=== PATIENT | male | born 1950 | race Caucasian/White ===

== ENCOUNTER 2018-08-23 08:32 | Inpatient (IN) | payer MEDICARE, MEDICAID, SELFPAY ==
[2018-08-23] VITALS (29 sets, daily range): BP systolic 73–121; BP diastolic 42–74; PULSE 80–118; RESP 15–27; TEMP 36.3–39; O2SAT 95–98; BMI 21.1
[2018-08-23] MEDS: SODIUM CHLORIDE 0.9% 788 ML IV (09:21)
[2018-08-23 09:25] LABS: Add Manual Diff / Slide Review NO; Basophils Absolute Auto 100 /uL (0-100); Basophils Percent Auto 0.3 % (0-2); Eosinophils Absolute Auto 0 /uL (0-450); Hematocrit 34.9 % (41-53); Hemoglobin 11.9 g/dL (13.5-17.5); Lymphocytes Absolute Auto 1300 /uL (1100-4500); Lymphocytes Percent Auto 5.3 % (25-40); Mean Corpuscular HGB Conc 34.2 % (30-36); Mean Corpuscular Hemoglobin 28.6 PG (26-34); Mean Corpuscular Volume 83.4 fL (80-100); Monocytes Absolute Auto 2300 /uL (0-900); Monocytes Percent Auto 9.1 % (3-14); Neutrophils Absolute Auto 21200 /uL (1500-7000); Neutrophils Percent Auto 85.3 % (50-75); Platelet Count 309 X10^3/uL (150-400); Red Blood Cell Count 4.18 X10^6/uL (4.5-5.9); Red Cell Distribution Width 16.2 % (11.6-14.8); White Blood Cell Count 24.8 X10^3/uL (4.5-11.0)
[2018-08-23 09:37] LABS: Alanine Aminotransferase 12 IU/L (21-72); Albumin 4.2 g/dL (3.5-5.0); Albumin Globulin Ratio 0.9 (1.0-2.8); Alkaline Phosphatase 68 U/L (38-126); Aspartate Aminotransferase 26 IU/L (17-59); BUN Creatinine Ratio 18.4 (6-22); Bilirubin Total 1.6 mg/dL (0.2-1.3); Blood Urea Nitrogen 35 mg/dL (9-20); Carbon Dioxide 23 mmol/L (22-32); Chloride 96 mmol/L (98-107); Estimated Glomerular Filt Rate 35.5 mL/min (>60); Globulin 4.7 g/dL (1.7-4.1); Glucose 210 mg/dL (80-110); HEMOLYSIS < 15 (0-50); Lipase 105 U/L (23-300); Potassium 3.3 mmol/L (3.4-5.1); Sodium 134 mmol/L (137-145); Total Protein 8.9 g/dL (6.3-8.2)
[2018-08-23 09:38] LABS: Lactate (Lactic Acid) 1.8 mmol/L (0.7-2.1)
[2018-08-23 09:44] LABS: Bacteria Urine Many (>30); RBC Urine 30-100/HPF (0-5/HPF); WBC Urine 30-100/HPF (0-5/HPF)
[2018-08-23 09:45] LABS: Culture Indicated Urine Specimen Cultured
[2018-08-23 09:52] LABS: Procalcitonin 1.33 ng/mL (<0.5)
--- NOTE | 2018-08-23 09:58 | DI.US.S_ITS ---
PROCEDURE: US RENAL COMPLETE INDICATIONS: SEPSIS; HEMATURIA TECHNIQUE: Real-time scanning was performed of the kidneys and bladder, with image documentation. COMPARISON: None. FINDINGS: Kidneys: Kidneys are normal in size. Right kidney measures 11.3 cm long; left kidney measures 11.6 cm long. Right renal cortical thickness is 1.8 cm; left renal cortical thickness is 2.0 cm. Renal cortical echotexture is normal. No hydronephrosis or shadowing nephrolithiasis. No suspicious solid mass lesions. Bladder: Miscellaneous: No free pelvic fluid. IMPRESSION: Unremarkable kidneys. No hydronephrosis or shadowing renal calculi. Dictated by: Tristin Hernandez M.D. on 08/23/2018 at 9:31 Approved by: Tristin Hernandez M.D. on 08/23/2018 at 9:52
--- NOTE | 2018-08-23 10:05 | ED.WEAKNESS ---
HPI - Weakness General Chief complaint: Abdominal Pain Stated complaint: Ulcer & very weak T-3 days Time Seen by Provider: 08/23/18 08:36 Source: patient and family Mode of arrival: wheelchair Limitations: no limitations History of Present Illness HPI Narrative: 67-year-old male former smoker with few medical problems other than chronic pain and peptic ulcer disease presents feeling very weak over the past few days. He has had fever and chills as well as nausea and decreased appetite but little in the way of specific complaints to suggest possible source of infection. He has become so weak that he can barely get out of bed and will not do so as he fears he will fall and hurt himself. He has decreased appetite and nausea as mentioned but denies any chest or abdominal pain. He denies any specific urinary complaints such as frequency, urgency or hematuria. He is a rather poor historian. His primary care provider is in [place]. He denies any loose stool. He denies any bloody stools or dark and tarry stools MD Complaint: generalized weakness Onset (ago): day(s) Duration: constant Location: generalized Migration: none Relieving factors: none Exacerbating factors: none Associated symptoms: fever/chills, loss of appetite and nausea/vomiting Related Data Home Medications Medication Instructions Recorded Confirmed atenolol 0.5 tab PO DAILY 08/23/18 08/23/18 cyanocobalamin (vitamin B-12) 100 mcg PO DAILY 08/23/18 08/23/18 golimumab [Simponi] 0.5 ml SUBCUT DIRECTED 08/23/18 08/23/18 hydrochlorothiazide 1 tab PO DAILY 08/23/18 08/23/18 omega-3 fatty acids 500 mg PO DAILY 08/23/18 08/23/18 oxycodone 5 mg PO QID 08/23/18 08/23/18 pantoprazole 40 mg PO DAILY 08/23/18 08/23/18 pyridoxine (vitamin B6) [Vitamin See Rx Instructions .ROUTE .COMPLEX 08/23/18 08/23/18 B-6] ranitidine HCl 150 mg PO DAILY 08/23/18 08/23/18 Allergies Allergy/AdvReac Type Severity Reaction Status Date / Time No Known Drug Allergies Allergy Verified 08/23/18 10:36 Review of Systems Constitutional Denies chills, Denies fever(s), Denies lethargy and Denies weakness Eyes Denies change in vision, Denies eye discharge, Denies irritation and Denies loss of vision ENT Ears, Nose, Mouth, and Throat: Denies change in voice, Denies neck pain and Denies sore throat Cardiovascular Denies chest pain, Denies irregular heart rhythm, Denies lightheadedness, Denies palpitations, Denies dyspnea, Denies dyspnea on exertion and Denies orthopnea Respiratory Denies cough, Denies dyspnea, Denies dyspnea on exertion and Denies wheezing Gastrointestinal Gastrointestinal: Denies abdominal pain, Denies change in bowel habits, Denies diarrhea, Denies nausea and Denies vomiting Genitourinary Denies hematuria, Denies flank pain, Denies urinary incontinence and Denies urinary urgency Musculoskeletal Denies neck pain Integumentary/Breasts Denies pruritus, Denies erythema, Denies rash and Denies wounds Neurologic Denies confusion, Denies loss of vision and Denies weakness Psychiatric Denies anxiety, Denies confusion, Denies depression, Denies homicidal ideation and Denies suicidal ideation Endocrine Denies palpitations Hematologic/Lymphatic Denies easy bruising Allergic/Immunologic Denies wheezing PENDING SALE TO [facility] Medical History (Updated 08/23/18 @ 14:02 by Aubrey Vaca RN) Ankylosing spondylitis (Acute) Santacruz's palsy (Acute) Chronic pain (Acute) Dental caries (Acute) HTN (hypertension) (Acute) Immunocompromised state (Acute) Insomnia (Acute) Meningitis (Acute) Paroxysmal atrial fibrillation (Acute) Sepsis (Acute) Septic shock (Acute) Skin cancer (Acute) Stupor (Acute) Thrombocytopenia (Acute) Type 2 diabetes mellitus (Acute) Social History household members: family Smoking Status: Current some day smoker alcohol intake: former Social History household members: family Smoking Status: Current some day smoker alcohol intake: former Exam Narrative Exam Narrative: GENERAL: 67-year-old male ill-appearing, poor historian, alert, oriented x3, GCS 15 HEAD: Atraumatic. Normocephalic. No temporal or scalp tenderness. EYES: Pupils equal round and reactive. Extraocular motions intact. No scleral icterus. No injection or drainage. ENT: Dry mucous membranes Nose without bleeding, purulent drainage or septal hematoma. Throat without erythema, tonsillar hypertrophy or exudate. Uvula midline. Airway patent. NECK: Trachea midline. No JVD or lymphadenopathy. Supple, nontender, no meningeal signs. CARDIOVASCULAR: Tachycardic and irregular rhythm without murmurs, gallops, or rubs. RESPIRATORY: Clear to auscultation. Breath sounds equal bilaterally. No wheezes, rales, or rhonchi. GASTROINTESTINAL: Abdomen soft, non-tender, nondistended. No hepato-splenomegaly, or palpable masses. No guarding. EXTREMITIES: No clubbing, cyanosis, or edema. No joint tenderness, effusion, or edema noted. BACK: Nontender without deformity or crepitance. No flank tenderness. NEURO: AOx3. SKIN: tenting, dry. Initial Vital Signs Initial Vital Signs: Vital Signs Temperature 101.2 F H 08/23/18 08:47 Pulse Rate 118 H 08/23/18 08:47 Respiratory Rate 17 08/23/18 08:47 Blood Pressure 103/67 08/23/18 08:47 Pulse Oximetry 97 08/23/18 08:47 Course Orders Ordered: ED Orders 08/23/18 08:44 EKG-12 Lead Stat 08/23/18 09:05 Complete Blood Count AUTO DIFF Stat Comprehensive Metabolic Panel Stat Lactate (Lactic Acid) Stat Lipase Stat Procalcitonin Stat Type and Screen Stat 08/23/18 09:20 Magnesium Stat 08/23/18 09:25 Blood Culture Stat 08/23/18 09:30 Urine Culture Stat Urine Microscopic Stat 08/23/18 09:58 US renal complete Stat 08/23/18 10:33 XR chest 1V Stat 08/23/18 11:24 Education, smoking cessation ONGOING 08/23/18 11:26 Consult to Occupational Therapy Evaluate & Treat Consult to Physical Therapy Evaluate & Treat 08/23/18 12:44 Consult to Dietitian, Adult Routine Acetaminophen (Tylenol) 650 mg PO Q6HR PRN PRN Reason: As Needed for Fever/Mild Pain Last Admin: 08/23/18 12:09 Dose: 650 mg Al Hydrox/Mg Hydrox/Simethicone (Maalox Plus) 30 ml PO Q6HR PRN PRN Reason: Dyspepsia Bisacodyl (Dulcolax) 10 mg PO DAILY PRN PRN Reason: Constipation Calcium Carbonate (Tums) 1,000 mg PO Q4HR PRN PRN Reason: Dyspepsia Heparin Sodium (Porcine) (Heparin) 5,000 unit SUBCUT BID [facility] Meropenem 1 gm/ Sodium (Chloride) 100 mls @ 200 mls/hr IV Q8H MONICA Last Infusion: 08/23/18 14:00 Dose: 0 mls/hr Admin: 08/23/18 13:22 Dose: 200 mls/hr Sodium Chloride (Normal Saline 0.9%) 1,000 mls @ 125 mls/hr IV CONT MONICA Last Infusion: 08/23/18 14:28 Dose: 0 mls/hr Infusion: 08/23/18 14:22 Dose: 999 mls/hr Admin: 08/23/18 13:10 Dose: 125 mls/hr Sodium Chloride (Normal Saline 0.9%) 1,000 mls @ 1,000 mls/hr IV BOLUS ONE Stop: 08/23/18 15:24 Last Admin: 08/23/18 14:29 Dose: 1,000 mls/hr Magnesium Hydroxide (Milk Of Magnesia) 30 ml PO DAILY PRN PRN Reason: Constipation Ondansetron HCl (Zofran) 4 mg IV Q8HR PRN PRN Reason: Nausea And Vomiting Discontinued Medications Sodium Chloride (Normal Saline 0.9%) 500 mls @ 1,000 mls/hr IV BOLUS ONE Stop: 08/23/18 09:13 Last Admin: 08/23/18 09:21 Dose: Not Given Sodium Chloride (Normal Saline 0.9%) 2,364 mls @ 788 mls/hr 30 ml/kg infuse over 3 hr (2364 ml) IV NOW ONE Stop: 08/23/18 12:12 Last Infusion: 08/23/18 12:13 Dose: 0 mls/hr Infusion: 08/23/18 12:12 Dose: 0 mls/hr Infusion: 08/23/18 12:09 Dose: 700 mls/hr Infusion: 08/23/18 11:48 Dose: 0 mls/hr Admin: 08/23/18 09:21 Dose: 788 mls/hr Ceftriaxone Sodium/Dextrose (Rocephin) 1 gm in 50 mls @ 100 mls/hr IV NOW ONE Stop: 08/23/18 10:25 Last Infusion: 08/23/18 10:45 Dose: 0 mls/hr Admin: 08/23/18 10:19 Dose: 100 mls/hr Sodium Chloride (Normal Saline 0.45%) 1,000 mls @ 100 mls/hr IV CONT MONICA Last Infusion: 08/23/18 13:04 Dose: 0 mls/hr Admin: 08/23/18 12:09 Dose: 100 mls/hr Sodium Chloride (Normal Saline 0.9%) 1,000 mls @ 1,000 mls/hr IV BOLUS ONE Stop: 08/23/18 14:01 Last Admin: 08/23/18 13:07 Dose: 1,000 mls/hr Pantoprazole Sodium (Protonix) 40 mg IV NOW ONE Stop: 08/23/18 08:45 Last Admin: 08/23/18 09:21 Dose: Not Given Reevaluation(s) Reevaluation #1: gradual improvement in vital signs Consultations Consultation #1: Dr. Case is happy to accept Vital Signs - 8 hr 08/23/18 08:47 08/23/18 08:48 08/23/18 08:50 Temperature 101.2 F H 101.2 F H Pulse Rate 118 H 118 H 117 H Respiratory Rate 17 17 23 Blood Pressure 103/67 Blood Pressure [Left Arm] 103/67 92/68 Pulse Oximetry 97 97 95 08/23/18 09:10 08/23/18 09:29 08/23/18 09:47 Temperature Pulse Rate 111 H 109 H 113 H Respiratory Rate 22 27 H 23 Blood Pressure Blood Pressure [Left Arm] 86/67 L 87/65 L 86/72 L Pulse Oximetry 96 95 95 08/23/18 10:08 08/23/18 10:37 08/23/18 11:09 Temperature 99.4 F Pulse Rate 98 H 103 H 94 H Respiratory Rate 15 16 20 Blood Pressure Blood Pressure [Left Arm] 94/70 93/61 93/70 Pulse Oximetry 98 97 97 08/23/18 11:32 08/23/18 11:53 08/23/18 12:09 Temperature 101.6 F H Pulse Rate 103 H 103 H Respiratory Rate 20 20 Blood Pressure 91/63 Blood Pressure [Left Arm] 91/68 Pulse Oximetry 98 98 08/23/18 12:15 08/23/18 13:00 08/23/18 13:13 Temperature 101.6 F H 102.2 F H 99.4 F Pulse Rate 98 H 105 H Respiratory Rate 20 Blood Pressure 114/74 73/46 L Blood Pressure [Left Arm] Pulse Oximetry 98 98 08/23/18 13:14 08/23/18 13:19 08/23/18 13:49 Temperature 99.4 F 98.2 F Pulse Rate 95 H 92 H Respiratory Rate Blood Pressure 80/47 L 74/50 L Blood Pressure [Left Arm] Pulse Oximetry 08/23/18 14:09 08/23/18 14:23 08/23/18 14:35 Temperature Pulse Rate 86 98 H 89 Respiratory Rate Blood Pressure 77/48 L 81/49 L 84/59 L Blood Pressure [Left Arm] Pulse Oximetry 08/23/18 14:38 Temperature Pulse Rate Respiratory Rate Blood Pressure 92/58 L Blood Pressure [Left Arm] Pulse Oximetry MDM - Weakness Medical Records Attestation: I reviewed the patient's medical records. Lab Data Result diagrams: 08/23/18 09:05 08/23/18 09:05 Lab Results 08/23/18 08/23/18 08/23/18 Range/Units 09:05 09:05 09:05 WBC 24.8 H (4.5-11.0) X10^3/uL RBC 4.18 L (4.5-5.9) X10^6/uL Hgb 11.9 L (13.5-17.5) g/dL Hct 34.9 L (41-53) % MCV 83.4 (80-100) fL MCH 28.6 (26-34) PG MCHC 34.2 (30-36) % RDW 16.2 H (11.6-14.8) % Plt Count 309 (150-400) X10^3/uL Neut % (Auto) 85.3 H (50-75) % Lymph % (Auto) 5.3 L (25-40) % [place] % (Auto) 9.1 (3-14) % Eos % (Auto) 0.0 L (2-4) % Baso % (Auto) 0.3 (0-2) % Neut # (Auto) 70916 H (7694-9996) /uL Lymph # (Auto) 1300 (8608-8049) /uL [place] # (Auto) 2300 H (0-900) /uL Eos # (Auto) 0 (0-450) /uL Baso # (Auto) 100 (0-100) /uL Sodium 134 L (137-145) mmol/L Potassium 3.3 L (3.4-5.1) mmol/L Chloride 96 L (98-107) mmol/L Carbon Dioxide 23 (22-32) mmol/L BUN 35 H (9-20) mg/dL Creatinine 1.90 H (0.66-1.25) mg/dL Estimated GFR 35.5 L (>60) mL/min BUN/Creatinine Ratio 18.4 (6-22) Glucose 210 H (80-110) mg/dL Lactate (0.7-2.1) mmol/L Calcium 9.0 (8.4-10.2) mg/dL Magnesium (1.6-2.3) mg/dL Total Bilirubin 1.6 H (0.2-1.3) mg/dL AST 26 (17-59) IU/L ALT 12 L (21-72) IU/L Alkaline Phosphatase 68 (38-126) U/L Total Protein 8.9 H (6.3-8.2) g/dL Albumin 4.2 (3.5-5.0) g/dL Globulin 4.7 H (1.7-4.1) g/dL Albumin/Globulin Ratio 0.9 L (1.0-2.8) Lipase 105 (23-300) U/L Procalcitonin (<0.5) ng/mL Urine RBC (0-5/HPF) Urine WBC (0-5/HPF) Urine Bacteria (None) Ur Culture Indicated? Blood Type O Positive Antibody Screen Negative 08/23/18 08/23/18 08/23/18 Range/Units 09:05 09:05 09:20 WBC (4.5-11.0) X10^3/uL RBC (4.5-5.9) X10^6/uL Hgb (13.5-17.5) g/dL Hct (41-53) % MCV (80-100) fL MCH (26-34) PG MCHC (30-36) % RDW (11.6-14.8) % Plt Count (150-400) X10^3/uL Neut % (Auto) (50-75) % Lymph % (Auto) (25-40) % [place] % (Auto) (3-14) % Eos % (Auto) (2-4) % Baso % (Auto) (0-2) % Neut # (Auto) (1270-6605) /uL Lymph # (Auto) (7233-7962) /uL [place] # (Auto) (0-900) /uL Eos # (Auto) (0-450) /uL Baso # (Auto) (0-100) /uL Sodium (137-145) mmol/L Potassium (3.4-5.1) mmol/L Chloride (98-107) mmol/L Carbon Dioxide (22-32) mmol/L BUN (9-20) mg/dL Creatinine (0.66-1.25) mg/dL Estimated GFR (>60) mL/min BUN/Creatinine Ratio (6-22) Glucose (80-110) mg/dL Lactate 1.8 (0.7-2.1) mmol/L Calcium (8.4-10.2) mg/dL Magnesium 1.8 (1.6-2.3) mg/dL Total Bilirubin (0.2-1.3) mg/dL AST (17-59) IU/L ALT (21-72) IU/L Alkaline Phosphatase (38-126) U/L Total Protein (6.3-8.2) g/dL Albumin (3.5-5.0) g/dL Globulin (1.7-4.1) g/dL Albumin/Globulin Ratio (1.0-2.8) Lipase (23-300) U/L Procalcitonin 1.33 H (<0.5) ng/mL Urine RBC (0-5/HPF) Urine WBC (0-5/HPF) Urine Bacteria (None) Ur Culture Indicated? Blood Type Antibody Screen 08/23/18 Range/Units 09:30 WBC (4.5-11.0) X10^3/uL RBC (4.5-5.9) X10^6/uL Hgb (13.5-17.5) g/dL Hct (41-53) % MCV (80-100) fL MCH (26-34) PG MCHC (30-36) % RDW (11.6-14.8) % Plt Count (150-400) X10^3/uL Neut % (Auto) (50-75) % Lymph % (Auto) (25-40) % [place] % (Auto) (3-14) % Eos % (Auto) (2-4) % Baso % (Auto) (0-2) % Neut # (Auto) (8393-6365) /uL Lymph # (Auto) (6494-5144) /uL [place] # (Auto) (0-900) /uL Eos # (Auto) (0-450) /uL Baso # (Auto) (0-100) /uL Sodium (137-145) mmol/L Potassium (3.4-5.1) mmol/L Chloride (98-107) mmol/L Carbon Dioxide (22-32) mmol/L BUN (9-20) mg/dL Creatinine (0.66-1.25) mg/dL Estimated GFR (>60) mL/min BUN/Creatinine Ratio (6-22) Glucose (80-110) mg/dL Lactate (0.7-2.1) mmol/L Calcium (8.4-10.2) mg/dL Magnesium (1.6-2.3) mg/dL Total Bilirubin (0.2-1.3) mg/dL AST (17-59) IU/L ALT (21-72) IU/L Alkaline Phosphatase (38-126) U/L Total Protein (6.3-8.2) g/dL Albumin (3.5-5.0) g/dL Globulin (1.7-4.1) g/dL Albumin/Globulin Ratio (1.0-2.8) Lipase (23-300) U/L Procalcitonin (<0.5) ng/mL Urine RBC 30-100/hpf H (0-5/HPF) Urine WBC 30-100/hpf H (0-5/HPF) Urine Bacteria Many (>30) H (None) Ur Culture Indicated? Specimen cultured Blood Type Antibody Screen Urine Dip Bedside Urine Glucose Negative Bedside Urine Bilirubin - Negative Bedside Urine Ketone - Negative Urine Specific [place] 1.020 Bedside Urine Occult Blood +++ Bedside Urine pH 6.0 Bedside Urine Protein ++ 100 Bedside Urine Urobilinogen - Negative Bedside Urine Nitrite - Negative Bedside Urine Leukocytes +++ 500 Esterase Imaging Data US - abdomen: Radiologist's impression: [address] [address] Ultrasound Report Signed Patient: Richard Hernandez JMR#: [id number] : [id number] Age/Sex: 67 / MDate of Service: 08/23/18 Loc: ED Accession Number: [id number] Procedure: US renal complete Ordering Provider: Jairo Brar D.O. PROCEDURE: US RENAL COMPLETE INDICATIONS: SEPSIS; HEMATURIA TECHNIQUE: Real-time scanning was performed of the kidneys and bladder, with image documentation. COMPARISON: None. FINDINGS: Kidneys: Kidneys are normal in size. Right kidney measures 11.3 cm long; left kidney measures 11.6 cm long. Right renal cortical thickness is 1.8 cm; left renal cortical thickness is 2.0 cm. Renal cortical echotexture is normal. No hydronephrosis or shadowing nephrolithiasis. No suspicious solid mass lesions. Bladder: Miscellaneous: No free pelvic fluid. IMPRESSION: Unremarkable kidneys. No hydronephrosis or shadowing renal calculi. Dictated by: Tristin Hernandez M.D. on 08/23/2018 at 9:31 Approved by: Tristin Hernandez M.D. on 08/23/2018 at 9:52 Chest x-ray: Radiologist's impression: [place] [address] XRay Report Signed Patient: Richard Hernandez R#: [id number] : [id number] Age/Sex: 67 / MDate of Service: 08/23/18 Loc: ED Accession Number: [id number] Procedure: XR chest 1V Ordering Provider: Jairo Brar D.O. PROCEDURE: XR CHEST 1V INDICATIONS: chest pain TECHNIQUE: One view of the chest was acquired. COMPARISON: [facility], , CHEST 2 VIEW, 10/25/2010, 11:31. FINDINGS: Surgical changes and devices: None. Lungs and pleura: Lungs are clear. No pleural effusions or pneumothorax. Mediastinum: Mediastinal contours appear normal. Heart size is normal. Bones and chest wall: No suspicious bony lesions. Overlying soft tissues appear unremarkable. IMPRESSION: No acute process. Dictated by: Lili Rowell M.D. on 08/23/2018 at 10:58 Approved by: Lili Rowell M.D. on 08/23/2018 at 10:59 ECG Data Attestation: I personally reviewed and interpreted this ECG as follows: Prior ECG tracings: not available for review Interpretation: newly discovered Afib without ischemic change. Rate 115s Discharge Plan Departure Patient Disposition: Admitted As Inpatient Clinical Impression: Sepsis secondary to UTI, Acute kidney injury Atrial fibrillation Qualifiers: Atrial fibrillation type: unspecified Qualified Code(s): I48.91 - Unspecified atrial fibrillation Discharge Date/Time: 08/23/18 11:54 Interventions: ED Discharge Assessment Last Done: 08/23/18 11:53 Admit Date/Time: 08/23/18 11:13 Admit Provider: Purnima Case
--- NOTE | 2018-08-23 10:09 | ED_ITS ---
HPI - Weakness General Chief complaint: Abdominal Pain Stated complaint: Ulcer & very weak T-3 days Time Seen by Provider: 08/23/18 08:36 Source: patient and family Mode of arrival: wheelchair Limitations: no limitations History of Present Illness HPI Narrative: 67-year-old male former smoker with few medical problems other than chronic pain and peptic ulcer disease presents feeling very weak over the past few days. He has had fever and chills as well as nausea and decreased appetite but little in the way of specific complaints to suggest possible source of infection. He has become so weak that he can barely get out of bed and will not do so as he fears he will fall and hurt himself. He has decreased appetite and nausea as mentioned but denies any chest or abdominal pain. He denies any specific urinary complaints such as frequency, urgency or hematuria. He is a rather poor historian. His primary care provider is in [place]. He denies any loose stool. He denies any bloody stools or dark and tarry stools MD Complaint: generalized weakness Onset (ago): day(s) Duration: constant Location: generalized Migration: none Relieving factors: none Exacerbating factors: none Associated symptoms: fever/chills, loss of appetite and nausea/vomiting Related Data Home Medications Medication Instructions Recorded Confirmed atenolol 0.5 tab PO DAILY 08/23/18 08/23/18 cyanocobalamin (vitamin B-12) 100 mcg PO DAILY 08/23/18 08/23/18 golimumab [Simponi] 0.5 ml SUBCUT DIRECTED 08/23/18 08/23/18 hydrochlorothiazide 1 tab PO DAILY 08/23/18 08/23/18 omega-3 fatty acids 500 mg PO DAILY 08/23/18 08/23/18 oxycodone 5 mg PO QID 08/23/18 08/23/18 pantoprazole 40 mg PO DAILY 08/23/18 08/23/18 pyridoxine (vitamin B6) [Vitamin See Rx Instructions .ROUTE .COMPLEX 08/23/18 08/23/18 B-6] ranitidine HCl 150 mg PO DAILY 08/23/18 08/23/18 Allergies Allergy/AdvReac Type Severity Reaction Status Date / Time No Known Drug Allergies Allergy Verified 08/23/18 10:36 Review of Systems Constitutional Denies chills, Denies fever(s), Denies lethargy and Denies weakness Eyes Denies change in vision, Denies eye discharge, Denies irritation and Denies loss of vision ENT Ears, Nose, Mouth, and Throat: Denies change in voice, Denies neck pain and Denies sore throat Cardiovascular Denies chest pain, Denies irregular heart rhythm, Denies lightheadedness, Denies palpitations, Denies dyspnea, Denies dyspnea on exertion and Denies orthopnea Respiratory Denies cough, Denies dyspnea, Denies dyspnea on exertion and Denies wheezing Gastrointestinal Gastrointestinal: Denies abdominal pain, Denies change in bowel habits, Denies diarrhea, Denies nausea and Denies vomiting Genitourinary Denies hematuria, Denies flank pain, Denies urinary incontinence and Denies urinary urgency Musculoskeletal Denies neck pain Integumentary/Breasts Denies pruritus, Denies erythema, Denies rash and Denies wounds Neurologic Denies confusion, Denies loss of vision and Denies weakness Psychiatric Denies anxiety, Denies confusion, Denies depression, Denies homicidal ideation and Denies suicidal ideation Endocrine Denies palpitations Hematologic/Lymphatic Denies easy bruising Allergic/Immunologic Denies wheezing [facility] Medical History (Updated 08/23/18 @ 14:02 by Aubrey Vaca RN) Ankylosing spondylitis (Acute) Santacruz's palsy (Acute) Chronic pain (Acute) Dental caries (Acute) HTN (hypertension) (Acute) Immunocompromised state (Acute) Insomnia (Acute) Meningitis (Acute) Paroxysmal atrial fibrillation (Acute) Sepsis (Acute) Septic shock (Acute) Skin cancer (Acute) Stupor (Acute) Thrombocytopenia (Acute) Type 2 diabetes mellitus (Acute) Social History household members: family Smoking Status: Current some day smoker alcohol intake: former Social History household members: family Smoking Status: Current some day smoker alcohol intake: former Exam Narrative Exam Narrative: GENERAL: 67-year-old male ill-appearing, poor historian, alert, oriented x3, GCS 15 HEAD: Atraumatic. Normocephalic. No temporal or scalp tenderness. EYES: Pupils equal round and reactive. Extraocular motions intact. No scleral icterus. No injection or drainage. ENT: Dry mucous membranes Nose without bleeding, purulent drainage or septal hematoma. Throat without erythema, tonsillar hypertrophy or exudate. Uvula midline. Airway patent. NECK: Trachea midline. No JVD or lymphadenopathy. Supple, nontender, no meningeal signs. CARDIOVASCULAR: Tachycardic and irregular rhythm without murmurs, gallops, or rubs. RESPIRATORY: Clear to auscultation. Breath sounds equal bilaterally. No wheezes, rales, or rhonchi. GASTROINTESTINAL: Abdomen soft, non-tender, nondistended. No hepato- splenomegaly, or palpable masses. No guarding. EXTREMITIES: No clubbing, cyanosis, or edema. No joint tenderness, effusion, or edema noted. BACK: Nontender without deformity or crepitance. No flank tenderness. NEURO: AOx3. SKIN: tenting, dry. Initial Vital Signs Initial Vital Signs: Vital Signs Temperature 101.2 F H 08/23/18 08:47 Pulse Rate 118 H 08/23/18 08:47 Respiratory Rate 17 08/23/18 08:47 Blood Pressure 103/67 08/23/18 08:47 Pulse Oximetry 97 08/23/18 08:47 Course Orders Ordered: ED Orders 08/23/18 08:44 EKG-12 Lead Stat 08/23/18 09:05 Complete Blood Count AUTO DIFF Stat Comprehensive Metabolic Panel Stat Lactate (Lactic Acid) Stat Lipase Stat Procalcitonin Stat Type and Screen Stat 08/23/18 09:20 Magnesium Stat 08/23/18 09:25 Blood Culture Stat 08/23/18 09:30 Urine Culture Stat Urine Microscopic Stat 08/23/18 09:58 US renal complete Stat 08/23/18 10:33 XR chest 1V Stat 08/23/18 11:24 Education, smoking cessation ONGOING 08/23/18 11:26 Consult to Occupational Therapy Evaluate & Treat Consult to Physical Therapy Evaluate & Treat 08/23/18 12:44 Consult to Dietitian, Adult Routine Acetaminophen (Tylenol) 650 mg PO Q6HR PRN PRN Reason: As Needed for Fever/Mild Pain Last Admin: 08/23/18 12:09 Dose: 650 mg Al Hydrox/Mg Hydrox/Simethicone (Maalox Plus) 30 ml PO Q6HR PRN PRN Reason: Dyspepsia Bisacodyl (Dulcolax) 10 mg PO DAILY PRN PRN Reason: Constipation Calcium Carbonate (Tums) 1,000 mg PO Q4HR PRN PRN Reason: Dyspepsia Heparin Sodium (Porcine) (Heparin) 5,000 unit SUBCUT BID [facility] Meropenem 1 gm/ Sodium (Chloride) 100 mls @ 200 mls/hr IV Q8H MONICA Last Infusion: 08/23/18 14:00 Dose: 0 mls/hr Admin: 08/23/18 13:22 Dose: 200 mls/hr Sodium Chloride (Normal Saline 0.9%) 1,000 mls @ 125 mls/hr IV CONT MONICA Last Infusion: 08/23/18 14:28 Dose: 0 mls/hr Infusion: 08/23/18 14:22 Dose: 999 mls/hr Admin: 08/23/18 13:10 Dose: 125 mls/hr Sodium Chloride (Normal Saline 0.9%) 1,000 mls @ 1,000 mls/hr IV BOLUS ONE Stop: 08/23/18 15:24 Last Admin: 08/23/18 14:29 Dose: 1,000 mls/hr Magnesium Hydroxide (Milk Of Magnesia) 30 ml PO DAILY PRN PRN Reason: Constipation Ondansetron HCl (Zofran) 4 mg IV Q8HR PRN PRN Reason: Nausea And Vomiting Discontinued Medications Sodium Chloride (Normal Saline 0.9%) 500 mls @ 1,000 mls/hr IV BOLUS ONE Stop: 08/23/18 09:13 Last Admin: 08/23/18 09:21 Dose: Not Given Sodium Chloride (Normal Saline 0.9%) 2,364 mls @ 788 mls/hr 30 ml/kg infuse over 3 hr (2364 ml) IV NOW ONE Stop: 08/23/18 12:12 Last Infusion: 08/23/18 12:13 Dose: 0 mls/hr Infusion: 08/23/18 12:12 Dose: 0 mls/hr Infusion: 08/23/18 12:09 Dose: 700 mls/hr Infusion: 08/23/18 11:48 Dose: 0 mls/hr Admin: 08/23/18 09:21 Dose: 788 mls/hr Ceftriaxone Sodium/Dextrose (Rocephin) 1 gm in 50 mls @ 100 mls/hr IV NOW ONE Stop: 08/23/18 10:25 Last Infusion: 08/23/18 10:45 Dose: 0 mls/hr Admin: 08/23/18 10:19 Dose: 100 mls/hr Sodium Chloride (Normal Saline 0.45%) 1,000 mls @ 100 mls/hr IV CONT MONICA Last Infusion: 08/23/18 13:04 Dose: 0 mls/hr Admin: 08/23/18 12:09 Dose: 100 mls/hr Sodium Chloride (Normal Saline 0.9%) 1,000 mls @ 1,000 mls/hr IV BOLUS ONE Stop: 08/23/18 14:01 Last Admin: 08/23/18 13:07 Dose: 1,000 mls/hr Pantoprazole Sodium (Protonix) 40 mg IV NOW ONE Stop: 08/23/18 08:45 Last Admin: 08/23/18 09:21 Dose: Not Given Reevaluation(s) Reevaluation #1: gradual improvement in vital signs Consultations Consultation #1: Dr. Case is happy to accept Vital Signs - 8 hr 08/23/18 08:47 08/23/18 08:48 08/23/18 08:50 Temperature 101.2 F H 101.2 F H Pulse Rate 118 H 118 H 117 H Respiratory Rate 17 17 23 Blood Pressure 103/67 Blood Pressure [Left Arm] 103/67 92/68 Pulse Oximetry 97 97 95 08/23/18 09:10 08/23/18 09:29 08/23/18 09:47 Temperature Pulse Rate 111 H 109 H 113 H Respiratory Rate 22 27 H 23 Blood Pressure Blood Pressure [Left Arm] 86/67 L 87/65 L 86/72 L Pulse Oximetry 96 95 95 08/23/18 10:08 08/23/18 10:37 08/23/18 11:09 Temperature 99.4 F Pulse Rate 98 H 103 H 94 H Respiratory Rate 15 16 20 Blood Pressure Blood Pressure [Left Arm] 94/70 93/61 93/70 Pulse Oximetry 98 97 97 08/23/18 11:32 08/23/18 11:53 08/23/18 12:09 Temperature 101.6 F H Pulse Rate 103 H 103 H Respiratory Rate 20 20 Blood Pressure 91/63 Blood Pressure [Left Arm] 91/68 Pulse Oximetry 98 98 08/23/18 12:15 08/23/18 13:00 08/23/18 13:13 Temperature 101.6 F H 102.2 F H 99.4 F Pulse Rate 98 H 105 H Respiratory Rate 20 Blood Pressure 114/74 73/46 L Blood Pressure [Left Arm] Pulse Oximetry 98 98 08/23/18 13:14 08/23/18 13:19 08/23/18 13:49 Temperature 99.4 F 98.2 F Pulse Rate 95 H 92 H Respiratory Rate Blood Pressure 80/47 L 74/50 L Blood Pressure [Left Arm] Pulse Oximetry 08/23/18 14:09 08/23/18 14:23 08/23/18 14:35 Temperature Pulse Rate 86 98 H 89 Respiratory Rate Blood Pressure 77/48 L 81/49 L 84/59 L Blood Pressure [Left Arm] Pulse Oximetry 08/23/18 14:38 Temperature Pulse Rate Respiratory Rate Blood Pressure 92/58 L Blood Pressure [Left Arm] Pulse Oximetry MDM - Weakness Medical Records Attestation: I reviewed the patient's medical records. Lab Data Result diagrams: 08/23/18 09:05 08/23/18 09:05 Lab Results 08/23/18 08/23/18 08/23/18 Range/Units 09:05 09:05 09:05 WBC 24.8 H (4.5-11.0) X10^3/uL RBC 4.18 L (4.5-5.9) X10^6/uL Hgb 11.9 L (13.5-17.5) g/dL Hct 34.9 L (41-53) % MCV 83.4 (80-100) fL MCH 28.6 (26-34) PG MCHC 34.2 (30-36) % RDW 16.2 H (11.6-14.8) % Plt Count 309 (150-400) X10^3/uL Neut % (Auto) 85.3 H (50-75) % Lymph % (Auto) 5.3 L (25-40) % [place] % (Auto) 9.1 (3-14) % Eos % (Auto) 0.0 L (2-4) % Baso % (Auto) 0.3 (0-2) % Neut # (Auto) 89685 H (9634-0110) /uL Lymph # (Auto) 1300 (7271-7031) /uL [place] # (Auto) 2300 H (0-900) /uL Eos # (Auto) 0 (0-450) /uL Baso # (Auto) 100 (0-100) /uL Sodium 134 L (137-145) mmol/L Potassium 3.3 L (3.4-5.1) mmol/L Chloride 96 L (98-107) mmol/L Carbon Dioxide 23 (22-32) mmol/L BUN 35 H (9-20) mg/dL Creatinine 1.90 H (0.66-1.25) mg/dL Estimated GFR 35.5 L (>60) mL/min BUN/Creatinine Ratio 18.4 (6-22) Glucose 210 H (80-110) mg/dL Lactate (0.7-2.1) mmol/L Calcium 9.0 (8.4-10.2) mg/dL Magnesium (1.6-2.3) mg/dL Total Bilirubin 1.6 H (0.2-1.3) mg/dL AST 26 (17-59) IU/L ALT 12 L (21-72) IU/L Alkaline Phosphatase 68 (38-126) U/L Total Protein 8.9 H (6.3-8.2) g/dL Albumin 4.2 (3.5-5.0) g/dL Globulin 4.7 H (1.7-4.1) g/dL Albumin/Globulin Ratio 0.9 L (1.0-2.8) Lipase 105 (23-300) U/L Procalcitonin (<0.5) ng/mL Urine RBC (0-5/HPF) Urine WBC (0-5/HPF) Urine Bacteria (None) Ur Culture Indicated? Blood Type O Positive Antibody Screen Negative 08/23/18 08/23/18 08/23/18 Range/Units 09:05 09:05 09:20 WBC (4.5-11.0) X10^3/uL RBC (4.5-5.9) X10^6/uL Hgb (13.5-17.5) g/dL Hct (41-53) % MCV (80-100) fL MCH (26-34) PG MCHC (30-36) % RDW (11.6-14.8) % Plt Count (150-400) X10^3/uL Neut % (Auto) (50-75) % Lymph % (Auto) (25-40) % [place] % (Auto) (3-14) % Eos % (Auto) (2-4) % Baso % (Auto) (0-2) % Neut # (Auto) (2807-5278) /uL Lymph # (Auto) (3803-3769) /uL [place] # (Auto) (0-900) /uL Eos # (Auto) (0-450) /uL Baso # (Auto) (0-100) /uL Sodium (137-145) mmol/L Potassium (3.4-5.1) mmol/L Chloride (98-107) mmol/L Carbon Dioxide (22-32) mmol/L BUN (9-20) mg/dL Creatinine (0.66-1.25) mg/dL Estimated GFR (>60) mL/min BUN/Creatinine Ratio (6-22) Glucose (80-110) mg/dL Lactate 1.8 (0.7-2.1) mmol/L Calcium (8.4-10.2) mg/dL Magnesium 1.8 (1.6-2.3) mg/dL Total Bilirubin (0.2-1.3) mg/dL AST (17-59) IU/L ALT (21-72) IU/L Alkaline Phosphatase (38-126) U/L Total Protein (6.3-8.2) g/dL Albumin (3.5-5.0) g/dL Globulin (1.7-4.1) g/dL Albumin/Globulin Ratio (1.0-2.8) Lipase (23-300) U/L Procalcitonin 1.33 H (<0.5) ng/mL Urine RBC (0-5/HPF) Urine WBC (0-5/HPF) Urine Bacteria (None) Ur Culture Indicated? Blood Type Antibody Screen 08/23/18 Range/Units 09:30 WBC (4.5-11.0) X10^3/uL RBC (4.5-5.9) X10^6/uL Hgb (13.5-17.5) g/dL Hct (41-53) % MCV (80-100) fL MCH (26-34) PG MCHC (30-36) % RDW (11.6-14.8) % Plt Count (150-400) X10^3/uL Neut % (Auto) (50-75) % Lymph % (Auto) (25-40) % [place] % (Auto) (3-14) % Eos % (Auto) (2-4) % Baso % (Auto) (0-2) % Neut # (Auto) (2810-5853) /uL Lymph # (Auto) (9443-3794) /uL [place] # (Auto) (0-900) /uL Eos # (Auto) (0-450) /uL Baso # (Auto) (0-100) /uL Sodium (137-145) mmol/L Potassium (3.4-5.1) mmol/L Chloride (98-107) mmol/L Carbon Dioxide (22-32) mmol/L BUN (9-20) mg/dL Creatinine (0.66-1.25) mg/dL Estimated GFR (>60) mL/min BUN/Creatinine Ratio (6-22) Glucose (80-110) mg/dL Lactate (0.7-2.1) mmol/L Calcium (8.4-10.2) mg/dL Magnesium (1.6-2.3) mg/dL Total Bilirubin (0.2-1.3) mg/dL AST (17-59) IU/L ALT (21-72) IU/L Alkaline Phosphatase (38-126) U/L Total Protein (6.3-8.2) g/dL Albumin (3.5-5.0) g/dL Globulin (1.7-4.1) g/dL Albumin/Globulin Ratio (1.0-2.8) Lipase (23-300) U/L Procalcitonin (<0.5) ng/mL Urine RBC 30-100/hpf H (0-5/HPF) Urine WBC 30-100/hpf H (0-5/HPF) Urine Bacteria Many (>30) H (None) Ur Culture Indicated? Specimen cultured Blood Type Antibody Screen Urine Dip Bedside Urine Glucose Negative Bedside Urine Bilirubin - Negative Bedside Urine Ketone - Negative Urine Specific [place] 1.020 Bedside Urine Occult Blood +++ Bedside Urine pH 6.0 Bedside Urine Protein ++ 100 Bedside Urine Urobilinogen - Negative Bedside Urine Nitrite - Negative Bedside Urine Leukocytes +++ 500 Esterase Imaging Data US - abdomen: Radiologist's impression: [address] [address] Ultrasound Report Signed Patient: Richard Hernandez JMR#: [id number] : [id number] Age/Sex: 67 / MDate of Service: 08/23/18 Loc: ED Accession Number: [id number] Procedure: US renal complete Ordering Provider: Jairo Brar D.O. PROCEDURE: US RENAL COMPLETE INDICATIONS: SEPSIS; HEMATURIA TECHNIQUE: Real-time scanning was performed of the kidneys and bladder, with image documentation. COMPARISON: None. FINDINGS: Kidneys: Kidneys are normal in size. Right kidney measures 11.3 cm long; left kidney measures 11.6 cm long. Right renal cortical thickness is 1.8 cm; left renal cortical thickness is 2.0 cm. Renal cortical echotexture is normal. No hydronephrosis or shadowing nephrolithiasis. No suspicious solid mass lesions. Bladder: Miscellaneous: No free pelvic fluid. IMPRESSION: Unremarkable kidneys. No hydronephrosis or shadowing renal calculi. Dictated by: Tristin Hernandez M.D. on 08/23/2018 at 9:31 Approved by: Tristin Hernandez M.D. on 08/23/2018 at 9:52 Chest x-ray: Radiologist's impression: [place] [address] XRay Report Signed Patient: Richard Hernandez R#: [id number] : [id number] Age/Sex: 67 / MDate of Service: 08/23/18 Loc: ED Accession Number: [id number] Procedure: XR chest 1V Ordering Provider: Jairo Brar D.O. PROCEDURE: XR CHEST 1V INDICATIONS: chest pain TECHNIQUE: One view of the chest was acquired. COMPARISON: [facility], , CHEST 2 VIEW, 10/25/2010, 11:31. FINDINGS: Surgical changes and devices: None. Lungs and pleura: Lungs are clear. No pleural effusions or pneumothorax. Mediastinum: Mediastinal contours appear normal. Heart size is normal. Bones and chest wall: No suspicious bony lesions. Overlying soft tissues appear unremarkable. IMPRESSION: No acute process. Dictated by: Lili Rowell M.D. on 08/23/2018 at 10:58 Approved by: Lili Rowell M.D. on 08/23/2018 at 10:59 ECG Data Attestation: I personally reviewed and interpreted this ECG as follows: Prior ECG tracings: not available for review Interpretation: newly discovered Afib without ischemic change. Rate 115s Discharge Plan Departure Patient Disposition: Admitted As Inpatient Clinical Impression: Sepsis secondary to UTI, Acute kidney injury Atrial fibrillation Qualifiers: Atrial fibrillation type: unspecified Qualified Code(s): I48.91 - Unspecified atrial fibrillation Discharge Date/Time: 08/23/18 11:54 Interventions: ED Discharge Assessment Last Done: 08/23/18 11:53 Admit Date/Time: 08/23/18 11:13 Admit Provider: Purnima Case
[2018-08-23] MEDS: CEFTRIAXONE 1 GM/50 ML FROZ.PIGGY IV (10:19)
--- NOTE | 2018-08-23 10:33 | DI.RAD.S_ITS ---
PROCEDURE: XR CHEST 1V INDICATIONS: chest pain TECHNIQUE: One view of the chest was acquired. COMPARISON: [facility], , CHEST 2 VIEW, 10/25/2010, 11:31. FINDINGS: Surgical changes and devices: None. Lungs and pleura: Lungs are clear. No pleural effusions or pneumothorax. Mediastinum: Mediastinal contours appear normal. Heart size is normal. Bones and chest wall: No suspicious bony lesions. Overlying soft tissues appear unremarkable. IMPRESSION: No acute process. Dictated by: Lili Rowell M.D. on 08/23/2018 at 10:58 Approved by: Lili Rowell M.D. on 08/23/2018 at 10:59
--- NOTE | 2018-08-23 11:23 | PC.NURSE ---
BP 86/63 while sleeping
[2018-08-23 11:56] LABS: Magnesium 1.8 mg/dL (1.6-2.3)
[2018-08-23] MEDS: SODIUM CHLORIDE 0.45% 1,000 ML 100 ML IV (12:09)
[2018-08-23] MEDS: ACETAMINOPHEN 325 MG TABLET 650 MG PO (12:09)
--- NOTE | 2018-08-23 12:55 | PC.ADMIT ---
Addendum entered by Aubrey Vaca R.N. 08/23/18 14:32: patient continues with urgency and freq and sm amt uop. had 200cc out twice, then 50cc's. still feels urge. bladder scanned. zero pvr. Addendum entered by Aubrey Vaca R.N. 08/23/18 14:24: md notified that bp remains low after 1L/bolus. 81/49. hr 98. md states to run another bolus. Addendum entered by Aubrey Vaca R.N. 08/23/18 13:31: TEMP IMPROVED TO 99.4. PATIENT STATES HE FINALLY DOESN'T HAVE THE CHILLS ANY LONGER. BP REMAINS LOW 80/47. NS BOLUS AND NEW IV ABX ORDERED INFUSING. Original Note: [phone] Admission Note: The patient,Richard Hernandez,67 y/o, was given written information regarding hospital policies, unit procedures and contact persons. Patient's smoking status: Current some day smoker. Vital Signs - 8 hr 08/23/18 08:47 08/23/18 08:48 08/23/18 08:50 Temperature 101.2 F H 101.2 F H Pulse Rate 118 H 118 H 117 H Respiratory Rate 17 17 23 Blood Pressure 103/67 Blood Pressure [Left Arm] 103/67 92/68 Pulse Oximetry 97 97 95 08/23/18 09:10 08/23/18 09:29 08/23/18 09:47 Temperature Pulse Rate 111 H 109 H 113 H Respiratory Rate 22 27 H 23 Blood Pressure Blood Pressure [Left Arm] 86/67 L 87/65 L 86/72 L Pulse Oximetry 96 95 95 08/23/18 10:08 08/23/18 10:37 08/23/18 11:09 Temperature 99.4 F Pulse Rate 98 H 103 H 94 H Respiratory Rate 15 16 20 Blood Pressure Blood Pressure [Left Arm] 94/70 93/61 93/70 Pulse Oximetry 98 97 97 08/23/18 11:32 08/23/18 11:53 08/23/18 12:09 Temperature 101.6 F H Pulse Rate 103 H 103 H Respiratory Rate 20 20 Blood Pressure 91/63 Blood Pressure [Left Arm] 91/68 Pulse Oximetry 98 98 08/23/18 12:15 Temperature 101.6 F H Pulse Rate 98 H Respiratory Rate 20 Blood Pressure 114/74 Blood Pressure [Left Arm] Pulse Oximetry 98 PATIENT ADMITTED TO 220. FEBRILE. GIVEN TYLENOL. ADMISSION ASSESSMENTS COMPLETED. RECHECKED TEMP. 102.2. RECHECKED BP 73/46. MD NOTIFIED. 1L NS BOLUS STARTED PER VERBAL ORDER.
[2018-08-23] MEDS: SODIUM CHLORIDE 0.9% 1,000 ML 1000 ML IV ×3 (13:07→16:07)
[2018-08-23] MEDS: SODIUM CHLORIDE 0.9% 1,000 ML 125 ML IV (13:10)
[2018-08-23] MEDS: MEROPENEM 1 GM in SODIUM CHLORIDE 0.9% 100 ML 200 ML IV (13:22)
--- NOTE | 2018-08-23 15:04 | PM.HP.1 ---
History of Present Illness Date Patient Seen: 08/23/18 Chief complaint: Ulcer & very weak T-3 days Narrative: Richard Hernandez is a 67-year-old male with a past medical history significant for bacterial meningitis, left Santacruz's palsy, immunocompromised on golimumab for ankylosing spondylitis, diabetes mellitus type 2, untreated, paroxysmal atrial fibrillation and GERD who presented for severe progressively worsening weakness. He reports that the last 3 nights were ?increasingly horrible? and he was unable to sleep. He reports that he would sleep 30-45 minutes and spontaneously awaken but was unable to go back to sleep. He also reports progressive worsening severe weakness to the extent that he thought if he laid down he would ?kick the bucket.? He endorses increased urinary frequency, mild nausea and 1 episode of diarrhea. He denies headache, chest pain, shortness of breath, abdominal pain, fever, chills, vomiting, dysuria, urinary urgency or constipation. He also reports chronic back and rib pain due to ankylosing spondylitis. He thought he may have had another ulcer as 5-6 weeks ago he was empirically diagnosed with ibuprofen induced ulcer for diarrhea and vomiting. He is no longer on ibuprofen. He denies hematochezia or melena. His son reports shaking and the patient is mildly diaphoretic. He has no other complaints. In the ED patient's urinalysis was grossly positive. His creatinine is normally 1.0 and is up to 1.9. He is hypotensive but fluid responsive. He was also mildly tachycardic with atrial fibrillation which has resolved. The patient was diagnosed with diabetes mellitus type 2 in 2017 during his hospitalization for bacterial meningitis and kidney infection. The patient was unaware of this diagnosis and has been untreated. PCP is Dr. Olivia. Patient History Medical History Ankylosing spondylitis (Acute) Santacruz's palsy (Acute) Chronic pain (Acute) Dental caries (Acute) Diabetes mellitus type 2 in nonobese (Acute) HTN (hypertension) (Acute) Immunocompromised state (Acute) Insomnia (Acute) Meningitis (Acute) Paroxysmal atrial fibrillation (Acute) Sepsis (Acute) Septic shock (Acute) Skin cancer (Acute) Stupor (Acute) Thrombocytopenia (Acute) Type 2 diabetes mellitus (Acute) Surgical History History of tonsillectomy (Acute) Social History household members: family Smoking Status: Current some day smoker alcohol intake: former Family & Social History Social History: household members family Prior Living Arrangements House Safety & Behavioral: Feels Safe in Current Yes Environment Been Physically Hurt or No Threatened By a Person Suicidal Ideation Description None Suicide Plan Description No Plan Tobacco & Substance use: Tobacco type cannabis/marijuana Smoking Status Current some day smoker alcohol intake former The patient is . He has 4 children, 3 sons and 1 daughter who are all healthy other than a son who has ankylosing spondylitis. Meds Home Medications Medication Instructions Recorded Confirmed Type atenolol 0.5 tab PO DAILY 08/23/18 08/23/18 History cyanocobalamin (vitamin B-12) 100 mcg PO DAILY 08/23/18 08/23/18 History golimumab [Simponi] 0.5 ml SUBCUT DIRECTED 08/23/18 08/23/18 History hydrochlorothiazide 1 tab PO DAILY 08/23/18 08/23/18 History omega-3 fatty acids 500 mg PO DAILY 08/23/18 08/23/18 History oxycodone 5 mg PO QID 08/23/18 08/23/18 History pantoprazole 40 mg PO DAILY 08/23/18 08/23/18 History pyridoxine (vitamin B6) [Vitamin See Rx Instructions .ROUTE .COMPLEX 08/23/18 08/23/18 History B-6] ranitidine HCl 150 mg PO DAILY 08/23/18 08/23/18 History Allergies Allergy/AdvReac Type Severity Reaction Status Date / Time No Known Drug Allergies Allergy Verified 08/23/18 10:36 Review of Systems Review of Systems A 10 system comprehensive review of systems was conducted with the patient and found to be negative except as above in the History of Present Illness. Exam Vital Signs (past 8 hours): - 08/23/18 08:47 08/23/18 08:48 08/23/18 08:50 Temperature 101.2 F H 101.2 F H Pulse Rate 118 H 118 H 117 H Respiratory Rate 17 17 23 Blood Pressure 103/67 Blood Pressure [Left Arm] 103/67 92/68 Pulse Oximetry 97 97 95 08/23/18 09:10 08/23/18 09:29 08/23/18 09:47 Temperature Pulse Rate 111 H 109 H 113 H Respiratory Rate 22 27 H 23 Blood Pressure Blood Pressure [Left Arm] 86/67 L 87/65 L 86/72 L Pulse Oximetry 96 95 95 08/23/18 10:08 08/23/18 10:37 08/23/18 11:09 Temperature 99.4 F Pulse Rate 98 H 103 H 94 H Respiratory Rate 15 16 20 Blood Pressure Blood Pressure [Left Arm] 94/70 93/61 93/70 Pulse Oximetry 98 97 97 08/23/18 11:32 08/23/18 11:53 08/23/18 12:09 Temperature 101.6 F H Pulse Rate 103 H 103 H Respiratory Rate 20 20 Blood Pressure 91/63 Blood Pressure [Left Arm] 91/68 Pulse Oximetry 98 98 08/23/18 12:15 08/23/18 13:00 08/23/18 13:13 Temperature 101.6 F H 102.2 F H 99.4 F Pulse Rate 98 H 105 H Respiratory Rate 20 Blood Pressure 114/74 73/46 L Blood Pressure [Left Arm] Pulse Oximetry 98 98 08/23/18 13:14 08/23/18 13:19 08/23/18 13:49 Temperature 99.4 F 98.2 F Pulse Rate 95 H 92 H Respiratory Rate Blood Pressure 80/47 L 74/50 L Blood Pressure [Left Arm] Pulse Oximetry 08/23/18 14:09 08/23/18 14:23 08/23/18 14:35 Temperature Pulse Rate 86 98 H 89 Respiratory Rate Blood Pressure 77/48 L 81/49 L 84/59 L Blood Pressure [Left Arm] Pulse Oximetry 08/23/18 14:38 08/23/18 14:49 Temperature Pulse Rate 90 Respiratory Rate Blood Pressure 92/58 L 91/58 L Blood Pressure [Left Arm] Pulse Oximetry Oxygen Delivery Method Room Air Oxygen Flow Rate 0 Narrative Exam Narrative: General: Older gentleman sitting in bed and in no acute distress, very stiff due to ankylosing spondylitis, mildly diaphoretic, well-developed, well-nourished, appropriately interactive. HEENT: Normocephalic, atraumatic. External ears without defect. Pupils equal, round, and reactive to light. Anicteric sclerae and moist conjunctivae. Left-sided Santacruz's palsy. Neck: Supple with full range of motion. No lymphadenopathy or thyromegaly. Cardiovascular: Heart sounds distant but appears to be irregularly irregular without murmurs, rubs, or gallops appreciated. Pulmonary: Clear to auscultation bilaterally without crackles, wheezes, or rhonchi. Normal respiratory effort with no use of accessory muscles. Abdomen: Soft, bowel sounds present, nontender, nondistended. Mild suprapubic tenderness. No flank pain. No hepatosplenomegaly or masses appreciated. Extremities: No clubbing, cyanosis, or edema. Skin: Normal temperature, turgor, and texture; no rash, ulcers, or subcutaneous nodules appreciated. Neurological: Cranial nerves grossly intact. Psychiatric: Normal mood and affect. Alert and oriented to person, place, and time. Objective Labs Result Diagrams: 08/23/18 09:05 08/23/18 09:05 Labs: Laboratory Results - last 24 hr 08/23/18 08/23/18 08/23/18 09:05 09:05 09:05 WBC 24.8 H RBC 4.18 L Hgb 11.9 L Hct 34.9 L MCV 83.4 MCH 28.6 MCHC 34.2 RDW 16.2 H Plt Count 309 Neut % (Auto) 85.3 H Lymph % (Auto) 5.3 L [place]roy[place] % (Auto) 9.1 Eos % (Auto) 0.0 L Baso % (Auto) 0.3 Neut # (Auto) 55073 H Lymph # (Auto) 1300 [place] # (Auto) 2300 H Eos # (Auto) 0 Baso # (Auto) 100 Sodium 134 L Potassium 3.3 L Chloride 96 L Carbon Dioxide 23 BUN 35 H Creatinine 1.90 H Estimated GFR 35.5 L BUN/Creatinine Ratio 18.4 Glucose 210 H Lactate Calcium 9.0 Magnesium Total Bilirubin 1.6 H AST 26 ALT 12 L Alkaline Phosphatase 68 Total Protein 8.9 H Albumin 4.2 Globulin 4.7 H Albumin/Globulin Ratio 0.9 L Lipase 105 Procalcitonin Urine RBC Urine WBC Urine Bacteria Ur Culture Indicated? Blood Type O Positive Antibody Screen Negative 08/23/18 08/23/18 08/23/18 09:05 09:05 09:20 WBC RBC Hgb Hct MCV MCH MCHC RDW Plt Count Neut % (Auto) Lymph % (Auto) [place] % (Auto) Eos % (Auto) Baso % (Auto) Neut # (Auto) Lymph # (Auto) [place] # (Auto) Eos # (Auto) Baso # (Auto) Sodium Potassium Chloride Carbon Dioxide BUN Creatinine Estimated GFR BUN/Creatinine Ratio Glucose Lactate 1.8 Calcium Magnesium 1.8 Total Bilirubin AST ALT Alkaline Phosphatase Total Protein Albumin Globulin Albumin/Globulin Ratio Lipase Procalcitonin 1.33 H Urine RBC Urine WBC Urine Bacteria Ur Culture Indicated? Blood Type Antibody Screen 08/23/18 09:30 WBC RBC Hgb Hct MCV MCH MCHC RDW Plt Count Neut % (Auto) Lymph % (Auto) [place] % (Auto) Eos % (Auto) Baso % (Auto) Neut # (Auto) Lymph # (Auto) [place] # (Auto) Eos # (Auto) Baso # (Auto) Sodium Potassium Chloride Carbon Dioxide BUN Creatinine Estimated GFR BUN/Creatinine Ratio Glucose Lactate Calcium Magnesium Total Bilirubin AST ALT Alkaline Phosphatase Total Protein Albumin Globulin Albumin/Globulin Ratio Lipase Procalcitonin Urine RBC 30-100/hpf H Urine WBC 30-100/hpf H Urine Bacteria Many (>30) H Ur Culture Indicated? Specimen cultured Blood Type Antibody Screen Assessment & Plan Assessment & Plan narrative: Richard Hernandez is a 67-year-old male with a past medical history significant for bacterial meningitis, left Santacruz's palsy, immunocompromised on golimumab for ankylosing spondylitis, diabetes mellitus type 2, untreated, paroxysmal atrial fibrillation and GERD who presented for severe progressively worsening weakness. 1. Acute severe sepsis, present on admission. Active. -Patient presented with hypotension (BP 73/46), tachycardia (HR 118), febrile (102.2), with leukocytosis (24.8) and elevated procalcitonin (1.33) with source thought to be pyelonephritis. Lactic acid normal at 1.9. -Early goal-directed therapy med including: Broad-spectrum antibiotics and IV fluid hydration. Patient persistently hypotensive but fluid responsive currently. If he develops septic shock will start vasopressors. 2. Acute pyelonephritis, present on admission. Active. -Patient presented with grossly infected urine, febrile, diaphoretic with mild rigors, and increased urinary frequency. -Patient previously had kidney infection during his hospitalization for bacterial meningitis in 2017. -Continue supportive treatment with antipyretics and antiemetics as needed . -Urinalysis appears grossly infected with urine culture pending. -Renal ultrasound did not demonstrate any urinary obstruction and kidneys appear normal. Low threshold for CT abdomen and pelvis with contrast if patient continues to decompensate. However, concerned due to acute kidney injury for contrast administration. -Patient received ceftriaxone 1 g IV x1 in the ED. Due to patient being immunocompromised on golimumab and an untreated diabetic decided to broaden antibiotic coverage to meropenem 1 g every 12 hours for renal dosing. -Continue to bolus with normal saline as patient is fluid responsive, currently on 4 L. May need to start vasopressors if he becomes persistently hypotensive and unresponsive to fluids. Will start normal saline at 125 mL/hr when blood pressure allows. 3. Acute kidney injury, present on admission. Active. -Baseline creatinine 0.8-1.0 based on outpatient records. Initial creatinine 1.9 on admission. -Continue IV fluids as above. -Avoid nephrotoxin agents. -Renal ultrasound demonstrated normal kidneys and no obstruction. -Continue to monitor renal function daily. 4. Acute hypokalemia, present on admission. Active. -Likely secondary to dehydration and episode of diarrhea. -Initial potassium level 3.3. Ordered potassium chloride 40 mEq IV x1. -Continue to monitor and replete as needed. 5. Normocytic anemia, acuity unclear, present on admission. Active. -Likely due to inflammatory response from acute infection and will anticipate further dilutional affect from 4 L of IVF. -No overt signs of bleeding. -Continue to monitor closely. 6. Diabetes mellitus type 2, untreated, present on admission. Active. -Initial blood glucose 210 on admission. Previous hospitalization at [facility] documented diabetes mellitus type 2 and recommended patient start metformin outpatient. Patient has no recollection of being told he was diabetic and has been untreated since 2017. -Ordered hemoglobin A1c, pending. -Started Lantus 5 units at bedtime. -Continue [facility] blood glucose checks and low-dose correctional scale insulin. 7. Ankylosing spondylitis with opiate dependence, chronic, present on admission. Stable. -Patient is on golimumab which will be held for now during acute illness. -Held oxycodone for now due to hypotension as above. Will restart as his blood pressure permits. 8. Paroxysmal atrial fibrillation, chronic, present on admission. Stable. -Currently rate controlled. -Patient took his atenolol 50 mg to day. Will hold for now due to hypotension as above. 9. Hypertension, chronic, present on admission. Stable. -Patient on atenolol 50 mg daily and hydrochlorothiazide 25 mg daily outpatient and took both doses today. Will hold both medications for now due to hypotension as above. 10. GERD, chronic, present on admission. Stable. -Continue ranitidine 150 mg daily. Patient is admitted under inpatient status with expected length of stay greater than 2 midnights due to severity of presenting symptoms, risk of adverse event, and complexity of treatment plan. Quality VTE Deep Vein Thrombosis/Pulmonary Embolism Present on Admission: No
--- NOTE | 2018-08-23 16:04 | OT.IP.TRT ---
Occupational Therapy Treatment Note M3 OT- IP Subjective and Pain Start: 08/23/18 16:03 Freq: Status: Active Protocol: Document 08/23/18 16:03 [facility] (Rec: 08/23/18 16:04 [facility] [id number]) OT- Subjective Occupational Therapy Visit Type Type Patient Unavailable Notes Per pt's nurse pt still having low BP, therefore to hold pt from OT eval today and try again tomorrow.
--- NOTE | 2018-08-23 16:08 | PT.IPTN ---
Physical Therapy Treatment Note M3 PT-IP Subjective Start: 08/23/18 16:04 Freq: NEEDED Status: Active Protocol: Document 08/23/18 16:04 AB (Rec: 08/23/18 16:07 AB [id number]) Subjective Physical Therapy Visit Type Notes nurse stated that pt continues to have low BP and currently is still infusing pt with fluids and pt is not ready for PT at this time. will f/u tomorrow.
--- NOTE | 2018-08-23 16:19 | PC.NURSE ---
Addendum entered by Stacy Grullon R.N. 08/23/18 19:40: This show card writer responded to emergency with another assigned pt early in this evening shift. Dr. Case was made aware as was fractionation supervisor, Ailyn, who kept watch on this patient. This show card writer now approaches pt who is resting quietly in bed. Pt states pain 2-3/10 which is baseline for patient. Requests oxycodone 4 hours after last dose to manage chronic pain. Family is visiting. Pt reports feeling much better at this time than upon arrival to hospital. Using urinal @ bedside. Original Note: Dr. Case requests this show card writer check pt's blood pressure on pt's leg. Small cuff to left ankle with reading 108/62. Pt rousable to voice. Bolus infusing as ordered. Afebrile. Denies pain.
[2018-08-23] MEDS: OXYCODONE IR 5 MG TABLET PO ×2 (17:21→21:23)
[2018-08-23] MEDS: POTASSIUM CHLORIDE 40 MEQ in SODIUM CHLORIDE 0.9% 500 ML 130 ML IV (17:21)
[2018-08-23] MEDS: INSULIN ASPART 100 UNIT/ML INSULN PEN SUBCUT (17:22)
[2018-08-23 17:54] LABS: Hemoglobin A1C% w Est Avg Glu 5.7 % (4.0-6.0)
[2018-08-23] MEDS: HEPARIN 5,000 UNIT/ML VIAL 5000 UNIT SUBCUT (21:26)
[2018-08-23] MEDS: INSULIN GLARGINE 100 UNIT/ML 3ML PEN SUBCUT (21:26)
[2018-08-24] VITALS (12 sets, daily range): BP systolic 92–145; BP diastolic 50–80; PULSE 82–91; RESP 16–18; TEMP 36.4–38.3; O2SAT 94–100
[2018-08-24] MEDS: MEROPENEM 1 GM in SODIUM CHLORIDE 0.9% 100 ML 200 ML IV ×3 (00:50→19:44)
--- NOTE | 2018-08-24 03:01 | PC.NURSE ---
2300- Pt admit for acute UTI; veing treated w/ IV abx. BA on and activated for hx of falls; telemetry in place for hx of afib--reading afib w/ HR cont. NS running as ordered; AC/HS BG checks taking place. 0130- Pt complaining about SpO2 monitor on finger, explained to pt that MS has ordered this to be watched--he refused. Will try to get back on finger in the AM. 0625- PO oxycodone given for chronic pain. Lab called this RN and pt's 3rd set of blood cultures came back + for ecoli, this RN called the service loss control consultant MD who stated to let 'Dr Case know in the AM'.
[2018-08-24] MEDS: SODIUM CHLORIDE 0.9% 1,000 ML 125 ML IV (04:31)
[2018-08-24 05:24] LABS: Add Manual Diff / Slide Review NO; Basophils Absolute Auto 0 /uL (0-100); Basophils Percent Auto 0.1 % (0-2); Eosinophils Absolute Auto 0 /uL (0-450); Hematocrit 27.7 % (41-53); Hemoglobin 9.5 g/dL (13.5-17.5); Lymphocytes Absolute Auto 1100 /uL (1100-4500); Lymphocytes Percent Auto 7.4 % (25-40); Mean Corpuscular HGB Conc 34.4 % (30-36); Mean Corpuscular Hemoglobin 28.7 PG (26-34); Mean Corpuscular Volume 83.4 fL (80-100); Monocytes Absolute Auto 1500 /uL (0-900); Neutrophils Absolute Auto 12000 /uL (1500-7000); Neutrophils Percent Auto 82.5 % (50-75); Platelet Count 200 X10^3/uL (150-400); Red Blood Cell Count 3.32 X10^6/uL (4.5-5.9); Red Cell Distribution Width 16.2 % (11.6-14.8); White Blood Cell Count 14.5 X10^3/uL (4.5-11.0)
[2018-08-24 05:27] LABS: Alanine Aminotransferase 11 IU/L (21-72); Albumin 3.1 g/dL (3.5-5.0); Albumin Globulin Ratio 0.8 (1.0-2.8); Alkaline Phosphatase 64 U/L (38-126); Aspartate Aminotransferase 22 IU/L (17-59); BUN Creatinine Ratio 19.2 (6-22); Blood Urea Nitrogen 23 mg/dL (9-20); Calcium 7.7 mg/dL (8.4-10.2); Carbon Dioxide 21 mmol/L (22-32); Chloride 107 mmol/L (98-107); Estimated Glomerular Filt Rate > 60.0 mL/min (>60); Globulin 3.7 g/dL (1.7-4.1); Glucose 105 mg/dL (80-110); HEMOLYSIS < 15 (0-50); Magnesium 1.7 mg/dL (1.6-2.3); Potassium 3.1 mmol/L (3.4-5.1); Sodium 137 mmol/L (137-145); Total Protein 6.8 g/dL (6.3-8.2)
[2018-08-24 06:26] LABS: Procalcitonin 1.74 ng/mL (<0.5)
[2018-08-24] MEDS: OXYCODONE IR 5 MG TABLET PO ×4 (06:35→23:05)
--- NOTE | 2018-08-24 07:21 | PM.PN.1 ---
Subjective Date Patient Seen: 08/24/18 Interval history: Richard Hernandez is a 67-year-old male with a past medical history significant for bacterial meningitis, left Santacruz's palsy, immunocompromised on golimumab for ankylosing spondylitis, diabetes mellitus type 2, untreated, paroxysmal atrial fibrillation and GERD who presented for severe progressively worsening weakness. The patient is resting in bed comfortably. He reports that he feels much better than yesterday. He mentions that he intermittently will have pneumaturia while urinating but not every time. He continues to endorse fatigue and lethargy but otherwise has no complaints. He denies headache, shortness of breath, chest pain, abdominal pain, nausea, vomiting, fever, chills, dysuria, diarrhea or constipation. He is voiding and eliminating without difficulty. He is up ambulating without assistance. Exam Vital Signs (past 8 hours): - 08/23/18 23:55 08/24/18 02:57 08/24/18 04:24 Temperature 98.2 F 98.0 F Pulse Rate 90 91 H Respiratory Rate 16 16 Blood Pressure 121/73 118/67 Pulse Oximetry 96 94 97 Oxygen Delivery Method Room Air Oxygen Flow Rate 0 Narrative Exam Narrative: General: Older gentleman sitting in bed and in no acute distress, very stiff due to ankylosing spondylitis, well-developed, well-nourished, appropriately interactive. HEENT: Normocephalic, atraumatic. External ears without defect. Pupils equal, round, and reactive to light. Anicteric sclerae and moist conjunctivae. Left-sided Santacruz's palsy. Neck: Supple with full range of motion. No lymphadenopathy or thyromegaly. Cardiovascular: Heart sounds distant but appears to be irregularly irregular without murmurs, rubs, or gallops appreciated. Pulmonary: Clear to auscultation bilaterally without crackles, wheezes, or rhonchi. Normal respiratory effort with no use of accessory muscles. Abdomen: Soft, bowel sounds present, nontender, nondistended. No suprapubic, CVA or flank pain. No hepatosplenomegaly or masses appreciated. Extremities: No clubbing, cyanosis, or edema. Skin: Normal temperature, turgor, and texture; no rash, ulcers, or subcutaneous nodules appreciated. Neurological: Cranial nerves grossly intact. Psychiatric: Normal mood and affect. Alert and oriented to person, place, and time. Objective Labs Result Diagrams: 08/24/18 04:55 08/24/18 04:55 Labs: Laboratory Results - last 24 hr 08/23/18 08/23/18 08/23/18 09:05 09:05 09:05 WBC 24.8 H RBC 4.18 L Hgb 11.9 L Hct 34.9 L MCV 83.4 MCH 28.6 MCHC 34.2 RDW 16.2 H Plt Count 309 Neut % (Auto) 85.3 H Lymph % (Auto) 5.3 L [place] % (Auto) 9.1 Eos % (Auto) 0.0 L Baso % (Auto) 0.3 Neut # (Auto) 87209 H Lymph # (Auto) 1300 [place] # (Auto) 2300 H Eos # (Auto) 0 Baso # (Auto) 100 Sodium 134 L Potassium 3.3 L Chloride 96 L Carbon Dioxide 23 BUN 35 H Creatinine 1.90 H Estimated GFR 35.5 L BUN/Creatinine Ratio 18.4 Glucose 210 H Hemoglobin A1c Lactate Calcium 9.0 Magnesium Total Bilirubin 1.6 H AST 26 ALT 12 L Alkaline Phosphatase 68 Total Protein 8.9 H Albumin 4.2 Globulin 4.7 H Albumin/Globulin Ratio 0.9 L Lipase 105 Procalcitonin Urine RBC Urine WBC Urine Bacteria Ur Culture Indicated? Blood Type O Positive Antibody Screen Negative 08/23/18 08/23/18 08/23/18 09:05 09:05 09:05 WBC RBC Hgb Hct MCV MCH MCHC RDW Plt Count Neut % (Auto) Lymph % (Auto) [place] % (Auto) Eos % (Auto) Baso % (Auto) Neut # (Auto) Lymph # (Auto) [place] # (Auto) Eos # (Auto) Baso # (Auto) Sodium Potassium Chloride Carbon Dioxide BUN Creatinine Estimated GFR BUN/Creatinine Ratio Glucose Hemoglobin A1c 5.7 Lactate 1.8 Calcium Magnesium Total Bilirubin AST ALT Alkaline Phosphatase Total Protein Albumin Globulin Albumin/Globulin Ratio Lipase Procalcitonin 1.33 H Urine RBC Urine WBC Urine Bacteria Ur Culture Indicated? Blood Type Antibody Screen 08/23/18 08/23/18 08/24/18 09:20 09:30 04:55 WBC 14.5 H RBC 3.32 L Hgb 9.5 L Hct 27.7 L MCV 83.4 MCH 28.7 MCHC 34.4 RDW 16.2 H Plt Count 200 Neut % (Auto) 82.5 H Lymph % (Auto) 7.4 L [place] % (Auto) 10.0 Eos % (Auto) 0.0 L Baso % (Auto) 0.1 Neut # (Auto) 76529 H Lymph # (Auto) 1100 [place] # (Auto) 1500 H Eos # (Auto) 0 Baso # (Auto) 0 Sodium Potassium Chloride Carbon Dioxide BUN Creatinine Estimated GFR BUN/Creatinine Ratio Glucose Hemoglobin A1c Lactate Calcium Magnesium 1.8 Total Bilirubin AST ALT Alkaline Phosphatase Total Protein Albumin Globulin Albumin/Globulin Ratio Lipase Procalcitonin Urine RBC 30-100/hpf H Urine WBC 30-100/hpf H Urine Bacteria Many (>30) H Ur Culture Indicated? Specimen cultured Blood Type Antibody Screen 08/24/18 08/24/18 04:55 04:55 WBC RBC Hgb Hct MCV MCH MCHC RDW Plt Count Neut % (Auto) Lymph % (Auto) [place] % (Auto) Eos % (Auto) Baso % (Auto) Neut # (Auto) Lymph # (Auto) [place] # (Auto) Eos # (Auto) Baso # (Auto) Sodium 137 Potassium 3.1 L Chloride 107 Carbon Dioxide 21 L BUN 23 H Creatinine 1.20 Estimated GFR > 60.0 BUN/Creatinine Ratio 19.2 Glucose 105 D Hemoglobin A1c Lactate Calcium 7.7 L Magnesium 1.7 Total Bilirubin 1.0 AST 22 ALT 11 L Alkaline Phosphatase 64 Total Protein 6.8 Albumin 3.1 L Globulin 3.7 Albumin/Globulin Ratio 0.8 L Lipase Procalcitonin 1.74 H Urine RBC Urine WBC Urine Bacteria Ur Culture Indicated? Blood Type Antibody Screen Assessment & Plan Assessment & Plan narrative: Richard Hernandez is a 67-year-old male with a past medical history significant for bacterial meningitis, left Santacruz's palsy, immunocompromised on golimumab for ankylosing spondylitis, diabetes mellitus type 2, untreated, paroxysmal atrial fibrillation and GERD who presented for severe progressively worsening weakness. 1. Acute severe sepsis, present on admission. Resolved. -Patient presented with hypotension (BP 73/46), tachycardia (HR 118), febrile (102.2), with leukocytosis (24.8) and elevated procalcitonin (1.33) with source thought to be pyelonephritis. Lactic acid normal at 1.9. -Early goal-directed therapy med including: Broad-spectrum antibiotics and IV fluid hydration. Patient persistently hypotensive but fluid responsive currently. If he develops septic shock will start vasopressors. 2. Acute E coli bacteremia secondary to pyelonephritis, present on admission. Active. -Patient presented with grossly infected urine, febrile, diaphoretic with mild rigors, and increased urinary frequency. -Initial WBC highly elevated at 24.8 and procalcitonin at 1.33. Trending down and will continue to trend daily. -Patient previously had kidney infection during his hospitalization for bacterial meningitis in 2017. -Continue supportive treatment with antipyretics and antiemetics as needed. -Blood 3:4 bottles and urine culture preliminarily growing E coli with sensitivities pending. -Renal ultrasound did not demonstrate any urinary obstruction and kidneys appear normal. Low threshold for CT abdomen and pelvis with contrast if patient decompensates. -Patient received ceftriaxone 1 g IV x1 in the ED. Due to patient being immunocompromised on golimumab and prediabetic decided to broaden antibiotic coverage to meropenem 1 g every 12 hours for renal dosing. -Received 4 L NS boluses and normal saline at 125 mL/hr until adequately hydrated. Encourage p.o. intake of fluids. 3. Acute kidney injury, present on admission. Resolving. -Baseline creatinine 0.8-1.0 based on outpatient records. Initial creatinine 1.9 on admission. -Continue IV fluids as above. -Avoid nephrotoxin agents. -Renal ultrasound demonstrated normal kidneys and no obstruction. -Continue to monitor renal function daily. 4. Acute hypokalemia, present on admission. Active. -Likely secondary to dehydration, an episode of diarrhea, and now dilutional. -Initial potassium level 3.3. Ordered potassium chloride 40 mEq IV x1 and 60 mEq IV x1. -Continue to monitor and replete as needed. 5. Normocytic anemia, acuity unclear, present on admission. Active. -Likely due to inflammatory response from acute infection and dilutional affect from 4 L of IVF. -No overt signs of bleeding. -Continue to monitor closely. 6. Prediabetes, present on admission. Stable. -Previous hospitalization at [facility] documented diabetes mellitus type 2 and recommended patient start metformin outpatient. Patient has no recollection of being told he was diabetic and has been untreated since 2017. Unclear if patient was actually diabetic or prediabetic at that time. -Initial blood glucose 210 on admission.Hemoglobin A1c 5.7% indicative of prediabetes. Continue to recommend lifestyle modification including diet and exercise (as tolerated). -Continue ACHS blood glucose checks and low-dose correctional scale insulin. 7. Ankylosing spondylitis with opiate dependence, chronic, present on admission. Stable. -Patient is on golimumab which will be held for now during acute illness. -Continue oxycodone 5 mg every 4 hours while awake as needed for pain. -Ordered physical and occupational therapy evaluation and treatment, pending. 8. Paroxysmal atrial fibrillation, chronic, present on admission. Stable. -Currently rate controlled. -Will restart atenolol 50 mg daily today. 9. Hypertension, chronic, present on admission. Stable. -Will restart atenolol 50 mg daily today. Continue to hold hydrochlorothiazide 25 mg daily until over acute illness. 10. GERD, chronic, present on admission. Stable. -Continue ranitidine 150 mg daily. Disposition: Patient will need 3 days total of IV antibiotics for bacteremia at which time he may then can be transitioned to oral antibiotics and discharged home. Quality VTE Deep Vein Thrombosis/Pulmonary Embolism Present on Admission: No
[2018-08-24 07:22] LABS: Enterococcus species Not Detected (Not Detect); Listeria monocytogenes Not Detected (Not Detect); Staphylococcus species Not Detected (Not Detect); Streptococcus agalactiae (Gr B Not Detected (Not Detect); Streptococcus species Not Detected (Not Detect)
[2018-08-24 07:23] LABS: Acinetobacter baumannii Not Detected (Not Detect); E. coli Detected (Not Detect); Enterobacter cloacae complex Not Detected (Not Detect); Enterobacteriaceae species Detected (Not Detect); KPC (carbapenem-resist gene) Not Detected (Not Detect); Streptococcus pneumonia Not Detected (Not Detect); Streptococcus pyogenes (Gr A) Not Detected (Not Detect)
[2018-08-24 07:24] LABS: Candida albicans Not Detected (Not Detect); Candida glabrata Not Detected (Not Detect); Candida krusei Not Detected (Not Detect); Candida parapsilosis Not Detected (Not Detect); Candida tropicalis Not Detected (Not Detect); Haemophilus influenzae Not Detected (Not Detect); Neisseria meningitidis Not Detected (Not Detect); Proteus species Not Detected (Not Detect); Pseudomonas aeruginosa Not Detected (Not Detect); Serratia marcescens Not Detected (Not Detect)
[2018-08-24] MEDS: SODIUM CHLORIDE 0.9% FLUSH 10 ML IV ×2 (09:10→20:30)
[2018-08-24] MEDS: HEPARIN 5,000 UNIT/ML VIAL 5000 UNIT SUBCUT ×2 (09:10→20:18)
[2018-08-24] MEDS: POTASSIUM CHLORIDE 60 MEQ in SODIUM CHLORIDE 0.9% 500 ML 88 ML IV (09:10)
--- NOTE | 2018-08-24 09:12 | CM.DANOTE ---
DCP: Case received, EMR reviewed and met with patient. Introduced self and role. Was able to obtain baseline information from patient, and completed DCP template with information currently available. Patient is a 67 year old male who admitted yesterday morning to the care of the hospitalist team. PCP: Dr. Olivia. Payer: confirmed: Medicare/Medicaid. Patient came to hospital via family vehicle due to increased weakness for the past few days. Patient holds diagnosis of Acute Sepsis, as well as Pyelonephritis. Patient also has history of Bacterial Meningitis, [place], as well as Diabetes. He also has history of A-fib, which has resolved. He stated that he is already starting to feel better. Met with patient in room. Alert and oriented. He lives in [facility]. He confirmed that he does have a primary care provider, Dr. Olivia. Asked patient if he resides alone, and he stated that he lives with his 40 year old son, and his ex-. He stated that he is independent around the house, has help with meals. Confirmed that he drives sometimes. P: DCP to continue to follow closely, and offer any resources that patient may need as he gets closer to discharge. Renée Smith, RN/Supervisor [employer]
--- NOTE | 2018-08-24 10:20 | PT.IIE ---
Current Diagnoses Sepsis, unspecified organism (08/23/18) Surgical History (Last Reviewed 08/23/18 @ 15:42 by Purnima Case DO) History of tonsillectomy (Acute) Medical History (Last Reviewed 08/23/18 @ 15:42 by Purnima Case DO) Ankylosing spondylitis (Acute) Santacruz's palsy (Acute) Chronic pain (Acute) Dental caries (Acute) Diabetes mellitus type 2 in nonobese (Acute) HTN (hypertension) (Acute) Immunocompromised state (Acute) Insomnia (Acute) Meningitis (Acute) Paroxysmal atrial fibrillation (Acute) Sepsis (Acute) Septic shock (Acute) Skin cancer (Acute) Stupor (Acute) Thrombocytopenia (Acute) Type 2 diabetes mellitus (Acute) Physical Therapy Inpatient Evaluation/Re-Eval M1 PT/OT-IP Prior Functional Status Start: 08/23/18 16:03 Freq: NEEDED Status: Active Protocol: Document 08/24/18 10:20 AB (Rec: 08/24/18 13:05 AB [id number]) Medical Review Prior Functional Status Medical History Reviewed Yes Communication able to make needs known Mobility and Gait pt stated that he is mod I with all mobilities and ambulation without AD Social History Household Members family Living Arrangements House Number of Floors (Floors) Two Floors Number of Stairs To Enter/Railing? 4 steps with L rail ascending to enter 12 steps with L rail ascending to get to 2nd floor bedroom Home Environment Standard Height Toilet Walk in Shower M1 PT/OT-IP Prior Functional Status Start: 08/23/18 16:04 Freq: NEEDED Status: Active Protocol: Document 08/24/18 10:20 AB (Rec: 08/24/18 13:05 AB [id number]) M2 PT-IP Current Condition Start: 08/23/18 16:04 Freq: NEEDED Status: Active Protocol: Document 08/24/18 10:20 AB (Rec: 08/24/18 13:05 AB [id number]) Physical Therapy Current Condition Current Condition Evaluation Date 08/24/18 Treatment Diagnosis sepsis secondary to UTI; generalized weakness Onset Date 08/23/18 M3 PT-IP Subjective Start: 08/23/18 16:04 Freq: NEEDED Status: Active Protocol: Document 08/24/18 10:20 AB (Rec: 08/24/18 13:05 AB [id number]) Subjective Physical Therapy Visit Type Type Initial Evaluation Visit Start Time 10:20 Visit Stop Time 10:48 Total Visit Minutes 28 Number of ELEVATORS INSPECTOR Visits 0 Physical Therapy Visit Comments Patient Comments pt agreeable to do PT Therapy Pain Assessment Pain Present Pain Present Denied Pain M4 PT-IP Mobility and Gait Start: 08/23/18 16:04 Freq: NEEDED Status: Active Protocol: Document 08/24/18 10:20 AB (Rec: 08/24/18 13:05 AB [id number]) PT-Bed Mobility Assessment Supine to Sit Supine to Sit Independent Sit to Supine Sit to Supine Independent PT-Transfer Assessment Sit to and From Stand Sit to and from Stand Independent Equipment Transfer Assistive Device None Gait Belt Orthotic/Prosthetic Devices or Brace: No Transfers Transfer Destination Bed Transfer Technique pt ambulated without AD Transfer Ability Level of Assist Independent Comments Mobility Comments BP sittin/69 after ambulation: 120/73 at end of tx session: 108/67 Gait Assessment Gait Gait Assistance Required: Independent Distance (Feet) 300 Able to Maintain Weight Bearing Status Yes During Gait Assistive Devices Assistive Device None Gait Belt Stair Climbing Assessment Evaluation Level of Assist On Stairs Standby Assistance Devices Stair Climbing Assistive Devices Left Railing Technique/Endurance Stair Climbing Direction Ascend and Descend Stair Climbing Technique Step Over Step Number of Steps Climbed 3 Query Text: Stair Climbing Set # Repetitions (reps) 4 PT-Balance Assessment Sitting Balance and Reactions Static Sitting Balance Ability Good Dynamic Sitting Balance Ability Good Standing Balance and Reactions Static Standing Balance Ability Good Dynamic Standing Balance Ability Good Device Used without AD Functional Assessments Functional Tests Tinetti Balance and Gait Assessment balance score 16/16; gait score 12/12 total score 28/28 M5 PT-IP Objective Assessments Start: 08/23/18 16:04 Freq: NEEDED Status: Active Protocol: Document 08/24/18 10:20 AB (Rec: 08/24/18 13:05 AB [id number]) Orientation Orientation/Cognition Level of Alertness Alert Orientation Name Age Birthday Month Date Year Day of Week Place Situation Language Function Ability No Deficits Noted Safety Awareness Understands Safety Issues Memory Description No Deficits Noted Gross Range of Motion Upper Extremity ROM Impairments limited neck/upper back and low back ROM due to h/o ankylosing spondylitis of spine Lower Extremity ROM Assessment Within Functional Limits Strength Lower Extremity Strength Assessment Within Functional Limits Coordination Assessment Gross Coordination Gross Coordination WNL Sensation Assessment Sensation Gross Sensation WNL Muscle Tone Muscle Tone WNL Yes M6 PT-IP Treatment Start: 08/23/18 16:04 Freq: NEEDED Status: Active Protocol: Document 08/24/18 10:20 AB (Rec: 08/24/18 13:05 AB [id number]) Physical Therapy Treatment Education Education Provided Safety M7 PT-IP Assessment and Plan Start: 08/23/18 16:04 Freq: NEEDED Status: Active Protocol: Document 08/24/18 10:20 AB (Rec: 08/24/18 13:05 AB [id number]) PT Summary Assessment and Plan Potential Rehabilitation Potential Good Status of Condition at Evaluation Stable Summary Impairments Gait Assessment Summary pt doing well with mobility and is cleared to be mod I in room. educated pt regarding safety and to ask for assistance when needed. pt understood and agreed. Pt is at PLOF and no further PT intervention indicated at this time. Frequency of Treatment Frequency Of Treatment Discharge Recommendations To Nursing Amount of Assist Needed Standby Assistance Discharge Recommendations PT Discharge Recommendations Home with Assistance
[2018-08-24] MEDS: ATENOLOL 50 MG TABLET PO (12:00)
--- NOTE | 2018-08-24 14:18 | OT.IP.EVAL ---
Current Diagnoses Sepsis, unspecified organism (08/23/18) Past Medical History (Last Reviewed 08/23/18 @ 15:42 by Purnima Case DO) Ankylosing spondylitis (Acute) Santacruz's palsy (Acute) Chronic pain (Acute) Dental caries (Acute) Diabetes mellitus type 2 in nonobese (Acute) HTN (hypertension) (Acute) Immunocompromised state (Acute) Insomnia (Acute) Meningitis (Acute) Paroxysmal atrial fibrillation (Acute) Sepsis (Acute) Septic shock (Acute) Skin cancer (Acute) Stupor (Acute) Thrombocytopenia (Acute) Type 2 diabetes mellitus (Acute) Surgical History (Last Reviewed 08/23/18 @ 15:42 by Purnima Case DO) History of tonsillectomy (Acute) Occupational Therapy Inpatient Evaluation/Re-Eval M1 PT/OT-IP Prior Functional Status Start: 08/23/18 16:03 Freq: NEEDED Status: Active Protocol: Document 08/24/18 10:20 AB (Rec: 08/24/18 13:05 AB [id number]) Medical Review Prior Functional Status Medical History Reviewed Yes Communication able to make needs known Mobility and Gait pt stated that he is mod I with all mobilities and ambulation without AD Social History Household Members family Living Arrangements House Number of Floors (Floors) Two Floors Number of Stairs To Enter/Railing? 4 steps with L rail ascending to enter 12 steps with L rail ascending to get to 2nd floor bedroom Home Environment Standard Height Toilet Walk in Shower M1 PT/OT-IP Prior Functional Status Start: 08/23/18 16:04 Freq: NEEDED Status: Active Protocol: Document 08/24/18 14:12 CGR (Rec: 08/24/18 14:18 CGR [email or web address]) Medical Review Prior Functional Status Medical History Reviewed Yes Communication able to make needs known Mobility and Gait pt stated that he is mod I with all mobilities and ambulation without AD Social History Household Members family Living Arrangements House Number of Floors (Floors) Two Floors Number of Stairs To Enter/Railing? 4 steps with L rail ascending to enter 12 steps with L rail ascending to get to 2nd floor bedroom Home Environment Standard Height Toilet Walk in Shower Home Equipment Grab Bars Near Toilet Employment Status Unemployed Additional Social History Comment Disability M2 OT-IP Current Condition Start: 08/23/18 16:03 Freq: Status: Active Protocol: Document 08/24/18 14:12 CGR (Rec: 08/24/18 14:18 CGR [id number]) Occupational Therapy Current Condition Current Condition Evaluation Date 08/24/18 Treatment Diagnosis acute sepsis M3 OT- IP Subjective and Pain Start: 08/23/18 16:03 Freq: Status: Active Protocol: Document 08/24/18 14:12 CGR (Rec: 08/24/18 14:18 CGR [email or web address]) OT- Subjective Occupational Therapy Visit Type Type Initial Evaluation Visit Start Time 09:35 Visit Stop Time 10:00 Total Visit Minutes 25 Occupational Therapy Visit Comments Patient Comments Pt agreeable to OT services Patient/Caregiver Goals To go home OT Pain Assessment Pain Present Pain Present Denied Pain M4 OT- IP ADL's Start: 08/23/18 16:03 Freq: Status: Active Protocol: Document 08/24/18 14:12 CGR (Rec: 08/24/18 14:18 CGR [id number]) OT [id number] General Evaluation Self-Feeding Ability Independent OT ADL-Grooming General Evaluation Grooming Ability Independent Areas Needing Assistance Combing/Brushing Hair Face Washing Comments OT Grooming Comments Standing at sink OT ADL-Oral Care General Eval Oral Care Ability Independent Devices Oral Care Devices Toothbrush Comments Oral Care Comments Standing at sink OT ADL-Dressing General Eval Lower Body Dressing Ability Independent Areas Needing Assistance Socks Comments OT Dressing Comments Seated in chair OT ADL-Toileting General Evaluation Toileting Ability Independent M5 OT- IP IADL's Start: 08/23/18 16:03 Freq: Status: Active Protocol: Document 08/24/18 14:12 CGR (Rec: 08/24/18 14:18 CGR [email or web address]) OT-Instrumental Activities of Daily Living Home Safety Awareness Awareness of Need for Assistance at Home Good Awareness Ability to Problem Solve Emergency Able to Problem Solve Situations Medication Management Medication Management No Deficits Identified Money Management Money Management No Deficits Identified Meal Preparation Meal Preparation No Deficits Identified Merchant Mill Utility Worker Merchant Mill Utility Worker No Deficits Identified M6 OT- IP Functional Cognition Start: 08/23/18 16:03 Freq: Status: Active Protocol: Document 08/24/18 14:12 CGR (Rec: 08/24/18 14:18 CGR [email or web address]) Cognitive Factors Limiting Selfcare Function Cognitive Ability Level of Alertness Alert Patient Orientation Name Age Birthday Month Date Year Day of Week Place Situation Attention Span Ability Capable of Focused Attention Capable of Sustained Attention Ability to Follow Commands Able to Follow Multi-Step Commands Memory Description No Deficits Noted Safety Awareness No Deficits Noted Problem Solving Ability No deficits Noted Executive Function Ability No Deficits Noted Abstract Thinking Ability No Deficits Noted OT- Vision and Hearing OT- Hearing Assessment OT- Hearing Assessment WFL OT- Vision Assessment Visual Acuity Glasses For Reading Visual Attentiveness WFL Occular Pursuits WFL Visual Convergence WFL Visual Munoz WFL M7 OT- IP Mobility and Balance Start: 08/23/18 16:03 Freq: Status: Active Protocol: Document 08/24/18 14:12 CGR (Rec: 08/24/18 14:18 CGR [email or web address]) OT-Transfer Assessment Sit to and From Stand Sit to and from Stand Independent Transfers Transfer Ability Independent Technique Transfer Destination Chair Comments Mobility Comments No AD OT- Gait Assessment Gait Gait Assistance Required: Independent Comments Gait Ability Comments For gait around room OT- Balance Assessment Sitting Balance and Reactions Static Sitting Balance Ability Normal Dynamic Sitting Balance Ability Normal Standing Balance and Reactions Static Standing Balance Ability Normal Dynamic Standing Balance Ability Normal M8 OT- IP Objective Assessments Start: 08/23/18 16:03 Freq: Status: Active Protocol: Document 08/24/18 14:12 CGR (Rec: 08/24/18 14:18 CGR [email or web address]) OT Gross Range of Motion Upper Extremity Range of Motion Assessment Within Functional Limits ROM Impairments AROM 0-0 to the L shld, PROM WFL OT Strength Comments Strength Comments Grossly 5/5 throughotu except L shld with 1/5. Pt states this is his baseline. OT- Coordination Assessment Upper Extremity Finger to Nose Test Within Functional Limits Finger Tapping Test Within Functional Limits OT Sensation Assessment Edema Edema Absent M9 OT- IP Assessment and Plan Start: 08/23/18 16:03 Freq: Status: Active Protocol: Document 08/24/18 14:12 CGR (Rec: 08/24/18 14:18 CGR [email or web address]) OT Summary Assessment and Plan Potential Analytic Complexity at Evaluation Low Frequency of Treatment Frequency Of Treatment Discharge Discharge Recommendations OT Discharge Recommendations Home with Assistance Home Equipment Needs No needs at this time.
[2018-08-24] MEDS: ACETAMINOPHEN 325 MG TABLET 650 MG PO ×2 (15:53→23:05)
--- NOTE | 2018-08-24 16:04 | PC.NURSE ---
Addendum entered by Stacy Grullon R.N. 08/24/18 22:20: Orders to begin normal saline as per emar and to monitor bp every 2 hours. Patient was informed. Addendum entered by Stacy Grullon R.N. 08/24/18 20:15: Trends in pt's temp and blood pressure reviewed for this shift by this continuity writer and shared with hospitalist KIARA. Original Note: Pt awake, alert resting quietly in bed. Flushed warm skin. Temp 101. Pt medicated with tylenol and oxycodone for chronic back pain. Single blanket on pt. Potassium rider infusing to left forearm iv site without difficulty. Family member present @ bedside. Lungs clear to auscultation. Urinal available at bedside. Encouraged oral fluids and these were provided.
[2018-08-24] MEDS: INSULIN GLARGINE 100 UNIT/ML 3ML PEN SUBCUT (20:18)
[2018-08-24] MEDS: SODIUM CHLORIDE 0.9% 1,000 ML 100 ML IV (20:51)
[2018-08-25] VITALS (11 sets, daily range): BP systolic 103–162; BP diastolic 57–88; PULSE 76–108; RESP 16–20; TEMP 36.9–37.7; O2SAT 95–100
--- NOTE | 2018-08-25 | DI.CT.S_ITS ---
PROCEDURE: CT ABDOMEN PELVIS WO CON INDICATIONS: r/o colovesical fistula, pt wi c/o pneumaturia TECHNIQUE: After the administration of oral and rectal contrast, 5 mm thick sections acquired from the diaphragms to the symphysis. 5 mm coronal and sagittal reformats were performed. For radiation dose reduction, the following was used: automated exposure control, adjustment of mA and/or kV according to patient size. COMPARISON: None. FINDINGS: Image quality: Excellent. ABDOMEN: Lung bases: Small right pleural effusion. Heart size normal. Solid organs: Liver is normal in size. Scattered hepatic cysts. Gallbladder is within normal limits. Pancreas is normal in size. Spleen is normal in size. Subcapsular calcifications involve the superior spleen. No adrenal nodules. Both kidneys are normal in size, without hydronephrosis or nephrolithiasis. Peritoneum and bowel: Diverticulosis of the descending and sigmoid colon. Severe thickening of the proximal and mid sigmoid colon. Mild fat stranding surrounding the proximal sigmoid colon. Obliteration of fat planes between the proximal sigmoid colon and a left superior bladder wall. No free fluid or air. Nodes and vessels: No retroperitoneal or mesenteric adenopathy by size criteria. Aorta and inferior vena cava are normal in size. Miscellaneous: No ventral hernias. PELVIS: Genitourinary: Moderate thickening of the left superior bladder wall. Moderate gas within the urinary bladder. Linear gas collection within the left superior urinary bladder wall extending to the inferior proximal sigmoid colonic margin. Small amount of high density material within the urinary bladder. Miscellaneous: No inguinal hernias or adenopathy. Bones: No suspicious bony lesions. There is ankylosis of the lumbar spine and sacroiliac joints. No vertebral body compression fractures. IMPRESSION: 1. Colovesical fistula involving the proximal sigmoid colon and left superior bladder wall. 2. Thickening of the sigmoid colon, indicating diverticulitis versus neoplasm. 3. Ankylosis of the lumbar spine and sacroiliac joints, indicating ankylosing spondylitis. Dictated by: Lili Rowell M.D. on 08/25/2018 at 11:10 Approved by: Lili Rowell M.D. on 08/25/2018 at 11:13
--- NOTE | 2018-08-25 00:30 | PC.NURSE ---
2300- Pt admit for UTI; positive blood cultures at this time. Pt in and out of febrile/afebrile state; bouts of hypotension still as well. Q2hr BP checks taking place on pt's L ankle; NS running as ordered into L forearm; RA w/ stable sats. AC/HS BG checks taking place; pt takes PO oxycodone for chronic pain. 0330- IV abx hung per orders. VSS
[2018-08-25] MEDS: MEROPENEM 1 GM in SODIUM CHLORIDE 0.9% 100 ML 200 ML IV (03:27)
[2018-08-25] MEDS: OXYCODONE IR 5 MG TABLET PO ×4 (04:53→21:25)
[2018-08-25 05:41] LABS: Add Manual Diff / Slide Review NO; Basophils Absolute Auto 0 /uL (0-100); Basophils Percent Auto 0.4 % (0-2); Eosinophils Absolute Auto 0 /uL (0-450); Eosinophils Percent Auto 0.1 % (2-4); Hematocrit 32.6 % (41-53); Hemoglobin 10.9 g/dL (13.5-17.5); Lymphocytes Absolute Auto 1400 /uL (1100-4500); Lymphocytes Percent Auto 15.6 % (25-40); Mean Corpuscular HGB Conc 33.5 % (30-36); Mean Corpuscular Hemoglobin 28.2 PG (26-34); Mean Corpuscular Volume 84.2 fL (80-100); Monocytes Absolute Auto 700 /uL (0-900); Monocytes Percent Auto 8.1 % (3-14); Neutrophils Absolute Auto 6800 /uL (1500-7000); Neutrophils Percent Auto 75.8 % (50-75); Platelet Count 195 X10^3/uL (150-400); Red Blood Cell Count 3.88 X10^6/uL (4.5-5.9); Red Cell Distribution Width 16.5 % (11.6-14.8)
[2018-08-25 05:54] LABS: BUN Creatinine Ratio 18.2 (6-22); Blood Urea Nitrogen 20 mg/dL (9-20); Calcium 8.4 mg/dL (8.4-10.2); Carbon Dioxide 24 mmol/L (22-32); Chloride 107 mmol/L (98-107); Estimated Glomerular Filt Rate > 60.0 mL/min (>60); Glucose 94 mg/dL (80-110); HEMOLYSIS < 15 (0-50); Potassium 3.7 mmol/L (3.4-5.1); Sodium 139 mmol/L (137-145)
[2018-08-25 06:09] LABS: Procalcitonin 1.16 ng/mL (<0.5)
[2018-08-25] MEDS: SODIUM CHLORIDE 0.9% 1,000 ML 100 ML IV ×2 (06:52→18:53)
[2018-08-25] MEDS: ATENOLOL 50 MG TABLET PO (09:21)
[2018-08-25] MEDS: HEPARIN 5,000 UNIT/ML VIAL 5000 UNIT SUBCUT ×2 (09:21→20:04)
[2018-08-25] MEDS: levoFLOXacin 750 MG/150 ML PIGGYBACK 100 MG IV (09:21)
[2018-08-25] MEDS: SODIUM CHLORIDE 0.9% FLUSH 10 ML IV ×2 (09:22→20:04)
--- NOTE | 2018-08-25 12:38 | P.PN_ITS ---
Subjective Date Patient Seen: 08/25/18 Interval history: Patient is a 67-year-old male with history of ankylosing s pondylitis, immunocompromised on golimumab, admitted with severe sepsis. Patient denies abdominal pain. He had previously noted pneumaturia and has not noticed any more air bubbles in his urine since last night. Denies cloudy or bloody urine. He is complaining of back pain due to his ankle spondylitis exacerbated by being in hospital bed. Exam Vital Signs (past 8 hours): - 08/25/18 06:00 08/25/18 07:45 08/25/18 08:33 Temperature 98.9 F Pulse Rate 104 H 108 H Respiratory Rate 18 Blood Pressure 123/61 117/64 Pulse Oximetry 95 96 Oxygen Delivery Method Room Air Oxygen Flow Rate 0 Narrative Exam Narrative: GENERAL: Alert pleasant male in no acute distress HEENT: Head normocephalic, atraumatic. Mucous membranes moist. CHEST: Clear to auscultation bilaterally. CARDIAC: Regular rate and rhythm. ABDOMEN: Nondistended, soft, nontender, no abdominal mass EXTREMITIES: no edema. NEUROLOGICAL: Well-oriented, no focal findings SKIN: Warm, dry, no petechiae, no rash Objective Labs Result Diagrams: 08/25/18 05:00 08/25/18 05:00 Labs: Laboratory Results - last 24 hr 08/23/18 08/25/18 08/25/18 09:30 05:00 05:00 WBC 9.0 RBC 3.88 L Hgb 10.9 L Hct 32.6 L MCV 84.2 MCH 28.2 MCHC 33.5 RDW 16.5 H Plt Count 195 Neut % (Auto) 75.8 H Lymph % (Auto) 15.6 L [place] % (Auto) 8.1 Eos % (Auto) 0.1 L Baso % (Auto) 0.4 Neut # (Auto) 6800 Lymph # (Auto) 1400 [place] # (Auto) 700 Eos # (Auto) 0 Baso # (Auto) 0 Sodium 139 Potassium 3.7 Chloride 107 Carbon Dioxide 24 BUN 20 Creatinine 1.10 Estimated GFR > 60.0 BUN/Creatinine Ratio 18.2 Glucose 94 Calcium 8.4 Procalcitonin Urine Color Cancelled Urine Appearance Cancelled Urine pH Cancelled Ur Specific [place] Cancelled Urine Protein Cancelled Urine Glucose (UA) Cancelled Urine Ketones Cancelled Urine Occult Blood Cancelled Urine Nitrate Cancelled Urine Bilirubin Cancelled Urine Urobilinogen Cancelled Ur Leukocyte Esterase Cancelled Urine RBC Cancelled Urine WBC Cancelled Ur Squamous Epith Cells Cancelled Ur Transition Epith Cell Cancelled Ur Renal Epithelial Cell Cancelled Calcium Oxalate Crystal Cancelled Uric Acid Crystals Cancelled Triple Phos Crystals Cancelled Other Crystals Cancelled Amorphous Sediment Cancelled Urine Bacteria Cancelled Hyaline Casts Cancelled Granular Casts Cancelled RBC Casts Cancelled WBC Casts Cancelled Other Casts Cancelled Urine Mucus Cancelled Urine Trichomonas Cancelled Urine Yeast Cancelled Urine Sperm Cancelled Ur Culture Indicated? Cancelled Micro UA Comment Cancelled 08/25/18 05:00 WBC RBC Hgb Hct MCV MCH MCHC RDW Plt Count Neut % (Auto) Lymph % (Auto) [place] % (Auto) Eos % (Auto) Baso % (Auto) Neut # (Auto) Lymph # (Auto) [place] # (Auto) Eos # (Auto) Baso # (Auto) Sodium Potassium Chloride Carbon Dioxide BUN Creatinine Estimated GFR BUN/Creatinine Ratio Glucose Calcium Procalcitonin 1.16 H Urine Color Urine Appearance Urine pH Ur Specific [place] Urine Protein Urine Glucose (UA) Urine Ketones Urine Occult Blood Urine Nitrate Urine Bilirubin Urine Urobilinogen Ur Leukocyte Esterase Urine RBC Urine WBC Ur Squamous Epith Cells Ur Transition Epith Cell Ur Renal Epithelial Cell Calcium Oxalate Crystal Uric Acid Crystals Triple Phos Crystals Other Crystals Amorphous Sediment Urine Bacteria Hyaline Casts Granular Casts RBC Casts WBC Casts Other Casts Urine Mucus Urine Trichomonas Urine Yeast Urine Sperm Ur Culture Indicated? Micro UA Comment Assessment & Plan Assessment & Plan narrative: Patient 67-year-old male with immunocompromised state, on golimumab for ankylosing spondylitis, admitted due to severe sepsis. He had noted pneumaturia and CT scan shows colovesicular fistula with sigmoid colon. 1. Acute severe sepsis, present on admission. Resolved. -presented with hypotension (BP 73/46), tachycardia (HR 118), febrile (102.2), with leukocytosis (24.8) and elevated procalcitonin (1.33) with source thought to be pyelonephritis. Lactic acid normal at 1.9. -etiology is bacteremia due to urinary source associated with colovesical fistula -Blood 3:4 bottles with sensitivities pending and urine culture growing pansensitive E coli. -continue meropenem 1 g IV q.8 hours 2. Colovesical fistula -patient had noted air in urine prompting CT scan with oral and rectal contrast which showed colovesical fistula involving the proximal sigmoid colon, patient reports having abdominal pain 4 or 5 weeks ago which resolved on its own -etiology is perforated colon due to diverticulitis versus malignancy would be less likely, -Dr. Sergei Moody to see patient for surgical consult -continue meropenem, clear liquid diet, IV fluids, anticipate 5-7 days on IV antibiotic then return for elective definitive surgical treatment, as patient is on immunocompromising medication I expect he may have a higher incidence of complications of recurrent diverticulitis 3. Acute kidney injury, present on admission. Resolved. -Baseline creatinine 0.8-1.0 based on outpatient records. Initial creatinine 1.9 on admission. -Continue IV fluids as above. -Avoid nephrotoxin agents. -Renal ultrasound demonstrated normal kidneys and no obstruction 4. Ankylosing spondylitis with opiate dependence, chronic, present on admission. Stable. -Patient is on golimumab which will be held for now during acute illness. -Continue oxycodone 5 mg every 4 hours while awake as needed for pain. -Ordered physical evaluation and treatment, pending. 5. Acute hyperglycemia, present on admission, resolved. -stress induced, hemoglobin A1c 5.7 not indicative of diabetes 6. Paroxysmal atrial fibrillation, chronic, present on admission. Stable. -continue atenolol 50 mg daily for rate control 7. Hypertension, chronic, present on admission. Stable. -continue atenolol 50 mg daily today. Continue to hold hydrochlorothiazide 25 mg daily until over acute illness. 8. Acute hypokalemia, present on admission. Resolved. -Continue to monitor and replete as needed. 9. Normocytic anemia, acuity unclear, present on admission. Improved/stable. -Likely due to inflammatory response from acute infection and dilutional affect from 4 L of IVF. -No overt signs of bleeding. -monitor as needed. 10. GERD, chronic, present on admission. Stable. -Continue ranitidine 150 mg daily. Disposition: Continue inpatient management of bacteremia due to colovesical fistula. Surgical consult pending. Patient need several more days of IV antibiotic. Quality VTE Deep Vein Thrombosis/Pulmonary Embolism Present on Admission: No
[2018-08-25] MEDS: MEROPENEM 1 GM/50 ML PIGGYBACK IV ×2 (13:16→19:43)
--- NOTE | 2018-08-25 13:30 | PT.IPTN ---
Current Diagnoses Sepsis, unspecified organism (08/23/18) Physical Therapy Treatment Note M2 PT-IP Current Condition Start: 08/23/18 16:04 Freq: NEEDED Status: Active Protocol: Document 08/24/18 10:20 AB (Rec: 08/24/18 13:05 AB [id number]) Physical Therapy Current Condition Current Condition Evaluation Date 08/24/18 Treatment Diagnosis sepsis secondary to UTI; generalized weakness Onset Date 08/23/18 M3 PT-IP Subjective Start: 08/23/18 16:04 Freq: NEEDED Status: Active Protocol: Document 08/25/18 13:30 RCC (Rec: 08/25/18 14:54 RCC [id number]) Subjective Physical Therapy Visit Type Notes PT was re-ordered for this pt, due to low back pain. Discussed with MD, RN and pt, and switched out to Lauren bed and nursing agreeable for pt to lay supine on transfer board, flat as at home he lays on the ground for 1-2 hrs to assist with low back pain. Pt reported decreased pain in this position. Pt was indep. with bed mobility and gait to/from BR in room while bed was being switched out, no further ambulation required as pt was able to do stairs and ambulate 300 ft independently. Should any other acute issues arise, we would welcome a new PT order. No charge today, as pt did not receive a full evaluation this session but did and was d/c from caseload yesterday, 08/24/18. No charge Frequency of Treatment Frequency Of Treatment Discharge Recommendations To Nursing Amount of Assist Needed Standby Assistance Discharge Recommendations PT Discharge Recommendations Home with Assistance
[2018-08-25] MEDS: LIDOCAINE 2% (UROJET) 5 ML GEL TOP (14:11)
--- NOTE | 2018-08-25 15:49 | PC.NURSE ---
Addendum entered by Stacy Grullon R.N. 08/25/18 22:25: Pt positions self independently in bed. Currently resting quietly in bed on right side without signs of discomfort or distress. Son is rooming in overnight. Addendum entered by Stacy Grullon R.N. 08/25/18 20:33: Afebrile this shift. Denies any urinary symptoms. Family has visited this evening shift. BP normotensive. Addendum entered by Stacy Grullon R.N. 08/25/18 17:28: Taking clear liquid diet well. Medicated for chronic back pain 6.5/10 effectively with tylenol and oxycodone. Son is present in pt's room. Original Note: Dr. Ley in to review pt's CT and consult as ordered.
--- NOTE | 2018-08-25 16:11 | PM.CN ---
History of Present Illness Date Patient Seen: 08/25/18 Time Patient Seen: 16:11 Chief complaint: Ulcer & very weak T-3 days Narrative: 67-year-old white male who has felt weakness for the last week or so and has noticed pneumaturia for the last few days came to the emergency room with complaint of weakness. He was found to be septic high white count nearly 25,000 and this was determined to be urosepsis with a positive urine culture for E coli. Patient really denied any significant abdominal pain in the last few days although about 2 weeks ago he had significant abdominal pain. this was felt to be peptic ulcer disease. At this moment the patient is resting comfortably with no abdominal pain. he states in the last 12 hours he has had no pneumaturia. 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) Chronic pain (Acute) Dental caries (Acute) Diabetes mellitus type 2 in nonobese (Acute) HTN (hypertension) (Acute) Immunocompromised state (Acute) Insomnia (Acute) Meningitis (Acute) Paroxysmal atrial fibrillation (Acute) Sepsis (Acute) Septic shock (Acute) Skin cancer (Acute) Stupor (Acute) Thrombocytopenia (Acute) Type 2 diabetes mellitus (Acute) Surgical History History of tonsillectomy (Acute) Social History household members: family Smoking Status: Current some day smoker alcohol intake: former Social History household members: family Smoking Status: Current some day smoker alcohol intake: former Meds Home Medications Medication Instructions Recorded Confirmed Type atenolol 0.5 tab PO DAILY 08/23/18 08/23/18 History cyanocobalamin (vitamin B-12) 100 mcg PO DAILY 08/23/18 08/23/18 History golimumab [Simponi] 0.5 ml SUBCUT DIRECTED 08/23/18 08/23/18 History hydrochlorothiazide 1 tab PO DAILY 08/23/18 08/23/18 History omega-3 fatty acids 500 mg PO DAILY 08/23/18 08/23/18 History oxycodone 5 mg PO QID 08/23/18 08/23/18 History pantoprazole 40 mg PO DAILY 08/23/18 08/23/18 History pyridoxine (vitamin B6) [Vitamin See Rx Instructions .ROUTE .COMPLEX 08/23/18 08/23/18 History B-6] ranitidine HCl 150 mg PO DAILY 08/23/18 08/23/18 History Allergies Allergy/AdvReac Type Severity Reaction Status Date / Time No Known Drug Allergies Allergy Verified 08/23/18 10:36 Review of Systems Review of Systems All systems reviewed & are unremarkable except as noted in HPI and below Exam Vital Signs (past 8 hours): - 08/25/18 08:33 08/25/18 13:48 08/25/18 15:41 Temperature 98.6 F 98.5 F Pulse Rate 97 H 108 H Respiratory Rate 18 20 Blood Pressure 162/88 H 136/76 Pulse Oximetry 96 100 99 Oxygen Delivery Method Room Air Oxygen Flow Rate 0 Narrative Exam Narrative: Patient is afebrile now although earlier today had a temperature of a 102?. Abdomen is distended however there is no localized tenderness and certainly no sign of peritonitis. I do not palpate a mass. Objective Labs Result Diagrams: 08/25/18 05:00 08/25/18 05:00 Labs: Laboratory Results - last 24 hr 08/23/18 08/25/18 08/25/18 09:30 05:00 05:00 WBC 9.0 RBC 3.88 L Hgb 10.9 L Hct 32.6 L MCV 84.2 MCH 28.2 MCHC 33.5 RDW 16.5 H Plt Count 195 Neut % (Auto) 75.8 H Lymph % (Auto) 15.6 L [place] % (Auto) 8.1 Eos % (Auto) 0.1 L Baso % (Auto) 0.4 Neut # (Auto) 6800 Lymph # (Auto) 1400 [place] # (Auto) 700 Eos # (Auto) 0 Baso # (Auto) 0 Sodium 139 Potassium 3.7 Chloride 107 Carbon Dioxide 24 BUN 20 Creatinine 1.10 Estimated GFR > 60.0 BUN/Creatinine Ratio 18.2 Glucose 94 Calcium 8.4 Procalcitonin Urine Color Cancelled Urine Appearance Cancelled Urine pH Cancelled Ur Specific [place] Cancelled Urine Protein Cancelled Urine Glucose (UA) Cancelled Urine Ketones Cancelled Urine Occult Blood Cancelled Urine Nitrate Cancelled Urine Bilirubin Cancelled Urine Urobilinogen Cancelled Ur Leukocyte Esterase Cancelled Urine RBC Cancelled Urine WBC Cancelled Ur Squamous Epith Cells Cancelled Ur Transition Epith Cell Cancelled Ur Renal Epithelial Cell Cancelled Calcium Oxalate Crystal Cancelled Uric Acid Crystals Cancelled Triple Phos Crystals Cancelled Other Crystals Cancelled Amorphous Sediment Cancelled Urine Bacteria Cancelled Hyaline Casts Cancelled Granular Casts Cancelled RBC Casts Cancelled WBC Casts Cancelled Other Casts Cancelled Urine Mucus Cancelled Urine Trichomonas Cancelled Urine Yeast Cancelled Urine Sperm Cancelled Ur Culture Indicated? Cancelled Micro UA Comment Cancelled 08/25/18 05:00 WBC RBC Hgb Hct MCV MCH MCHC RDW Plt Count Neut % (Auto) Lymph % (Auto) [place] % (Auto) Eos % (Auto) Baso % (Auto) Neut # (Auto) Lymph # (Auto) [place] # (Auto) Eos # (Auto) Baso # (Auto) Sodium Potassium Chloride Carbon Dioxide BUN Creatinine Estimated GFR BUN/Creatinine Ratio Glucose Calcium Procalcitonin 1.16 H Urine Color Urine Appearance Urine pH Ur Specific [place] Urine Protein Urine Glucose (UA) Urine Ketones Urine Occult Blood Urine Nitrate Urine Bilirubin Urine Urobilinogen Ur Leukocyte Esterase Urine RBC Urine WBC Ur Squamous Epith Cells Ur Transition Epith Cell Ur Renal Epithelial Cell Calcium Oxalate Crystal Uric Acid Crystals Triple Phos Crystals Other Crystals Amorphous Sediment Urine Bacteria Hyaline Casts Granular Casts RBC Casts WBC Casts Other Casts Urine Mucus Urine Trichomonas Urine Yeast Urine Sperm Ur Culture Indicated? Micro UA Comment Assessment & Plan Assessment & Plan narrative: Patient had a CT scan done today which demonstrates sigmoid diverticulitis with a colovesical fistula. The abnormalities noted in the sigmoid may represent diverticulitis but neoplasm cannot be excluded. Patient is on meropenem. Impression here is the patient has complicated sigmoid diverticulitis possibly a sigmoid carcinoma with communication to the urinary bladder. His urosepsis seems to be resolving. [place] [address] to the ITs 9000 patient is anemic with a hemoglobin around 10. I have added Flagyl to his regimen. To broaden the anaerobic coverage. My recommendation would be to attempt resolution of the cystitis and colovesical fistula with a antibiotic therapy. Certainly the patient needs a colonoscopy in the next month. If the fistula does not resolve itself than sigmoid resection will be indicated. Certainly if there is a carcinoma causing all of this then of course sigmoid resection is indicated as well. I have explained all this to the patient who seems to understand and has no further questions
[2018-08-25] MEDS: ACETAMINOPHEN 325 MG TABLET 650 MG PO (16:25)
[2018-08-25] MEDS: metroNIDAZOLE 500 MG/100 ML PIGGYBACK 100 MG IV ×2 (16:25→21:25)
[2018-08-26 00:25] VITALS: O2SAT 99
[2018-08-26] MEDS: MEROPENEM 1 GM/50 ML PIGGYBACK IV ×2 (03:34→12:02)
[2018-08-26] MEDS: metroNIDAZOLE 500 MG/100 ML PIGGYBACK 100 MG IV ×2 (03:39→10:30)
[2018-08-26 03:42] VITALS: BP 124/87; PULSE 102; RESP 16; TEMP 37.1; O2SAT 95
[2018-08-26 05:30] LABS: Add Manual Diff / Slide Review NO; Basophils Absolute Auto 0 /uL (0-100); Basophils Percent Auto 0.5 % (0-2); Eosinophils Absolute Auto 0 /uL (0-450); Eosinophils Percent Auto 0.1 % (2-4); Hematocrit 30.8 % (41-53); Hemoglobin 10.5 g/dL (13.5-17.5); Lymphocytes Absolute Auto 1000 /uL (1100-4500); Lymphocytes Percent Auto 19.3 % (25-40); Mean Corpuscular HGB Conc 34.2 % (30-36); Mean Corpuscular Hemoglobin 28.3 PG (26-34); Mean Corpuscular Volume 82.7 fL (80-100); Monocytes Absolute Auto 500 /uL (0-900); Monocytes Percent Auto 8.8 % (3-14); Neutrophils Absolute Auto 3800 /uL (1500-7000); Neutrophils Percent Auto 71.3 % (50-75); Platelet Count 197 X10^3/uL (150-400); Red Blood Cell Count 3.72 X10^6/uL (4.5-5.9); Red Cell Distribution Width 16.4 % (11.6-14.8); White Blood Cell Count 5.3 X10^3/uL (4.5-11.0)
[2018-08-26 05:55] LABS: BUN Creatinine Ratio 14.4 (6-22); Blood Urea Nitrogen 13 mg/dL (9-20); Calcium 8.1 mg/dL (8.4-10.2); Carbon Dioxide 22 mmol/L (22-32); Chloride 105 mmol/L (98-107); Estimated Glomerular Filt Rate > 60.0 mL/min (>60); Glucose 95 mg/dL (80-110); HEMOLYSIS 20 (0-50); Potassium 3.4 mmol/L (3.4-5.1); Sodium 135 mmol/L (137-145)
[2018-08-26 07:00] VITALS: BP 110/55; PULSE 92; RESP 18; TEMP 36.5; O2SAT 98
[2018-08-26] MEDS: SODIUM CHLORIDE 0.9% 1,000 ML 100 ML IV (07:47)
[2018-08-26] MEDS: OXYCODONE IR 5 MG TABLET PO ×2 (07:53→13:05)
[2018-08-26] MEDS: HEPARIN 5,000 UNIT/ML VIAL 5000 UNIT SUBCUT (08:17)
[2018-08-26] MEDS: ATENOLOL 50 MG TABLET PO (08:17)
[2018-08-26] MEDS: SODIUM CHLORIDE 0.9% FLUSH 10 ML IV (08:18)
--- NOTE | 2018-08-26 10:07 | CM.DPC ---
Addendum entered by Praveena Astudillo, ANNA 08/26/18 13:35: Dr. Case just reported update re POC. She had conferred with the surgeon and now is going to send pt home with outpt urology followup.She reports she had gone over the details of this plan with pt and his son. Went to room to check in. Pt confirms plan. MALLIKA Diaz says that Dr. Case is going to return soon to let pt know what his diet will be. Pt would like priority board for the 6:30 PM ferry: [place] to [place]. Checked ferry schedule to make sure this is current per pt request: confirmed: info to RICHIE Mendieta who agrees to process the PB accordingly. MALLIKA Diaz is updated and will update pt. Pt's son has gone to get lunch, will return and will be talking pt home. Original Note: DCP: continued: Case received, EMR reviewed. Discussed in Team Rounds. General Surgeon Dr. Ley is consulting and his note of late yesterday indicates CT showed sigmoid diverticulitis with colovesical fistula. Dr. Case reports in rounds that plan at this point is IV antibiotics and then to oral antibiotics. Sigmoid resection might be indicated if condition does not resolve with medical management. DCP team will be following. Pt does have Medicare and Medicaid and thus is well positioned for snf level care if this should be needed. PT at this point has cleared pt for home from a mobility standpoint but pt may well need the snf setting for medical issues...Will not discuss at this point with pt as is too early in the process.
[2018-08-26 10:37] VITALS: O2SAT 98
[2018-08-26 11:04] VITALS: BP 104/66; PULSE 75; RESP 16; TEMP 36.5; O2SAT 99
--- NOTE | 2018-08-26 11:34 | PM.PN.1 ---
Subjective Date Patient Seen: 08/26/18 Time Patient Seen: 10:00 Interval history: Doing reasonably well this morning, no abdominal pain Feels to be in good spirits tolerating a diet Cultures now returned as pansensitive E coli in blood as well as UA Taking excellent p.o. Exam Vital Signs (past 8 hours): - 08/26/18 03:42 08/26/18 07:00 08/26/18 10:37 Temperature 98.8 F 97.7 F Pulse Rate 102 H 92 H Respiratory Rate 16 18 Blood Pressure 124/87 110/55 L Pulse Oximetry 95 98 98 08/26/18 11:04 Temperature 97.7 F Pulse Rate 75 Respiratory Rate 16 Blood Pressure 104/66 Pulse Oximetry 99 Oxygen Delivery Method Room Air Oxygen Flow Rate 0 Narrative Exam Narrative: Appears well, fully oriented Breathing comfortably on room air Abdomen soft nontender nondistended Periphery warm well perfused Objective Labs Result Diagrams: 08/26/18 05:00 08/26/18 05:00 Labs: Laboratory Results - last 24 hr 08/26/18 08/26/18 05:00 05:00 WBC 5.3 RBC 3.72 L Hgb 10.5 L Hct 30.8 L MCV 82.7 MCH 28.3 MCHC 34.2 RDW 16.4 H Plt Count 197 Neut % (Auto) 71.3 Lymph % (Auto) 19.3 L [place] % (Auto) 8.8 Eos % (Auto) 0.1 L Baso % (Auto) 0.5 Neut # (Auto) 3800 Lymph # (Auto) 1000 L [place] # (Auto) 500 Eos # (Auto) 0 Baso # (Auto) 0 Sodium 135 L Potassium 3.4 Chloride 105 Carbon Dioxide 22 BUN 13 Creatinine 0.90 Estimated GFR > 60.0 BUN/Creatinine Ratio 14.4 Glucose 95 Calcium 8.1 L Assessment & Plan Assessment & Plan narrative: 67-year-old man hospital day 2 of presented in septic shock from pyelonephritis likely due to colovesical fistula from presumed diverticular disease. Now with normal hemodynamics physiology recent white blood cell count normal at 5.3. A KI resolved creatinine 0.9. Organism is pansensitive E coli. Unable to pass Gentile catheter due to prostate. Recommendations: Okay to narrow antibiotic - have good culture data, with bacteremia would be a total of 2 weeks Overall plan will be for patient to have surgery to take down colovesical fistula to prevent recurrence. He will need: 1. Referral to Urology S will need to have a Gentile catheter placed at the time of surgery and for 2 weeks afterwards to allow bladder to heal 2. Follow-up with myself in clinic approximately a week after discharge for H&P 3. It will need colonoscopy in several weeks once he has fully recovered - to evaluate for malignant fistula or other neoplasia within the colon 4. Anticipate surgery in approximately 2 months time to take down the fistula Quality VTE Deep Vein Thrombosis/Pulmonary Embolism Present on Admission: No
[2018-08-26] MEDS: LACTOBACILLUS ACIDOPHILUS TABLET 1 EACH PO (12:59)
[2018-08-26] MEDS: ACETAMINOPHEN 325 MG TABLET 650 MG PO (13:06)
[2018-08-26] MEDS: TAMSULOSIN 0.4 MG CAPSULE PO (14:03)
--- NOTE | 2018-08-26 14:12 | PM.DS.1 ---
History of Present Illness Date Patient Seen: 08/23/18 Chief complaint: Ulcer & very weak T-3 days Narrative: Written by myself Dr. Case: Richard Hernandez is a 67-year-old male with a past medical history significant for bacterial meningitis, left Santacruz's palsy, immunocompromised on golimumab for ankylosing spondylitis, diabetes mellitus type 2, untreated, paroxysmal atrial fibrillation and GERD who presented for severe progressively worsening weakness. He reports that the last 3 nights were ?increasingly horrible? and he was unable to sleep. He reports that he would sleep 30-45 minutes and spontaneously awaken but was unable to go back to sleep. He also reports progressive worsening severe weakness to the extent that he thought if he laid down he would ?kick the bucket.? He endorses increased urinary frequency, mild nausea and 1 episode of diarrhea. He denies headache, chest pain, shortness of breath, abdominal pain, fever, chills, vomiting, dysuria, urinary urgency or constipation. He also reports chronic back and rib pain due to ankylosing spondylitis. He thought he may have had another ulcer as 5-6 weeks ago he was empirically diagnosed with ibuprofen induced ulcer for diarrhea and vomiting. He is no longer on ibuprofen. He denies hematochezia or melena. His son reports shaking and the patient is mildly diaphoretic. He has no other complaints. In the ED patient's urinalysis was grossly positive. His creatinine is normally 1.0 and is up to 1.9. He is hypotensive but fluid responsive. He was also mildly tachycardic with atrial fibrillation which has resolved. The patient was diagnosed with diabetes mellitus type 2 in 2017 during his hospitalization for bacterial meningitis and kidney infection. The patient was unaware of this diagnosis and has been untreated. PCP is Dr. Olivia. Discharge Providers Date of admission: 08/23/18 11:13 Discharge Date: 08/26/18 Consults: 08/23/18 11:26 Consult to Occupational Therapy Evaluate & Treat Comment: Physician Instructions: Evaluate and treat Consult to Physical Therapy Evaluate & Treat Comment: Physician Instructions: Evaluate and Treat 08/23/18 12:44 Consult to Dietitian, Adult Routine Comment: Reason For Exam: UNINTENTIONAL WT LOSS 08/25/18 11:36 Consult to Physician Routine Comment: Consulting Provider: Sergei Moody Reason for consultation: colovesicle fistula Has provider been notified: Yes 08/25/18 12:05 Consult to Physical Therapy Evaluate & Treat Comment: hx , needs hard board to lay on, stretches Physician Instructions: Evaluate and Treat Discharge provider: Purnima Case DO Summary Discharge Diagnosis: 1. Acute severe sepsis, present on admission. Resolved. 2. Colovesical fistula with E. coli UTI and bacteremia, present on admission. Active. 3. Acute kidney injury, present on admission. Resolved. 4. Ankylosing spondylitis with opiate dependence, chronic, present on admission. Stable. 5. Prediabetes, likely chronic, present on admission. Stable. 6. Paroxysmal atrial fibrillation, chronic, present on admission. Stable. 7. Hypertension, chronic, present on admission. Stable. 8. Acute hypokalemia, present on admission. Resolved. 9. Normocytic anemia, acuity unclear, present on admission. Improved/stable. 10. GERD, chronic, present on admission. Stable. Hospital Course: Richard Hernandez is a 67-year-old male with a past medical history significant for bacterial meningitis, left Santacruz's palsy, immunocompromised on golimumab for ankylosing spondylitis, paroxysmal atrial fibrillation and GERD who presented for severe progressively worsening weakness. 1. Acute severe sepsis, present on admission. Resolved. -Presented with hypotension (BP 73/46), tachycardia (HR 118), febrile (102.2), with leukocytosis (24.8) and elevated procalcitonin (1.33) with etiology bacteremia due to urinary source associated with colovesical fistula. Blood culture 3:4 bottles and urine cultures grew pansensitive E coli. -Early goal-directed therapy med including: IV fluid hydration and broad-spectrum antibiotics as below. 2. Colovesical fistula with E. coli UTI and bacteremia, present on admission. Active. -Patient had noted air in urine prompting CT abdomen and pelvis with oral and rectal contrast which showed colovesical fistula involving the proximal sigmoid colon and left superior bladder wall. Patient reports having abdominal pain 4 or 5 weeks ago which resolved on its own. -CT abdomen and pelvis also demonstrated thickening of the sigmoid colon, indicating diverticulitis versus neoplasm. Etiology is likely secondary to perforated colon from diverticulitis versus malignancy which would be less likely. -Blood culture 3:4 bottles and urine cultures grew pansensitive E coli. -Continued meropenem 1 g IV every 8 hours and Flagyl 500 mg IV every 6 hours per surgery. Discharged on ciprofloxacin 500 mg twice daily and Flagyl 500 mg 3 times daily x2 weeks and close outpatient follow-up with General surgery for colonoscopy and definitive surgical treatment of fistula, as patient is on immunocompromised and a higher propensitiy for recurrence and complications. 3. Acute kidney injury, present on admission. Resolved. -Baseline creatinine 0.8-1.0 based on outpatient records. Initial creatinine 1.9 on admission. Creatinine trended back to baseline at 0.90. -Continued IV fluids until adequately hydrated then discontinued. -Avoided nephrotoxic agents. -Renal ultrasound demonstrated normal kidneys without obstruction. 4. Ankylosing spondylitis with opiate dependence, chronic, present on admission. Stable. -Patient is on golimumab which was held and not restarted. Recommend outpatient Rheumatology evaluation to restart once infection and colovesicular fistula has been addressed and resolved. -Continued oxycodone 5 mg every 4 hours while awake as needed for pain. -Physical therapy evaluated and treated. 5. Prediabetes, likely chronic, present on admission. Stable. -Previous hospitalization at [facility] documented diabetes mellitus type 2 and recommended patient start metformin outpatient. Patient has no recollection of being told he was diabetic and has been untreated since 2017. Unclear if patient was actually diabetic or prediabetic at that time. -Initial blood glucose 210 on admission.Hemoglobi n A1c 5.7% indicative of prediabetes. Continue to recommend lifestyle modification including diet and exercise (as tolerated). -Continued [facility] blood glucose checks and low-dose correctional scale insulin. 6. Paroxysmal atrial fibrillation, chronic, present on admission. Stable. -Continued atenolol 50 mg daily for rate control. 7. Hypertension, chronic, present on admission. Stable. -Continued atenolol 50 mg daily today. Held hydrochlorothiazide 25 mg daily and did not restart due to acute illness. May be restarted once acute infection and colovesicular fistula has been addressed. 8. Acute hypokalemia, present on admission. Resolved. -Continued to monitor and replete as needed. 9. Normocytic anemia, acuity unclear, present on admission. Improved/stable. -Likely due to inflammatory response from acute infection and dilutional affect from 4 L of IVF. -No overt signs of bleeding. -Monitored as needed. 10. GERD, chronic, present on admission. Stable. -Continued ranitidine 150 mg daily. Status at Discharge Functional status at discharge: independent ambulation Overall status at discharge: patient is back to baseline Exam Vital Signs (past 8 hours): - 08/26/18 07:00 08/26/18 10:37 08/26/18 11:04 Temperature 97.7 F 97.7 F Pulse Rate 92 H 75 Respiratory Rate 18 16 Blood Pressure 110/55 L 104/66 Pulse Oximetry 98 98 99 Oxygen Delivery Method Room Air Oxygen Flow Rate 0 Narrative Exam Narrative: General: Older gentleman sitting in bed and in no acute distress, very stiff due to ankylosing spondylitis, well-developed, well-nourished, appropriately interactive. HEENT: Normocephalic, atraumatic. External ears without defect. Pupils equal, round, and reactive to light. Anicteric sclerae and moist conjunctivae. Left-sided Santacruz's palsy. Neck: Supple with full range of motion. No lymphadenopathy or thyromegaly. Cardiovascular: Heart sounds distant but appears to be irregularly irregular without murmurs, rubs, or gallops appreciated. Pulmonary: Clear to auscultation bilaterally without crackles, wheezes, or rhonchi. Normal respiratory effort with no use of accessory muscles. Abdomen: Soft, bowel sounds present, nontender, nondistended. No hepatosplenomegaly or masses appreciated. Extremities: No clubbing, cyanosis, or edema. Skin: Normal temperature, turgor, and texture; no rash, ulcers, or subcutaneous nodules appreciated. Neurological: Cranial nerves grossly intact. Psychiatric: Normal mood and affect. Alert and oriented to person, place, and time. Objective Labs Result Diagrams: 08/26/18 05:00 08/26/18 05:00 Labs: Laboratory Results - last 24 hr 08/26/18 08/26/18 05:00 05:00 WBC 5.3 RBC 3.72 L Hgb 10.5 L Hct 30.8 L MCV 82.7 MCH 28.3 MCHC 34.2 RDW 16.4 H Plt Count 197 Neut % (Auto) 71.3 Lymph % (Auto) 19.3 L [place] % (Auto) 8.8 Eos % (Auto) 0.1 L Baso % (Auto) 0.5 Neut # (Auto) 3800 Lymph # (Auto) 1000 L Mingo # (Auto) 500 Eos # (Auto) 0 Baso # (Auto) 0 Sodium 135 L Potassium 3.4 Chloride 105 Carbon Dioxide 22 BUN 13 Creatinine 0.90 Estimated GFR > 60.0 BUN/Creatinine Ratio 14.4 Glucose 95 Calcium 8.1 L Discharge Plan Discharge Plan Patient Disposition: Home Discharge comment: You are being discharged home. Please follow-up with your PCP, Dr. Olivia and general surgery, Dr. Byrne at your scheduled appointments. Please have your PCP refer you to Urology to have a Gentile catheter placed. You have been started on tamsulosin 0.4 mg daily to help with prostate enlargement. You have been prescribed oral antibiotics with ciprofloxacin 500 mg twice daily and Flagyl 500 mg 3 times daily both to be taken for at least 2 weeks unless otherwise specified by surgeon to continue to treat your blood and kidney infection. It is recommended that you have a colonoscopy in the near future as your colovesicular fistula may be a malignancy versus diverticular perforation. You may eat a heart healthy diet (low in carbohydrates, sodium and fat) but try to avoid seeds and nuts. If you began having fevers, chills, nausea, vomiting, increased fatigue and/or weakness please see a medical professional immediately. Please hold your Simponi for now and discuss restarting this medication with a cultural anthropology professor in the future. Discharge Med Rec/Prescriptions Prescriptions: New tamsulosin [Flomax] 0.4 mg Capsule 0.4 mg PO DAILY Qty: 30 RF: 0 Bacid (L. acidophilus) 1 billion cell- 250 mg Tablet 1 ea PO TIDWM Qty: 30 RF: 0 ciprofloxacin HCl [Cipro] 500 mg tablet 500 mg PO BID Qty: 28 RF: 0 metronidazole [Flagyl] 500 mg tablet 500 mg PO TID Qty: 42 RF: 0 Continued atenolol 100 mg tablet 0.5 tab PO DAILY RF: 0 oxycodone 5 mg tablet 5 mg PO QID RF: 0 pantoprazole 40 mg tablet,delayed release (DR/EC) 40 mg PO DAILY RF: 0 ranitidine HCl 150 mg tablet 150 mg PO DAILY RF: 0 omega-3 fatty acids 500 mg Capsule 500 mg PO DAILY RF: 0 pyridoxine (vitamin B6) [Vitamin B-6] 25 mg Tablet See Rx Instructions .ROUTE .COMPLEX RF: 0 cyanocobalamin (vitamin B-12) 100 mcg Tablet 100 mcg PO DAILY RF: 0 Discontinued hydrochlorothiazide 25 mg tablet 1 tab PO DAILY RF: 0 Simponi 50 mg/0.5 mL pen injector 0.5 ml subcut DIRECTED RF: 0 Follow up/Referrals: Dami Olivia MD [Non-Staff] - 09/02/18 4:30 pm (please arrive 15 min prior to your scheduled appointment ) Juanpablo Byrne MD [Physician] - 09/03/18 10:45 am (appt:09/03 check in at 10:45 for a 11:00 appointment ) Provider Discharge Instructions Diet: Carb-consistent/Diabetic, Low-fat, Low-sodium and Low-cholesterol Diet comment: Avoid seeds and nuts Activity: Activity as tolerated Visit Report/Discharge Packet Instructions: Diverticulitis, DI for Benign Prostatic Hyperplasia Discharge Data Attending Provider: Purnima Case Admit Date/Time: 08/23/18 11:13 Discharges patient from system. Discharge Date/Time: 08/26/18 16:10 Quality VTE Deep Vein Thrombosis/Pulmonary Embolism Present on Admission: No
[2018-08-26 14:15] VITALS: BMI 20.9
--- NOTE | 2018-08-26 15:02 | PC.NURSE ---
Pt has been discharged home. Priority boarding pass arranged for [address]. IV removed. Pt has showered. Given percolone for pain control - pt requesting q4h as it does not hold if delayed. Has severe pain in his entire spine which he tends to underreport. Pt with son who will accompany him back to [facility]. Pt's urine has been clear yellow and he has continued on the clear liquid diet with new diet orders given by Dr Case for dc.
[2018-08-26 15:25] VITALS: BP 117/59; PULSE 81; RESP 16; TEMP 36.3; O2SAT 97
--- NOTE | 2018-08-26 16:13 | PC.NURSE ---
Discharge Note Pt A&O, VSS, no complaints of pain. Discharge instruction packet given to pt along with follow-up information and new medication. Pt had no questions/concerns. Medication given back to pt from pharmacy. PIV discontinued by previous nurse. Belongings and discharge information given to pt. Taken down via wheelchair to personal vehicle.
== END 2018-08-26 16:10 | disposition home or self-care (01) | DRG 872 ==
LOC: ED 11:12 → AC 11:14
PROVIDERS: Internal Medicine; Nurse Practitioner Adult Health; Admitting Provider Internal Medicine; Emergency Provider Emergency Medicine; Visit Provider Internal Medicine
DX: A41.51 Sepsis due to Escherichia coli [E. coli] (principal); N10 Acute pyelonephritis; N17.9 Acute kidney failure, unspecified; N32.1 Vesicointestinal fistula; K57.20 Diverticulitis of large intestine with perforation and abscess without bleeding; R65.20 Severe sepsis without septic shock; I95.9 Hypotension, unspecified; M45.9 Ankylosing spondylitis of unspecified sites in spine; E87.6 Hypokalemia; G89.29 Other chronic pain; Z79.891 Long term (current) use of opiate analgesic; I48.0 Paroxysmal atrial fibrillation; D64.9 Anemia, unspecified; I10 Essential (primary) hypertension; K21.9 Gastro-esophageal reflux disease without esophagitis; R73.03 Prediabetes
CPT/HCPCS: 36415; 36591; 71045; 74176; 76770; 80048; 80053; 81001; 81003; 81015; 82962; 83036; 83605; 83690; 83735; 84145; 85025; 86850; 86900; 86901; 87040; 87077; 87086; 87150; 87186; 87205; 93005; 94760; 94762; 96361; 96365; 97161; 97165; 97535; 99231; 99232; 99285; 99406; J1644; J1956; J2185; J3480; J7050

== ENCOUNTER 2018-09-11 18:36 | Emergency (ER) | payer MEDICARE, MEDICAID, SELFPAY ==
[2018-08-23 12:15] VITALS: BMI 21.1
[2018-09-11 18:41] VITALS: BP 112/79; PULSE 91; RESP 20; O2SAT 98
--- NOTE | 2018-09-11 18:52 | ED_ITS ---
HPI - Weakness General Chief complaint: Weakness Stated complaint: THINKS INFECTION HAS RETURNED Time Seen by Provider: 09/11/18 18:52 Source: patient Mode of arrival: ambulatory Limitations: no limitations History of Present Illness HPI Narrative: The patient presents with complaints of weakness. He complains of feeling like he was too weak to stand. He presented here 10 days ago with fever, and was found to have E coli urosepsis. 2/2 blood cultures were positive. The E coli was found to be pansensitive. During his workup, an abdomen/pelvis CT was obtained. 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 Also found was thickening of the sigmoid colon, indicating diverticulitis versus neoplasm. He returns today without URI symptoms, cough or chest pain. He has discomfort from his xiphoid down through his lower abdomen. He denies back pain that would suggest CVAT. He has no testicular pain, dysuria or retention. He does have chronic back pain due to ankylosing spondylitis, for which he takes narcotic pain meds for times daily. He has undergone prior back fusion due to the issue. He has no back pain different than what he would normally deal with. He had a fever earlier today, none now. He complains weakness, but with no focal complaint other than the vague abdominal complaints. spondylitis. Related Data Home Medications Medication Instructions Recorded Confirmed atenolol 0.5 tab PO DAILY 08/23/18 08/23/18 cyanocobalamin (vitamin B-12) 100 mcg PO DAILY 08/23/18 08/23/18 omega-3 fatty acids 500 mg PO DAILY 08/23/18 08/23/18 oxycodone 5 mg PO QID 08/23/18 08/23/18 pantoprazole 40 mg PO DAILY 08/23/18 08/23/18 pyridoxine (vitamin B6) [Vitamin See Rx Instructions .ROUTE .COMPLEX 08/23/18 08/23/18 B-6] ranitidine HCl 150 mg PO DAILY 08/23/18 08/23/18 Previous Rx's Medication Instructions Recorded L.acidoph-L.bulg-B.bif-S.therm 1 ea PO TIDWM #30 tab 08/26/18 [Bacid (L. acidophilus)] ciprofloxacin HCl [Cipro] 500 mg PO BID #28 tab 08/26/18 metronidazole [Flagyl] 500 mg PO TID #42 tab 08/26/18 tamsulosin [Flomax] 0.4 mg PO DAILY #30 cap 08/26/18 Allergies Allergy/AdvReac Type Severity Reaction Status Date / Time No Known Drug Allergies Allergy Verified 08/23/18 10:36 Review of Systems Review of Systems ROS Unobtainable: All systems reviewed & are unremarkable except as noted in HPI and below Constitutional Denies chills, Denies fever(s), Denies lethargy and Denies weakness Cardiovascular Denies chest pain, Denies irregular heart rhythm, Denies lightheadedness, Denies palpitations, Denies dyspnea, Denies dyspnea on exertion and Denies orthopnea Respiratory Denies cough, Denies dyspnea, Denies dyspnea on exertion and Denies wheezing Gastrointestinal Gastrointestinal: Reports abdominal pain, Denies belching, Reports cramping, Denies nausea and Denies vomiting Genitourinary Denies hematuria, Denies flank pain, Denies scrotal swelling, Denies urinary incontinence and Denies urinary urgency Comments: Prior urinary retention has resolved. Musculoskeletal Denies back pain, Denies muscle weakness, Denies numbness and Denies tingling Neurologic Denies numbness, Denies tingling and Denies weakness Endocrine Denies palpitations Allergic/Immunologic Denies wheezing FORMERLY [facility] Medical History Ankylosing spondylitis (Acute) Santacruz's palsy (Acute) Chronic pain (Acute) Dental caries (Acute) Diabetes mellitus type 2 in nonobese (Acute) HTN (hypertension) (Acute) Immunocompromised state (Acute) Insomnia (Acute) Meningitis (Acute) Paroxysmal atrial fibrillation (Acute) Sepsis (Acute) Septic shock (Acute) Skin cancer (Acute) Stupor (Acute) Thrombocytopenia (Acute) Type 2 diabetes mellitus (Acute) Surgical History History of tonsillectomy (Acute) Family History Mother No problems noted. Father No problems noted. Social History household members: family Smoking Status: Current some day smoker alcohol intake: former Family History Mother No problems noted. Father No problems noted. Social History household members: family Smoking Status: Current some day smoker alcohol intake: former Exam Initial Vital Signs Initial Vital Signs: Vital Signs Pulse Rate 91 H 09/11/18 18:41 Respiratory Rate 20 09/11/18 18:41 Blood Pressure 112/79 09/11/18 18:41 Pulse Oximetry 98 09/11/18 18:41 Const General: cooperative and well developed Nutritional Appearance: well nourished Orientation: alert, awake, oriented x3 and not confused HENMT Head: normocephalic and atraumatic Ears: external ears normal and TM's normal bilaterally Nose: external nose normal and No nasal discharge Face and sinus: sinuses nontender, face symmetric, no sinus tenderness and No dry mucous membranes Mouth: oral mucosae normal and moist mucous membranes Teeth and gingiva: dentition normal Throat: tonsils normal and uvula midline Neck Neck: supple, No lymphadenopathy and No JVD Chest Chest: normal inspection of the chest Resp Effort & Inspection: normal respiratory effort, able to speak in complete sentences, no respiratory distress and no use of accessory muscles Auscultation: clear to auscultation bilaterally, no rales, no rhonchi and no wheezes Cardio Rate: regular rate Rhythm: regular rhythm Heart Sounds: no click, no gallops, no murmurs and no rubs Pulses: normal peripheral pulses GI Other: Epigastric and periumbilical tenderness. Slight suprapubic tenderness. No distention. No guarding or rebound. No peritoneal signs. No masses. Normal bowel sounds. Back/Spine/Pelvis Back: No CVA tenderness Skin General: no rashes or lesions noted, No jaundice and No petechiae Extrem General: full ROM, no pedal edema and no calf tenderness Psych Appearance: well kempt Mental Status: mental status grossly normal Attitude: cooperative Thought Content: normal and suicidality Judgment: judgment good Course Course Narrative: The patient has chronic pain from ankylosing spondylitis. He is on narcotics daily for the chronic pain. He presented with abdominal pain, thinking it was like his presentation 10 days ago with urosepsis. The lab evaluation was reassuring, there is no evidence of infection/sepsis. Urinalysis did show pyuria, but this is expected with him having a fistula. He has an a ppointment tomorrow with a a surgeon, Dr. Su. I discussed the patient's current findings with Dr. Su. There is no evidence of current infection. The patient has appointment tomorrow. He will be encouraged to follow up with his appointment. Orders Ordered: ED Orders 09/11/18 18:48 EKG-12 Lead Stat 09/11/18 18:55 Complete Blood Count AUTO DIFF Stat Comprehensive Metabolic Panel Stat Procalcitonin Stat Troponin & CK Cardiac Panel Stat 09/11/18 19:15 XR chest 1V Stat 09/11/18 19:27 CT abdomen pelvis w con Stat 09/11/18 19:35 Lactate (Lactic Acid) Stat 09/11/18 20:15 Urinalysis and Microscopic Stat Urine Culture Stat Discontinued Medications Sodium Chloride (Normal Saline 0.9%) 1,000 mls @ 1,000 mls/hr IV BOLUS ONE Stop: 09/11/18 20:14 Last Infusion: 09/11/18 20:26 Dose: 1,000 mls/hr Admin: 09/11/18 19:30 Dose: 1,000 mls/hr Vital Signs - 8 hr 09/11/18 18:41 09/11/18 20:10 09/11/18 20:58 Pulse Rate 91 H 90 Respiratory Rate 20 17 Blood Pressure 112/79 Blood Pressure [Right Arm] 99/75 104/72 Pulse Oximetry 98 100 09/11/18 21:00 09/11/18 22:00 09/11/18 23:34 Pulse Rate 88 78 78 Respiratory Rate 17 Blood Pressure Blood Pressure [Right Arm] 96/78 92/82 98/75 Pulse Oximetry 99 97 MDM - Weakness Lab Data Result diagrams: 09/11/18 18:55 09/11/18 18:55 Lab Results 09/11/18 09/11/18 09/11/18 Range/Units 18:55 18:55 18:55 WBC 11.5 H (4.5-11.0) X10^3/uL RBC 4.45 L (4.5-5.9) X10^6/uL Hgb 12.3 L (13.5-17.5) g/dL Hct 37.5 L (41-53) % MCV 84.2 (80-100) fL MCH 27.6 (26-34) PG MCHC 32.8 (30-36) % RDW 17.0 H (11.6-14.8) % Plt Count 481 H (150-400) X10^3/uL Neut % (Auto) 47.2 L (50-75) % Lymph % (Auto) 41.7 H (25-40) % [place] % (Auto) 9.0 (3-14) % Eos % (Auto) 1.0 L (2-4) % Baso % (Auto) 1.1 (0-2) % Neut # (Auto) 5400 (0603-4495) /uL Lymph # (Auto) 4800 H (1003-1990) /uL [place] # (Auto) 1000 H (0-900) /uL Eos # (Auto) 100 (0-450) /uL Baso # (Auto) 100 (0-100) /uL Sodium 136 L (137-145) mmol/L Potassium 3.4 (3.4-5.1) mmol/L Chloride 102 (98-107) mmol/L Carbon Dioxide 26 (22-32) mmol/L BUN 21 H (9-20) mg/dL Creatinine 1.00 (0.66-1.25) mg/dL Estimated GFR > 60.0 (>60) mL/min BUN/Creatinine Ratio 21.0 (6-22) Glucose 111 H (80-110) mg/dL Lactate (0.7-2.1) mmol/L Calcium 9.4 (8.4-10.2) mg/dL Total Bilirubin 0.4 (0.2-1.3) mg/dL AST 40 (17-59) IU/L ALT 27 (21-72) IU/L Alkaline Phosphatase 56 (38-126) U/L Total Creatine Kinase 38 L (55-170) U/L CK-MB (CK-2) TNP CK-MB (CK-2) Rel Index TNP Troponin I < 0.012 (0.01-0.034) ng/mL Total Protein 8.8 H (6.3-8.2) g/dL Albumin 3.7 (3.5-5.0) g/dL Globulin 5.1 H (1.7-4.1) g/dL Albumin/Globulin Ratio 0.7 L (1.0-2.8) Procalcitonin < 0.05 (<0.5) ng/mL Urine Color Urine Appearance Urine pH (4.5-8.0) Ur Specific [place] (1.000-1.035) Urine Protein (Negative) Urine Glucose (UA) (Negative) g/dL Urine Ketones (NEGATIVE) Urine Occult Blood (Negative) Urine Nitrate (Negative) Urine Bilirubin (NEGATIVE) Urine Urobilinogen (0.2) E.U./dL Ur Leukocyte Esterase (NEGATIVE) Urine RBC (0-5/HPF) Urine WBC (0-5/HPF) Ur Squamous Epith Cells (0-5/HPF) Amorphous Sediment Urine Bacteria (None) Urine Mucus (Negative) Urine Yeast (None) Ur Culture Indicated? 09/11/18 09/11/18 Range/Units 19:35 20:15 WBC (4.5-11.0) X10^3/uL RBC (4.5-5.9) X10^6/uL Hgb (13.5-17.5) g/dL Hct (41-53) % MCV (80-100) fL MCH (26-34) PG MCHC (30-36) % RDW (11.6-14.8) % Plt Count (150-400) X10^3/uL Neut % (Auto) (50-75) % Lymph % (Auto) (25-40) % [place] % (Auto) (3-14) % Eos % (Auto) (2-4) % Baso % (Auto) (0-2) % Neut # (Auto) (9216-3628) /uL Lymph # (Auto) (5587-1137) /uL [place] # (Auto) (0-900) /uL Eos # (Auto) (0-450) /uL Baso # (Auto) (0-100) /uL Sodium (137-145) mmol/L Potassium (3.4-5.1) mmol/L Chloride (98-107) mmol/L Carbon Dioxide (22-32) mmol/L BUN (9-20) mg/dL Creatinine (0.66-1.25) mg/dL Estimated GFR (>60) mL/min BUN/Creatinine Ratio (6-22) Glucose (80-110) mg/dL Lactate 1.0 (0.7-2.1) mmol/L Calcium (8.4-10.2) mg/dL Total Bilirubin (0.2-1.3) mg/dL AST (17-59) IU/L ALT (21-72) IU/L Alkaline Phosphatase (38-126) U/L Total Creatine Kinase (55-170) U/L CK-MB (CK-2) CK-MB (CK-2) Rel Index Troponin I (0.01-0.034) ng/mL Total Protein (6.3-8.2) g/dL Albumin (3.5-5.0) g/dL Globulin (1.7-4.1) g/dL Albumin/Globulin Ratio (1.0-2.8) Procalcitonin (<0.5) ng/mL Urine Color Yellow Urine Appearance Cloudy Urine pH 6.5 (4.5-8.0) Ur Specific [place] <=1.005 (1.000-1.035) Urine Protein Negative (Negative) Urine Glucose (UA) Negative (Negative) g/dL Urine Ketones Negative (NEGATIVE) Urine Occult Blood 2+ H (Negative) Urine Nitrate Negative (Negative) Urine Bilirubin Negative (NEGATIVE) Urine Urobilinogen 0.2 (0.2) E.U./dL Ur Leukocyte Esterase 3+ H (NEGATIVE) Urine RBC 1-5/hpf D (0-5/HPF) Urine WBC 30-100/hpf H (0-5/HPF) Ur Squamous Epith Cells 1-5 /hpf (0-5/HPF) Amorphous Sediment 2+ Urine Bacteria Moderate (10-30) H (None) Urine Mucus 1+ H (Negative) Urine Yeast 5-10/hpf H (None) Ur Culture Indicated? Specimen cultured Urine Dip Bedside Urine Glucose Negative Bedside Urine Bilirubin - Negative Bedside Urine Ketone - Negative Urine Specific [place] 1.010 Bedside Urine Occult Blood + Bedside Urine pH 6.0 Bedside Urine Protein - Negative Bedside Urine Urobilinogen - Negative Bedside Urine Nitrite - Negative Bedside Urine Leukocytes +++ 500 Esterase Discharge Plan Departure Patient Disposition: Home Clinical Impression: Colovesical fistula Abdominal pain Qualifiers: Abdominal location: generalized Qualified Code(s): R10.84 - Generalized abdominal pain Instructions: Acute Abdominal Pain Activity Restrictions/Additional Instructions: The abdominal pain he experienced today is concerning, but not indicating a urinary infection again. Be sure you drinking plenty of water at all times. Follow-up with the surgeon as scheduled. Return here if he developed escalating abdominal pain, especially if you have a fever at that time. Prescriptions: No Action atenolol 100 mg tablet 0.5 tab PO DAILY RF: 0 oxycodone 5 mg tablet 5 mg PO QID RF: 0 pantoprazole 40 mg tablet,delayed release (DR/EC) 40 mg PO DAILY RF: 0 ranitidine HCl 150 mg tablet 150 mg PO DAILY RF: 0 omega-3 fatty acids 500 mg Capsule 500 mg PO DAILY RF: 0 pyridoxine (vitamin B6) [Vitamin B-6] 25 mg Tablet See Rx Instructions .ROUTE .COMPLEX RF: 0 cyanocobalamin (vitamin B-12) 100 mcg Tablet 100 mcg PO DAILY RF: 0 tamsulosin [Flomax] 0.4 mg Capsule 0.4 mg PO DAILY Qty: 30 RF: 0 Bacid (L. acidophilus) 1 billion cell- 250 mg Tablet 1 ea PO TIDWM Qty: 30 RF: 0 ciprofloxacin HCl [Cipro] 500 mg tablet 500 mg PO BID Qty: 28 RF: 0 metronidazole [Flagyl] 500 mg tablet 500 mg PO TID Qty: 42 RF: 0
[2018-09-11 19:09] LABS: Add Manual Diff / Slide Review NO; Basophils Absolute Auto 100 /uL (0-100); Basophils Percent Auto 1.1 % (0-2); Eosinophils Absolute Auto 100 /uL (0-450); Hematocrit 37.5 % (41-53); Hemoglobin 12.3 g/dL (13.5-17.5); Lymphocytes Absolute Auto 4800 /uL (1100-4500); Lymphocytes Percent Auto 41.7 % (25-40); Mean Corpuscular HGB Conc 32.8 % (30-36); Mean Corpuscular Hemoglobin 27.6 PG (26-34); Mean Corpuscular Volume 84.2 fL (80-100); Monocytes Absolute Auto 1000 /uL (0-900); Neutrophils Absolute Auto 5400 /uL (1500-7000); Neutrophils Percent Auto 47.2 % (50-75); Platelet Count 481 X10^3/uL (150-400); Red Blood Cell Count 4.45 X10^6/uL (4.5-5.9); White Blood Cell Count 11.5 X10^3/uL (4.5-11.0)
--- NOTE | 2018-09-11 19:15 | DI.RAD.S_ITS ---
PROCEDURE: XR CHEST 1V INDICATIONS: Weakness. Recent sepsis. TECHNIQUE: One view of the chest was acquired. COMPARISON: [facility], CR, XR CHEST 1V, 08/23/2018, 10:45. FINDINGS: Surgical changes and devices: None. Lungs and pleura: Lungs are clear. No pleural effusions or pneumothorax. Mediastinum: Mediastinal contours appear normal. Heart size is normal. Bones and chest wall: No suspicious bony lesions. Overlying soft tissues appear unremarkable. IMPRESSION: No acute disease Dictated by: Reinaldo Schrader M.D. on 09/11/2018 at 19:49 Approved by: Reinaldo Schrader M.D. on 09/11/2018 at 19:50
[2018-09-11 19:19] LABS: Alanine Aminotransferase 27 IU/L (21-72); Albumin 3.7 g/dL (3.5-5.0); Albumin Globulin Ratio 0.7 (1.0-2.8); Alkaline Phosphatase 56 U/L (38-126); Aspartate Aminotransferase 40 IU/L (17-59); Bilirubin Total 0.4 mg/dL (0.2-1.3); Blood Urea Nitrogen 21 mg/dL (9-20); Calcium 9.4 mg/dL (8.4-10.2); Carbon Dioxide 26 mmol/L (22-32); Chloride 102 mmol/L (98-107); Creatine Kinase 38 U/L (55-170); Estimated Glomerular Filt Rate > 60.0 mL/min (>60); Globulin 5.1 g/dL (1.7-4.1); Glucose 111 mg/dL (80-110); HEMOLYSIS < 15 (0-50); Potassium 3.4 mmol/L (3.4-5.1); Sodium 136 mmol/L (137-145); Total Protein 8.8 g/dL (6.3-8.2)
--- NOTE | 2018-09-11 19:27 | DI.CT.S_ITS ---
PROCEDURE: CT ABDOMEN PELVIS W CON INDICATIONS: Abdominal pain. Known colovesical fistula. TECHNIQUE: After the administration of intravenous contrast, 5 mm thick sections acquired from the diaphragm to the symphysis. 5 mm coronal and sagittal reformats were acquired. For radiation dose reduction, the following was used: automated exposure control, adjustment of mA and/or kV according to patient size. COMPARISON: [facility], CT, CT ABDOMEN PELVIS WO CON, 08/25/2018, 10:46. FINDINGS: Image quality: Excellent. ABDOMEN: Lung bases: Lung bases are clear. Heart size is normal. Solid organs: Numerous hepatic hypodensities, many of which are too small to characterize although probably hepatic cysts given no interval change Gallbladder unremarkable. Biliary system is non dilated. Pancreas enhances normally. Spleen is normal in size and enhancement. No adrenal nodules. Kidneys demonstrate normal size and enhancement, without hydronephrosis. Peritoneum and bowel: No evidence of bowel obstruction. There is a large amount of stool throughout the colon. Incidental colonic diverticulosis. There is long segment sigmoid wall thickening as before, with soft tissue extending to the posterior aspect of the bladder, for example image 33 series 3 in keeping with the patient's given clinical history of colovesical fistula. No abscess seen. There is no definite discernible change since 08/25/18, although the amount of intraluminal gas within the bladder has decreased. Nodes and vessels: No retroperitoneal or mesenteric adenopathy by size criteria. Aorta and inferior vena cava are normal in size. Miscellaneous: No ventral hernias. PELVIS: Genitourinary: Bladder wall thickness is normal. Miscellaneous: No inguinal hernias or adenopathy. Bones: No suspicious bony lesions. Redemonstration of ankylosis of the sacroiliac joints and diffuse osteopenia. No vertebral body compression fractures. IMPRESSION: Overall, grossly stable examination since 08/25/18 although there is decrease in the intraluminal gas within the bladder, presumably from colovesical fistula. Long segment sigmoid colonic wall thickening again suggesting chronic diverticular disease, versus colonic neoplasm. Additional chronic and incidental findings as above. Dictated by: Reinaldo Schrader M.D. on 09/11/2018 at 20:25 Approved by: Reinaldo Schrader M.D. on 09/11/2018 at 20:31
[2018-09-11] MEDS: SODIUM CHLORIDE 0.9% 1,000 ML 1000 ML IV (19:30)
[2018-09-11 19:31] LABS: Troponin I < 0.012 ng/mL (0.01-0.034)
[2018-09-11 20:07] LABS: Procalcitonin < 0.05 ng/mL (<0.5)
[2018-09-11 20:10] VITALS: BP 99/75; PULSE 90; RESP 17; O2SAT 100
[2018-09-11 20:44] LABS: Appearance Urine UA CLOUDY; Bilirubin Urine UA NEGATIVE (NEGATIVE); Color Urine UA YELLOW; Glucose Urine UA NEGATIVE (Negative); Ketones Urine UA NEGATIVE (NEGATIVE); Leukocyte Esterase Urine UA 3+ (NEGATIVE); Nitrite Urine UA NEGATIVE (Negative); Occult Blood Urine UA 2+ (Negative); Protein Urine UA NEGATIVE (Negative); Specific Gravity Urine UA <=1.005 (1.000-1.035); Urobilinogen Urine UA 0.2 E.U./dL (0.2); pH Urine UA 6.5 (4.5-8.0)
[2018-09-11 20:58] VITALS: BP 104/72
[2018-09-11 20:58] LABS: Amorphous Sediment Urine 2+; Bacteria Urine Moderate (10-30); Mucus Urine 1+ (Negative); RBC Urine 1-5/HPF (0-5/HPF); Squamous Epithelial Cell Urine 1-5 /HPF (0-5/HPF); WBC Urine 30-100/HPF (0-5/HPF)
[2018-09-11 20:59] LABS: Culture Indicated Urine Specimen Cultured
[2018-09-11 21:00] VITALS: BP 96/78; PULSE 88; O2SAT 99
[2018-09-11 22:00] VITALS: BP 92/82; PULSE 78; O2SAT 97
[2018-09-11 23:34] VITALS: BP 98/75; PULSE 78; RESP 17
== END 2018-09-11 23:50 | disposition home or self-care (01) ==
PROVIDERS: Emergency Provider Emergency Medicine
DX: N32.1 Vesicointestinal fistula (principal); R53.1 Weakness; R10.9 Unspecified abdominal pain
CPT/HCPCS: 36415; 36591; 71045; 74177; 80053; 81001; 81003; 82550; 83605; 84145; 84484; 85025; 87086; 93005; 93010; 96360; 99283; 99285; Q9967

== ENCOUNTER 2018-09-19 14:15 | Emergency (ER) | payer MEDICARE, MEDICAID, SELFPAY ==
[2018-08-23 12:15] VITALS: BMI 21.1
[2018-09-19 14:15] VITALS: BP 127/127; PULSE 130; RESP 12; TEMP 36.4; O2SAT 100
--- NOTE | 2018-09-19 14:26 | DI.RAD.S_ITS ---
PROCEDURE: XR CHEST 1V INDICATIONS: chest pain TECHNIQUE: One view of the chest was acquired. COMPARISON: [facility], CR, XR CHEST 1V, 09/11/2018, 19:25. [facility], CR, XR CHEST 1V, 08/23/2018, 10:45. FINDINGS: Surgical changes and devices: None. Lungs and pleura: Lungs are clear. No pleural effusions or pneumothorax. Mediastinum: Mediastinal contours appear normal. Heart size is normal. Bones and chest wall: No suspicious bony lesions. Overlying soft tissues appear unremarkable. IMPRESSION: Lung volumes are relatively large, COPD may be present versus aggressive inspiratory effort. No source of chest pain is found. Dictated by: Richard Jj M.D. on 09/19/2018 at 15:18 Approved by: Richard Jj M.D. on 09/19/2018 at 15:19
[2018-09-19 14:31] VITALS: BP 118/79; PULSE 140; RESP 22; O2SAT 100
--- NOTE | 2018-09-19 14:40 | ED_ITS ---
HPI - Chest Pain General Chief Complaint: Chest Pain Stated Complaint: states feels really bad, points to lower chest Time Seen by Provider: 09/19/18 14:16 Source: patient Mode of arrival: ambulatory Limitations: no limitations History of Present Illness HPI narrative: Patient is a 67-year-old male who presents with epigastric pain. is a history of AFib noted to be in AFib with RVR. He states he did not take his medication atenolol today and he stopped his antibiotics from his UTI sepsis E coli infection in July. He thought that might be causing his discomfort. He is afebrile. He denies any right upper quadrant pain sometimes feels nauseated if he does not eat anything but no vomiting. He denies any shortness of breath. He was seen and evaluated by surgery on 09/12/2018 for the same. Scheduled for diagnostic colonoscopy the end of August to rule out any underlying malignancy. Also will need a sigmoid colectomy and fistula on October 02. He had a CT of the abdomen on 09/11/2018 which was grossly stable. MD complaint: chest pain Duration: constant Pain location: substernal Severity: mild Quality: heaviness Pain radiation: none Relieving factors: nothing Related Data Home Medications Medication Instructions Recorded Confirmed atenolol 50 mg PO DAILY 08/23/18 09/19/18 cyanocobalamin (vitamin B-12) 100 mcg PO DAILY 08/23/18 09/12/18 omega-3 fatty acids 500 mg PO DAILY 08/23/18 09/12/18 oxycodone 5 mg PO QID 08/23/18 09/19/18 pantoprazole 40 mg PO DAILY 08/23/18 09/19/18 pyridoxine (vitamin B6) [Vitamin See Rx Instructions .ROUTE .COMPLEX 08/23/18 09/12/18 B-6] ranitidine HCl 300 mg PO DAILY 08/23/18 09/12/18 hydrochlorothiazide 25 mg tablet 25 mg PO DAILY 09/12/18 09/19/18 golimumab [Simponi] 50 mg SUBCUT QMONTH 09/19/18 09/19/18 Previous Rx's Medication Instructions Recorded L.acidoph-L.bulg-B.bif-S.therm 1 ea PO TIDWM #30 tab 08/26/18 [Bacid (L. acidophilus)] ciprofloxacin HCl [Cipro] 500 mg PO BID #28 tab 08/26/18 metronidazole [Flagyl] 500 mg PO TID #42 tab 08/26/18 tamsulosin [Flomax] 0.4 mg PO DAILY #30 cap 08/26/18 Allergies Allergy/AdvReac Type Severity Reaction Status Date / Time No Known Drug Allergies Allergy Verified 09/12/18 13:04 Review of Systems Review of Systems ROS Unobtainable: All systems reviewed & are unremarkable except as noted in HPI and below Eyes Denies change in vision, Denies eye discharge, Denies irritation and Denies loss of vision ENT Ears, Nose, Mouth, and Throat: Denies change in voice, Denies neck pain and Denies sore throat Cardiovascular Reports as per HPI, Reports chest pain (Epigastric), Reports rapid heart rate, Denies dyspnea and Denies dyspnea on exertion Respiratory Denies cough, Denies dyspnea, Denies dyspnea on exertion and Denies wheezing Gastrointestinal Gastrointestinal: Reports abdominal pain (Epigastric), Denies change in bowel habits, Denies diarrhea, Reports nausea and Denies vomiting Musculoskeletal Denies neck pain Integumentary/Breasts Denies pruritus, Denies erythema, Denies rash and Denies wounds Neurologic Denies loss of vision Allergic/Immunologic Denies wheezing [facility] Medical History Ankylosing spondylitis (Acute) Santacruz's palsy (Acute) Chronic pain (Acute) Dental caries (Acute) Diabetes mellitus type 2 in nonobese (Acute) HTN (hypertension) (Acute) Immunocompromised state (Acute) Insomnia (Acute) Meningitis (Acute) Paroxysmal atrial fibrillation (Acute) Sepsis (Acute) Septic shock (Acute) Skin cancer (Acute) Stupor (Acute) Thrombocytopenia (Acute) Type 2 diabetes mellitus (Acute) Surgical History History of tonsillectomy (Acute) Family History Mother No problems noted. Father No problems noted. Social History household members: family Smoking Status: Current some day smoker alcohol intake: former Family History Mother No problems noted. Father No problems noted. Social History household members: family Smoking Status: Current some day smoker alcohol intake: former Exam Initial Vital Signs Initial Vital Signs: Vital Signs Temperature 97.6 F 09/19/18 14:15 Pulse Rate 130 H 09/19/18 14:15 Respiratory Rate 12 09/19/18 14:15 Blood Pressure 127/127 H 09/19/18 14:15 Pulse Oximetry 100 09/19/18 14:15 GENERAL: Alert elderly male appears in no acute distress HEENT: Head atraumatic,EOMI, pupils reactive, face symmetric CARDIOVASCULAR: Regular rate and rhythm without murmurs, rubs or gallops. RESPIRATORY: Breath sounds equal bilaterally, no wheezes rales or rhonchi. ABDOMEN: Soft, epigastric mild tenderness no right upper quadrant pain no guarding no rebound no lower abdominal pain nondistended normal bowel sounds EXTREMITIES: Normal range of motion, no clubbing or edema. Neurovascularly intact NEUROLOGICAL: Alert and oriented x4.Normal gait and speech. Cranial nerves II through XII grossly intact. SKIN: Warm, dry, no laceration, no petechiae, no rashes or lesions. Course Orders Ordered: ED Orders 09/19/18 14:22 EKG-12 Lead Stat 09/19/18 14:26 XR chest 1V Stat 09/19/18 14:30 Complete Blood Count AUTO DIFF Stat Comprehensive Metabolic Panel Stat Lipase Stat Partial Thromboplastin Time Stat Prothrombin Time INR Stat Troponin & CK Cardiac Panel Stat 09/19/18 15:10 Urine Culture Stat Urine Microscopic Stat Discontinued Medications Atenolol (Tenormin) 50 mg PO NOW ONE Stop: 09/19/18 14:58 Last Admin: 09/19/18 15:04 Dose: 50 mg Metoprolol Tartrate (Lopressor) 5 mg IV NOW ONE Stop: 09/19/18 14:58 Last Admin: 09/19/18 15:04 Dose: 5 mg Potassium Chloride (Klor-Con M20) 40 meq PO NOW ONE Stop: 09/19/18 16:21 Last Admin: 09/19/18 16:25 Dose: 40 meq Vital Signs - 8 hr 09/19/18 14:15 09/19/18 14:31 09/19/18 15:00 Temperature 97.6 F Pulse Rate 130 H 140 H 77 Respiratory Rate 12 22 16 Blood Pressure 127/127 H Blood Pressure [Right Arm] 118/79 126/79 Pulse Oximetry 100 100 100 09/19/18 15:30 09/19/18 16:00 Temperature Pulse Rate 79 101 H Respiratory Rate 13 10 L Blood Pressure Blood Pressure [Right Arm] 99/72 113/81 Pulse Oximetry 99 99 MDM - Chest Pain Lab Data Attestation: I reviewed the patient's lab results. Result diagrams: 09/19/18 14:30 09/19/18 14:30 Lab Results 09/19/18 09/19/18 09/19/18 Range/Units 14:30 14:30 14:30 WBC 9.0 (4.5-11.0) X10^3/uL RBC 4.30 L (4.5-5.9) X10^6/uL Hgb 12.1 L (13.5-17.5) g/dL Hct 36.3 L (41-53) % MCV 84.4 (80-100) fL MCH 28.1 (26-34) PG MCHC 33.3 (30-36) % RDW 18.1 H (11.6-14.8) % Plt Count 315 (150-400) X10^3/uL Neut % (Auto) 63.2 (50-75) % Lymph % (Auto) 26.4 (25-40) % [place] % (Auto) 9.4 (3-14) % Eos % (Auto) 0.3 L (2-4) % Baso % (Auto) 0.7 (0-2) % Neut # (Auto) 5700 (5559-3692) /uL Lymph # (Auto) 2400 (0712-8160) /uL [place] # (Auto) 800 (0-900) /uL Eos # (Auto) 0 (0-450) /uL Baso # (Auto) 100 (0-100) /uL PT 12.3 (10.1-12.7) SECONDS INR 1.1 (0.9-1.3) APTT 30 (26.4-36.2) SECONDS Sodium 138 (137-145) mmol/L Potassium 2.9 L (3.4-5.1) mmol/L Chloride 100 (98-107) mmol/L Carbon Dioxide 28 (22-32) mmol/L BUN 14 (9-20) mg/dL Creatinine 0.90 (0.66-1.25) mg/dL Estimated GFR > 60.0 (>60) mL/min BUN/Creatinine Ratio 15.6 (6-22) Glucose 147 H (80-110) mg/dL Calcium 9.3 (8.4-10.2) mg/dL Total Bilirubin 0.6 (0.2-1.3) mg/dL AST 42 (17-59) IU/L ALT 20 L (21-72) IU/L Alkaline Phosphatase 53 (38-126) U/L Total Creatine Kinase 49 L (55-170) U/L CK-MB (CK-2) TNP CK-MB (CK-2) Rel Index TNP Troponin I < 0.012 (0.01-0.034) ng/mL Total Protein 9.0 H (6.3-8.2) g/dL Albumin 4.0 (3.5-5.0) g/dL Globulin 5.0 H (1.7-4.1) g/dL Albumin/Globulin Ratio 0.8 L (1.0-2.8) Lipase 242 (23-300) U/L Urine RBC (0-5/HPF) Urine WBC (0-5/HPF) Ur Squamous Epith Cells (0-5/HPF) Amorphous Sediment Urine Bacteria (None) Urine Mucus (Negative) Ur Culture Indicated? 09/19/18 Range/Units 15:10 WBC (4.5-11.0) X10^3/uL RBC (4.5-5.9) X10^6/uL Hgb (13.5-17.5) g/dL Hct (41-53) % MCV (80-100) fL MCH (26-34) PG MCHC (30-36) % RDW (11.6-14.8) % Plt Count (150-400) X10^3/uL Neut % (Auto) (50-75) % Lymph % (Auto) (25-40) % [place] % (Auto) (3-14) % Eos % (Auto) (2-4) % Baso % (Auto) (0-2) % Neut # (Auto) (5122-0719) /uL Lymph # (Auto) (0401-4206) /uL [place] # (Auto) (0-900) /uL Eos # (Auto) (0-450) /uL Baso # (Auto) (0-100) /uL PT (10.1-12.7) SECONDS INR (0.9-1.3) APTT (26.4-36.2) SECONDS Sodium (137-145) mmol/L Potassium (3.4-5.1) mmol/L Chloride (98-107) mmol/L Carbon Dioxide (22-32) mmol/L BUN (9-20) mg/dL Creatinine (0.66-1.25) mg/dL Estimated GFR (>60) mL/min BUN/Creatinine Ratio (6-22) Glucose (80-110) mg/dL Calcium (8.4-10.2) mg/dL Total Bilirubin (0.2-1.3) mg/dL AST (17-59) IU/L ALT (21-72) IU/L Alkaline Phosphatase (38-126) U/L Total Creatine Kinase (55-170) U/L CK-MB (CK-2) CK-MB (CK-2) Rel Index Troponin I (0.01-0.034) ng/mL Total Protein (6.3-8.2) g/dL Albumin (3.5-5.0) g/dL Globulin (1.7-4.1) g/dL Albumin/Globulin Ratio (1.0-2.8) Lipase (23-300) U/L Urine RBC 1-5/hpf (0-5/HPF) Urine WBC 10-30/hpf H (0-5/HPF) Ur Squamous Epith Cells 0-1 /hpf (0-5/HPF) Amorphous Sediment 1+ Urine Bacteria Few (2-10) H (None) Urine Mucus 1+ H (Negative) Ur Culture Indicated? Specimen cultured Urine Dip Bedside Urine Glucose Negative Bedside Urine Bilirubin - Negative Bedside Urine Ketone - Negative Urine Specific [place] 1.015 Bedside Urine Occult Blood ++ Bedside Urine pH 6 Bedside Urine Urobilinogen - Negative Bedside Urine Nitrite - Negative Bedside Urine Leukocytes +++ 500 Esterase Imaging Data Chest x-ray: Radiologist's impression: PROCEDURE: XR CHEST 1V INDICATIONS: chest pain TECHNIQUE: One view of the chest was acquired. COMPARISON: [facility], CR, XR CHEST 1V, 09/11/2018, 19:25. [facility], CR, XR CHEST 1V, 08/23/2018, 10:45. FINDINGS: Surgical changes and devices: None. Lungs and pleura: Lungs are clear. No pleural effusions or pneumothorax. Mediastinum: Mediastinal contours appear normal. Heart size is normal. Bones and chest wall: No suspicious bony lesions. Overlying soft tissues appear unremarkable. IMPRESSION: Lung volumes are relatively large, COPD may be present versus aggressive inspiratory effort. No source of chest pain is found. Dictated by: Richard Jj M.D. on 09/19/2018 at 15:18 ECG Data Attestation: I personally reviewed and interpreted this ECG as follows: Prior ECG tracings: available for review Interpretation: Atrial fibrillation rate [address] changes similar to previous EKG MDM Narrative Medical decision making narrative: Patient's rate is much better controlled after home medication and 1 dose of IV Lopressor. His symptoms also improved. At this time is abdomen is soft. I do not see any indication for repeat CT scan. He has close follow-up with surgery. I instructed him to take his atenolol as prescribed. He overall is feeling much better and feels ready and able to go home. Discharge Plan Departure Patient Disposition: Home Clinical Impression: Atrial fibrillation with controlled ventricular rate Discharge Date/Time: 09/19/18 16:43 Interventions: ED Discharge Assessment Last Done: 09/19/18 16:39 Activity Restrictions/Additional Instructions: *YOU HAVE BEEN DIAGNOSED WITH atrial fibrillation with RVR *WHAT TO DO: Take medication for Heart in the morning as directed. Finish antibiotics as directed *CONTINUE TO TAKE MEDICATIONS DIRECTED Finish antibiotics as prescribed Atenolol 50 mg in morning daily *FOLLOW UP WITH YOUR PRIMARY CARE PROVIDER IN 2-3 DAYS *RETURN TO ER IF YOU SHOULD HAVE increasing chest discomfort abdominal pain, passing out OR ANY NEW, WORSENING OR CONCERNING SYMPTOMS Prescriptions: No Action hydrochlorothiazide 25 mg tablet 25 mg PO DAILY RF: 0 atenolol 100 mg tablet 50 mg PO DAILY RF: 0 oxycodone 5 mg tablet 5 mg PO QID RF: 0 pantoprazole 40 mg tablet,delayed release (DR/EC) 40 mg PO DAILY RF: 0 ranitidine HCl 150 mg tablet 300 mg PO DAILY RF: 0 omega-3 fatty acids 500 mg Capsule 500 mg PO DAILY RF: 0 pyridoxine (vitamin B6) [Vitamin B-6] 25 mg Tablet See Rx Instructions .ROUTE .COMPLEX RF: 0 cyanocobalamin (vitamin B-12) 100 mcg Tablet 100 mcg PO DAILY RF: 0 tamsulosin [Flomax] 0.4 mg Capsule 0.4 mg PO DAILY Qty: 30 RF: 0 Bacid (L. acidophilus) 1 billion cell- 250 mg Tablet 1 ea PO TIDWM Qty: 30 RF: 0 ciprofloxacin HCl [Cipro] 500 mg tablet 500 mg PO BID Qty: 28 RF: 0 metronidazole [Flagyl] 500 mg tablet 500 mg PO TID Qty: 42 RF: 0 Simponi 50 mg/0.5 mL pen injector 50 mg subcut QMONTH RF: 0 Referrals: Juanpablo Byrne MD [Physician] -
[2018-09-19 15:00] VITALS: BP 126/79; PULSE 77; RESP 16; O2SAT 100
[2018-09-19 15:00] LABS: Add Manual Diff / Slide Review NO; Basophils Absolute Auto 100 /uL (0-100); Basophils Percent Auto 0.7 % (0-2); Eosinophils Absolute Auto 0 /uL (0-450); Eosinophils Percent Auto 0.3 % (2-4); Hematocrit 36.3 % (41-53); Hemoglobin 12.1 g/dL (13.5-17.5); Lymphocytes Absolute Auto 2400 /uL (1100-4500); Lymphocytes Percent Auto 26.4 % (25-40); Mean Corpuscular HGB Conc 33.3 % (30-36); Mean Corpuscular Hemoglobin 28.1 PG (26-34); Mean Corpuscular Volume 84.4 fL (80-100); Monocytes Absolute Auto 800 /uL (0-900); Monocytes Percent Auto 9.4 % (3-14); Neutrophils Absolute Auto 5700 /uL (1500-7000); Neutrophils Percent Auto 63.2 % (50-75); Platelet Count 315 X10^3/uL (150-400); Red Cell Distribution Width 18.1 % (11.6-14.8)
--- NOTE | 2018-09-19 15:03 | PC.NURSE ---
noted heart rate elevated to 160
[2018-09-19] MEDS: METOPROLOL TARTRATE 5 MG/5 ML INJ IV (15:04)
[2018-09-19] MEDS: ATENOLOL 50 MG TABLET PO (15:04)
[2018-09-19 15:08] LABS: INR 1.1 (0.9-1.3); Prothrombin Time 12.3 SECONDS (10.1-12.7)
[2018-09-19 15:11] LABS: PTT Partial Thromboplastin Tim 30 SECONDS (26.4-36.2)
[2018-09-19 15:12] LABS: Alanine Aminotransferase 20 IU/L (21-72); Albumin Globulin Ratio 0.8 (1.0-2.8); Alkaline Phosphatase 53 U/L (38-126); Aspartate Aminotransferase 42 IU/L (17-59); BUN Creatinine Ratio 15.6 (6-22); Bilirubin Total 0.6 mg/dL (0.2-1.3); Blood Urea Nitrogen 14 mg/dL (9-20); Calcium 9.3 mg/dL (8.4-10.2); Carbon Dioxide 28 mmol/L (22-32); Chloride 100 mmol/L (98-107); Creatine Kinase 49 U/L (55-170); Estimated Glomerular Filt Rate > 60.0 mL/min (>60); Glucose 147 mg/dL (80-110); HEMOLYSIS < 15 (0-50); Lipase 242 U/L (23-300); Potassium 2.9 mmol/L (3.4-5.1); Sodium 138 mmol/L (137-145)
--- NOTE | 2018-09-19 15:14 | PC.NURSE ---
pt reports mid upper abdominal, there is a weight sxs for 3 weeks, denies pain, denies vomiting. just doesnt feel well told if worsen with sxs to seek evaluation.
[2018-09-19 15:24] LABS: Amorphous Sediment Urine 1+; Bacteria Urine Few (2-10); Mucus Urine 1+ (Negative); RBC Urine 1-5/HPF (0-5/HPF); Squamous Epithelial Cell Urine 0-1 /HPF (0-5/HPF); WBC Urine 10-30/HPF (0-5/HPF)
[2018-09-19 15:24] LABS: Troponin I < 0.012 ng/mL (0.01-0.034)
[2018-09-19 15:25] LABS: Culture Indicated Urine Specimen Cultured
[2018-09-19 15:30] VITALS: BP 99/72; PULSE 79; RESP 13; O2SAT 99
[2018-09-19 16:00] VITALS: BP 113/81; PULSE 101; RESP 10; O2SAT 99
[2018-09-19] MEDS: POTASSIUM CHLORIDE 20 MEQ TAB 40 MEQ PO (16:25)
== END 2018-09-19 16:43 | disposition home or self-care (01) ==
PROVIDERS: Emergency Provider Emergency Medicine
DX: I48.91 Unspecified atrial fibrillation (principal)
CPT/HCPCS: 36591; 71045; 80053; 81003; 81015; 82550; 83690; 84484; 85025; 85610; 85730; 87077; 87086; 93005; 93010; 96374; 99283; 99285

== ENCOUNTER 2018-09-26 08:53 | Day surgery (SDC) | payer MEDICARE, MEDICAID, SELFPAY ==
[2018-08-23 12:15] VITALS: BMI 21.1
[2018-09-26 09:29] VITALS: BMI 19.2
[2018-09-26 09:35] VITALS: BP 94/70; PULSE 57; RESP 16; TEMP 36.3; O2SAT 99
[2018-09-26] MEDS: SODIUM CHLORIDE 0.9% 1,000 ML 84 ML IV ×2 (10:36→11:26)
--- NOTE | 2018-09-26 10:46 | PM.HP.1 ---
History of Present Illness Date Patient Seen: 09/26/18 Time Patient Seen: 10:47 Chief complaint: [id number] Narrative: Patient seen in examed -medical history generally unchanged, feeling well. Did recently visited emergency department where was not found to have pyelonephritis. Please see recent H&P for remainder of details Plan for diagnostic colonoscopy in the setting of a colovesicular fistula Patient History Family & Social History Social History: household members family Tobacco & Substance use: Tobacco type cannabis/marijuana Smoking Status Current some day smoker alcohol intake former Substance Use Type does not use Meds Home Medications Medication Instructions Recorded Confirmed Type atenolol 50 mg PO DAILY 08/23/18 09/26/18 History cyanocobalamin (vitamin B-12) 100 mcg PO DAILY 08/23/18 09/26/18 History omega-3 fatty acids 500 mg PO DAILY 08/23/18 09/26/18 History oxycodone 5 mg PO QID 08/23/18 09/26/18 History pantoprazole 40 mg PO DAILY 08/23/18 09/26/18 History pyridoxine (vitamin B6) [Vitamin 1 tab PO DAILY 08/23/18 09/26/18 History B-6] ranitidine HCl 300 mg PO DAILY 08/23/18 09/26/18 History L.acidoph-L.bulg-B.bif-S.therm 1 ea PO TIDWM #30 tab 08/26/18 09/26/18 Rx [Bacid (L. acidophilus)] ciprofloxacin HCl [Cipro] 500 mg PO BID #28 tab 08/26/18 09/26/18 Rx metronidazole [Flagyl] 500 mg PO TID #42 tab 08/26/18 09/26/18 Rx tamsulosin [Flomax] 0.4 mg PO DAILY #30 cap 08/26/18 09/26/18 Rx hydrochlorothiazide 25 mg tablet 25 mg PO DAILY 09/12/18 09/26/18 History golimumab [Simponi] 50 mg SUBCUT QMONTH 09/19/18 09/26/18 History ginkgo biloba 40 mg PO BID 09/26/18 09/26/18 History Allergies Allergy/AdvReac Type Severity Reaction Status Date / Time No Known Drug Allergies Allergy Verified 09/26/18 09:23 Exam Vital Signs (past 8 hours): - 09/26/18 09:35 Temperature 97.3 F L Pulse Rate 57 L Respiratory Rate 16 Blood Pressure 94/70 Pulse Oximetry 99 Oxygen Delivery Method Room Air
--- NOTE | 2018-09-26 11:42 | PM.OP.ENDO ---
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 Currently being worked up ahead of plan fistula takedown/colectomy. Surgeon: Juanpablo Byrne Procedure Notes SCOAP/Timeout: completed Procedure in detail: Patient was taken to the endoscopy suite a time-out was completed. He was sedated with for a total over the course of the procedure of 5 mg of midazolam and 25 micro g of fentanyl. A digital rectal exam was performed which demonstrated a very sizable prostate without nodules. No masses felt within the anal canal. 160 cm colonoscope was introduced and passed through the rectal folds in negotiated quite tight colorectal junction. Fairly soon thereafter came to the presumed site of the fistula. There is a minimal amount of local inflammation in the area. No mass or neoplastic process was encountered. Multiple attempts to pass the scope through the area were unsuccessful due to a distinct narrowing. The colonoscope was slowly backed out and replaced with a pediatric diameter scope. This was advanced in a similar fashion. At the level of the stricture however I was unable to pass it without undue force. A next switched to a upper endoscopy gastroscope. This similarly was unable to pass. I then slowly backed out inspecting the colonic mucosa. There were quite numerous diverticula. No polyps or masses identified within the rectum. Scope was retroflexed within the distal rectum a no distal lesions were identified. The patient tolerated the procedure generally well -his blood pressures were borderline low hence the minimal amount of sedation Scope withdrawal time: na Sedation minutes: 44 Findings: diverticulosis and other findings (Diverticular stricture) Specimen(s): none sent Complications: none Impression: 1. Extensive sigmoid diverticulosis 2. Diverticular stricture at 30 cm 3. No mass or neoplastic changes at the presumed site of the colovesical fistula Recommendations: Other recommendation (Completion colonoscopy following surgery) Plan for aftercare: PACU and then home Follow up: weeks Disposition: PACU
[2018-09-26] MEDS: MIDAZOLAM 5 MG/5 ML VIAL IV (11:43)
[2018-09-26] MEDS: fentaNYL 250 MCG/5 ML INJ IV (11:43)
[2018-09-26 11:46] VITALS: BP 82/61; PULSE 76; RESP 13; TEMP 36.8; O2SAT 98
[2018-09-26 11:51] VITALS: BP 89/63; PULSE 69; RESP 16; O2SAT 97
[2018-09-26 11:56] VITALS: BP 96/64; PULSE 73; RESP 16; O2SAT 97
[2018-09-26 12:13] VITALS: BP 93/67; PULSE 77; RESP 15; TEMP 36.6; O2SAT 100
== END 2018-09-26 12:47 | disposition home or self-care (01) ==
PROVIDERS: PCP Family Medicine; Visit Provider Surgery
PROC: 0DJD8ZZ Inspection of Lower Intestinal Tract, Via Natural or Artificial Opening Endoscopic (ICD-10-PCS; CPT 45378; principal; 2018-09-26 10:45)
DX: N32.1 Vesicointestinal fistula (principal); K57.30 Diverticulosis of large intestine without perforation or abscess without bleeding; K56.699 Other intestinal obstruction unspecified as to partial versus complete obstruction; F17.210 Nicotine dependence, cigarettes, uncomplicated
CPT/HCPCS: 45330; 99152; 99153; J2250; J3010

== ENCOUNTER 2018-10-10 06:39 | Inpatient (IN) | payer MEDICARE, MEDICAID, SELFPAY ==
[2018-08-23 12:15] VITALS: BMI 21.1
[2018-10-08 13:09] VITALS: BMI 20.8
[2018-10-10] VITALS (15 sets, daily range): BP systolic 92–133; BP diastolic 66–86; PULSE 68–97; RESP 12–22; TEMP 35.9–36.6; O2SAT 93–100; BMI 20.8
--- NOTE | 2018-10-10 | PATH_ITS ---
[facility] Accession Number: [id number] . 01 Material submitted: . PART A: colon - SIGMOID COLON PART B: body - ANASTOMOSIS DONUTS . 02 Diagnosis: A. Sigmoid Colon, Resection: Segment of colon with diverticulitis, serositis, and serosal adhesions, consistent with clinical history of colovesicular adhesions/fistula. Three lymph nodes with no evidence of neoplasm. Negative for dysplasia or malignancy. . B. Anastomotic Donuts, Excisions: Colonic tissue with no diagnotic abnormality. Negative for dysplasia or malignancy. [facility]/10/14/2018 . 02 Electronically signed: . Urban Fermin MD, PhD, Pathologist NPI- [id number] . 01 Gross description: . (A) Received in formalin, labeled sigmoid colon, single suture proximal, double distal, is an opened segment of colon (length-16.5 cm, proximal diameter-2.5 cm, distal diameter-3.6 cm) with attached mesentery (up to 8.5 cm in depth) oriented with two black sutures (single tail-proximal, double tail-distal). The resection margins are received stapled. The serosa is arriaga-pink smooth shiny focally moss-pink and covered in moss-arriaga friable exudate. The mucosa is arriaga with compact distorted folds containing diffuse diverticula. No nodules or masses are identified. Multiple possible lymph nodes (0.2 x 0.2 x 0.2 cm- 0.3 x 0.2 x 0.2 cm) are identified. The resection margins are inked black. Section code: (A1) proximal resection margin, longitudinal loan servicing representative; (A2) distal resection margin, longitudinal loan servicing representative; (A3-A9) colon segment, loan servicing representative serial sections submitted proximal to distal; (A10) multiple intact possible lymph nodes. (B) Received in formalin, labeled anastomosis donuts, are two unoriented segments of colon (segment #1: length-0.7 cm, diameter-2.0 cm; segment #2: length-1.6 cm, diameter 2.0 cm) with arriaga smooth shiny unremarkable mucosa. The resection margins are inked black. Segment #1 is bisected and entirely submitted in cassettes B1-B2, and segment #2 is bisected and entirely submitted in cassettes B3-B4. ([id number]) /MRV . 02 Pathologist provided ICD-10: K57.20 . 02 CPT . 379277, [id number] Performed at: 01 [facility] [address] [facility], [place], [place] [id number] MD Awais Cardona MD Phone: [phone] Performed at: 02 [facility] [place] [address] [place], [place] [id number] MD Leydi Sebastian MD Phone: [phone]
--- NOTE | 2018-10-10 07:11 | PM.HP.1 ---
History of Present Illness Date Patient Seen: 10/10/18 Time Patient Seen: 07:11 Chief complaint: [id number] Narrative: Pt seen and examend Please see h and p from 09/26/18 cleared by cards ready for surgery today Patient History Family & Social History Social History: household members family Tobacco & Substance use: Tobacco type cannabis/marijuana Smoking Status Current some day smoker alcohol intake former Substance Use Type marijuana Meds Home Medications Medication Instructions Recorded Confirmed Type atenolol 50 mg PO DAILY 08/23/18 10/08/18 History cyanocobalamin (vitamin B-12) 100 mcg PO DAILY 08/23/18 10/08/18 History omega-3 fatty acids 500 mg PO DAILY 08/23/18 10/08/18 History oxycodone 5 mg PO QID 08/23/18 10/08/18 History pantoprazole 40 mg PO DAILY 08/23/18 10/08/18 History pyridoxine (vitamin B6) [Vitamin 1 tab PO DAILY 08/23/18 10/08/18 History B-6] ranitidine HCl 300 mg PO DAILY 08/23/18 10/08/18 History Bacid (L. acidophilus) 1 ea PO TIDWM #30 tab 08/26/18 10/08/18 Rx ciprofloxacin HCl [Cipro] 500 mg PO BID #28 tab 08/26/18 10/08/18 Rx metronidazole [Flagyl] 500 mg PO TID #42 tab 08/26/18 10/08/18 Rx tamsulosin [Flomax] 0.4 mg PO DAILY #30 cap 08/26/18 10/08/18 Rx hydrochlorothiazide 25 mg tablet 25 mg PO DAILY 09/12/18 10/08/18 History golimumab 50 mg SUBCUT QMONTH 09/19/18 10/08/18 History ginkgo biloba 40 mg PO BID 09/26/18 10/08/18 History Allergies Allergy/AdvReac Type Severity Reaction Status Date / Time No Known Drug Allergies Allergy Verified 09/26/18 09:23
[2018-10-10] MEDS: LACTATED RINGERS 1,000 ML 42 ML IV ×4 (07:26→14:10)
[2018-10-10] MEDS: HEPARIN 5,000 UNIT/ML VIAL 5000 UNIT SUBCUT ×2 (07:37→21:18)
[2018-10-10] MEDS: ERTAPENEM 1 GM in SODIUM CHLORIDE 0.9% 100 ML 200 ML IV (07:53)
[2018-10-10 08:02] LABS: HEMOLYSIS < 15 (0-50); Potassium 2.8 mmol/L (3.4-5.1)
[2018-10-10] MEDS: INSULIN REGULAR 100 UNIT/ML 3 ML VIAL SUBCUT (08:45)
--- NOTE | 2018-10-10 09:06 | SUR.OPER ---
patient came to hospital with sutton and leg bag in place, replaced leg bag with urimeter per Dr. Byrne
--- NOTE | 2018-10-10 09:08 | SUR.OPER ---
Lithotomy on padded OR bed. [place] Pad Positioner under torso. Head on pillow, arms padded and tucked at sides. Legs secured in padded yellow fins stirrups.
[2018-10-10] MEDS: POTASSIUM CHLORIDE 40 MEQ in SODIUM CHLORIDE 0.9% 250 ML 67.5 ML IV (09:15)
[2018-10-10] MEDS: BUPIVACAINE 0.25% W/ EPI 30 ML VIAL INJ (09:21)
--- NOTE | 2018-10-10 10:10 | SUR.OPER ---
FSBG 79 AT 1050
--- NOTE | 2018-10-10 10:54 | SUR.OPER ---
fsbg 120 at 1054
--- NOTE | 2018-10-10 11:11 | SUR.OPER ---
Legs and arms checked every hour during procedure to ensure safety
--- NOTE | 2018-10-10 12:05 | SUR.OPER ---
Intraoperative BG at 1157 was 115.
--- NOTE | 2018-10-10 13:53 | SUR.OPER ---
fsbg 174 at 1350
--- NOTE | 2018-10-10 14:15 | CM.DPNOTE ---
Patient is a67 year old male who was admitted today on 10/10/18 for planned surgical procedure. Pt has [facility] and [facility] for insurance and his PCP is Dr. Dami Olivia. EMR was reviewed. Per reed or wind instrument repairer, pt has been in surgery all day and is still not in the recovery room at this time of 1430. Per previous admit, pt was here at [facility] at the end of July 2018 and lives on [facility] with his son and ex- and was able to d/c home with family in July with this planned surgery in place. D/C needs unclear at this time as pt is still in surgery. Plan: SW to follow closely for bedside assessment when pt is back from surgery and able to participate in d/c discussion. LUCIO Barrios
[2018-10-10] MEDS: HYDROMORPHONE 2 MG INJ 0.5 MG IV ×4 (14:53→15:22)
[2018-10-10 15:16] LABS: HEMOLYSIS < 15 (0-50); Potassium 3.7 mmol/L (3.4-5.1)
--- NOTE | 2018-10-10 15:39 | SUR.PHASEI ---
Report to Susan
--- NOTE | 2018-10-10 15:59 | SUR.PHASEI ---
Pt transferred to the floor with his belongings bag. IV saline locked. Abd sites rotary drier, cdi. Stoma beefy red. Report to Susan. VS stable.
--- NOTE | 2018-10-10 16:00 | PC.NURSE ---
Addendum entered by Stacy Grullon R.N. 10/10/18 21:29: Urinary output has increased. Dr. Byrne in house and informed. IV fluid rate decreased to 75 cc/hr as per MD verbal order. Pt taking popsicle. Reports better pain control with 4 mg morphine, but pt states prefers to remain with 2mg as pt states, don't like the way 4 mg makes my head feel. Appropriately conversant. Ice replaced to abdomen. Pt states breathes with abdomen and so declines pillow to abdomen for splinting. Room air 99%. I.S. at the bedside. Addendum entered by Stacy Grullon R.N. 10/10/18 18:42: Dr. Byrne discusses pain management with pt after this ad copy writer informed MD pt would only accept 2 mg morphine. Pt now agreeable to accepting full dose as ordered. Administered 2 mg morphine to equal 4 mg dose. Bolus in progress. Gentile emptied and recorded. Addendum entered by Stacy Grullon R.N. 10/10/18 18:27: Pt agreeable to morphine, but states only prefers half of 4 mg dose that is ordered. This was given. Surgeon in to see patient and monitor urinary output. Orders to give one liter LR over one hour received verbally. This was initiated. Original Note: Pt to room 204 from PACU awake, alert, conversant. Denies pain. Reports abdominal feels tight.. Knees in bed slightly gached to manage pt's abdominal discomfort. Ice to multiple lap sites. Stoma is beefy red. Bowel tones are present. Abdomen is flat. Room air 95% per continuous monitor. Pt prefers flat lying positioning in bed. Call light provided and encouraged to call for needs. Gentile to gravity. Emptied of 50 cc's by CREW CHIEF upon arrival to floor.
[2018-10-10] MEDS: LACTATED RINGERS 1,000 ML 100 ML IV (16:11)
[2018-10-10] MEDS: MORPHINE 4 MG/ML INJ IV ×2 (17:10→18:38)
[2018-10-10] MEDS: METHOCARBAMOL 500 MG TABLET PO ×2 (17:11→21:18)
[2018-10-10] MEDS: ACETAMINOPHEN 325 MG TABLET 650 MG PO (17:11)
[2018-10-10] MEDS: INSULIN ASPART 100 UNIT/ML INSULN PEN SUBCUT (17:22)
[2018-10-10 17:49] LABS: Hemoglobin A1C% w Est Avg Glu 5.6 % (4.0-6.0)
[2018-10-10 17:51] LABS: Magnesium 1.7 mg/dL (1.6-2.3)
[2018-10-10] MEDS: LACTATED RINGERS 1,000 ML 1000 ML IV (18:42)
[2018-10-10] MEDS: GABAPENTIN 600 MG TABLET PO (21:18)
[2018-10-11] VITALS (7 sets, daily range): BP systolic 95–118; BP diastolic 55–77; PULSE 60–78; RESP 16–18; TEMP 36.5–36.8; O2SAT 94–99
[2018-10-11] MEDS: MORPHINE 4 MG/ML INJ IV ×5 (00:16→19:21)
[2018-10-11] MEDS: LACTATED RINGERS 1,000 ML 75 ML IV (04:59)
[2018-10-11 06:05] LABS: Add Manual Diff / Slide Review NO; Basophils Absolute Auto 0 /uL (0-100); Basophils Percent Auto 0.1 % (0-2); Eosinophils Absolute Auto 0 /uL (0-450); Hematocrit 32.3 % (41-53); Hemoglobin 11.1 g/dL (13.5-17.5); Lymphocytes Absolute Auto 1400 /uL (1100-4500); Lymphocytes Percent Auto 12.8 % (25-40); Mean Corpuscular HGB Conc 34.3 % (30-36); Mean Corpuscular Hemoglobin 29.1 PG (26-34); Mean Corpuscular Volume 84.7 fL (80-100); Monocytes Absolute Auto 1000 /uL (0-900); Monocytes Percent Auto 9.5 % (3-14); Neutrophils Absolute Auto 8500 /uL (1500-7000); Neutrophils Percent Auto 77.6 % (50-75); Platelet Count 203 X10^3/uL (150-400); Red Blood Cell Count 3.81 X10^6/uL (4.5-5.9); Red Cell Distribution Width 18.6 % (11.6-14.8); White Blood Cell Count 10.9 X10^3/uL (4.5-11.0)
[2018-10-11 06:26] LABS: BUN Creatinine Ratio 14.3 (6-22); Blood Urea Nitrogen 10 mg/dL (9-20); Calcium 8.7 mg/dL (8.4-10.2); Carbon Dioxide 29 mmol/L (22-32); Chloride 106 mmol/L (98-107); Estimated Glomerular Filt Rate > 60.0 mL/min (>60); Glucose 118 mg/dL (80-110); HEMOLYSIS < 15 (0-50); Potassium 3.9 mmol/L (3.4-5.1); Sodium 139 mmol/L (137-145)
[2018-10-11] MEDS: HEPARIN 5,000 UNIT/ML VIAL 5000 UNIT SUBCUT (06:28)
[2018-10-11] MEDS: PANTOPRAZOLE 40 MG TABLET PO (06:29)
[2018-10-11] MEDS: INSULIN ASPART 100 UNIT/ML INSULN PEN SUBCUT ×2 (08:13→11:48)
[2018-10-11] MEDS: ATENOLOL 50 MG TABLET PO (08:15)
[2018-10-11] MEDS: ACETAMINOPHEN 325 MG TABLET 650 MG PO ×2 (08:15→19:20)
[2018-10-11] MEDS: METHOCARBAMOL 500 MG TABLET PO ×4 (08:16→20:56)
[2018-10-11] MEDS: TAMSULOSIN 0.4 MG CAPSULE PO (08:16)
[2018-10-11] MEDS: MAGNESIUM SULFATE 4 GM/100 ML PIGGYBACK IV (09:23)
[2018-10-11] MEDS: POTASSIUM CHLORIDE 20 MEQ/15 ML UDC PO (09:23)
--- NOTE | 2018-10-11 09:50 | PM.PN.1 ---
Subjective Date Patient Seen: 10/11/18 Time Patient Seen: 09:50 Interval history: Feeling well expected amount of abdominal pain - well controlled UOP low immediately after surgery - now improved with 1.3L made since midnight Glucose has been within goal No complaints Exam Vital Signs (past 8 hours): - 10/11/18 04:58 10/11/18 08:05 Temperature 98.2 F 98.1 F Pulse Rate 71 70 Respiratory Rate 16 18 Blood Pressure 113/72 118/72 Pulse Oximetry 97 97 Oxygen Delivery Method Room Air Oxygen Flow Rate 0 Narrative Exam Narrative: Looks well, fully oriented LCTAB Irregular HR, strong radial pulse Abd distended, tympanitic, minimally tender. ileostomy pink without output in appliance. Wound CDI Periphery warm Objective Labs Result Diagrams: 10/11/18 05:40 10/11/18 05:40 Labs: Laboratory Results - last 24 hr 10/10/18 10/10/18 10/10/18 14:57 17:28 17:28 WBC RBC Hgb Hct MCV MCH MCHC RDW Plt Count Neut % (Auto) Lymph % (Auto) Edwards % (Auto) Eos % (Auto) Baso % (Auto) Neut # (Auto) Lymph # (Auto) Edwards # (Auto) Eos # (Auto) Baso # (Auto) Sodium Potassium 3.7 Chloride Carbon Dioxide BUN Creatinine Estimated GFR BUN/Creatinine Ratio Glucose Hemoglobin A1c 5.6 Calcium Magnesium 1.7 10/11/18 10/11/18 05:40 05:40 WBC 10.9 RBC 3.81 L Hgb 11.1 L Hct 32.3 L MCV 84.7 MCH 29.1 MCHC 34.3 RDW 18.6 H Plt Count 203 Neut % (Auto) 77.6 H Lymph % (Auto) 12.8 L Edwards % (Auto) 9.5 Eos % (Auto) 0.0 L Baso % (Auto) 0.1 Neut # (Auto) 8500 H Lymph # (Auto) 1400 Edwards # (Auto) 1000 H Eos # (Auto) 0 Baso # (Auto) 0 Sodium 139 Potassium 3.9 Chloride 106 Carbon Dioxide 29 BUN 10 Creatinine 0.70 Estimated GFR > 60.0 BUN/Creatinine Ratio 14.3 Glucose 118 H Hemoglobin A1c Calcium 8.7 Magnesium Assessment & Plan Assessment & Plan narrative: 67 yo man POD1 s/p hand assisted lap sigmoidectomy and colovesicle fistula takedown with primary stapled end to end colorectal anastamosis with diverting loop ileostomy. Now well - awaiting return of bowel function. Plan: On multimodal pain control with gabapentin, opiates, APAP, methocarbamol - no NSAIDS due to fresh anastamosis Clears for comfort - no advancement until ostomy functioning On home BB, and PPI, Holding hm HCTZ On ISS - has been withing goal with minimal correctional, may need to increase/add basal insulin as diet advances No further abx Gentile must remain in place for 2 weeks post op due to take down of colovesicular fistula - do not remove DVT - enoxaparin 40 daily Quality VTE Deep Vein Thrombosis/Pulmonary Embolism Present on Admission: No
--- NOTE | 2018-10-11 10:10 | PC.NURSE ---
Addendum entered by Aubrey Vaca R.N. 10/11/18 14:35: patient reports adequate pain control. ambulated in limon around entire floor sba w/ walker. steady on feet. sitting up in recliner since 1400. taking in minimal fluids as tolerated. no nausea. Original Note: SHIFT NOTE: PATIENT ASKS MANY APPROPRIATE QUESTIONS. DISCUSSED IMPORTANCE OF FREQ AMBULATION TO INCREASE BOWEL FUNCTION AND PREVENT DVT. ALSO TAUGHT ABOUT SCD'S AND PREVENTION OF DVT. PATIENT ALLOWED THEM PLACED AT 0830. TOLERATING CLEAR LIQUIDS SLOWLY. DENIES NAUSEA. REPORTS BLOATING. ABD SOFT WITH HYPOACTIVE BUT PRESENT BOWEL TONES. OSTOMY POUCH WITH SCANT SEROUS/SANG DRAINAGE, NO FLATUS. JOY PATENT W/ CLEAR LIGHT YELLOW URINE W/ SOME SEDIMENT. AMBULATED W/ PHYSICAL THERAPY SBA, DID VERY WELL.
--- NOTE | 2018-10-11 11:13 | PM.OP.1 ---
Operative Date/Time/Diagnoses Date of procedure: 10/10/18 Time of procedure: 14:00 Pre-op diagnosis: Colovesicular fistula Post-op diagnosis: same Procedure & Clinicians Procedure: 1. Laparoscopic hand assisted colovesical fistula takedown with sigmoid colectomy and stapled end to end primary colo-rectal anastomosis (31mm EEA) 2. Diverting loop ileostomy 3. Laparoscopic splenic flexure takedown Same procedure as scheduled: Yes Indications: 67-year-old man who initially presented with septic shock from pyelonephritis was found to have a colovesicular fistula. Workup including colonoscopy supportive diverticular disease. He was taken to the operating room for surgery as above Surgeon: Juanpablo Byrne Podiatry Doctor: Ashley Lee Anesthesia Type: General Operative Notes Findings: 1) area of substantial inflammation involving the distal sigmoid colon densely adherent to the dome of the bladder. Dissected sharply primarily with Bovie hook cautery. 2) multiple diverticula within the sigmoid colon 3) left ureter clearly identified and preserved Closure Type: primary Specimen(s): other (Sigmoid colon -double stitch arambula distal) Estimated Blood Loss (mL): 150 Procedure in detail: Prior to surgery patient visited Urology due to prostate enlargement a Gentile catheter had to be placed using cystoscopy. With the catheter in place he presented to preop. He was taken to the operating room intubated without incident prepped and draped in usual sterile fashion. A time-out was completed. A 7 cm long hand port incision was made in the midline position at the level of the umbilicus. This was carried through the skin and subcutaneous tissue to the linea alba was identified elevated with Yadira clamps and split entering into the abdomen without difficulty it was then opened for the length of the incision. A hand port wound protector was then placed into the area and secured snugly the hand port was then attached and the abdomen was insufflated via 5 mm port inserted through the hand port gel. A camera port was then placed just below the xiphoid process of 5 mm. Two additional ports were then placed in the right lower quadrant including a 12 mm working port and a 5 mm working port. later 5 mm port was placed in the left abdomen to assist with the splenic flexure take. At this point the abdomen was inspected there was essentially no adhesive disease. A large fold of colon was seen densely adherent to the dome of the urinary bladder. Then proceeded to perform sigmoid mobilization -starting on the lateral 3rd the sigmoid colon was brought under significant tension and using cautery the white line of Toldt was incised to peal apart this embryologic plane. This line of dissection was then taken superiorly mobilizing of the majority of the left colon. And then proceeding to mobilize the more medial aspects of the sigmoid colon. The retraction component this dissection was significantly hampered by the adherent colon to the bladder. So at this point the dissection was made between the sigmoid colon and the bladder wall. Using a combination of finger fracture and meticulous electrocautery dissection the plane between the sigmoid colon and the bladder wall was opened. This was quite tedious -however neither the colon or the bladder clark were violated. At this point returned to medialize the distal sigmoid colon. During the course of this dissection which was done carefully with the gonadal vessels as well as the ureter were clearly identified and preserved. At this point the amount of colon lenght was checked -and felt to be inadequate given the somewhat high location of the fistulous tract within the sigmoid colon. The splenic flexure as a consequence was taken down using Harmonic scalpel - off the greater omentum the splenocolic ligaments and lateral attachments. This did provide adequate length. Within elevated at the distal sigmoid colon near the rectosigmoid junction to identify the superior rectal vessels -some difficulty was encountered identifying these -mesentery was scored without success. I was unable to feel a distinct pulse in the area as well. As a consequence, this step was skipped temporarily. I then windowed the mesentery at the level of the sacral promontory entering into the presacral space. The presacral dissection was carried inferiorly in the direct posterior line and then dividing the lateral attachments near the rectum this was carried several min cm down the rectum until we were extremely confident we had gotten up below the splaying of the tenia. A window was then made in the mesorectum and the mesorectum below this divided with the Harmonic scalpel. The rectum at this level was skeletonized from adherent fatty tissue. Bringing this area under tension I worked backwards dividing the mesentery and at this point was able to identify the superior rectal vessels. These were divided with a 2.6 mm laparoscopic KYLER stapling. We then proceeded to divide the superior rectum utilizing a 4.1 mm laparoscopic KYLER stapler x 6 cm. The staple line was well intact. Tension was then rechecked back to healthy degree of colon and we found that the anastomosis could be made tension free. Then proceeded to externalize the distal colon. The most distal aspect of healthy sigmoid colon was identified at this level a window was created in the mesentery and the mesentery divided -the marginal artery was encountered divided and flashed demonstrating good distal blood flow. The sigmoid colon itself was then divided with cautery. the specimen was sent of the field. Rectal sizers demonstrated that both the rectum and the distal sigmoid colon easily accepted a 31 Sizer. We then proceeded to make the anastomosis. The anvil of a 31 mm EEA stapler was inserted into the colon it was purse string sutures with 2 0 Prolene. Some adherent fatty tissue was cleared off the serosa. Was careful to not included diverticula within the anastomotic staple line. The device was then inserted into the rectum and the spike advanced through the staple line. Again working laparoscopically the anvil was attached to the spike and the mesentery was double checked to ensure no twisting and appropriate orientation. The EEA stapler was then closed and fired without incident. Donuts were intact. The anastomosis was leak test by placing fluid within the pelvis and using a sigmoidoscope to generate pressure within the rectum. There is no undue tension on the anastomosis. Hemostasis was confirmed. At this point the laparoscopic portion of the case was concluded. Diverting loop ileostomy was created given the patient's undiagnosed diabetes, his poor nutritional status as well as the absence of additional length that could be generated from further dissection. Further colonic length was prevented by the left colic vessels. A small elliptical incision was made on the skin just to the right inferior of the umbilicus the subcutaneous tissue was divided the anterior rectus sheath was divided with a cruciate incision. The rectus fibers were split with a clamp, the posterior sheath was similarly divided with a cruciate incision. The fascial defect accommodated 2 fingers. Approximately 15 cm from the ileocecal valve a loop of mobile terminal ileum was identified a small mesenteric window was placed behind it and a [place] drain was looped through this. The [place] drain was then carried up through the fascial defect so that the proximal loop was superior and the distal loop inferior. Interceed was used between the bowel wall and the abdominal wall. Then proceeded to close the hand port incision with PDS suture. The fascia at the 12 mm port site was also closed. Skin was closed using subcuticular monofilament sutures as well. The ileostomy was then matured Brooking the superior aspect. A finger was inserted down each limb of the ileostomy was able to pass below the level of the fascia without difficulty. An appliance was attached Patient was extubated and brought to PACU without incident Complications: none Condition: stable Disposition: PACU Plan for aftercare: PACU and then floor
[2018-10-11] MEDS: ENOXAPARIN 40 MG/0.4 ML SYRINGE SUBCUT (11:47)
--- NOTE | 2018-10-11 12:01 | PT.IIE ---
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) Surgery Performed Operation Date: 10/10/18 07:45 Actual Procedures p Laparoscopically Assisted Sigmoid Colectomy, with fistula takedown, loop ileostomy - Juanpablo Byrne MD Surgical History (Last Reviewed 09/19/18 @ 14:55 by Danielle Antoine DO) History of tonsillectomy (Acute) Medical History (Last Reviewed 09/19/18 @ 14:55 by Danielle Antoine DO) Ankylosing spondylitis (Acute) Santacruz's palsy (Acute) Chronic pain (Acute) Dental caries (Acute) Diabetes mellitus type 2 in nonobese (Acute) HTN (hypertension) (Acute) Immunocompromised state (Acute) Insomnia (Acute) Meningitis (Acute) Paroxysmal atrial fibrillation (Acute) Sepsis (Acute) Septic shock (Acute) Skin cancer (Acute) Stupor (Acute) Thrombocytopenia (Acute) Type 2 diabetes mellitus (Acute) Physical Therapy Inpatient Evaluation/Re-Eval M1 PT/OT-IP Prior Functional Status Start: 10/11/18 08:13 Freq: NEEDED Status: Active Protocol: Document 10/11/18 09:45 (Rec: 10/11/18 11:59 [id number]) Medical Review Prior Functional Status Medical History Reviewed Yes Communication able to make needs known Mobility and Gait Pt reports he has ankylosing spondylitis who has to lay on hard floor to rest for 30mins to 1 hour for pain management every time after he does functional activities such as walking, prolonged standing, etc. He does not need AD for mobility and independent at home and community. He does drive as well. He stated he has difficulty moving his neck and back now due to fused spinal segments but he does go to yoga to improve his mobility as much as possible. Activities of Daily Living and IADL's independent for ADLs and IADLs without AD. Social History Household Members family Living Arrangements House Number of Floors (Floors) Two Floors Number of Stairs To Enter/Railing? 4 CARLITA with L railing Home Environment Standard Height Toilet Walk in Shower Home Equipment Straight Cane Hand Held Shower Grab Bars Near Toilet Employment Status Unemployed Additional Social History Comment Per previous admit, pt was here at [facility] at the end of July 2018 and lives on [address] with his son and ex- and was able to d/ c home with family in July with this planned surgery in place. Both his son and ex - are on disability. Pt stopped working since age 34 due to his ankylosing spondylitis. M2 PT-IP Current Condition Start: 10/11/18 08:13 Freq: NEEDED Status: Active Protocol: Document 10/11/18 09:45 HH (Rec: 10/11/18 11:59 [email or web address]) Physical Therapy Current Condition Current Condition Evaluation Date 10/11/18 Treatment Diagnosis s/p lap sigmoidectomy and colovesicle fistula takedown, impaired act shawn Onset Date 10/10/18 Precautions Abdominal Surgery Precautions Log Roll Lifting Restrictions Gait Belt above Incisional Area Other Precautions Sutton must remain in place for 2 weeks post op due to take down of colovesicular fistula - do not remove Weight Bearing Status Weight Bearing Status Weight Bear as Tolerated M3 PT-IP Subjective Start: 10/11/18 08:13 Freq: NEEDED Status: Active Protocol: Document 10/11/18 09:45 HH (Rec: 10/11/18 11:59 [email or web address]) Subjective Physical Therapy Visit Type Type Initial Evaluation Visit Start Time 09:45 Visit Stop Time 10:10 Total Visit Minutes 25 Notes sutton catheter and ostomy pouch in place Number of PROJECT MANAGER/TEAM COACH Visits 0 Physical Therapy Visit Comments Patient Comments My abdominal hurts quite a bit but i feel fine Patient Goals To return home Therapy Pain Assessment Pain When Pain Assessed During Mobility Pain Present Pain Present Pain Reported Location abd Intensity 4 Scale Used Numeric (1 - 10) Description Acute Pain Management Techniques Modification of Treatment Re-positioning Timing of Activity with Medications M4 PT-IP Mobility and Gait Start: 10/11/18 08:13 Freq: NEEDED Status: Active Protocol: Document 10/11/18 09:45 HH (Rec: 10/11/18 11:59 [email or web address]) PT-Bed Mobility Assessment Rolling Type of Rolling Log Rolling Roll to Right Level of Assist Standby Assistance Supine to Sit Supine to Sit Standby Assistance Sit to Supine Sit to Supine Standby Assistance Scooting Scooting to Edge of Bed Independent PT-Transfer Assessment Sit to and From Stand Sit to and from Stand Standby Assistance Use of Upper Extremities Equipment Transfer Assistive Device Front Wheeled Walker Orthotic/Prosthetic Devices or Brace: No Transfers Transfer Destination Bed Transfer Technique Stand Step Pivot Transfer Ability Level of Assist Standby Assistance Use of Upper Extremities Comments Mobility Comments Pt was in bed upon assessment. Agreeable to mobilize with PT but request to return to bed after due to his back pain. Pt got OOB on the R side with instruction of using log roll. He overall did need assistance for transfers with intact B UE and LEs strength. Gait Assessment Gait Gait Assistance Required: Standby Assistance Distance (Feet) 220 Able to Maintain Weight Bearing Status Yes During Gait Assistive Devices Assistive Device Front Wheeled Walker Orthotic/Prosthetic Devices or Brace: No Gait Deviations General Gait Pattern Decreased Stride Length Decreased Feet Clearance Factors Limiting Gait Function Factors Limiting Gait Function Decreased Activity Tolerance Decreased Strength Pain Comments Gait Comments Pt amb around nursing station with FWW for sutton catheter placement. Pt appears just slightly slower than PLOF but remains steady and safe during gait assessment. He did c/o increase in abdominal pain during heel strike but manageable. Pt returned back to bed with log roll method and SCD activated. Discussed importance of frequent ambulation to increase bowel function and prevent DVT. Bed alarm activated. PT-Balance Assessment Sitting Balance and Reactions Static Sitting Balance Ability Normal Dynamic Sitting Balance Ability Normal Standing Balance and Reactions Static Standing Balance Ability Normal Dynamic Standing Balance Ability Normal M5 PT-IP Objective Assessments Start: 10/11/18 08:13 Freq: NEEDED Status: Active Protocol: Document 10/11/18 09:45 (Rec: 10/11/18 11:59 [email or web address]) Orientation Orientation/Cognition Level of Alertness Alert Orientation Name Age Birthday Month Date Year Day of Week Place Situation Language Function Ability No Deficits Noted Safety Awareness Understands Safety Issues Memory Description No Deficits Noted Gross Range of Motion Upper Extremity ROM Assessment Within Functional Limits Lower Extremity ROM Assessment Within Functional Limits Strength Upper Extremity Strength Assessment Within Functional Limits Lower Extremity Strength Assessment Within Functional Limits Coordination Assessment Gross Coordination Gross Coordination WNL Sensation Assessment Sensation Gross Sensation WNL Muscle Tone Muscle Tone WNL Yes M6 PT-IP Treatment Start: 10/11/18 08:13 Freq: NEEDED Status: Active Protocol: Document 10/11/18 09:45 (Rec: 10/11/18 11:59 [email or web address]) Physical Therapy Treatment Exercises Exercises Gluteal Sets Quad Sets Education Education Provided Precautions Weight Bearing Status Post-Op Packet Safety Other Treatments Other Treatment Performed education on using pillow for compression to relieve pain M7 PT-IP Assessment and Plan Start: 10/11/18 08:13 Freq: NEEDED Status: Active Protocol: Document 10/11/18 09:45 (Rec: 10/11/18 11:59 [email or web address]) PT Summary Assessment and Plan Potential Rehabilitation Potential Excellent Status of Condition at Evaluation Stable Summary Impairments Pain ROM Strength Balance Bed Mobility Transfers Gait Activity Tolerance Assessment Summary Pt is a 67 yo man POD2 s/p hand assisted lap sigmoidectomy and colovesicle fistula takedown with primary stapled end to end colorectal anastamosis with diverting loop ileostomy. He overall needed SBA for mobility with/ without FWW. He does c/o increase in abdominal pain with ambulation/ exertion. Educated pt on log roll method for bed mobility and use of pillow for pain management through compression. He also stated that his primary concern at this point is osteomy pouch and sutton catheter mangement at home due to his poor flexibiltiy from Ankylosing spondylitis. Recommended pt to acquire long mirror to assist. Pt is expected to be d/c home once he is medically stable. Goals Bed Mobility Goal Independent Transfer Goal Independent Gait Goal Independent Gait Distance 500 Other Goals climb 4 steps with L railing independently Days to Meet Goals 5 Frequency of Treatment Frequency Of Treatment Once a Day Treatment Plan Physical Therapy Treatment Plan Bed Mobility Training Transfer Training Gait Training Therapeutic Exercise Post Op Education Discharge Planning Hot or Cold Pack Other Recommendations and Next Treatment review log roll Focus transfer and gait training as shawn climb 4 steps with L rail if possible Recommendations To Nursing Amount of Assist Needed Standby Assistance Discharge Recommendations PT Discharge Recommendations Home
--- NOTE | 2018-10-11 16:50 | PC.NURSE ---
Addendum entered by Stacy Grullon R.N. 10/11/18 22:45: Resting quietly in bed on right side with eyes semi-closed. Even and unlabored respirations. Addendum entered by Stacy Grullon R.N. 10/11/18 21:05: Pt states prefers no scd's overnight. This request was honored. Pt actively reading printing materials provided by ostomy nurse this evening shift. Noted flatus and small amount brown liquid stool in ostomy bag. Addendum entered by Stacy Grullon R.N. 10/11/18 19:27: Pt reports good relief with toradol. Able to rest. States pain 4/10 to abdomen. Ambulatory in hallway with standby assistance. Reports pain increases with activity. Given tylenol and 2 mg iv morphine per pts request. Addendum entered by Stacy Grullon R.N. 10/11/18 18:52: Pt resting quietly in bed with eyes closed. No signs of distress or discomfort. Addendum entered by Stacy Grullon R.N. 10/11/18 18:17: Beckie in to pt's room to discuss ostomy care. Pt's son is present for conversation. Administered toradol to manage pain and offered morphine if pt desires. Encouraged to call for needs. Original Note: Pt reports abdominal/incisional 7-8/10 pain. Refused clear liquid tray. Refused offer to assist with ambulating. Call to Dr. Pyle to discuss pain management as pt states prefers to limit opioids. Pt also requests sorbet and this was approved by Dr. Pyle as part of pt's clear liquid diet. Pt informed. Orders entered for toradol and to decrease the frequency of prn morphine.
[2018-10-11] MEDS: KETOROLAC 30 MG/ML VIAL IV (17:36)
--- NOTE | 2018-10-11 17:52 | PC.NURSE ---
Wound Ostomy Nurse Note Richard in bed. His son Patric is at his side. Richard says he is having pain where he had surgery and his nurse, Rita is getting him pain medications. Patric, his son has had a colostomy in the past and is very familiar with taking care of a stoma. Richard lives with his son Patric and his ex-. Patric stated that they are looking to hire someone to come in and help Richard with house hold chores and odds and ends. Patric said he would help his father with his ostomy care. I explained to Richard that I will be teaching him how to care for his own ileostomy over the course of his hospital stay and that my goal is to have him change his appliance with my guidance. I gave him the [facility] New Ostomy Guide as well as the [facility] Guide for changing an appliance. Richard said he would review this over the weekend. The stoma is pink and edematous. There is a small amount of serosanguenous drainage in the pouch. The abdominal incision line is attached, and is glued. His abdomen is without redness, but is tender from surgery. I did not change the appliance. Richard is tolerating liquids. I did not change the appliance and will change the appliance on October 14 in the afternoon. Rcihard said he is much better in the afternoon as he has Ankylosing Spondylitis and it takes him a while to get up and moving in the morning. He also stated because of the Ankylosing Spondylitis he has a difficult time looking down and is somewhat worried about doing his own ostomy care. I reinforced with him that we will work together and use a mirror to make it easier for him to care for his stoma. Patric said he would also be around for some of the teaching lessons.
[2018-10-11] MEDS: GABAPENTIN 600 MG TABLET PO (20:56)
[2018-10-11] MEDS: LACTATED RINGERS 1,000 ML 50 ML IV (22:25)
[2018-10-12 05:48] VITALS: BP 101/63; PULSE 75; RESP 16; TEMP 36.3; O2SAT 92
[2018-10-12] MEDS: PANTOPRAZOLE 40 MG TABLET PO (06:00)
[2018-10-12] MEDS: MORPHINE 4 MG/ML INJ IV ×4 (06:00→22:14)
[2018-10-12 06:37] LABS: BUN Creatinine Ratio 13.8 (6-22); Blood Urea Nitrogen 11 mg/dL (9-20); Calcium 8.3 mg/dL (8.4-10.2); Carbon Dioxide 33 mmol/L (22-32); Chloride 104 mmol/L (98-107); Estimated Glomerular Filt Rate > 60.0 mL/min (>60); Glucose 88 mg/dL (80-110); HEMOLYSIS < 15 (0-50); Magnesium 2.2 mg/dL (1.6-2.3); Potassium 3.3 mmol/L (3.4-5.1); Sodium 137 mmol/L (137-145)
[2018-10-12] MEDS: KETOROLAC 30 MG/ML VIAL IV ×3 (07:23→20:30)
[2018-10-12 07:36] VITALS: BP 94/64; PULSE 65; RESP 16; TEMP 36.6; O2SAT 96
[2018-10-12] MEDS: ACETAMINOPHEN 325 MG TABLET 650 MG PO (08:19)
[2018-10-12] MEDS: ATENOLOL 50 MG TABLET PO (08:20)
[2018-10-12] MEDS: METHOCARBAMOL 500 MG TABLET PO (08:20)
[2018-10-12] MEDS: TAMSULOSIN 0.4 MG CAPSULE PO (08:21)
[2018-10-12] MEDS: ENOXAPARIN 40 MG/0.4 ML SYRINGE SUBCUT (08:21)
[2018-10-12 11:00] VITALS: BP 100/61; PULSE 55; RESP 16; TEMP 36.7; O2SAT 97
--- NOTE | 2018-10-12 12:24 | CM.IDA ---
Initial DCP Assessment Note: Pt is a 67 yo male, resident of [facility]. 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 PCP: Dr Olivia Payer: Medicare/Medicaid. Reviewed chart and met w/pt this morning, explained role. Pt has h/o acute sepsis w/Pyelo, bacterial meningitis, Santacruz's Palsy, Ankylosing spondylitis resulting in a calcified spine and chronic pain. Pt says he is living in a small RV outside his home, ex- and friend Sharron lives in the house w/40 yo son Jose Alberto. Sharron comes and goes and is very busy, according to pt. Pt does all ADLs indp., he has been on disability for 20 years and this income had been converted to social security income when he turned 65. Pt drives short distances for errands and groceries but asks friends or family to drive if he is feeling weak. Reviewed DCP options; pt is confident he will be able to return home upon DC and he looks forward to speaking w/Ostomy Nurse Beckie Rodriguez Sunday to review Ostomy supplies and continue learning about managing his Ostomy independently. Pt is very pleasant and appreciative for the visit. This MEDIA TRAFFIC MANAGER reviewed Beckie Rodriguez's nursing visit note dated 10.11.18. Alan Spivey was present for Beckie's visit and states willing to assist as needed. Pt is fiercely independent and has been managing his chronic diseases for many years. At this time, no barriers indicated to safe return home w/close outpt f/u. Pt denies the need for home health or even family checking on him periodically, states he will not need it. Following closely in case DC needs or concerns arise. LUCIO Christianson Discharge Planning/Care Management CM Discharge Assessment Start: 10/12/18 12:17 Freq: Status: Active Protocol: Document 10/12/18 12:17 ENRICO (Rec: 10/12/18 12:24 ENRICO [id number]) Discharge Planning Assessment Assigned Field Agent LUCIO Humphreys DPOA/Assigned Designee Name Dami Hernandez, son and Sharron Hernandez, ex- and friend Contact Information Dami: [phone] Sharron: Advance Directives? No History Provided By Patient Medical Record Prior Living Arrangements RV Comment Pt lives in trailer outside their home Household Members family Type of transporation used prior to Drives own vehicle admit Willing to Return to Facility? No Independent with ADL's Yes Is patient alert and oriented? Yes Discharge Plan Home Transportation Arrangement Family Whiteboard Updated in Patient Room with Yes name and ext. # of Field Agent Review Status In Process
--- NOTE | 2018-10-12 13:26 | PC.NURSE ---
Day shift: Pt has been calm and cooperative with care. A&Ox3. Ostomy patend with good output. Diet advanced to full liquids. Pt has not wanted any IV morphine this shift. Has LRM in neck and back. Pt did ambulate in halls with CLINICAL UNIT EDUCATOR. No nausea. Gentile patent with good output. Gentile to remain in place for approx 2 weeks. BG's WNL's. Needed no insulin. VS WNL. RA high 90's.
--- NOTE | 2018-10-12 14:53 | PT.IPTN ---
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) Surgery Performed Operation Date: 10/10/18 07:45 Actual Procedures p Laparoscopically Assisted Sigmoid Colectomy, with fistula takedown, loop ileostomy - Juanpablo Byrne MD Physical Therapy Treatment Note M2 PT-IP Current Condition Start: 10/11/18 08:13 Freq: NEEDED Status: Active Protocol: Document 10/11/18 09:45 (Rec: 10/11/18 11:59 [id number]) Physical Therapy Current Condition Current Condition Evaluation Date 10/11/18 Treatment Diagnosis s/p lap sigmoidectomy and colovesicle fistula takedown, impaired act shawn Onset Date 10/10/18 Precautions Abdominal Surgery Precautions Log Roll Lifting Restrictions Gait Belt above Incisional Area Other Precautions Gentile must remain in place for 2 weeks post op due to take down of colovesicular fistula - do not remove Weight Bearing Status Weight Bearing Status Weight Bear as Tolerated M3 PT-IP Subjective Start: 10/11/18 08:13 Freq: NEEDED Status: Active Protocol: Document 10/12/18 14:15 GGD (Rec: 10/12/18 14:52 GGD [id number]) Subjective Physical Therapy Visit Type Type Patient Refusal Notes Pt states he is tired and would like to sleep. He did walk with nursing twice today. M4 PT Discharge Recommendations Home
--- NOTE | 2018-10-12 15:22 | PM.PN.1 ---
Subjective Date Patient Seen: 10/12/18 Time Patient Seen: 10:40 Interval history: 67yo M POD#2 s/p hand assisted lap sigmoidectomy with takedown of colovesicular fistula and placement of diverting loop ileostomy. Gentile in place with adequate and clear UOP. Pt is AF with normal vitals signs other than occasional mild bradycardia. He is doing well, notes abdominal soreness when up moving and tires quickly but better today. No nausea, has had about 750cc liquid brown output from ileostomy, feels hungry. Toradol added last night for pain control and this has helped him quite a bit. He does not like the robaxin and is otherwise well controlled on low dose (2mg q4) morphine; he is on scheduled low dose oxycodone at home for his back pain. Has been up only minimally and is not using the IS but makes himself deep breathe. Exam Vital Signs (past 8 hours): - 10/12/18 07:36 10/12/18 11:00 Temperature 97.8 F 98.1 F Pulse Rate 65 55 L Respiratory Rate 16 16 Blood Pressure 94/64 100/61 Pulse Oximetry 96 97 Oxygen Delivery Method Room Air Oxygen Flow Rate 0 Narrative Exam Narrative: AAO, NAD, male of healthy weight EOMI, MMM, no scleral icterus unlabored RA soft, mild distension, expected soreness around incisions but no ttp; inc c/d/i; ileostomy pink and healthy with brown liquid output in bag MAEW, calves soft and equal visible skin dry and intact Objective Labs Result Diagrams: 10/11/18 05:40 10/12/18 05:52 Labs: Laboratory Results - last 24 hr 10/12/18 05:52 Sodium 137 Potassium 3.3 L Chloride 104 Carbon Dioxide 33 H BUN 11 Creatinine 0.80 Estimated GFR > 60.0 BUN/Creatinine Ratio 13.8 Glucose 88 Calcium 8.3 L Magnesium 2.2 Assessment & Plan (1) Colovesical fistula: Current visit: Yes Status: Acute Assessment & Plan narrative: - POD#2 s/p lap sigmoidectomy with CVF takedown and diverting ileostomy placement - doing well, shawn CLD and would like more --> minimal distension in abd but good output and no nausea, move to FLD & HLIV - glucose 88-118, on ISS but has not needed in last 24 hrs - OOB more, ambulate, sit up - pain controlled with prn morphine, scheduled toradol and gabapentin --> move to PO tomorrow if shawn diet well - SCDs, lovenox - Gentile to remain in place for 2 weeks, do not remove Quality VTE Deep Vein Thrombosis/Pulmonary Embolism Present on Admission: No
[2018-10-12 15:45] VITALS: BP 113/63; PULSE 71; RESP 15; TEMP 37; O2SAT 96
[2018-10-12 20:05] VITALS: BP 121/57; PULSE 74; RESP 17; TEMP 36.8; O2SAT 96
[2018-10-12] MEDS: GABAPENTIN 600 MG TABLET PO (20:31)
[2018-10-12 23:38] VITALS: BP 121/90; PULSE 77; RESP 16; TEMP 37.3; O2SAT 95
[2018-10-13] VITALS (8 sets, daily range): BP systolic 85–129; BP diastolic 58–84; PULSE 87–105; RESP 16–20; TEMP 36.4–37.3; O2SAT 95–97
[2018-10-13] MEDS: SODIUM CHLORIDE 0.9% FLUSH 10 ML IV ×3 (00:48→08:48)
[2018-10-13] MEDS: MORPHINE 4 MG/ML INJ IV ×2 (01:41→05:02)
--- NOTE | 2018-10-13 04:16 | PC.NURSE ---
Addendum entered by Rosangela Reyez R.N. 10/13/18 06:25: Pt reporting that his abdominal distention feels better this morning and no longer feels like it is impacting his ability to breathe. Has had another 50ml from ileostomy for a total of 425ml this shift. Also, pt's son asked this RN last night if it was okay for pt to drink 5 Hour Energy drinks here in the hospital as he does so at home for low energy. Educated pt's son on why it might not be in the patient's best interest (cardiac history, etc) but would forward the question onto the dayshift and make note of it in the chart. Son also brought in a 12 foot wooden board for pt to lay on as he does so at home for back pain r/t , it has been left in the room for now. Original Note: Shift note: Pt c/o abdominal distention that is preventing him from taking a deep breath and wanting to drink a lot of fluids. Pt has hypoactive bowel tones but is putting out flatus and liquid stool into his ileostomy (375ml so far), abdomen is firm but compressible upon palpation and does not elicit guarding or significant tenderness. Pt is able to belch with some relief when sitting on the edge of his bed, encouraged a short walk around the floor to facilitate gas movement. Will continue to monitor, pt might benefit from simethicone will pass along to dayshift.
[2018-10-13] MEDS: KETOROLAC 30 MG/ML VIAL IV ×2 (06:19→19:38)
[2018-10-13] MEDS: PANTOPRAZOLE 40 MG TABLET PO (06:19)
[2018-10-13] MEDS: TAMSULOSIN 0.4 MG CAPSULE PO (08:47)
[2018-10-13] MEDS: ENOXAPARIN 40 MG/0.4 ML SYRINGE SUBCUT (08:47)
[2018-10-13] MEDS: ATENOLOL 50 MG TABLET PO (08:47)
[2018-10-13] MEDS: ACETAMINOPHEN 325 MG TABLET 650 MG PO (08:47)
[2018-10-13] MEDS: SODIUM CHLORIDE 0.9% 1,000 ML 84 ML IV ×2 (09:51→19:38)
[2018-10-13] MEDS: MORPHINE 2 MG/ML INJ IV ×3 (10:03→18:44)
--- NOTE | 2018-10-13 12:17 | PC.NURSE ---
Day shift: LIQUEFIER notified this casualty underwriter at approx 1200 that Pt's ostomy bag was leaking. Reinforced the entire perimeter with Hypafix tape. Will continue to monitor. Pt tolerated standing well for the placement. Verbal order from Dr Lee for simgatitooconari. Will place order per SOP.
--- NOTE | 2018-10-13 13:22 | PM.PN.1 ---
Subjective Date Patient Seen: 10/13/18 Time Patient Seen: 08:30 Interval history: 67yo M POD#2 s/p hand assisted lap sigmoidectomy with takedown of colovesicular fistula and placement of diverting loop ileostomy. Gentile in place with adequate and clear UOP. Has been up already this AM for a walk and got up a few times yesterday; does need to rest a while after these outings. Did well earlier yesterday with FLD but got bloated and uncomfortable later but no nausea and ileostomy still with moderate volume liquid output. Exam Vital Signs (past 8 hours): - 10/13/18 06:00 10/13/18 07:30 10/13/18 08:47 Temperature 97.6 F 99.2 F 99.2 F Pulse Rate 104 H 95 H Respiratory Rate 16 16 Blood Pressure 96/63 Pulse Oximetry 97 95 10/13/18 09:52 10/13/18 11:12 Temperature 97.9 F 98.5 F Pulse Rate 96 H Respiratory Rate 18 Blood Pressure 85/58 L Pulse Oximetry 95 Oxygen Delivery Method Room Air Oxygen Flow Rate 0 Narrative Exam Narrative: AAO, NAD, male of healthy weight EOMI, MMM, no scleral icterus unlabored RA soft, moderate distension, expected soreness around incisions but no ttp; inc c/d/i; ileostomy pink and healthy with brown liquid output in bag MAEW, calves soft and equal visible skin dry and intact Objective Labs Result Diagrams: 10/11/18 05:40 10/12/18 05:52 Assessment & Plan Assessment & Plan narrative: - POD#3 s/p lap sigmoidectomy with CVF takedown and diverting ileostomy placement - doing well overall, up more through yesterday - bloating yesterday evening with FLD despite low intake --> no nausea, still with good ileostomy output,,m will move back to CLD & moderate MIVFs - on ISS but has not needed in over 48 hrs - OOB more, ambulate, sit up - pain controlled with prn morphine, scheduled toradol and gabapentin --> stay with IV until shawn diet better - SCDs, lovenox - Gentile to remain in place for 2 weeks, do not remove Quality VTE Deep Vein Thrombosis/Pulmonary Embolism Present on Admission: No
[2018-10-13] MEDS: SIMETHICONE 80 MG TABLET PO (13:38)
--- NOTE | 2018-10-13 15:00 | PT.IPTN ---
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) Surgery Performed Operation Date: 10/10/18 07:45 Actual Procedures p Laparoscopically Assisted Sigmoid Colectomy, with fistula takedown, loop ileostomy - Juanpablo Byrne MD Physical Therapy Treatment Note M2 PT-IP Current Condition Start: 10/11/18 08:13 Freq: NEEDED Status: Active Protocol: Document 10/11/18 09:45 HH (Rec: 10/11/18 11:59 [id number]) Physical Therapy Current Condition Current Condition Evaluation Date 10/11/18 Treatment Diagnosis s/p lap sigmoidectomy and colovesicle fistula takedown, impaired act shawn Onset Date 10/10/18 Precautions Abdominal Surgery Precautions Log Roll Lifting Restrictions Gait Belt above Incisional Area Other Precautions Gentile must remain in place for 2 weeks post op due to take down of colovesicular fistula - do not remove Weight Bearing Status Weight Bearing Status Weight Bear as Tolerated M3 PT-IP Subjective Start: 10/11/18 08:13 Freq: NEEDED Status: Active Protocol: Document 10/13/18 15:00 RCC (Rec: 10/13/18 15:32 [facility] [id number]) Subjective Physical Therapy Visit Type Type Treatment Note Visit Start Time 15:00 Visit Stop Time 15:15 Total Visit Minutes 15 Number of NEUROPSYCHOLOGY MEDICAL CONSULTANT Visits 0 Physical Therapy Visit Comments Patient Comments pt reports he is doing a little better today M4 PT-IP Mobility and Gait Start: 10/11/18 08:13 Freq: NEEDED Status: Active Protocol: Document 10/13/18 15:00 RCC (Rec: 10/13/18 15:32 [facility] [id number]) PT-Bed Mobility Assessment Rolling Type of Rolling Log Rolling Level of Assist Independent Supine to Sit Supine to Sit Independent Head of Bed Elevated Bedrails Sit to Supine Sit to Supine Independent Head of Bed Elevated Bedrails Scooting Scooting to Edge of Bed Independent PT-Transfer Assessment Sit to and From Stand Sit to and from Stand Independent Equipment Transfer Assistive Device Front Wheeled Walker Transfers Transfer Destination Bed Transfer Technique Stand Step Pivot Transfer Ability Level of Assist Standby Assistance Comments Mobility Comments pt refused gait belt Gait Assessment Gait Gait Assistance Required: Independent Distance (Feet) 500 Assistive Devices Assistive Device Front Wheeled Walker Gait Deviations General Gait Pattern Decreased Feet Clearance Factors Limiting Gait Function Factors Limiting Gait Function Decreased Activity Tolerance Decreased Strength Pain M5 PT-IP Objective Assessments Start: 10/11/18 08:13 Freq: NEEDED Status: Active Protocol: Document 10/11/18 09:45 HH (Rec: 10/11/18 11:59 [id number]) Orientation Orientation/Cognition Level of Alertness Alert Orientation Name Age Birthday Month Date Year Day of Week Place Situation Language Function Ability No Deficits Noted Safety Awareness Understands Safety Issues Memory Description No Deficits Noted Gross Range of Motion Upper Extremity ROM Assessment Within Functional Limits Lower Extremity ROM Assessment Within Functional Limits Strength Upper Extremity Strength Assessment Within Functional Limits Lower Extremity Strength Assessment Within Functional Limits Coordination Assessment Gross Coordination Gross Coordination WNL Sensation Assessment Sensation Gross Sensation WNL Muscle Tone Muscle Tone WNL Yes M6 PT-IP Treatment Start: 10/11/18 08:13 Freq: NEEDED Status: Active Protocol: Document 10/11/18 09:45 HH (Rec: 10/11/18 11:59 HH [id number]) Physical Therapy Treatment Exercises Exercises Gluteal Sets Quad Sets Education Education Provided Precautions Weight Bearing Status Post-Op Packet Safety Other Treatments Other Treatment Performed education on using pillow for compression to relieve pain M7 PT-IP Assessment and Plan Start: 10/11/18 08:13 Freq: NEEDED Status: Active Protocol: Document 10/13/18 15:00 RCC (Rec: 10/13/18 15:32 RCC [id number]) PT Summary Assessment and Plan Summary Assessment Summary Pt able to ambulate 500 ft indep with FWW. He is still below his prior level of function of no assistive device with outdoor ambulation , but appears to be improving/ making progress. Expect pt to be able to return home if he can manage ostomy and catheter , when medically stable. Goals Bed Mobility Goal Independent Transfer Goal Independent Gait Goal Independent Gait Distance 500 Other Goals climb 4 steps with L railing independently Days to Meet Goals 5 Treatment Plan Other Recommendations and Next Treatment stairs, cont to progress gait Focus Recommendations To Nursing Amount of Assist Needed Standby Assistance Discharge Recommendations PT Discharge Recommendations Home
--- NOTE | 2018-10-13 18:12 | PC.NURSE ---
Erlinda shift note: Calm. cooperative, and pleasant. Continue with hypoactive BS, mild abdominal distention, and tender to surgical incision. Patient states abdominal distention has decreased from previous day and feels less pressure. Encouraging to take deep breaths. Tolerating clear liquid diet, IVF infusing, FC to gravity draining clear yellow urine. Pain adequately controlled with Morphine 2 mg as needed. Call light within reach
[2018-10-13] MEDS: GABAPENTIN 600 MG TABLET PO (19:38)
[2018-10-14] VITALS (7 sets, daily range): BP systolic 90–109; BP diastolic 59–73; PULSE 72–93; RESP 16; TEMP 36.4–37.2; O2SAT 93–98
[2018-10-14] MEDS: PANTOPRAZOLE 40 MG TABLET PO (06:53)
[2018-10-14] MEDS: KETOROLAC 30 MG/ML VIAL IV (06:53)
[2018-10-14] MEDS: SODIUM CHLORIDE 0.9% 1,000 ML 84 ML IV (07:54)
[2018-10-14] MEDS: MORPHINE 2 MG/ML INJ IV (07:54)
[2018-10-14] MEDS: SIMETHICONE 80 MG TABLET PO (07:55)
[2018-10-14] MEDS: SODIUM CHLORIDE 0.9% FLUSH 10 ML IV (07:56)
[2018-10-14] MEDS: ACETAMINOPHEN 325 MG TABLET 650 MG PO ×3 (08:30→18:33)
[2018-10-14] MEDS: ENOXAPARIN 40 MG/0.4 ML SYRINGE SUBCUT (08:40)
[2018-10-14] MEDS: ATENOLOL 50 MG TABLET PO (08:40)
[2018-10-14] MEDS: TAMSULOSIN 0.4 MG CAPSULE PO (08:40)
--- NOTE | 2018-10-14 09:16 | P.PN_ITS ---
Subjective Date Patient Seen: 10/14/18 Time Patient Seen: 09:09 Interval history: Overall doing quite well. Up ambulating. pain well controlled, now hungery. Ileostomy has started functioning well - liquid and gas in bag Good spirits 1.5in/5.3 out 1.4uop 3.9 ileostomy output Exam Vital Signs (past 8 hours): - 10/14/18 01:30 10/14/18 05:55 10/14/18 08:00 Temperature 97.9 F 98.1 F 98.9 F Pulse Rate 84 93 H 90 Respiratory Rate 16 16 16 Blood Pressure 97/60 109/61 103/66 Pulse Oximetry 97 93 94 Oxygen Delivery Method Room Air Oxygen Flow Rate 0 Narrative Exam Narrative: NAD, looks well Breathing easily on RA Strong radial pulse Abd moderately distended, tympanitic, wounds all CDI, no errythema Ileostomy pink with light bilious liquid output Objective Labs Result Diagrams: 10/11/18 05:40 10/12/18 05:52 Assessment & Plan Assessment & Plan narrative: 67 yo man POD4 s/p /p hand assisted lap sig moidectomy with takedown of colovesicular fistula, splenic fexture mobilization and placement of diverting loop ileostomy for colovesicular fistula Now with robust ileostomy output and improving but continued distention. Plan: continue multimodal pain regement - APAP, gabapentin, adding methocarbamol and oxycodone. Stopped NSAID as increased risk of anastomotic leak. Reduced morphine. Home atenolol Starting loperamide for high ileostomy output reducing IVF as now in post op diuresis phase dispite high ileostomy output Ok for fulls F/u electrolytes Hm BB Gentile remains for full 14days post surgery to allow bladder fistula to heal on enoxaparin for DVT proph Quality VTE Deep Vein Thrombosis/Pulmonary Embolism Present on Admission: No
[2018-10-14 09:45] LABS: BUN Creatinine Ratio 15.6 (6-22); Blood Urea Nitrogen 14 mg/dL (9-20); Calcium 8.6 mg/dL (8.4-10.2); Carbon Dioxide 30 mmol/L (22-32); Chloride 101 mmol/L (98-107); Estimated Glomerular Filt Rate > 60.0 mL/min (>60); Glucose 119 mg/dL (80-110); HEMOLYSIS < 15 (0-50); Magnesium 1.8 mg/dL (1.6-2.3); Potassium 3.6 mmol/L (3.4-5.1); Sodium 137 mmol/L (137-145)
--- NOTE | 2018-10-14 10:30 | PT.IPTN ---
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) Surgery Performed Operation Date: 10/10/18 07:45 Actual Procedures p Laparoscopically Assisted Sigmoid Colectomy, with fistula takedown, loop ileostomy - Juanpablo Byrne MD Physical Therapy Treatment Note M2 PT-IP Current Condition Start: 10/11/18 08:13 Freq: NEEDED Status: Active Protocol: Document 10/11/18 09:45 HH (Rec: 10/11/18 11:59 [id number]) Physical Therapy Current Condition Current Condition Evaluation Date 10/11/18 Treatment Diagnosis s/p lap sigmoidectomy and colovesicle fistula takedown, impaired act shawn Onset Date 10/10/18 Precautions Abdominal Surgery Precautions Log Roll Lifting Restrictions Gait Belt above Incisional Area Other Precautions Gentile must remain in place for 2 weeks post op due to take down of colovesicular fistula - do not remove Weight Bearing Status Weight Bearing Status Weight Bear as Tolerated M3 PT-IP Subjective Start: 10/11/18 08:13 Freq: NEEDED Status: Active Protocol: Document 10/14/18 10:30 RS (Rec: 10/14/18 13:59 RS [id number]) Subjective Physical Therapy Visit Type Type Treatment Note Visit Start Time 09:30 Visit Stop Time 10:30 Total Visit Minutes 60 Physical Therapy Visit Comments Patient Comments Pt reports doing well, very much looking forward to trialing no AD while walking. Therapy Pain Assessment Pain When Pain Assessed During Mobility Pain Present Pain Present Denied Pain M4 PT-IP Mobility and Gait Start: 10/11/18 08:13 Freq: NEEDED Status: Active Protocol: Document 10/14/18 10:30 RS (Rec: 10/14/18 13:59 RS [id number]) PT-Bed Mobility Assessment Supine to Sit Supine to Sit Independent Sit to Supine Sit to Supine Independent Scooting Scooting to Edge of Bed Independent PT-Transfer Assessment Sit to and From Stand Sit to and from Stand Independent Equipment Transfer Assistive Device None Transfers Transfer Destination Bed Transfer Technique walked and turned to sit Transfer Ability Level of Assist Independent Comments Mobility Comments Pt able to demo ideal movement strategies, safe and steady entire time. Gait Assessment Gait Gait Assistance Required: Independent Distance (Feet) 500 Assistive Devices Assistive Device None Comments Gait Comments Pt able to demo safe and steady gait without AD, pt likely at PLOF. Stair Climbing Assessment Evaluation Level of Assist On Stairs Independent Devices Stair Climbing Assistive Devices Left Railing Right Railing Technique/Endurance Stair Climbing Direction Ascend and Descend Stair Climbing Technique Step Over Step Number of Steps Climbed 12 Comments Stair Climbing Comments no issues PT-Balance Assessment Sitting Balance and Reactions Static Sitting Balance Ability Normal Dynamic Sitting Balance Ability Normal Standing Balance and Reactions Static Standing Balance Ability Normal Dynamic Standing Balance Ability Normal M5 PT-IP Objective Assessments Start: 10/11/18 08:13 Freq: NEEDED Status: Active Protocol: Document 10/11/18 09:45 (Rec: 10/11/18 11:59 [id number]) Orientation Orientation/Cognition Level of Alertness Alert Orientation Name Age Birthday Month Date Year Day of Week Place Situation Language Function Ability No Deficits Noted Safety Awareness Understands Safety Issues Memory Description No Deficits Noted Gross Range of Motion Upper Extremity ROM Assessment Within Functional Limits Lower Extremity ROM Assessment Within Functional Limits Strength Upper Extremity Strength Assessment Within Functional Limits Lower Extremity Strength Assessment Within Functional Limits Coordination Assessment Gross Coordination Gross Coordination WNL Sensation Assessment Sensation Gross Sensation WNL Muscle Tone Muscle Tone WNL Yes M6 PT-IP Treatment Start: 10/11/18 08:13 Freq: NEEDED Status: Active Protocol: Document 10/11/18 09:45 (Rec: 10/11/18 11:59 [id number]) Physical Therapy Treatment Exercises Exercises Gluteal Sets Quad Sets Education Education Provided Precautions Weight Bearing Status Post-Op Packet Safety Other Treatments Other Treatment Performed education on using pillow for compression to relieve pain M7 PT-IP Assessment and Plan Start: 10/11/18 08:13 Freq: NEEDED Status: Active Protocol: Document 10/14/18 10:30 RS (Rec: 10/14/18 13:59 RS [id number]) PT Summary Assessment and Plan Potential Rehabilitation Potential Excellent Status of Condition at Evaluation Stable Summary Progress Towards Goals Safe For Discharge Goals Met Assessment Summary Pt demonstrates independent mobility and is at his functional baseline for ambulation and transfers. Continue to recommend SBA for gait while pt is still on IV, but pt is cleared for ind mobility once IV discontinued. Pt is back to baseline and has no further acute PT needs, will sign off with the anticipation that the patient will continue to mobilize with nursing staff daily. Goals Bed Mobility Goal Independent Transfer Goal Independent Gait Goal Independent Gait Distance 500 Other Goals climb 4 steps with L railing independently Days to Meet Goals 0 Frequency of Treatment Frequency Of Treatment Discharge Recommendations To Nursing Amount of Assist Needed Standby Assistance while on IV, ind without IV. Discharge Recommendations PT Discharge Recommendations Home Equipment Needed for Home Before none Discharge
--- NOTE | 2018-10-14 12:10 | PC.NURSE ---
Day shift: Pt had a shower today and tolerated it well. He sat on toilet and had a BM from his anus. Appox 400ml of the same liquid that has been collecting in the ostomy bag. After the shower the ostomy bag needed some Hypafix reinforcement. Will continue to monitor.
[2018-10-14] MEDS: OXYCODONE IR 5 MG TABLET PO ×3 (12:16→20:26)
[2018-10-14] MEDS: LOPERAMIDE 2 MG CAPSULE PO ×3 (12:17→20:26)
[2018-10-14] MEDS: POTASSIUM CHLORIDE 20 MEQ/15 ML UDC 40 MEQ PO (13:31)
[2018-10-14] MEDS: MAGNESIUM SULFATE 2 GM/50 ML PIGGYBACK IV (13:31)
--- NOTE | 2018-10-14 18:00 | OT.IP.EVAL ---
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) Surgery Performed Operation Date: 10/10/18 07:45 Actual Procedures p Laparoscopically Assisted Sigmoid Colectomy, with fistula takedown, loop ileostomy - Juanpablo Byrne MD Past Medical History (Last Reviewed 09/19/18 @ 14:55 by Danielle Antoine DO) Ankylosing spondylitis (Acute) Santacruz's palsy (Acute) Chronic pain (Acute) Dental caries (Acute) Diabetes mellitus type 2 in nonobese (Acute) HTN (hypertension) (Acute) Immunocompromised state (Acute) Insomnia (Acute) Meningitis (Acute) Paroxysmal atrial fibrillation (Acute) Sepsis (Acute) Septic shock (Acute) Skin cancer (Acute) Stupor (Acute) Thrombocytopenia (Acute) Type 2 diabetes mellitus (Acute) Surgical History (Last Reviewed 09/19/18 @ 14:55 by Danielle Antoine DO) History of tonsillectomy (Acute) Occupational Therapy Inpatient Evaluation/Re-Eval M2 OT-IP Current Condition Start: 10/14/18 17:43 Freq: Status: Active Protocol: Document 10/14/18 17:44 [facility] (Rec: 10/14/18 18:00 [facility] [id number]) Occupational Therapy Current Condition Current Condition Evaluation Date 10/14/18 Treatment Diagnosis s/p lap sigmoidectomy and colovesiclefistula take down Diagnosis Onset Date 10/10/18 Post Operative Precautions Abdominal Surgery Precautions Log Roll Lifting Restrictions Gait Belt above Incisional Area Weight Bearing Status Weight Bearing Status Weight Bear as Tolerated M3 OT- IP Subjective and Pain Start: 10/14/18 17:43 Freq: Status: Active Protocol: Document 10/14/18 17:44 [facility] (Rec: 10/14/18 18:00 [facility] [id number]) OT- Subjective Occupational Therapy Visit Type Type Initial Evaluation Visit Start Time 11:15 Visit Stop Time 11:55 Total Visit Minutes 40 Occupational Therapy Visit Comments Patient Comments Pt agreeable to do OT eval and take a shower. Patient/Caregiver Goals To go home. OT Pain Assessment Pain When Pain Assessed At Rest Pain Present Pain Present Pain Reported M4 OT- IP ADL's Start: 10/14/18 17:43 Freq: Status: Active Protocol: Document 10/14/18 17:44 [facility] (Rec: 10/14/18 18:00 [facility] [id number]) OT ADL-Dressing General Eval Upper Body Dressing Ability Independent Lower Body Dressing Ability Independent Comments OT Dressing Comments Pt able to indepedently don/ doff socks and gown. Nursing to instruct pt for leg bag care and needs. OT ADL-Toileting Comments OT Toileting Comments Pt to have ostomy training with nursing. Able to suggest since pt has limited neck movements and can not bend his head to see the ostomy that it would be best to environmental health inspector front of the mirror for needs. Also to empty out the ostomy bag to environmental health inspector front of the sink and with urine hat in the sink to empty the contents so able to use both hands to manage the bag. OT ADL-Bathing Bathing Type Bathing Type Shower General Evaluation Bathing Ability Standby Assistance Devices Bathing Equipment Grab Bars Comments OT Bathing Comments Pt needing cues to be sure to move catheter bag as forgetting to move the bag as he moves. Pt will be more independent to move if bag changed to leg bag, nursing aware. Suggested to have long handle sponge and stool in the shower to increase ease and addition to have family member present when showering. M5 OT- IP IADL's Start: 10/14/18 17:43 Freq: Status: Active Protocol: Document 10/14/18 17:44 [facility] (Rec: 10/14/18 18:00 [facility] [email or web address]) OT-Instrumental Activities of Daily Living Home Safety Awareness Awareness of Need for Assistance at Home Good Awareness Ability to Problem Solve Emergency Able to Problem Solve Situations Meal Preparation Meal Preparation Comments Suggested to have a tall stool if needing to sit as pt states only able to stand for short periods of time. Car Inspector Car Inspector Comments Pt states has family to assist if needed and when they are available. M6 OT- IP Functional Cognition Start: 10/14/18 17:43 Freq: Status: Active Protocol: Document 10/14/18 17:44 [facility] (Rec: 10/14/18 18:00 [facility] [email or web address]) Cognitive Factors Limiting Selfcare Function Cognitive Ability Level of Alertness Alert Patient Orientation Name Age Birthday Month Date Year Day of Week Place Situation Attention Span Ability Capable of Focused Attention Capable of Sustained Attention Ability to Follow Commands Able to Follow One Step Commands Memory Description Short Term Impaired Safety Awareness No Deficits Noted Cognitive Comments Cognitive Assessment Comments Pt just mainly forgetting that he has a cathater bag and needing to be aware where it was when up and moving. OT- Vision and Hearing OT- Hearing Assessment OT- Hearing Assessment Use of Hearing Aids M7 OT- IP Mobility and Balance Start: 10/14/18 17:43 Freq: Status: Active Protocol: Document 10/14/18 17:44 [facility] (Rec: 10/14/18 18:00 [facility] [email or web address]) OT- Bed Mobility Assessment Supine to Sit Supine to Sit Assist Independent Sit to Supine Sit to Supine Assist Independent OT-Transfer Assessment Sit to and From Stand Sit to and from Stand Independent Transfers Transfer Ability Independent Standby Assistance Comments Mobility Comments MAinly just SBA vc for safety to remember to bring cathetar bag with him. OT- Balance Assessment Sitting Balance and Reactions Static Sitting Balance Ability Normal Dynamic Sitting Balance Ability Normal Standing Balance and Reactions Static Standing Balance Ability Good M8 OT- IP Objective Assessments Start: 10/14/18 17:43 Freq: Status: Active Protocol: Document 10/14/18 17:44 [facility] (Rec: 10/14/18 18:00 [facility] [email or web address]) OT Gross Range of Motion Upper Extremity Range of Motion Assessment Left Impaired OT Strength Comments Strength Comments 5/5 for all except left shoulder 1/5 M9 OT- IP Assessment and Plan Start: 10/14/18 17:43 Freq: Status: Active Protocol: Document 10/14/18 17:44 [facility] (Rec: 10/14/18 18:00 [facility] [email or web address]) OT Summary Assessment and Plan Potential Rehabilitation Potential Good Analytic Complexity at Evaluation Low Summary OT Impairments Pain Toileting Progress Towards Goals Progressing Toward Goals Assessment Summary Pt low complexity and main barrier is to learn how to care for ostomy and catheter bag which nursing will be training him. Otherwise pt is MOD I for all dressing needs and mobility. Therefore discharge pt for OT services. Able to give pt safety suggestions for Adl and IADl needs. Frequency of Treatment Frequency Of Treatment Discharge Discharge Recommendations OT Discharge Recommendations Home with Assistance Home Health
--- NOTE | 2018-10-14 18:11 | PC.NURSE ---
Wound Ostomy Nurse Note Richard up walking the halls. He went back to bed and I changed his appliance. His stoma is less edematous and beefy red measuring 1 1/4 inches. It is well budded above the skin level by 1 inch. The stoma is moist and producing green liquid. The richard-stomal skin is intact. I emptied 425cc of liquid green stool. Richard read the [facility] New Patient Guide as he had lots of questions regarding the pouching system which I answered. I will review with him how to use a pouching system on the stoma model and we will review the accessories. I will arrive around 5 pm as I will be in clinic tomorrow and Richard said this would be a good time for him. I placed a two piece Convatec 57mm wafer with clear, non-filtered pouch.
[2018-10-14] MEDS: GABAPENTIN 600 MG TABLET PO (20:26)
[2018-10-15] VITALS (8 sets, daily range): BP systolic 81–106; BP diastolic 52–67; PULSE 80–115; RESP 16–18; TEMP 36.7–38.2; O2SAT 93–99; BMI 20.7
[2018-10-15] MEDS: OXYCODONE IR 5 MG TABLET PO ×4 (01:11→16:31)
[2018-10-15] MEDS: ACETAMINOPHEN 325 MG TABLET 650 MG PO ×5 (01:13→23:59)
--- NOTE | 2018-10-15 06:33 | PC.NURSE ---
Shift note: Received pt from evening shift. Assessment notable for a mildly distended abdomen that is tender with palpation, stoma is beefy red, putting out greening liquid stool and flatus. All other systems and vital signs stable, room air, c/o pain from 1-4/10 on numeric scale. Pt's IV site on 10/14 approx 0700 am d/t protocol, IV fluids are running, no c/o pain or signs of infection or infiltration, attempted to replace IV site but was unable to, will pass on to day shift. Pt able to turn self in bed and use call light appropriately.
[2018-10-15] MEDS: PANTOPRAZOLE 40 MG TABLET PO (06:55)
[2018-10-15 07:03] LABS: BUN Creatinine Ratio 13.3 (6-22); Blood Urea Nitrogen 12 mg/dL (9-20); Carbon Dioxide 31 mmol/L (22-32); Chloride 98 mmol/L (98-107); Estimated Glomerular Filt Rate > 60.0 mL/min (>60); Glucose 84 mg/dL (80-110); HEMOLYSIS < 15 (0-50); Magnesium 2.3 mg/dL (1.6-2.3); Potassium 4.3 mmol/L (3.4-5.1); Sodium 136 mmol/L (137-145)
--- NOTE | 2018-10-15 08:33 | PM.PN.1 ---
Subjective Date Patient Seen: 10/15/18 Time Patient Seen: 08:33 Interval history: Feeling well, pain continues to impove Worked with wound care with ostomy pouching yesterday Unable to eat large amounts but enjoying small frequent meals ongoing ileostomy output I/O 3/4.4 1.5po Break down of ileostomy vs UOP confused in charting Has had 500ml UOP since MN Exam Vital Signs (past 8 hours): - 10/15/18 04:51 10/15/18 07:26 Temperature 98.4 F 100.5 F H Pulse Rate 82 87 Respiratory Rate 16 16 Blood Pressure 106/67 81/52 L Pulse Oximetry 97 95 Oxygen Delivery Method Room Air Oxygen Flow Rate 0 Narrative Exam Narrative: Well Breathing comfortably Irregular HR, strong radial pulse Abd still distended and tympanic , more soft. minimally tender. wounds CDI, ileostomy pink periphery warm Objective Labs Result Diagrams: 10/11/18 05:40 10/15/18 06:40 Labs: Laboratory Results - last 24 hr 10/14/18 10/15/18 09:24 06:40 Sodium 137 136 L Potassium 3.6 4.3 Chloride 101 98 Carbon Dioxide 30 31 BUN 14 12 Creatinine 0.90 0.90 Estimated GFR > 60.0 > 60.0 BUN/Creatinine Ratio 15.6 13.3 Glucose 119 H 84 Calcium 8.6 9.0 Magnesium 1.8 2.3 Assessment & Plan Assessment & Plan narrative: 67 yo man POD5 s/p hand assisted lap sigmoidectomy with takedown of colovesicular fistula, splenic fexture mobilization and placement of diverting loop ileostomy for colovesicular fistula. Doing well, still bit distended but oddly with high ileostomy output Plan: Needs excellent I and O today to jenna suitability for discharge continue multimodal pain regement - APAP, gabapentin, adding methocarbamol and oxycodone. No NSAID as increased risk of anastomotic leak. stopping morphine. Home atenolol - reducing dose with mild hypotension post op increasing loperamide for high ileostomy output Ok for fulls - not advancing due to distention Electrolytes replete Gentile remains for full 14days post surgery to allow bladder fistula to heal on enoxaparin for DVT proph Quality VTE Deep Vein Thrombosis/Pulmonary Embolism Present on Admission: No
[2018-10-15] MEDS: LOPERAMIDE 2 MG CAPSULE 4 MG PO ×4 (08:50→21:21)
[2018-10-15] MEDS: TAMSULOSIN 0.4 MG CAPSULE PO (08:50)
[2018-10-15] MEDS: ENOXAPARIN 40 MG/0.4 ML SYRINGE SUBCUT (08:52)
[2018-10-15] MEDS: ATENOLOL 25 MG TABLET PO (08:53)
[2018-10-15] MEDS: OXYCODONE IR 5 MG TABLET 10 MG PO ×2 (10:32→20:08)
--- NOTE | 2018-10-15 18:58 | PC.NURSE ---
Wound Ostomy Nurse Note Richard in bed but awake taking with his nurse Jacki. He sat up and we practiced measuring the stoma on the model and he cut to fit a one piece as well as molded a two piece convatec appliance. I reviewed the crusting technique and we reviewed food blockage as well as how to order supplies which I will take care of for his first order. I will send En home with supplies and samples. I think he will do better in a one piece pouching system. I will bring some up tomorrow morning. En's stoma measures 1 1/4 inches. It is beefy red and moist. This ileostomy seems like it is a high output stoma and am considering using a high output appliance which I would need to order. I emptied 500cc of green liquid effluent in the last hour. I did change his appliance during this visit. I will speak with Dr. Byrne about the output and follow.
--- NOTE | 2018-10-15 19:40 | PC.NURSE ---
Addendum entered by Jacki Shoemaker R.N. 10/15/18 22:37: 1875 mL output to ileostomy with bag emptied Q2 hours; 600 mL output Gentile Original Note: Copious output of 500 mL to ileotomy bag per MALLIKA Butts; on-call MD informed regarding output; no new orders; pt has history of chronic pain to spine and treats with deep breathing and laying on board for one hour; skin to spine intact, but pink; PO pain meds for pain to abdomen, back and headaches; abdomen soft and distended, BTs present; pt tolerating full liquid diet; Stoma pink, ostomy bag intact with green, watery fluid; LS clear, O2 RA=99%
[2018-10-16] VITALS (7 sets, daily range): BP systolic 77–98; BP diastolic 45–74; PULSE 92–106; RESP 13–18; TEMP 35.9–36.8; O2SAT 94–99
[2018-10-16] MEDS: SODIUM CHLORIDE 0.9% 1,000 ML 25 ML IV
--- NOTE | 2018-10-16 00:01 | PC.NURSE ---
Shift note: Received pt from evening shift. Pt resting comfortably in bed at time of assessment. Assessment notable for healing incisions to abdomen, pain of 1/10 numeric to abdomen, and output of 875ml of green liquid from ileostomy, stoma is beefy red with no noticeable irritation to skin around wafer. Pt reports feeling hopeful about discharge tomorrow and care of himself and his ileostomy and sutton at home. Encouraged pt to ask as many questions as necessary. VSS, RA with O2 sat of 95%, bed alarm on, call light in reach, pt is a high fall risk d/t history of falls.
[2018-10-16] MEDS: OXYCODONE IR 5 MG TABLET PO ×4 (06:04→20:23)
[2018-10-16] MEDS: ACETAMINOPHEN 325 MG TABLET 650 MG PO ×4 (06:04→23:31)
[2018-10-16] MEDS: PANTOPRAZOLE 40 MG TABLET PO (06:05)
[2018-10-16] MEDS: ATENOLOL 25 MG TABLET PO (08:35)
[2018-10-16] MEDS: ENOXAPARIN 40 MG/0.4 ML SYRINGE SUBCUT (08:35)
[2018-10-16] MEDS: SODIUM CHLORIDE 0.9% FLUSH 10 ML IV ×2 (08:36→21:21)
[2018-10-16] MEDS: LOPERAMIDE 2 MG CAPSULE 4 MG PO ×3 (08:36→21:21)
[2018-10-16] MEDS: TAMSULOSIN 0.4 MG CAPSULE PO (08:37)
--- NOTE | 2018-10-16 11:17 | CM.DPC ---
DCP/continued: Reviewed chart. Patient expected to d/c home within the next 24-48hrs. Per notes, patient going home with sutton. RN reports patient up moving I in room. Spoke with RN whom reports that patient will not have any d/c planning needs. Sutton/ostomy expected to be managed by surgeon's office and patient as outpatient. P: Home when stable. Continue to follow as needed. LUCIO Vigil
[2018-10-16] MEDS: DIPHENOXYLATE/ATROP 2.5/0.025 TABLET 1 EACH PO ×3 (12:25→21:21)
[2018-10-16] MEDS: CHOLESTYRAMINE/ASPARTAME 4 GM PACK PO ×2 (12:26→21:22)
[2018-10-16] MEDS: SODIUM CHLORIDE 0.9% 1,000 ML 500 ML IV (13:37)
--- NOTE | 2018-10-16 17:48 | PC.NURSE ---
Wound Ostomy Nurse Note Richard in bed resting with wood board and hard cover book under his head. He states he does not feel well today and that his blood pressure has been low. He states that his ileostomy output has been less. I emptied 225cc of liquid green effluent. He is now taking lomotil and imodium. His stoma looks beefy red. I did not change his appliance. I dropped off some samples of a one piece Coloplast cut to fit drainable pouching system for him to use at home. I still am concerned about his high ileostomy output and may order sample a sample appliance that can be attached to a night drainage bag so he would not have to get up in the middle of the night to drain the pouch or worse case if the pouch has a breach and cause skin break down. I will follow up with Yearly tomorrow evening. I do have concerns about his care at home as he was saying his son's schedule varies. He feels that there are no home health services that provide care to [place] but I do believe that [facility] does service [facility]. I will check in with Care Management tomorrow.
--- NOTE | 2018-10-16 17:57 | PM.PN.1 ---
Subjective Date Patient Seen: 10/16/18 Time Patient Seen: 09:00 Interval history: Patient feeling better, appetite improving, would like regular food Still with high ileostomy output Worked with enterostomal nursing Pain essentially resolved Exam Vital Signs (past 8 hours): - 10/16/18 12:16 10/16/18 15:31 Temperature 98.2 F 96.7 F L Pulse Rate 98 H 100 H Respiratory Rate 13 18 Blood Pressure 93/74 92/45 L Pulse Oximetry 98 95 Oxygen Delivery Method Room Air Oxygen Flow Rate 0 Narrative Exam Narrative: Well-appearing no acute distress Breathing comfortably on room air Irregular heart rate Abdomen soft nontender minimally distended, moderately tympanic, his wounds are clean dry and intact Ileostomy pink with bilious succus help -becoming more discuss than prior watery output Objective Labs Result Diagrams: 10/11/18 05:40 10/15/18 06:40 Assessment & Plan Assessment & Plan narrative: 67 yo man POD6 s/p hand assisted lap sigmoidectomy with takedown of colovesicular fistula, splenic fexture mobilization and placement of diverting loop ileostomy for colovesicular fistula. Now doing quite well, ready for discharge with the exception of high ileostomy output. Plan: Increasing ileostomy high output medication regiment -starting Lomotil and cholestyramine in addition to loperamide at hi dose Under bolus today to help with fluid balance continue multimodal pain regement - APAP, gabapentin, adding methocarbamol and oxycodone. No NSAID as increased risk of anastomotic leak. stopping morphine. Home atenolol mildly tachycardic after does decrease yesterday for hypertension Regular diet Gentile remains for full 14days post surgery to allow bladder fistula to heal on enoxaparin for DVT proph Quality VTE Deep Vein Thrombosis/Pulmonary Embolism Present on Admission: No
[2018-10-16] MEDS: GABAPENTIN 600 MG TABLET PO (21:22)
[2018-10-16] MEDS: SODIUM CHLORIDE 0.9% 1,000 ML 1000 ML IV (22:30)
--- NOTE | 2018-10-16 22:45 | PC.NURSE ---
Pt A&OX3. afebrile. ileostomy output had 625cc, dark green, watery stool. ileostomy beefy. sutton output: 300cc. @2230: BP 77/55, P 97, pt denied dizziness or lightheadedness. notified Dr. Byrne regarding pt's vitals. VTO for 1000mL NS bolus and a PRN 500ml bolus for systolic < 90.
[2018-10-16] MEDS: SODIUM CHLORIDE 0.9% 1,000 ML 75 ML IV (23:33)
[2018-10-16] MEDS: SIMETHICONE 80 MG TABLET PO (23:38)
--- NOTE | 2018-10-17 01:52 | PC.NURSE ---
Shift note: Received pt from evening shift. Pt sitting at edge of bed brushing his hair at time of assessment. Assessment notable for distended abdomen and pt c/o bloating preventing him from taking adequate deep breath, lung sounds clear, bowel sounds are active, flatus in ileostomy bag, stoma beefy red and slightly protruding, green stool present in bag. VSS, RA 99% O@ sat, bp 96/70, 1L of NS finished infusing and new bag of NS @ 75ml/hr started. Pt reports 1.5/10 numeric pain, offered PRN simethicone for gas, given per JUN. Bed alarm activated, call light in reach, pt calls appropriately, pt is a high fall risk d/t hx of falls and secondary diagnoses.
[2018-10-17 05:00] VITALS: BP 97/66; PULSE 92; RESP 16; TEMP 36.4; O2SAT 97
[2018-10-17] MEDS: PANTOPRAZOLE 40 MG TABLET PO (06:04)
[2018-10-17] MEDS: ACETAMINOPHEN 325 MG TABLET 650 MG PO ×3 (06:05→17:43)
[2018-10-17] MEDS: OXYCODONE IR 5 MG TABLET PO ×4 (06:05→20:37)
[2018-10-17 06:06] LABS: Blood Urea Nitrogen 16 mg/dL (9-20); Calcium 8.6 mg/dL (8.4-10.2); Carbon Dioxide 25 mmol/L (22-32); Chloride 108 mmol/L (98-107); Estimated Glomerular Filt Rate > 60.0 mL/min (>60); Glucose 101 mg/dL (80-110); HEMOLYSIS < 15 (0-50); Magnesium 1.9 mg/dL (1.6-2.3); Potassium 4.1 mmol/L (3.4-5.1); Sodium 139 mmol/L (137-145)
[2018-10-17 07:32] VITALS: BP 101/61; PULSE 105; RESP 16; TEMP 36.6; O2SAT 97
[2018-10-17] MEDS: CHOLESTYRAMINE/ASPARTAME 4 GM PACK PO ×2 (08:36→20:39)
[2018-10-17] MEDS: LOPERAMIDE 2 MG CAPSULE 4 MG PO ×4 (08:36→21:33)
[2018-10-17] MEDS: ENOXAPARIN 40 MG/0.4 ML SYRINGE SUBCUT (08:37)
--- NOTE | 2018-10-17 08:51 | DIET.PN ---
RD f/u for inadequate PRO intake Ht: 193cm Wt: 77.5kg BMI: 20.8 Assessment: Pt consuming 50-75% PO low residue diet (salmon, egg omlet) and 2 ONS Ensure Surgery (16g PRO ea) for past 2 d, tolerating well. Nutrition Diagnosis: Inadequate Pro intake r/t NPO s/p GI fistula repair aeb >4d NPO and clear liquid diet. Resolving, pt tolerating low residue diet and drinking ONS. Intervention: Provided pt education c handout on low-residue diet upon discharge, recc 7-10 d low fiber, slowly increasing as tolerated c goal resuming normal diet. Also recc probiotic foods and ONS PRO supp for 10 d post discharge for tissue healing and gut health. Pt receptive, will follow directions, reports no further questions.
[2018-10-17] MEDS: DIPHENOXYLATE/ATROP 2.5/0.025 TABLET 1 EACH PO ×4 (09:08→21:33)
[2018-10-17 11:10] VITALS: BP 108/81; PULSE 100; RESP 16; TEMP 36.4; O2SAT 98
[2018-10-17] MEDS: SIMETHICONE 80 MG TABLET PO (11:28)
[2018-10-17] MEDS: SODIUM CHLORIDE 0.9% 1,000 ML 75 ML IV (11:48)
--- NOTE | 2018-10-17 12:43 | P.PN_ITS ---
Subjective Date Patient Seen: 10/17/18 Time Patient Seen: 10:00 Interval history: Overnight required 1 L bolus for hypotension with systolics to the 70s, asymptomatic. Suspect from volume depletion from high ileostomy a This morning feels quite well, ambulating independently, feels confident can change ostomy appliance, able to tolerate more and more food. No pain Exam Vital Signs (past 8 hours): - 10/17/18 05:00 10/17/18 07:32 10/17/18 11:10 Temperature 97.6 F 97.8 F 97.6 F Pulse Rate 92 H 105 H 100 H Respiratory Rate 16 16 16 Blood Pressure 97/66 101/61 108/81 Pulse Oximetry 97 97 98 Oxygen Delivery Method Room Air Oxygen Flow Rate 0 Narrative Exam Narrative: Appears quite well Breathing comfortably on room air Irregular heart rate Abdomen soft nontender minimally distended Ileostomy pain -ileostomy output has changed in last 24 hours from soupy green liquid, to semi solid brown. Incisions clean dry and intact Periphery warm and well perfused Objective Labs Result Diagrams: 10/11/18 05:40 10/17/18 05:35 Labs: Laboratory Results - last 24 hr 10/17/18 05:35 Sodium 139 Potassium 4.1 Chloride 108 H Carbon Dioxide 25 BUN 16 Creatinine 0.80 Estimated GFR > 60.0 BUN/Creatinine Ratio 20.0 Glucose 101 Calcium 8.6 Magnesium 1.9 Assessment & Plan Assessment & Plan narrative: 67 yo man POD7 s/p hand assisted lap sigmoidectomy with takedown of colovesicular fistula, splenic fexture mobilization and placement of diverting loop ileostomy for colovesicular fistula. Now doing quit e well, ready for discharge with the exception of high ileostomy output -the last 8 hours this is come down substantially on multi anti motility agents Plan: high output ileostomy -improve significantly in the last 8 hours on Lomotil and cholestyramine in addition to loperamide at hi dose, I discussed with pharmacy continues to be significantly high output would had tincture of opium -this is available out outpatient pharmacy but it significant cost. Given the changes last 8 hours suspect will be able to discharge on current regiment. Hypotension -beta-gayathri dose at half home dose, unable to diminished further due to AFib. Stopped tamsulosin for BPH because of blood pressure affected -has fully catheter, 50 as needed boluses Discharge when ileostomy reliably below 1.2 L day Gentile remains for full 14days post surgery to allow bladder fistula to heal on enoxaparin for DVT proph Quality VTE Deep Vein Thrombosis/Pulmonary Embolism Present on Admission: No
[2018-10-17 16:13] VITALS: BP 107/68; PULSE 94; RESP 17; TEMP 36.9; O2SAT 96
--- NOTE | 2018-10-17 17:38 | PC.NURSE ---
Wound Ostomy Nurse Note Richard states he feels so much better. His is able to tolerate a regular diet and his ileostomy output is much less. His nurse, Dina reports he had over 1600cc of fluid output last night and today it was down around 190. His effluent is now more formed and soft. After removing his appliance I can see that he has a mucocutaneous separation from the 3:00 position to the 9:[address] Byrne came into the room as I was taking a picture of the stoma. He assessed the stoma and mucocutaneous separation as well. I placed stoma powder into the separation and used a skin barrier wipe to seal the powder then placed a two piece Convatec moldable wafer 45mm and a clear non-filtered pouch. His stoma is beefy red, moist and measures 32mm. I also cut two one piece Coloplast appliances for him for home use. His son Patric was here earlier and we reviewed how to change the appliance and we discussed hydration and taking in at least 1-2 liters of fluid a day and drinking fluids that have electrolytes to help him hold on to fluid. Richard and I review food choices to avoid food blockages as well as food that will help to make his stool more soft. Richard verbalized understanding as well as how to fill the mucocutaneous separation with stoma powder with each appliance change. I have given Richard and Patric my contact information and will follow up with Patric when he has his post-op appointment.
[2018-10-17 20:42] VITALS: BP 108/66; PULSE 88; RESP 17; TEMP 36.8; O2SAT 98
[2018-10-17] MEDS: GABAPENTIN 600 MG TABLET PO (21:33)
[2018-10-17] MEDS: SODIUM CHLORIDE 0.9% FLUSH 10 ML IV (21:35)
[2018-10-17 23:00] VITALS: BP 112/66; PULSE 91; RESP 16; TEMP 37.3; O2SAT 96
--- NOTE | 2018-10-17 23:00 | PC.NURSE ---
A&OX3. abdominal pain is 2/10. drinking plenty of PO fluids. pt ate 75% of his dinner. Ileostomy 100cc out. sutton 325cc. no dizziness. no nausea. call light in reach. oxycodone for back pain.
[2018-10-18] MEDS: ACETAMINOPHEN 325 MG TABLET 650 MG PO ×3 (00:22→12:13)
[2018-10-18 06:00] VITALS: BP 112/61; PULSE 117; RESP 16; TEMP 36.9; O2SAT 96
[2018-10-18] MEDS: PANTOPRAZOLE 40 MG TABLET PO (06:09)
[2018-10-18] MEDS: OXYCODONE IR 5 MG TABLET PO ×3 (06:10→14:28)
[2018-10-18 07:25] VITALS: BP 94/76; PULSE 108; RESP 18; TEMP 36.3; O2SAT 98
[2018-10-18] MEDS: CHOLESTYRAMINE/ASPARTAME 4 GM PACK PO (09:21)
[2018-10-18] MEDS: ENOXAPARIN 40 MG/0.4 ML SYRINGE SUBCUT (09:23)
[2018-10-18] MEDS: LOPERAMIDE 2 MG CAPSULE 4 MG PO ×2 (09:23→12:14)
[2018-10-18] MEDS: SODIUM CHLORIDE 0.9% FLUSH 10 ML IV (09:27)
[2018-10-18] MEDS: DIPHENOXYLATE/ATROP 2.5/0.025 TABLET 1 EACH PO (09:27)
[2018-10-18] MEDS: ATENOLOL 25 MG TABLET PO (10:05)
--- NOTE | 2018-10-18 10:43 | P.DS_ITS ---
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 He was taken to the operating room where hand assisted laparoscopic sigmoidectomy with fistula takedown and diverting loop ileostomy was performed. Diverting loop ileostomy was indicated due to patient's diabetes, malnutrition, and mildly increased tension on his anastomosis, his fistula was somewhat high on the sigmoid colon and no additional length was able to be generated due to the tethering of the left colonic artery. Postoperatively patient did quite well he had minimal pain. His ileostomy however had significant high output as much as 4 L a day. He was started on high dose loperamide, cholestyramine, as well as Lomotil until outputs were under 1 L. over the course of his high ileostomy output he did require several L boluses to maintain his blood pressure. His anti hypertensive medications were stopped. His beta-gayathri was reduced by half to 25 mg daily. At the time of discharge his ileostomy was producing 300 mL per day, he was no longer requiring IV fluid, he was ambulating with ease, he felt comfortable managing his ileostomy after several visits by enterostomal nurse. Fully will be removed approximately 14 days status post surgery Discharge Providers Date of admission: 10/10/18 06:39 Discharge Date: 10/18/18 Primary care physician: Dami Olivia MD Consults: 10/10/18 16:03 Consult to Wound Care Routine Comment: New temporary ileostomy Consulting Provider: [facility] 10/10/18 17:00 Consult to Respiratory Therapy Evaluate & Treat Comment: Physician Instructions: Evaluate and treat 10/10/18 19:00 Consult to Physical Therapy Evaluate & Treat Comment: s/p recent surgery, severe ankolosing spondolitis Physician Instructions: Evaluate and Treat 10/14/18 10:42 Consult to Occupational Therapy Evaluate & Treat Comment: Physician Instructions: Evaluate and treat Discharge provider: Juanpablo Byrne Summary Discharge Diagnosis: 1. Diverticular colovesicular fistula 2. High ileostomy output 3. Volume depletion hypotension 4. Atrial fibrillation 5. Ankylosing spondylitis, severe Hospital Course: See above Status at Discharge Cognitive/behavioral status at discharge: oriented Functional status at discharge: independent ambulation Overall status at discharge: patient is progressing back to baseline Time Spent with Patient Greater than 30 minutes Exam Vital Signs (past 8 hours): - 10/18/18 06:00 10/18/18 07:25 Temperature 98.5 F 97.4 F L Pulse Rate 117 H 108 H Respiratory Rate 16 18 Blood Pressure 112/61 94/76 Pulse Oximetry 96 98 Oxygen Delivery Method Room Air Oxygen Flow Rate 0 Narrative Exam Narrative: Well-appearing no acute distress Breathing comfortably on room air Irregular heart rate Abdomen soft nontender very minimally distended, ileostomy pink with viscus output Periphery warm well perfused Sutton catheter in place draining clear yellow urine Objective Labs Result Diagrams: 10/11/18 05:40 10/17/18 05:35 Discharge Plan Discharge Plan Patient Disposition: Home Discharge Med Rec/Prescriptions Prescriptions: New atenolol 25 mg Tablet 25 mg PO DAILY Qty: 30 RF: 12 loperamide 2 mg Capsule 4 mg PO QID Qty: 240 RF: 10 diphenoxylate-atropine 2.5-0.025 mg Tablet 1 ea PO BID Qty: 60 RF: 10 oxycodone 5 mg Tablet 5 mg PO Q4HR PRN (Reason: Pain, Moderate (4-6)) Qty: 8 RF: 0 Prevalite 4 gram Powder In Packet 4 gm PO BID Qty: 60 RF: 10 Continued oxycodone 5 mg tablet 5 mg PO QID RF: 0 pantoprazole 40 mg tablet,delayed release (DR/EC) 40 mg PO DAILY RF: 0 ranitidine HCl 150 mg tablet 300 mg PO DAILY RF: 0 omega-3 fatty acids 500 mg Capsule 500 mg PO DAILY RF: 0 pyridoxine (vitamin B6) [Vitamin B-6] 25 mg Tablet 1 tab PO DAILY RF: 0 cyanocobalamin (vitamin B-12) 100 mcg Tablet 100 mcg PO DAILY RF: 0 tamsulosin [Flomax] 0.4 mg Capsule 0.4 mg PO DAILY Qty: 30 RF: 0 Bacid (L. acidophilus) 1 billion cell- 250 mg Tablet 1 ea PO TIDWM Qty: 30 RF: 0 ginkgo biloba 40 mg Capsule 40 mg PO BID RF: 0 golimumab 50 mg/0.5 mL pen injector 50 mg subcut QMONTH RF: 0 Discontinued hydrochlorothiazide 25 mg tablet 25 mg PO DAILY RF: 0 atenolol 100 mg tablet 50 mg PO DAILY RF: 0 ciprofloxacin HCl [Cipro] 500 mg tablet 500 mg PO BID Qty: 28 RF: 0 metronidazole [Flagyl] 500 mg tablet 500 mg PO TID Qty: 42 RF: 0 Follow up/Referrals: Dami Olivia MD [Primary Care Provider] - Juanpablo Byrne MD [Physician] - (follow up with surgery in about 10days) Provider Discharge Instructions Diet: Diet as Tolerated Diet comment: must drink at least 2L of water/rehydration drinks daily Activity: Normal activity OK, no lifting over 15lbs for 6 weeks after surgery. Go up or down on your medications to keep your ileostomy output between 500- 1000ml/day. Keep a log of your outputs Cold/Heat Therapy: Call urology - your sutton can be removed 14days after deleon rgery. Skin/Wound/Dressing Care Report to your healthcare provider any signs of infection, such as:: chills, fever and increased pain Visit Report/Discharge Packet Instructions: DI for Colectomy, DI for Laparoscopy, Oxycodone, Loperamide, Cholestyramine Resin, Atenolol, Diphenoxylate/Atropine (By mouth) Stand Alone Forms: Surgery Discharge Discharge Data Primary Care Provider: Dami Olivia Attending Provider: Juanpablo Byrne Admit Date/Time: 10/10/18 06:39 Quality VTE Deep Vein Thrombosis/Pulmonary Embolism Present on Admission: No
[2018-10-18 11:27] VITALS: BP 96/76; PULSE 90; RESP 16; TEMP 36.5; O2SAT 99
--- NOTE | 2018-10-18 11:57 | CM.DPNOTE ---
DC Note: Reviewed chart. Pt has been medically DC today and has been cleared by therapy team and Ostomy nurse Beckie Rodriguez for safe DC home. Pt seen by Beckie yesterday and felt pt was prepared for DC home w/son to assist and close outpt f/u. Met w/pt to review DCP. Pt feels confident about returning home today and his son is on his way to pick him up. Pt denies needs from this ESOL TEACHER ASSISTANT. MALLIKA Rashid agrees pt ready for safe DC home, no needs from this ESOL TEACHER ASSISTANT. P: DC home w/family via pov w/ close outpt f/u. Leydi Cordero, ESOL TEACHER ASSISTANT
--- NOTE | 2018-10-18 14:41 | PC.NURSE ---
Day shift: Pt left unit in WC w/ this marketing underwriter. Pt's [place] Paperwork signed and all questions answered. IV is out. Leg bag attached. Went over the paperwork to car for [place] cath. Pt has all personal belongings as well as MD scrips. Pt moving well w/o the use of walker. Pt in good spirits about going home.
== END 2018-10-18 14:44 | disposition home or self-care (01) | DRG 981 ==
PROVIDERS: Anesthesiology; Admitting Provider Surgery; PCP Family Medicine; Visit Provider Surgery
PROC: 0DTE0ZZ Resection of Large Intestine, Open Approach (ICD-10-PCS; principal; 2018-10-10 07:45)
DX: N32.1 Vesicointestinal fistula (principal); E43 Unspecified severe protein-calorie malnutrition; M45.9 Ankylosing spondylitis of unspecified sites in spine; E86.9 Volume depletion, unspecified; I48.0 Paroxysmal atrial fibrillation; I10 Essential (primary) hypertension; G51.0 Bell's palsy; E11.9 Type 2 diabetes mellitus without complications; N40.1 Benign prostatic hyperplasia with lower urinary tract symptoms; Z87.891 Personal history of nicotine dependence; R39.12 Poor urinary stream; R00.1 Bradycardia, unspecified; Z68.20 Body mass index [BMI] 20.0-20.9, adult
CPT/HCPCS: 36415; 44661; 80048; 82962; 83036; 83735; 84132; 85025; 88305; 88307; 97116; 97161; 97165; 97530; 97535; J0330; J1100; J1170; J1335; J1644; J1650; J1885; J2250; J2270; J2405; J2704; J3010; J3475; J3480

== ENCOUNTER 2018-11-28 09:19 | Day surgery (SDC) | payer MEDICARE, MEDICAID, SELFPAY ==
[2018-10-10 16:02] VITALS: BMI 20.8
--- NOTE | 2018-11-28 | PATH_ITS ---
[facility] Accession Number: [id number] . 01 Material submitted: . colon - CECAL POLYP . 02 Diagnosis: Cecum, Polyp, Biopsy: Tubular adenoma. MRV/11/29/2018 . 02 Electronically signed: . Leydi Sebastian MD, Pathologist NPI- [id number] . 01 Gross description: . CECAL POLYP: Received in formalin are 2 fragment(s) of arriaga, soft tissue measuring 0.3 x 0.2 x 0.2 cm to 0.4 x 0.3 x 0.2 cm which is entirely submitted and submitted entirely in 1 cassette(s) /DMC /DMC . 02 Pathologist provided ICD-10: D12.0 . 02 CPT . 828192 Performed at: 01 [facility] Located within [facility] [address] [facility], [place], [place] [id number] MD Awais Cardona MD Phone: [phone] Performed at: 02 [facility] [place] [address] [place], [place] [id number] MD Leydi Sebastian MD Phone: [phone]
[2018-11-28 09:58] VITALS: BMI 18.2
--- NOTE | 2018-11-28 10:00 | PM.HP.1 ---
History of Present Illness Date Patient Seen: 11/28/18 Time Patient Seen: 10:00 Chief complaint: [id number] Narrative: Patient seen and examined Unchanged from recent clinic note Diagnostic colonoscopy today after colon resection Patient History Family & Social History Social History: household members family Tobacco & Substance use: Tobacco type cannabis/marijuana Smoking Status Current some day smoker alcohol intake former Substance Use Type marijuana Meds Home Medications Medication Instructions Recorded Confirmed Type cyanocobalamin (vitamin B-12) 100 mcg PO DAILY 08/23/18 11/28/18 History omega-3 fatty acids 500 mg PO DAILY 08/23/18 11/28/18 History oxycodone 5 mg PO QID 08/23/18 11/28/18 History pyridoxine (vitamin B6) [Vitamin 1 tab PO DAILY 08/23/18 11/28/18 History B-6] Bacid (L. acidophilus) 1 ea PO TIDWM #30 tab 08/26/18 11/28/18 Rx tamsulosin [Flomax] 0.4 mg PO DAILY #30 cap 08/26/18 11/28/18 Rx golimumab 50 mg SUBCUT QMONTH 09/19/18 11/28/18 History ginkgo biloba 40 mg PO BID 09/26/18 11/28/18 History atenolol 25 mg PO DAILY #30 tab 10/17/18 11/28/18 Rx cholestyramine-aspartame 4 gm PO BID #60 ea 10/18/18 11/28/18 Rx [Prevalite] diphenoxylate-atropine 1 ea PO BID #60 tab 10/18/18 11/28/18 Rx loperamide 4 mg PO QID #240 cap 10/18/18 11/28/18 Rx oxycodone 5 mg PO Q4HR PRN #8 tab 10/18/18 11/28/18 Rx Allergies Allergy/AdvReac Type Severity Reaction Status Date / Time No Known Drug Allergies Allergy Verified 10/28/18 09:29
[2018-11-28 10:01] VITALS: BP 117/79; PULSE 61; RESP 15; TEMP 36; O2SAT 100
[2018-11-28] MEDS: MIDAZOLAM 5 MG/5 ML VIAL IV (10:30)
[2018-11-28] MEDS: fentaNYL 250 MCG/5 ML INJ IV (10:33)
--- NOTE | 2018-11-28 10:35 | SUR.OPER ---
TOLERATED PROCEDURE WELL, VITAL SIGNS STABLE, REQUIRED PEDIATRIC SCOPE
[2018-11-28] MEDS: GLUCAGON,HUMAN RECOMBINANT 1 MG/ML VIAL IV (10:46)
[2018-11-28 11:00] VITALS: BP 100/65; PULSE 64; RESP 11; TEMP 36.6; O2SAT 99
[2018-11-28 11:05] VITALS: BP 99/65; PULSE 69; RESP 12; O2SAT 97
--- NOTE | 2018-11-28 11:13 | P.OP.ENDO_ITS ---
Operative Date/Time/Diagnoses Date of procedure: 11/28/18 Time of procedure: 11:09 Pre-op diagnosis: Recent sigmoidectomy for diverticular disease -diagnostic colonoscopy ahead of planned ileostomy takedown Post-op diagnosis: same Procedure & Clinicians Study performed: Complete screening colonoscopy Cold snare polypectomy in cecum x1 Same procedure as scheduled: Yes Indications: 68-year-old man approximately 1 month out from hand assisted laparoscopic colovesicular fistula takedown with sigmoidectomy and diverting loop ileostomy. Unable to complete colonoscopy prior to surgery due to diverticular stricture at site of fistula. Colonoscopy performed had a planned ileostomy reversal Surgeon: Juanpablo Byrne Procedure Notes SCOAP/Timeout: Complete Procedure in detail: Patient was brought to the endoscopy suite a time-out was completed. He was sedated over the entire course of the procedure with 5 mg of midazolam as well as 100 mcg of fentanyl. A digital rectal exam was performed without lesions. 160 cm colonoscope was introduced through the anus and passed through the folds of the rectum the colorectal anastomosis was carefully inspected and was found to be robust fully intact and well healed. The c olonoscope was then passed further up colon. Due to the diversion the diameter of the colon was small as a consequence there was extra resistance passing a colonoscope. The scope was then backed out and exchanged for a pediatric scope. The pediatric scope much more easily passed up through the folds of the colon into the cecum. The cecum was identified readily via and a appendiceal orifice as well as a ileocecal valve. A single sessile polyp was identified in the cecum this was removed with cold snare. And collected via a suction trap. The scope was then slowly withdrawn -no additional polyps were identified. Patient has known diverticular disease was seen in the transverse colon. Due to the recent anastomosis the colonoscope was not retroflexed in the anus No prep was necessary due to diversion -mucosa was irrigated and suctioned out with good visualization of the mucosal surfaces throughout Scope withdrawal time: 12 Sedation minutes: 40 Specimen(s): other (Cecal polyp) Complications: none Impression: Well-healed fully open colorectal anastomosis Cecal polyp status post cold snare polypectomy Recommendations: Colonscopy in 5 years Plan for aftercare: Follow up in office for planning regarding ileostomy takedown Follow up: weeks Disposition: PACU
[2018-11-28 11:45] VITALS: BP 96/67; PULSE 59; RESP 15; TEMP 36.4; O2SAT 99
== END 2018-11-28 12:00 | disposition home or self-care (01) ==
PROVIDERS: PCP Family Medicine; Visit Provider Surgery
PROC: 0DJD8ZZ Inspection of Lower Intestinal Tract, Via Natural or Artificial Opening Endoscopic (ICD-10-PCS; CPT 45378; principal; 2018-11-28 10:45)
DX: Z87.19 Personal history of other diseases of the digestive system (principal); Z90.49 Acquired absence of other specified parts of digestive tract; F17.210 Nicotine dependence, cigarettes, uncomplicated; D12.0 Benign neoplasm of cecum
CPT/HCPCS: 45385; 88305; 99152; 99153; J1610; J2250; J3010

== ENCOUNTER → 2018-12-25 15:12 | Outpatient (CLI) | payer MEDICARE, MEDICAID, SELFPAY ==
[2018-10-10 16:02] VITALS: BMI 20.8
== END ==
PROVIDERS: PCP Family Medicine; Visit Provider Family Medicine
DX: Z43.3 Encounter for attention to colostomy (principal)
CPT/HCPCS: 99212

== ENCOUNTER 2019-01-13 11:28 | Inpatient (IN) | payer MEDICARE, MEDICAID, SELFPAY ==
[2018-10-10 16:02] VITALS: BMI 20.8
[2019-01-02 10:31] VITALS: BMI 20.8
[2019-01-13] VITALS (13 sets, daily range): BP systolic 108–135; BP diastolic 61–83; PULSE 62–75; RESP 10–20; TEMP 35.6–36.4; O2SAT 96–100; BMI 19.6
--- NOTE | 2019-01-13 | PATH_ITS ---
[facility] Accession Number: [id number] . 01 Material submitted: . PART A: antecubital fossa - RIGHT ANTECUBITAL MASS PART B: ileum - ILEUM . 02 Diagnosis: A. Skin, Right Antecubital Mass, Excision: Inflmed seborrheic keratosis. Negative for malignancy. The lesion is free of margins. . B. Ileum, Ileostomy Reversal: Segment of small bowel with stoma, consistent with ileostomy reversal. Negative for active inflammation, granulomata, dysplasia or malignancy. [facility] 01/15/2019 1008 Local . 02 Electronically signed: . Urban Fermin MD, PhD, Pathologist NPI- [id number] . 01 Gross description: . (A) Received in formalin, labeled right antecubital mass, is a 4.7 x 1.3 x 0.1 cm ellipse of skin oriented with two sutures (short-superior, long-lateral). The sutures are redesignated as short-12 o'clock, and long-9 o'clock for grossing purposes. A pale moss firm mass (2.1 x 1.4 x 0.5 cm) is identified. Ink code: yellow-9 to 12 o'clock; blue-12 to 3 o'clock; black-3 to 6 to 9 o'clock. Section code: (A1) 9 and 3 o'clock tips; (A2-A8) remaining ellipse, serially sectioned into 15 slices and entirely submitted 9 to 3 o'clock. (B) Received in formalin, labeled ileum, is an unoriented segment of small bowel (length-5.8 cm, resection margin #1 diameter-2.3 cm, resection margin #2 diameter-2.2 cm) connected to a stoma (diameter-2.7 x 2.2 cm) encircled by a rim of moss-white unremarkable skin (up to 0.6 cm thick). The mucosa is arriaga with normal folds. No nodules, masses or lesions are identified. The resection margins are inked black. Section code: (B1) resection margin #1, account retention representative longitudinal sections; (B2) resection margin #2 with stoma, account retention representative longitudinal sections; (B3) stoma, account retention representative perpendicular sections; (B4) account retention representative serial sections. ([id number]) /MRV 01/14/2019 1120 Local . 02 Pathologist provided ICD-10: L82.1, Z93.2, Z43.2 . 02 CPT . 277775, 337847 Performed at: 01 [facility] [address] [id number] MD Awais Cardona MD Phone: [phone] Performed at: 02 [facility] [address] [place], [place] [id number] MD Leydi Sebastian MD Phone: [phone]
--- NOTE | 2019-01-13 13:59 | PM.HP.1 ---
History of Present Illness History of Present Illness Date Patient Seen: 01/13/19 Time Patient Seen: 14:00 Chief complaint: [id number] Narrative: pt seen and examined health unchanged sinced recent clinic note Plan for reversal of loop ileostomy Pt also with growing skin mass on R arm - just distal to anticubital area. Strongly wants removed. Will perform excisional biopsy prior to reversal. Patient History Medical History (Updated 01/09/19 @ 17:21 by Juanpablo Byrne MD) Ankylosing spondylitis (Acute) Santacruz's palsy (Acute) Chronic pain (Acute) Dental caries (Acute) Diabetes mellitus type 2 in nonobese (Acute) HTN (hypertension) (Acute) Immunocompromised state (Acute) Insomnia (Acute) Meningitis (Acute) Paroxysmal atrial fibrillation (Acute) Sepsis (Acute) Septic shock (Acute) Skin cancer (Acute) Stupor (Acute) Thrombocytopenia (Acute) Type 2 diabetes mellitus (Acute) Surgical History (Updated 01/02/19 @ 10:42 by Olivia Rankin RN) History of tonsillectomy (Acute) S/P laparoscopic-assisted sigmoidectomy (Acute 10/11/18) Family History Mother No problems noted. Father No problems noted. Social History household members: family Smoking Status: Current some day smoker alcohol intake: former Family & Social History Social History: household members family Tobacco & Substance use: Tobacco type cannabis/marijuana Smoking Status Current some day smoker alcohol intake former Substance Use Type marijuana Meds Home Medications and Allergies Home Medications Medication Instructions Recorded Confirmed Type cyanocobalamin (vitamin B-12) 100 mcg PO DAILY 08/23/18 01/13/19 History omega-3 fatty acids 500 mg PO DAILY 08/23/18 01/13/19 History oxycodone 5 mg PO QID 08/23/18 01/13/19 History pyridoxine (vitamin B6) [Vitamin 1 tab PO DAILY 08/23/18 01/13/19 History B-6] tamsulosin [Flomax] 0.4 mg PO DAILY #30 cap 08/26/18 01/13/19 Rx golimumab 50 mg SUBCUT QMONTH 09/19/18 01/13/19 History ginkgo biloba 40 mg PO BID 09/26/18 01/13/19 History atenolol 25 mg PO DAILY #30 tab 10/17/18 01/13/19 Rx Prevalite 4 gm PO BID #60 ea 10/18/18 01/13/19 Rx diphenoxylate-atropine 1 ea PO BID #60 tab 10/18/18 01/13/19 Rx loperamide 2 mg capsule 4 mg PO QID #240 cap 12/03/18 01/13/19 Rx Allergies Allergy/AdvReac Type Severity Reaction Status Date / Time ibuprofen AdvReac Intermediate stomach Verified 01/13/19 14:02 pain
[2019-01-13] MEDS: metroNIDAZOLE 500 MG/100 ML PIGGYBACK 100 MG IV (15:35)
[2019-01-13] MEDS: CEFTRIAXONE 2 GM/50 ML FROZ.PIGGY IV (15:45)
--- NOTE | 2019-01-13 15:56 | SUR.OPER ---
Supine on padded OR bed, head on pillow, arms secured on padded arm boards at <90 degrees abduction, legs uncrossed, safety belt at thigh, tape over blanket over lower legs.
[2019-01-13] MEDS: BUPIVACAINE 0.25% W/ EPI 30 ML VIAL INJ (16:51)
[2019-01-13] MEDS: LACTATED RINGERS 1,000 ML 100 ML IV (17:48)
--- NOTE | 2019-01-13 18:38 | P.OP_ITS ---
Operative Date/Time/Diagnoses Date of procedure: 01/13/19 Time of procedure: 18:38 Pre-op diagnosis: 1) presence of ileostomy 2) growth on right arm antecubital region Post-op diagnosis: other (In addition to the above -peristomal hernia) Procedure & Clinicians Procedure: 1) excisional biopsy right arm antecubital region 1.5 x5cm full thickness skin tissue removed 2) ileostomy reversal -with [id number] functional end-to-end stapled anastomosis 3) primary suture repair of peristomal hernia Same procedure as scheduled: Yes Indications: 68M 3months s/p hand assisted laparoscopic sigmoidectomy with takedown of colovesicular fistula stapled end-to-end colorectal anastomosis with diverting loop ileostomy due to somewhat snug anastamosis with poor nutritional status of pt. Pt has since recovered from surgery and desires reversal Pt underwent diagnostic colonoscopy 6 weeks ago demonstrating a healthy colon with widely open and well healed colorectal anastamosis. A single tubular adenoma was removed from the cecum. In addition patient had a growing skin lesion on the antecubital region of his right arm which he desired removed Surgeon: Juanpablo Byrne Language And Literature Division Chair: Mario Pyle Click Yes if Unassisted: No Anesthesia Type: General Operative Notes Findings: Viable healthy appearing small bowel at site of ileostomy reversal - minimal adhesion Peristomal hernia encountered, excision of hernia sac with primary suture repair of anterior fascia -the stoma site below level of arcuate line, no posterior fascia Closure Type: non-primary Specimen(s): other (Right arm skin lesion, ileum) Estimated Blood Loss (mL): 20 Procedure in detail: Patient was brought to the operating room he was intubated without incident he was prepped and draped in the usual sterile fashion time-out was completed. Initially performed the skin excision: An ellipse was marked out -mid lesion was measured to be 1.5 cm in the superior inferior access, as a consequence a 5 cm long ellipse was marked out -this was oriented obliquely to avoid the antecubital crease.. The underlying area was infiltrated with local anesthetic of 0.25% bupivacaine with epinephrine. A 15 blade scalpel was then used to cut through the epidermis and dermal layer. A corner of the lips was then lifted with a pickup and using a Metzenbaum the fibrofatty underlying tissue was dissected free of the skin. The specimen was oriented with short stitch superior, long stitch lateral and sent to pathology. A small superficial vein that was bleeding was controlled with 3 0 Vicryl. Superficial skin flaps were then raised to allow mobilization. Once the skin was mobilized to to limit tension incision was closed using 3 0 deep dermal Vicryl sutures and a running for all Vicryl suture. Dressings were applied. Next the patient was prepped for the abdominal operation. Hair was clipped. The proximal end of the ileostomy was sutured closed using a chromic suture. The area was then prepped and draped in the usual sterile fashion. The skin was then incised using cut current on the Bovie circumferentially excising approximately 1 mm skin beyond the mucosa 0 cutaneous junction of the ileostomy site. This was carried down into the subcutaneous tissue. We then identified a clear plane between the serosa of the ileum and its mesentery and the adjacent subcutaneous fatty tissue this was followed down towards the fascia. As we proceeded downward a hernia sac was encountered -this appeared to be a peristomal hernia that had developed. We then entered into the hernia sac which facilitated the rapid separation of the ileum from the abdominal wall. At this point with the ileum circumferentially mobilized a finger was inserted onto to the abdomen there are no localized adhesions to the anterior abdominal wall are otherwise. Some length of ileum was able to be brought out the abdominal wall defect. This was then toweled off and we proceeded to make our anastomosis. Initially a segment of ileum approximately 6 cm long was excised. Two windows were made in the mesentery proximal and distal from loop ileostomy site and the ileum was divided using KYLER stapler at both sites. Mesentery was then sequentially clamped and divided and the ileal specimen was sent to pathology. Then proceeded to develop a stapled [id number] functional end-to-end anastomosis. The anti mesenteric corners of the bowel was remove and a 75 mm KYLER stapler -was inserted down each limb. This was oriented to be placed on the anti mesenteric side -the tips were carefully checked to ensure there was no incorporation of other abdominal contents or mesentery. It was then clamped in place for 1 minutes and fired. The enterotomy site was carefully inspected it was found to be hemostatic. The common enterotomy site was then closed with Allis clamps being careful to offset the staple lines -an additional load of the KYLER stapler was then fired across this to close it. The corners as well as the sites overlapping armin was then imbricated with 3 0 silk. The 3 0 silk crotch stitch was also placed. The mesenteric defect was then closed using a pursestring of 3 0 Vicryl. Anastomosis was palpated found to be widely open had fully hemostatic. It was then placed into the abdomen. The then proceeded to take down the hernia sac it from all layers of the anterior abdominal wall and excising it within the abdomen -in this way there was no hernia sac to continue to keep open the abdominal wall hernia defect. I inspected carefully for posterior sheath but did not find it. Upon further inspection the arcuate line was approximately 1 cm superior to where the ileostomy site had been placed. At this point the fibers of the rectus abdominis muscle were reapproximated to each other utilizing a running 2 0 Vicryl stitch. The anterior rectus fascia was clearly identified trimmed back to healthy tissue and then closed using 0 PDS in a transverse fashion -site with simple running suture. The area was copiously irrigated. Bassam's fascia was loosely closed using several interrupted Vicryl sutures. The circular skin defect was then partially closed with a pursestring and the small residual defect was then packed with 4 x 4 as a wick. Dressings were applied patient was extubated and brought to PACU without incident Complications: none Post-operative Condition: stable Disposition: PACU Plan for aftercare: To floor awaiting bowel function
--- NOTE | 2019-01-13 18:56 | SUR.PHASEI ---
report called to floor. Surgeon spoke with the patient, questions answered. VSS, preparing to transfer.
--- NOTE | 2019-01-13 19:15 | SUR.PHASEI ---
1901 to room 210, bed down and locked, call light within reach, SCDs on, clothing bag to closet. HOB elevated. Patient continues to deny pain/nausea, requested fluids upon arrival. No questions from staff, notified that patient is in the room. Stable.
[2019-01-13] MEDS: OXYCODONE IR 5 MG TABLET 10 MG PO (19:54)
[2019-01-13] MEDS: LACTATED RINGERS 1,000 ML 84 ML IV (20:45)
[2019-01-13] MEDS: GABAPENTIN 300 MG CAPSULE 900 MG PO (20:46)
[2019-01-13] MEDS: METHOCARBAMOL 500 MG TABLET 750 MG PO (20:46)
[2019-01-13] MEDS: POLYETHYLENE GLYCOL 3350 17 GM POWD.PACK PO (20:47)
[2019-01-13] MEDS: HEPARIN 5,000 UNIT/ML VIAL 5000 UNIT SUBCUT (21:07)
[2019-01-13] MEDS: ACETAMINOPHEN 325 MG TABLET 650 MG PO (23:39)
--- NOTE | 2019-01-13 23:53 | PC.NURSE ---
Addendum entered by Mirlande Murphy R.N. 01/14/19 05:55: States he has slept well. Stood at bedside to urinate; complains of some hesitancy with urination but voided 200cc clear, light yellow urine without dysuria. Complains of 3/10 pain but requested pain med stronger than Tylenol as states Tylenol doesn't really work for me; medicated with Oxycodone per his request. Addendum entered by Mirlande Murphy R.N. 01/14/19 00:24: Abdominal dressing with shadow drainage; outlined. Dressing to right upper arm is CDI Original Note: Patient is alert and oriented. Breath sounds CTA with RA sat of 96%. HRR. Denies nausea. BT present and thinks he has passed flatus. Denies dysuria, frequency or urgency and is using urinal to void. Able to be out of bed with SBA and denies weakness/unsteadiness. Does have back/neck stiffness and limited ROM related to hx of ankylosing spondylitis. States abdominal pain is currently 3/10; medicated with scheduled Tylenol. Wearing bilateral COCO stockings. Fall risk is low.
[2019-01-14 04:59] VITALS: BP 101/67; PULSE 65; RESP 18; TEMP 36.7; O2SAT 99
[2019-01-14] MEDS: ACETAMINOPHEN 325 MG TABLET 650 MG PO ×3 (05:42→17:09)
[2019-01-14] MEDS: HEPARIN 5,000 UNIT/ML VIAL 5000 UNIT SUBCUT ×3 (05:43→21:18)
[2019-01-14] MEDS: OXYCODONE IR 5 MG TABLET 10 MG PO ×3 (05:45→20:31)
[2019-01-14 06:24] LABS: Add Manual Diff / Slide Review NO; Basophils Absolute Auto 0 /uL (0-100); Basophils Percent Auto 0.3 % (0-2); Eosinophils Absolute Auto 0 /uL (0-450); Hematocrit 35.3 % (41-53); Hemoglobin 11.8 g/dL (13.5-17.5); Lymphocytes Absolute Auto 1000 /uL (1100-4500); Lymphocytes Percent Auto 10.1 % (25-40); Mean Corpuscular HGB Conc 33.6 % (30-36); Mean Corpuscular Hemoglobin 28.1 PG (26-34); Mean Corpuscular Volume 83.8 fL (80-100); Monocytes Absolute Auto 500 /uL (0-900); Monocytes Percent Auto 5.3 % (3-14); Neutrophils Absolute Auto 8400 /uL (1500-7000); Neutrophils Percent Auto 84.3 % (50-75); Platelet Count 246 X10^3/uL (150-400); Red Blood Cell Count 4.21 X10^6/uL (4.5-5.9); Red Cell Distribution Width 15.9 % (11.6-14.8)
[2019-01-14 06:34] LABS: BUN Creatinine Ratio 21.4 (6-22); Blood Urea Nitrogen 15 mg/dL (9-20); Calcium 9.4 mg/dL (8.4-10.2); Carbon Dioxide 28 mmol/L (22-32); Chloride 102 mmol/L (98-107); Estimated Glomerular Filt Rate > 60.0 mL/min (>60); Glucose 124 mg/dL (80-110); HEMOLYSIS < 15 (0-50); Magnesium 1.7 mg/dL (1.6-2.3); Potassium 4.1 mmol/L (3.4-5.1); Sodium 138 mmol/L (137-145)
--- NOTE | 2019-01-14 07:22 | PC.NURSE ---
Shift summary: Resting quietly in bed with eyes closed. Respirations regular and unlabored, 14/min. Per material handler 1st shift RN patient requested to be allowed to sleep until breakfast. IVF per orders, site in L FA WNL. Will complete full assessment when awake. Low fall risk and reportedly calls appropriately for SBA OOB. Call light and belongings within reach.
[2019-01-14] MEDS: LACTATED RINGERS 1,000 ML 84 ML IV (08:02)
[2019-01-14 08:10] VITALS: BP 100/71; PULSE 68; RESP 16; TEMP 35.9; O2SAT 96
[2019-01-14] MEDS: TAMSULOSIN 0.4 MG CAPSULE PO (09:36)
[2019-01-14] MEDS: POLYETHYLENE GLYCOL 3350 17 GM POWD.PACK PO ×2 (09:36→20:30)
[2019-01-14 12:00] VITALS: BP 100/63; PULSE 67; RESP 16; TEMP 36.6; O2SAT 100
[2019-01-14] MEDS: MAGNESIUM SULFATE 4 GM/100 ML PIGGYBACK IV (13:14)
--- NOTE | 2019-01-14 14:41 | PC.NURSE ---
Shift summary: Alert and oriented X3. Reports overall feeling pretty well, actually better than I expected. Tolerating full liquid diet without issue. Denies N/V. BT+, no reports of flatus yet. Has been up to the bathroom multiple times, no issues with voiding. Dr Byrne was just up and changed his abdominal dressing, and plans to order wet-to-dry dressing changes BID ( would like it changed again this evening). Patient reports abd pain well-managed with scheduled Tylenol and PRN Oxycodone. IVF per orders, site in L FA WNL. Mag rider infusing currently, no s/sx or reports of adverse reaction. Able to make needs known and calls appropriately for SBA OOB.
--- NOTE | 2019-01-14 15:04 | P.PN_ITS ---
Subjective Subjective Date Patient Seen: 01/14/19 Time Patient Seen: 15:05 Interval history: Patient feeling quite well today, no flatus or bowel movement yet, pain well controlled Ambulating to the bathroom Avoiding without difficulty Exam Vital Signs (past 8 hours): - 01/14/19 08:10 01/14/19 12:00 Temperature 96.6 F L 97.9 F Pulse Rate 68 67 Respiratory Rate 16 16 Blood Pressure 100/71 100/63 Pulse Oximetry 96 100 Oxygen Delivery Method Room Air Oxygen Flow Rate 0 Narrative Exam Narrative: Well-appearing no acute distress Breathing comfortably on room air Regular rate and rhythm Abdomen mildly distended Wound inspected -no adjacent erythema or induration looks well, packed wet to dry Periphery warm well perfused Objective Labs Result Diagrams: 01/14/19 06:00 01/14/19 06:00 Labs: Laboratory Results - last 24 hr 01/14/19 01/14/19 06:00 06:00 WBC 10.0 RBC 4.21 L Hgb 11.8 L Hct 35.3 L MCV 83.8 MCH 28.1 MCHC 33.6 RDW 15.9 H Plt Count 246 Neut % (Auto) 84.3 H Lymph % (Auto) 10.1 L Atkinson % (Auto) 5.3 Eos % (Auto) 0.0 L Baso % (Auto) 0.3 Neut # (Auto) 8400 H Lymph # (Auto) 1000 L Atkinson # (Auto) 500 Eos # (Auto) 0 Baso # (Auto) 0 Sodium 138 Potassium 4.1 Chloride 102 Carbon Dioxide 28 BUN 15 Creatinine 0.70 Estimated GFR > 60.0 BUN/Creatinine Ratio 21.4 Glucose 124 H Calcium 9.4 Magnesium 1.7 Assessment & Plan Assessment & Plan narrative: 68-year-old man postop day 1. Status post ileostomy reversal and parastomal hernia repair without mesh. Now well Awaiting return of bowel function Plan: Multimodal pain control Ambulate Wet-to-dry b.i.d. packing of wound Reducing IVF Heparin for DVT proph
[2019-01-14 15:30] VITALS: BP 106/65; PULSE 73; RESP 17; TEMP 36.7; O2SAT 92
[2019-01-14] MEDS: METHOCARBAMOL 500 MG TABLET 750 MG PO ×2 (17:10→20:28)
--- NOTE | 2019-01-14 18:24 | PC.NURSE ---
Addendum entered by Dafne Tamayo R.N. 01/14/19 21:36: Second BM at 2100, formed, brown, and moderate amount. Dressing changed to RLQ, wet to dry packing secured with 4 x 4 gauze. Patient tolerated procedure well. Horizontal incision 2 cm x 0.4 cm to RLQ, non draining and non odorous. Original Note: Erlinda shift note: PASSED FLATUS and MOD amount SOFT formed brown BM this shift.
[2019-01-14 20:10] VITALS: BP 135/76; PULSE 69; RESP 16; TEMP 36.4; O2SAT 97
[2019-01-14] MEDS: GABAPENTIN 300 MG CAPSULE 900 MG PO (20:28)
[2019-01-15 00:36] VITALS: BP 120/76; PULSE 61; RESP 18; TEMP 36.6; O2SAT 100
[2019-01-15 04:21] VITALS: BP 128/83; PULSE 67; RESP 18; TEMP 36.5; O2SAT 100
[2019-01-15] MEDS: HEPARIN 5,000 UNIT/ML VIAL 5000 UNIT SUBCUT ×2 (06:12→14:44)
[2019-01-15] MEDS: OXYCODONE IR 5 MG TABLET PO ×2 (08:56→12:33)
[2019-01-15] MEDS: TAMSULOSIN 0.4 MG CAPSULE PO (08:57)
[2019-01-15] MEDS: ATENOLOL 25 MG TABLET PO (08:57)
--- NOTE | 2019-01-15 10:57 | CM.DANOTE ---
DCP/Assessment: Reviewed chart. Patient is a 68yr old male admitted to [facility] for colostomy reversal performed on 01-13-[address] Byrne. PCP is Dr. Olivia. Primary payor is 1)Medicare 2)Medicaid. Met with patient and spouse/Sharron at bedside on 01-14-19 explained CM/SW role. Patient in very good spirits after having colostomy bag take down. Patient hopes to go home soon. Patient denies any d/c planning needs. Patient will have dressing changes to wound site however, patient and spouse willing to learn and prefer to do themselves. Patient resides on [facility] and will need priority boarding for return sailing prior to d/c. P: Anticipate home when medically stable. RN updated on patient's desire to be self taught on dressing changes. LUCIO Vigil Discharge Planning/Care Management Advanced directive, confirm from FAMILY Start: 01/13/19 20:18 Freq: Q24H Status: Active Protocol: Document 01/13/19 20:18 LDV (Rec: 01/13/19 20:26 LDV [id number]) Advance Directive, confirm on record Time 20:30 Person contacted pt Copy received No Document 01/14/19 20:18 EM (Rec: 01/14/19 20:19 EM [id number]) Advance Directive, confirm on record Time 20:30 Person contacted pt Copy received No CM Discharge Assessment Start: 01/15/19 09:13 Freq: Status: Active Protocol: Document 01/15/19 10:55 KJS (Rec: 01/15/19 10:57 KJS [id number]) Discharge Planning Assessment Assigned Jacquard Plate Maker LUCIO Vigil Contact Information Sharron Hernandez (spouse) Advance Directives? Yes History Provided By Patient,Medical Record Has Patient been admitted in last 30 No days? Prior Living Arrangements House Household Members spouse,family Type of transporation used prior to Drives own vehicle admit Independent with ADL's Yes Is patient alert and oriented? Yes Caregiver for Another No Barriers to Discharge No Discharge Plan Home Transportation Arrangement Family Referrals Initiated None needed Whiteboard Updated in Patient Room with Yes name and ext. # of Jacquard Plate Maker Review Status In Process Next Review Type Continued Stay Review Pre-Anesthesia Assessment Start: 01/02/19 10:31 Freq: Status: Complete Protocol: Document 01/02/19 10:31 CAB (Rec: 01/02/19 10:45 CAB [id number]) Pre-Anesthesia Assessment PAC Comment Message left with Adore, to schedule PAC. She states he mediates for 4 hours daily and will have him return call. Pt did not return call. I was unable to schedule PAC phone assessment with patient for previous surgery 10/10/18 after multiple messages left for return call. Chart review only Patient Also Known As (AKA) Don Patient Information Reviewed Via Chart Review Primary Care Provider Mati Olivia Seen Specialist in Last 12 Months Yes Specialist Seen General surgeon Primary Language Omani Preferred Language [facility] Physician Required No Height 193.04 cm Weight 77.564 kg Body Mass Index (BMI) 20.8 Barriers to Learning None Other Aids No Hx Anesthesia Reactions No Hx Family Anesthesia Reaction No Hx Malignant Hyperthermia No Hx Blood Transfusions No Hx Blood Transfusion Reaction No Anesthesia Review Requested No Waiter/Waitress Bar No alcohol intake former Smoking Status Current some day smoker Tobacco type cannabis/marijuana how long ago did patient quit smoking NEVER TOBACCO SMOKER Substance Use Type marijuana History of Falling (Recent or History of No ) Patient is completely paralyzed or No completely immobile Mental Status Oriented to own ability Is patient on oxygen? No Does patient have BOWERS/SOB No Hx Sleep Apnea No CPAP/BIPAP use not prescribed Currently Taking a Beta Jh Yes: Atenolol Hx Chest Pain Yes Hx SOB No Hx Syncope or Dizziness No Anti-Coagulant Therapy No Has a Radiator Specialist No Cardiac Testing No Hx Pacemaker/ICD No Pacemaker Rep Required? No Cardiac Clearance Received Not Applicable dysphagia No Urinary Catheter Present No Hx Urinary Self Catheterization No Diabetes Yes HgbA1C 5.6 Date 10/10/18 Hx Drug Resistant Organism No Presence of External or Internal Medical No Devices Marital Status Lives With spouse,family Patient Discharge Plan Description Return Home Do You Have Any Spiritual Beliefs That No May Affect Your HC Choices? Do You Have Any Cultural Practices That No May Affect Your HC Choices? Emergency Contact Name MATI ANGELIQUE Emergency Contact Advance Directives? No Power of Public Policy Manager Yes Power of Public Policy Manager Name Patric Hernandez (son)
[2019-01-15 12:00] VITALS: BP 115/79; PULSE 68; RESP 15; TEMP 37; O2SAT 99
--- NOTE | 2019-01-15 15:38 | PM.DS.1 ---
History of Present Illness History of Present Illness Chief complaint: [id number] Narrative: 68-year-old man admitted after elective ileostomy reversal and excisional biopsy of right antecubital skin tumor. Discharge Providers Provider Date of admission: 01/13/19 11:28 Discharge Date: 01/15/19 Primary care physician: Dami Olivia MD Discharge provider: Juanpablo Byrne Summary Hospital Course Discharge Diagnosis: Presence of ileostomy, sequela of colo vesicular fistula. Presence of skin tumor Ankylosing spondylitis Hospital Course: 68-year-old man 3 months ago underwent hand assisted laparoscopic sigmoidectomy in takedown of colovesicular fistula. At the time surgery he was markedly malnourished his anastomosis also had a small degree of tension on it as a consequence he was diverted. Underwent interval colonoscopy recently demonstrating a wide open well-healed anastomosis. a single adenomatous polyp was removed from the cecum. He went to the operating room for ileostomy reversal through the ileostomy abdominal wall defect. He was found to have a peristomal hernia during the surgery and this was repaired without mesh. Patient did quite well postop. On postoperative day 2. He started to have regular bowel movements. No difficulty tolerating diet. Ambulating with ease. Pain well controlled Discharge home with support of son and Status at Discharge Cognitive/behavioral status at discharge: oriented Functional status at discharge: independent ambulation Overall status at discharge: patient is back to baseline Time Spent with Patient Time spent: Less than 30 minutes Exam Vital Signs (past 8 hours): - 01/15/19 12:00 Temperature 98.6 F Pulse Rate 68 Respiratory Rate 15 Blood Pressure 115/79 Pulse Oximetry 99 Oxygen Delivery Method Room Air Oxygen Flow Rate 0 Narrative Exam Narrative: Abdomen soft nontender nondistended, overall patient looks quite well Right arm skin incision is clean dry and intact Wound on abdominal wall also creatinine and dry no erythema being packed wet to dry Periphery warm and well perfused Objective Labs Result Diagrams: 01/14/19 06:00 01/14/19 06:00 Discharge Plan Discharge Plan Patient Disposition: Home Discharge Med Rec/Prescriptions Prescriptions: Continued oxycodone 5 mg tablet 5 mg PO QID RF: 0 omega-3 fatty acids 500 mg Capsule 500 mg PO DAILY RF: 0 pyridoxine (vitamin B6) [Vitamin B-6] 25 mg Tablet 1 tab PO DAILY RF: 0 cyanocobalamin (vitamin B-12) 100 mcg Tablet 100 mcg PO DAILY RF: 0 tamsulosin [Flomax] 0.4 mg Capsule 0.4 mg PO DAILY Qty: 30 RF: 0 ginkgo biloba 40 mg Capsule 40 mg PO BID RF: 0 golimumab 50 mg/0.5 mL pen injector 50 mg subcut QMONTH RF: 0 atenolol 25 mg Tablet 25 mg PO DAILY Qty: 30 RF: 12 Discontinued loperamide 2 mg capsule 4 mg PO QID Qty: 240 RF: 8 diphenoxylate-atropine 2.5-0.025 mg Tablet 1 ea PO BID Qty: 60 RF: 10 Prevalite 4 gram Powder In Packet 4 gm PO BID Qty: 60 RF: 10 Follow up/Referrals: Dami Olivia MD [Primary Care Provider] - Juanpablo Byrne MD [Physician] - (Call for follow up with another [facility] surgeon in about 2 weeks) Provider Discharge Instructions Diet: Diet as Tolerated Activity: No soaking in water for 2 weeks. Ok for regular activities. No lifting more than 15lbs for 6 weeks Other treatments: Pack wound wet to dry 2 times a day until it closes Skin/Wound/Dressing Care Report to your healthcare provider any signs of infection, such as:: chills, fever and increased pain Visit Report/Discharge Packet Instructions: DI for Colostomy or Ileostomy Reversal Discharge Data Primary Care Provider: Dami Olivia
--- NOTE | 2019-01-15 16:01 | PC.NURSE ---
Possible d/c: Pt is hoping to d/c home today. Pt and spouse shown how to change dressing and pack wound. Both feel comfortbale they can do this when he goes home. Pt is tolerating diet w/out problems and has had 2 bms today. last stool was liquid, here and aware. Once dressing removed no further redness was seen around wound and it appears as if that redness was from old tape. Pt and spouse given dressing supplies to last them several days until they can get there own. Questions answered. Cont w/poc.
== END 2019-01-15 16:10 | disposition home or self-care (01) | DRG 330 ==
PROVIDERS: Admitting Provider Surgery; PCP Family Medicine; Visit Provider Surgery
PROC: 0DQB0ZZ Repair Ileum, Open Approach (ICD-10-PCS; CPT 44620; principal; 2019-01-13 14:00)
PROC: 0DQB0ZZ Repair Ileum, Open Approach (ICD-10-PCS; 2019-01-13 14:00)
DX: Z43.2 Encounter for attention to ileostomy (principal); K94.19 Other complications of enterostomy; I10 Essential (primary) hypertension; E11.9 Type 2 diabetes mellitus without complications; M45.9 Ankylosing spondylitis of unspecified sites in spine; D23.61 Other benign neoplasm of skin of right upper limb, including shoulder
CPT/HCPCS: 36415; 44620; 80048; 83735; 85025; J0330; J0696; J1100; J1170; J1644; J2405; J2704; J3010; J3475

== ENCOUNTER → 2019-01-22 14:50 | Outpatient (CLI) | payer MEDICARE, MEDICAID, SELFPAY ==
[2019-01-13 20:07] VITALS: BMI 19.6
[2019-01-22 17:11] LABS: Adenovirus F 40/41 Not Detected (Not Detect); Astrovirus Not Detected (Not Detect); Campylobacter Not Detected (Not Detect); Clostridium difficile toxin AB Detected (Not Detect); Cryptosporidium Not Detected (Not Detect); Cyclospora cayetanensis Not Detected (Not Detect); Entamoeba histolytica Not Detected (Not Detect); Enteroaggregative E.coli Not Detected (Not Detect); Enteropathogenic E.coli Not Detected (Not Detect); Enterotoxigenic E.coli It/st Not Detected (Not Detect); Giardia lamblia Not Detected (Not Detect); Norovirus GI/GII Not Detected (Not Detect); Plesiomonsa shigelloides Not Detected (Not Detect); Rotavirus A Not Detected (Not Detect); Salmonella Not Detected (Not Detect); Shiga-like toxin-prod E.coli Not Detected (Not Detect); Shigella/Enteroinvasive E.coli Not Detected (Not Detect); Vibrio Not Detected (Not Detect); Vibrio cholerae Not Detected (Not Detect); Yersinia enterocolitica Not Detected (Not Detect)
== END ==
PROVIDERS: PCP Family Medicine; Visit Provider Specialist
DX: R19.7 Diarrhea, unspecified (principal)
CPT/HCPCS: 87507

== ENCOUNTER → 2019-03-14 11:27 | Outpatient (CLI) | payer MEDICARE, MEDICAID, SELFPAY ==
[2019-03-07 11:05] VITALS: BMI 19.6
--- NOTE | 2019-03-14 11:30 | DI.RAD.S_ITS ---
PROCEDURE: FL BARIUM ENEMA INDICATIONS: air while urinating. r/o entero-vesical fistula COMPARISON: Outside Facility, RG, CT ABDOMEN/PELVIS WITH CONTRAST, 03/03/2019, 4:12. FINDINGS: Gastrografin was gravity instilled through a rectal catheter. There is apparent extraluminal tract of contrast extending from the colon to the bladder, where a small persistent contrast collection is noted. Most of the contrast material seen within bowel loops, and demonstrates peristaltic activity, with exception for the contrast within the lower pelvis suspected to be within the bladder lumen. IMPRESSION: Findings suspicious for enterovesical fistula as detailed above. Please correlate clinically and if necessary, cross-sectional imaging evaluation could be performed. Dictated by: Reinaldo Schrader M.D. on 03/14/2019 at 14:53 Approved by: Reinaldo Schrader M.D. on 03/14/2019 at 14:58
== END ==
PROVIDERS: PCP Family Medicine; Visit Provider Specialist
DX: R39.89 Other symptoms and signs involving the genitourinary system (principal)
CPT/HCPCS: 74270

== ENCOUNTER 2019-04-03 10:30 | Day surgery (SDC) | payer MEDICARE, MEDICAID, SELFPAY ==
[2019-03-31 10:30] VITALS: BMI 19.6
--- NOTE | 2019-04-03 | PATH_ITS ---
[facility] Accession Number: [id number] . 01 Material submitted: . colon - COLON LESION BIOPSY AT 18 CM . 02 Diagnosis: Colon Lesion at 18 cm, Biopsy: Inflamed granulation tissue/inflammatory polyp. No evidence of neoplasm. MRV 04/04/2019 1503 Local . 02 Electronically signed: . Urban Fermin MD, PhD, Pathologist NPI- [id number] . 01 Gross description: . COLON LESION BIOPSY AT 18 CM: Received in formalin is 1 fragment(s) of arriaga, soft tissue measuring 0.2 x 0.2 x 0.1 cm submitted entirely in 1 cassette(s) /[facility] 04/03/20192027 Local . 02 Pathologist provided ICD-10: N32.1, K51.40 . 02 CPT . 909599 Performed at: 01 [facility] [address] [id number] MD Awais Cardona MD Phone: [phone] Performed at: [facility] [address] [place], [place] [id number] MD Leydi Sebastian MD Phone: [phone]
[2019-04-03 12:54] VITALS: BP 134/85; PULSE 77; RESP 15; TEMP 36.3; O2SAT 99; BMI 46.4
--- NOTE | 2019-04-03 12:59 | PM.PREOP ---
Pre-operative Note Interval Note History & Physical reviewed/Exam performed by Physician: Yes Changes to H&P: No ASA Class (for procedural sedation): III
--- NOTE | 2019-04-03 13:12 | PM.OP.ENDO ---
Operative Date/Time/Diagnoses Date of procedure: 04/03/19 Time of procedure: 13:12 Pre-op diagnosis: Colovesical fistula Post-op diagnosis: same (Diverticulosis) Procedure & Clinicians Study performed: Flexible sigmoidoscopy at 30 cm. With cold biopsy Same procedure as scheduled: Yes Indications: Trying to determine level of anastomosis and whether the fistula is visible Surgeon: Mario Pyle Procedure Notes SCOAP/Timeout: Performed Procedure in detail: Patient was placed in left lateral decubitus position. Digital exam was remarkable for increased sphincter tone. Scope was inserted advanced through the rectum to 30 cm were encountered forms stool. Scope was gradually brought out. There was a small raised white lesion at 18 cm which I biopsied and removed. I really could see exactly where the staple line is from his resection. There was narrowing in tortuosity at about 15-20 cm. The this did dilate up with a air. Patient was noted to have diverticulosis in this segment of intestine to 30 cm. The scope was removed the patient tolerated the procedure well Scope withdrawal time: Not applicable Sedation minutes: 0 Findings: diverticulosis and other findings (White raised lesion which was biopsied and removed) Specimen(s): other (White lesion) Complications: none Post-procedure Recommendations: Other recommendation (Will refer for cystoscopy. I would like to know where on his bladder this fistula is located as it may influence my decision aware he should have his operation.) Follow up: weeks (Two) Disposition: same day surgery
[2019-04-03 13:20] VITALS: BP 144/89; PULSE 71; RESP 20; TEMP 36.5; O2SAT 99
== END 2019-04-03 13:56 | disposition home or self-care (01) ==
PROVIDERS: Family Provider Family Medicine; PCP Family Medicine; Visit Provider Specialist
PROC: 0DJD8ZZ Inspection of Lower Intestinal Tract, Via Natural or Artificial Opening Endoscopic (ICD-10-PCS; CPT 45378; principal; 2019-04-03 12:45)
DX: N32.1 Vesicointestinal fistula (principal); K57.30 Diverticulosis of large intestine without perforation or abscess without bleeding; K51.40 Inflammatory polyps of colon without complications; E11.9 Type 2 diabetes mellitus without complications; I10 Essential (primary) hypertension; G51.0 Bell's palsy; I48.0 Paroxysmal atrial fibrillation; F17.210 Nicotine dependence, cigarettes, uncomplicated
CPT/HCPCS: 45331

== ENCOUNTER 2019-05-28 09:03 | Inpatient (IN) | payer MEDICARE, MEDICAID, SELFPAY ==
[2019-03-31 10:30] VITALS: BMI 19.6
[2019-05-28] VITALS (18 sets, daily range): BP systolic 134–184; BP diastolic 67–113; PULSE 71–113; RESP 9–20; TEMP 36.4–37.6; O2SAT 96–100; BMI 22.5
--- NOTE | 2019-05-28 | PATH_ITS ---
[facility] Accession Number: [id number] . 01 Material submitted: . small bowel - SEGMENT OF SMALL BOWEL . 01 Clinical history: . WEAK AND TUMMY PAINS AND NOT FEELING WELL . 02 Diagnosis: Small Bowel, Segmental Resection: Small bowel with serositis and fibrous serosal adhesions. Necrotizing granulomas present in perienteric soft tissue. Please see comment. No evidence of dysplasia or malignancy. [facility] 06/03/2019 1725 Local . 02 Comment: The tissue submitted as possible lymph nodes in the small bowel perienteric tissue contains a few necrotizing granulomas. No definitive lymph node tissue is identified. There is no evidence of vasculitis in the sections examined. Special stains for AFB and GMS are negative for mycobacteria and fungal organisms, respectively. The control stains showed appropriate reactivity. The differential diagnosis of necrotizing granulomas in this setting would include changes secondary to prior surgical procedure (foreign material granulomas), infection, or vasculitis. Other non-infectious systemic diseases that result in granulomas are less likely. . 02 Electronically signed: . Leydi Sebastian MD, Pathologist NPI- [id number] . 01 Gross description: . Received in formalin, labeled segment of small bowel, is an unoriented segment of small bowel (length-16.7 cm, resection margin #1 diameter-2.8 cm, resection margin #2 diameter-2.4 cm) with attached mesentery (up to 1.5 cm in depth. The resection margins are received stapled. The serosa is arriaga-pink, focally red-brown and congested. The mucosa is arriaga, smooth and shiny with normal folds. A stenotic area (length-0.7 cm) is identified 1.1 cm from resection margin #1 and 11.5 cm from resection margin #2. No nodules, masses or lesions are identified. The resection margins are inked blue. Multiple possible lymph nodes (0.1 cm) are identified. Section code: (A1-A3) resection margin #1 with stenotic area, longitudinal pest control service representative sections; (A4) resection margin #2, longitudinal pest control service representative; (A5-A11) pest control service representative serial sections submitted from resection margin #1 to #2; (A12) multiple intact possible lymph nodes. ([id number]) /MRV 05/30/2019 0940 Local . 02 Pathologist provided ICD-10: K56.609, K56.50 . 02 CPT . 435432, 793472, 526751 Performed at: 01 [facility] [address], [place], [place] [id number] MD Awais Cardona MD Phone: [phone] Performed at: 02 [facility] [id number] [place], [place] [id number] MD Leydi Sebastian MD Phone: [phone]
[2019-05-28 09:40] LABS: Add Manual Diff / Slide Review NO; Basophils Absolute Auto 100 /uL (0-100); Basophils Percent Auto 0.4 % (0-2); Eosinophils Absolute Auto 0 /uL (0-450); Eosinophils Percent Auto 0.1 % (2-4); Hematocrit 44.4 % (41-53); Lymphocytes Absolute Auto 1600 /uL (1100-4500); Lymphocytes Percent Auto 8.7 % (25-40); Mean Corpuscular HGB Conc 33.8 % (30-36); Mean Corpuscular Hemoglobin 28.4 PG (26-34); Mean Corpuscular Volume 83.9 fL (80-100); Monocytes Absolute Auto 700 /uL (0-900); Neutrophils Absolute Auto 16000 /uL (1500-7000); Neutrophils Percent Auto 86.8 % (50-75); Platelet Count 315 X10^3/uL (150-400); Red Blood Cell Count 5.29 X10^6/uL (4.5-5.9); Red Cell Distribution Width 16.4 % (11.6-14.8); White Blood Cell Count 18.4 X10^3/uL (4.5-11.0)
[2019-05-28 09:41] LABS: Prothrombin Time 11.5 SECONDS (10.1-12.7)
[2019-05-28 09:44] LABS: PTT Partial Thromboplastin Tim 30 SECONDS (26.4-36.2)
[2019-05-28 09:45] LABS: Alanine Aminotransferase 23 IU/L (<50); Albumin 4.8 g/dL (3.5-5.0); Alkaline Phosphatase 69 U/L (38-126); Aspartate Aminotransferase 37 IU/L (17-59); BUN Creatinine Ratio 28.9 (6-22); Bilirubin Total 1.1 mg/dL (0.2-1.3); Blood Urea Nitrogen 26 mg/dL (9-20); Calcium 10.6 mg/dL (8.4-10.2); Carbon Dioxide 25 mmol/L (22-32); Chloride 100 mmol/L (98-107); Estimated Glomerular Filt Rate > 60.0 mL/min (>60); Glucose 165 mg/dL (80-110); HEMOLYSIS 17 (0-50); Lipase 146 U/L (23-300); Sodium 139 mmol/L (137-145)
[2019-05-28 09:54] LABS: Total Protein 9.8 g/dL (6.3-8.2)
--- NOTE | 2019-05-28 09:58 | PC.NURSE ---
total protien 9.8.
--- NOTE | 2019-05-28 10:08 | ED_ITS ---
HPI - Abdominal Pain General Chief Complaint: Abdominal Pain Stated Complaint: WEAK AND TUMMY PAINS AND NOT FEELING WELL Time Seen by Provider: 05/28/19 10:08 Source: patient Mode of arrival: Ambulatory Limitations: no limitations History of Present Illness HPI narrative: The patient is a 68-year-old male who presented to the emergency department with a distended bloated abdomen with progressively worsening pain. His pain started yesterday and he was up all night with nausea and vomiting. His emesis looked like bile and was yellow in color. He had no hematemesis or coffee-ground emesis. His last bowel movement was at 6:30 a.m. in the morning. He denied any melena or blood. He had no diarrhea. Seventy-eight months ago he had surgery on his colon with a partial colectomy for diverticulitis. He has al so developed a colovesical fistula which he will not allow the surgeon to repair. He has had multiple urinary tract infections. Three months ago he had a partial bowel obstruction for which they inserted an NG tube in decompressed. He denies any indigestion or heartburn. He has had no fever chills or sweats as well as any headache. He denies any shortness of breath cough difficulty in breathing. He has had no diarrhea melena or hematochezia. He denies any urinary symptoms at this time. He admits to having a history of ankylosing spondylitis with rigidity of his cervical thoracic and lumbosacral spine. He has had no stroke. Related Data Home Medications Medication Instructions Recorded Confirmed cyanocobalamin (vitamin B-12) 100 mcg PO DAILY 08/23/18 05/28/19 omega-3 fatty acids 500 mg PO DAILY 08/23/18 05/28/19 oxycodone 5 mg PO QID 08/23/18 05/28/19 pyridoxine (vitamin B6) [Vitamin 1 tab PO DAILY 08/23/18 05/28/19 B-6] golimumab 50 mg SUBCUT QMONTH 09/19/18 05/28/19 ginkgo biloba 40 mg PO BID 09/26/18 05/28/19 Previous Rx's Medication Instructions Recorded tamsulosin [Flomax] 0.4 mg PO DAILY #30 cap 08/26/18 atenolol 25 mg PO DAILY #30 tab 10/17/18 Allergies Allergy/AdvReac Type Severity Reaction Status Date / Time ibuprofen AdvReac Intermediate stomach Verified 05/01/19 15:30 pain Review of Systems Review of Systems ROS Unobtainable: All systems reviewed & are unremarkable except as noted in HPI and below Patient History Medical History Ankylosing spondylitis (Acute) Santacruz's palsy (Acute) Chronic pain (Acute) Colovesical fistula (Acute) Dental caries (Acute) Diabetes mellitus type 2 in nonobese (Acute) HTN (hypertension) (Acute) Immunocompromised state (Acute) Insomnia (Acute) Meningitis (Acute) Paroxysmal atrial fibrillation (Acute) Sepsis (Acute) Septic shock (Acute) Skin cancer (Acute) Stupor (Acute) Thrombocytopenia (Acute) Type 2 diabetes mellitus (Acute) Surgical History History of tonsillectomy (Acute) S/P laparoscopic-assisted sigmoidectomy (Acute 10/11/18) Family History Mother No problems noted. Father No problems noted. Social History household members: spouse and family Smoking Status: Former smoker alcohol intake: former Smoking Status: Current some day smoker Substance Use Type: marijuana Exam Narrative Exam Narrative: PHYSICAL EXAM: CONSTITUTIONAL: Awake, Alert, Oriented, Coherent, Cooperative i moderate distress. He appears ill. He moves very stiffly and holds his entire body head neck and back straight and rigid. HEAD: AT/NC EENT: PERRL, FROM of eyes, no discharge, no nystagmus Oral mucosa is moist and pink, posterior pharynx is without erythema or exudate. NECK: Supple, no obvious JVD, Trachea is midline without stridor, no palpable LN or masses. The patient holds his neck rigid. SPINE: No gross deformity, the entire spine is held rigidly from his ankylosing spondylitis. There is no tenderness to palpation over the cervical thoracic lumbosacral spine. There is no costovertebral angle tenderness. THORAX: No deformity, retractions, chest wall tenderness, subcutaneous air or crepitice. LUNGS: Symmetrical breath sounds with crackles in both bases of the lung. HEART: Normal heart tones, regular rhythm and rate without murmur. ABDOMEN: S the patient's abdomen is distended and tympanitic. It is diffusely tender. There is tenderness in the left lower quadrant. EXTREMITIES: No edema, cyanosis, deformity or tenderness. SKIN: No rash, bruising, petechiae or purpura. NEURO: Awake, alert, oriented, conversive, cranial nerves II-XII are symmetrical and normal, moves all 4 extremities Initial Vital Signs Initial Vital Signs: Vital Signs Temperature 98.4 F 05/28/19 09:10 Pulse Rate 113 H 05/28/19 09:10 Respiratory Rate 9 L 05/28/19 09:10 Blood Pressure 150/113 H 05/28/19 09:10 Pulse Oximetry 100 05/28/19 09:10 Course Course Course Narrative: 1055: Dr. Jj from Radiology called and stated that he is very suspicious that the patient has a Richters Hernia and is a surgical emergency that needs to be referred to a general surgeon. Will call Dr. Pyle General surgeon inspector publications. 1100 Dr. Colbert he is in surgery and has been notified of the patient's CT diagnosis per Dr. Jj and reports that he will evaluate the patient. The patient has been notified that he may have a recurs hernia and that Dr. Colbert he will be down to evaluate him. Dr. Bell [place] he states that the patient has a colovesical fistula and the patient refuses to allow it to be repaired in hopes that it will close on its own. The patient has had recurring urinary tract infections as result of this. Orders Ordered: Atenolol (Tenormin) 25 mg PO DAILY [facility] Enoxaparin Sodium (Lovenox) 40 mg SUBCUT DAILY [facility] Cefotetan Disodium/Dextrose (Cefotan) 2 gm in 50 mls @ 100 mls/hr IV NOW ONE Stop: 05/28/19 22:48 Lactated Ringer's (Lactated Ringers) 1,000 mls @ 125 mls/hr IV CONT MONICA Last Admin: 05/28/19 16:40 Dose: 125 mls/hr Documented by: KASANDRA Ketorolac Tromethamine (Toradol) 15 mg IV Q6H PRN PRN Reason: Pain, Moderate (4-6) Stop: 06/02/19 15:21 Lorazepam (Ativan) 1 mg IV Q6HR PRN PRN Reason: Muscle Spasm Metoprolol Tartrate (Lopressor) 5 mg IV Q6H [facility] Last Admin: 05/28/19 20:45 Dose: 5 mg Documented by: KASANDRA Morphine Sulfate (Morphine) 4 mg IV Q4HR PRN PRN Reason: Pain, Severe (7-10) Last Admin: 05/28/19 19:48 Dose: 4 mg Documented by: MEHRAN Naloxone HCl (Narcan) 0.2 mg IV Q2MIN PRN PRN Reason: Opiate Reversal Ondansetron HCl (Zofran) 4 mg IV Q4HR PRN PRN Reason: Nausea And Vomiting Tamsulosin HCl (Flomax) 0.4 mg PO DAILY [facility] Discontinued Medications Fentanyl (Sublimaze) 0 mcg IV Q5M PRN PRN Reason: Pain, Moderate (4-6) Hydromorphone HCl (Dilaudid) 0 mg IV Q5M PRN PRN Reason: Pain, Moderate (4-6) Sodium Chloride (Normal Saline 0.9%) 1,000 mls @ 150 mls/hr IV CONT [facility] Last Infusion: 05/28/19 11:36 Dose: 150 mls/hr Documented by: Admin: 05/28/19 10:41 Dose: 150 mls/hr Documented by: BETSY Lactated Ringer's (Lactated Ringers) 1,000 mls @ 42 mls/hr IV CONT [facility] Last Infusion: 05/28/19 15:35 Dose: 0 mls/hr Documented by: Admin: 05/28/19 14:17 Dose: 42 mls/hr Documented by: Infusion: 05/28/19 14:17 Dose: 42 mls/hr Documented by: Admin: 05/28/19 12:08 Dose: 42 mls/hr Documented by: ELISEO Cefotetan Disodium/Dextrose (Cefotan) 2 gm in 50 mls @ 100 mls/hr IV NOW ONE Stop: 05/28/19 12:31 Last Infusion: 05/28/19 12:16 Dose: 0 mls/hr Documented by: Admin: 05/28/19 12:11 Dose: 100 mls/hr Documented by: YANNI Ondansetron HCl (Zofran) 4 mg IV NOW ONE Stop: 05/28/19 10:21 Last Admin: 05/28/19 10:41 Dose: 4 mg Documented by: DAVIDM Ondansetron HCl (Zofran) 4 mg IV NOW PRN PRN Reason: Nausea And Vomiting Vital Signs Vital signs: Vital Signs - 8 hr 05/28/19 09:10 Temperature 98.4 F Pulse Rate 113 H Respiratory Rate 9 L Blood Pressure 150/113 H Pulse Oximetry 100 MDM - Abdominal Pain Medical Records Attestation: I reviewed the patient's medical records. Lab Data Attestation: I reviewed the patient's lab results. Result diagrams: 05/28/19 09:25 05/28/19 09:25 Labs: Lab Results 05/28/19 05/28/19 05/28/19 Range/Units 09:25 09:25 09:25 WBC 18.4 H (4.5-11.0) X10^3/uL RBC 5.29 (4.5-5.9) X10^6/uL Hgb 15.0 (13.5-17.5) g/dL Hct 44.4 (41-53) % MCV 83.9 (80-100) fL MCH 28.4 (26-34) PG MCHC 33.8 (30-36) % RDW 16.4 H (11.6-14.8) % Plt Count 315 (150-400) X10^3/uL Neut % (Auto) 86.8 H (50-75) % Lymph % (Auto) 8.7 L (25-40) % [place] % (Auto) 4.0 (3-14) % Eos % (Auto) 0.1 L (2-4) % Baso % (Auto) 0.4 (0-2) % Neut # (Auto) 50872 H (9248-5109) /uL Lymph # (Auto) 1600 (8885-0568) /uL [place] # (Auto) 700 (0-900) /uL Eos # (Auto) 0 (0-450) /uL Baso # (Auto) 100 (0-100) /uL PT 11.5 (10.1-12.7) SECONDS INR 1.0 (0.9-1.3) APTT 30 (26.4-36.2) SECONDS Sodium 139 (137-145) mmol/L Potassium 4.0 (3.4-5.1) mmol/L Chloride 100 (98-107) mmol/L Carbon Dioxide 25 (22-32) mmol/L BUN 26 H (9-20) mg/dL Creatinine 0.90 (0.66-1.25) mg/dL Estimated GFR > 60.0 (>60) mL/min BUN/Creatinine Ratio 28.9 H (6-22) Glucose 165 H (80-110) mg/dL Calcium 10.6 H (8.4-10.2) mg/dL Total Bilirubin 1.1 (0.2-1.3) mg/dL AST 37 (17-59) IU/L ALT 23 (<50) IU/L Alkaline Phosphatase 69 (38-126) U/L Total Protein 9.8 H* (6.3-8.2) g/dL Albumin 4.8 (3.5-5.0) g/dL Globulin 5.0 H (1.7-4.1) g/dL Albumin/Globulin Ratio 1.0 (1.0-2.8) Lipase 146 (23-300) U/L 05/28/19 Range/Units 10:21 WBC (4.5-11.0) X10^3/uL RBC (4.5-5.9) X10^6/uL Hgb (13.5-17.5) g/dL Hct (41-53) % MCV (80-100) fL MCH (26-34) PG MCHC (30-36) % RDW (11.6-14.8) % Plt Count (150-400) X10^3/uL Neut % (Auto) (50-75) % Lymph % (Auto) (25-40) % [place] % (Auto) (3-14) % Eos % (Auto) (2-4) % Baso % (Auto) (0-2) % Neut # (Auto) (8963-6088) /uL Lymph # (Auto) (9948-5418) /uL [place] # (Auto) (0-900) /uL Eos # (Auto) (0-450) /uL Baso # (Auto) (0-100) /uL PT (10.1-12.7) SECONDS INR (0.9-1.3) APTT (26.4-36.2) SECONDS Sodium (137-145) mmol/L Potassium (3.4-5.1) mmol/L Chloride (98-107) mmol/L Carbon Dioxide (22-32) mmol/L BUN (9-20) mg/dL Creatinine (0.66-1.25) mg/dL Estimated GFR (>60) mL/min BUN/Creatinine Ratio (6-22) Glucose (80-110) mg/dL Calcium (8.4-10.2) mg/dL Total Bilirubin (0.2-1.3) mg/dL AST (17-59) IU/L ALT (<50) IU/L Alkaline Phosphatase (38-126) U/L Total Protein (6.3-8.2) g/dL Albumin (3.5-5.0) g/dL Globulin (1.7-4.1) g/dL Albumin/Globulin Ratio (1.0-2.8) Lipase Cancelled (23-300) U/L Discharge Plan Departure Patient Disposition: Admitted As Inpatient Clinical Impression: Hernia of abdominal wall Discharge Date/Time: 05/28/19 11:45 Admit Date/Time: 05/28/19 11:19 Admit Provider: Mario Pyle
--- NOTE | 2019-05-28 10:17 | PC.NURSE ---
Pt has hx of colon surgery r/t dicerticulitis 7 months ago and SBO approx 3 months ago. His doctor is concerned for a fistula between bowel/bladder.
--- NOTE | 2019-05-28 10:20 | DI.CT.S_ITS ---
PROCEDURE: CT ABDOMEN PELVIS W CON INDICATIONS: bloating, Nausea vomiting r/o bowel obstruction TECHNIQUE: After the administration of intravenous contrast, 5 mm thick sections acquired from the diaphragm to the symphysis. 5 mm coronal and sagittal reformats were acquired. For radiation dose reduction, the following was used: automated exposure control, adjustment of mA and/or kV according to patient size. COMPARISON: Merged With [facility], CT, CT ABDOMEN PELVIS W CON, 09/11/2018, 19:39. FINDINGS: Image quality: Excellent. ABDOMEN: Lung bases: Lung bases are clear. Heart size is normal. Solid organs: Liver is normal in size and enhancement. There are several scattered water density small cysts within the liver parenchyma. Gallbladder appears normal weren't well seen. Biliary system is non dilated. Pancreas enhances normally. Spleen is normal in size and enhancement. No adrenal nodules. Kidneys demonstrate normal size and enhancement, without hydronephrosis. Peritoneum and bowel: Colonic bowel loops demonstrate normal wall thickness and caliber. Small bowel loops are abnormally fluid distended over the upper and mid abdomen and extending into the pelvis, with a point of transition at the right lower quadrant, proximal to the ileocecal valve where an enteric staple line can be seen. Also, below the axial level of the umbilicus is a focus of abnormal thickening exactly in the midline of the rectus sheath that may reflect a Dumont's hernia (series 2 image 59). No free fluid or air. Nodes and vessels: No retroperitoneal or mesenteric adenopathy by size criteria. Aorta and inferior vena cava are normal in size. Miscellaneous: No ventral hernias. PELVIS: Genitourinary: Bladder wall thickness is normal. Miscellaneous: No inguinal hernias or adenopathy. Bones: No suspicious bony lesions. No vertebral body compression fractures. IMPRESSION: Small bowel obstruction pattern above the level of the pelvis, and extending into the upper pelvis. 2 potential sites of cause of this obstructive pattern are found, one located at the terminal ileum area where the enteric staple line is present. A more subtle findings is present at the exact midline below the umbilicus where a focus of soft tissue thickening is suggestive of a Dumont's hernia (surgical consultation is recommended given the potential risk of early bowel perforation in the setting of Dumont's hernia). Please refer to series 2 image 59 for this finding. Dictated by: Richard Jj M.D. on 05/28/2019 at 10:47 Approved by: Richard Jj M.D. on 05/28/2019 at 10:54
[2019-05-28] MEDS: SODIUM CHLORIDE 0.9% 1,000 ML 150 ML IV (10:41)
[2019-05-28] MEDS: ONDANSETRON 4 MG/2 ML INJ IV (10:41)
--- NOTE | 2019-05-28 11:47 | PM.HP.1 ---
History of Present Illness History of Present Illness Date Patient Seen: 05/28/19 Time Patient Seen: 11:47 Chief complaint: WEAK AND TUMMY PAINS AND NOT FEELING WELL Narrative: The patient is a gentleman who carries a diagnosis of of recurrence colovesical fistula. He had declined re-exploration and has not had any air when urinating any longer. The fistula was demonstrated with a Gastrografin enema study though no fistula was seen with cystoscopy. He developed severe epigastric abdominal pain distention and vomiting yesterday through the night. He was seen in our emergency room found to have a bowel obstruction felt secondary to a Dumont's hernia and I was asked to see him. Patient History Medical History Ankylosing spondylitis (Acute) Santacruz's palsy (Acute) Chronic pain (Acute) Colovesical fistula (Acute) Dental caries (Acute) Diabetes mellitus type 2 in nonobese (Acute) HTN (hypertension) (Acute) Immunocompromised state (Acute) Insomnia (Acute) Meningitis (Acute) Paroxysmal atrial fibrillation (Acute) Sepsis (Acute) Septic shock (Acute) Skin cancer (Acute) Stupor (Acute) Thrombocytopenia (Acute) Type 2 diabetes mellitus (Acute) Surgical History History of tonsillectomy (Acute) S/P laparoscopic-assisted sigmoidectomy (Acute 10/11/18) Family & Social History Family History Mother No problems noted. Father No problems noted. Social History: household members spouse,family Safety & Behavioral: Feels Safe in Current Yes Environment Been Physically Hurt or No Threatened By a Person Tobacco & Substance use: Tobacco type cannabis/marijuana Smoking Status Current some day smoker alcohol intake former Substance Use Type marijuana Meds Home Medications and Allergies Home Medications Medication Instructions Recorded Confirmed Type cyanocobalamin (vitamin B-12) 100 mcg PO DAILY 08/23/18 05/01/19 History omega-3 fatty acids 500 mg PO DAILY 08/23/18 05/01/19 History oxycodone 5 mg PO QID 08/23/18 05/01/19 History pyridoxine (vitamin B6) [Vitamin 1 tab PO DAILY 08/23/18 05/01/19 History B-6] tamsulosin [Flomax] 0.4 mg PO DAILY #30 cap 08/26/18 05/01/19 Rx golimumab 50 mg SUBCUT QMONTH 09/19/18 05/01/19 History ginkgo biloba 40 mg PO BID 09/26/18 05/01/19 History atenolol 25 mg PO DAILY #30 tab 10/17/18 05/01/19 Rx Allergies Allergy/AdvReac Type Severity Reaction Status Date / Time ibuprofen AdvReac Intermediate stomach Verified 05/01/19 15:30 pain Review of Systems Review of Systems Narrative: 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 He has no double vision pain in size. No tooth aches or trouble swallowing. No cough cold or asthma. No chest pain or heart attacks. He does have an irregular heart in takes a atenolol. He has severe arthritis and is on a immunosuppressant for it to control his pain. Patient has no black or bloody bowel movements. No history of kidney stones. No blood in his urine recently. No numbness or tingling. During 1 of his emesis episodes he may have had an episode of syncope though he is not sure. No psychiatric illnesses like anxiety or depression. Exam Vital Signs (past 8 hours): - 05/28/19 09:10 05/28/19 11:34 Temperature 98.4 F Pulse Rate 113 H 86 Respiratory Rate 9 L 14 Blood Pressure 150/113 H Blood Pressure [Right Arm] 134/67 Pulse Oximetry 100 97 Oxygen Delivery Method Room Air Narrative Exam Narrative: Cooperative gentleman no apparent distress. Left face is drooping a little. I does not close on the left tightly. It does seem however to come together. Oral mucosa is dry no open lesions. There are no nodes in the neck or supraclavicular areas. His trachea is midline mobile. Thyroid is not enlarged. Lungs are clear to auscultation without rales or rhonchi in equal percussion. Heart irregularly irregular. I don't hear a murmur gallop. His abdomen is mildly protuberant/distended soft. Midline scar is noted. The area where he appears to have a Dumont's hernia on CT is not tender. No palpable masses. Patient is alert and oriented x3. Speech rate and content are appropriate. Affect is appropriate. Objective ECG Impression: CT scan reviewed. Patient appears to have an obstruction just in the region of his umbilicus that may be due to a Dumont's hernia. Labs Result Diagrams: 05/28/19 09:25 05/28/19 09:25 Labs: Laboratory Results - last 24 hr 05/28/19 05/28/19 05/28/19 09:25 09:25 09:25 WBC 18.4 H RBC 5.29 Hgb 15.0 Hct 44.4 MCV 83.9 MCH 28.4 MCHC 33.8 RDW 16.4 H Plt Count 315 Neut % (Auto) 86.8 H Lymph % (Auto) 8.7 L [place] % (Auto) 4.0 Eos % (Auto) 0.1 L Baso % (Auto) 0.4 Neut # (Auto) 94369 H Lymph # (Auto) 1600 [place] # (Auto) 700 Eos # (Auto) 0 Baso # (Auto) 100 PT 11.5 INR 1.0 APTT 30 Sodium 139 Potassium 4.0 Chloride 100 Carbon Dioxide 25 BUN 26 H Creatinine 0.90 Estimated GFR > 60.0 BUN/Creatinine Ratio 28.9 H Glucose 165 H Calcium 10.6 H Total Bilirubin 1.1 AST 37 ALT 23 Alkaline Phosphatase 69 Total Protein 9.8 H* Albumin 4.8 Globulin 5.0 H Albumin/Globulin Ratio 1.0 Lipase 146 Assessment & Plan Assessment & Plan narrative: Patient with a bowel obstruction peers due to a hernia in his incision would do recommend emergent exploration. I've discussed this with him. Risks of bleeding infection need to remove intestine discussed with him along with intestinal leak all questions were answered. Unlikely he would need an ostomy based on the CT I'm seeing. Do not plan to intervene in his fistula unless that became absolutely necessary.
--- NOTE | 2019-05-28 12:02 | PM.PREOP ---
Pre-operative Note Interval Note History & Physical reviewed/Exam performed by Physician: Yes Changes to H&P: No
[2019-05-28] MEDS: LACTATED RINGERS 1,000 ML 42 ML IV ×2 (12:08→14:17)
[2019-05-28] MEDS: CEFOTETAN 2 GM/50 ML PIGGYBACK IV ×2 (12:11→22:02)
--- NOTE | 2019-05-28 12:40 | SUR.OPER ---
Supine on padded OR bed, head on pillow, arms secured on padded arm boards at <90 degrees abduction, legs uncrossed, safety belt at thigh, tape over blanket over lower legs.
--- NOTE | 2019-05-28 16:23 | PM.OP.1 ---
Operative Date/Time/Diagnoses Date of procedure: 05/28/19 Time of procedure: 15:30 Pre-op diagnosis: Dumont's hernia with small-bowel obstruction Post-op diagnosis: other (Id he has of small-bowel obstruction. There was a ventral hernia but it was not a Dumont's hernia) Procedure & Clinicians Procedure: Laparotomy with adhesiolysis small-bowel resection and primary anastomosis with air testing of the anastomosis via insertion of a proctoscope Same procedure as scheduled: Yes Indications: Patient with nausea vomiting abdominal distention and pain for a day as CT suggesting a Dumont's hernia Surgeon: Mario Pyle Click Yes if Unassisted: Yes Anesthesia Type: General Operative Notes Findings: There was an incisional ventral hernia but it had no contents and is unlikely given its clinical a finding to have had anything incarcerated in it. There was however adhesions into the pelvis clearly causing an obstructive process. Closure Type: primary Specimen(s): other (Small-bowel segment) Estimated Blood Loss (mL): 150 Blood products transfused: none Procedure in detail: The patient was placed supine on the operating room table underwent general endotracheal anesthesia. He was prepped and draped in the usual fashion. Incision was made through the prior scar in the mid abdomen and carried down carefully into the peritoneal cavity. A small hernia was found but it was flat and there was no contents. Clearly though there was an obstruction and the incision was extended inferiorly and superiorly in order to gain access to the abdomen in an adequate way. I delivered bowel from the peritoneal cavity and identified 2 loops of bowel extending in the pelvis that appeared to be the source of his obstruction. After getting visualization and retraction I divided adhesions and brought these 2 loops of bowel into the field. The adhesions had been very dense and were attached to a colonic anastomosis. Rather than airing on the side of the colon hired on the side of the small bowel knowing that I would probably have to resect the segments. There was a segment of about 9 in in length between the too damaged areas of small bowel I decided to remove the whole thing. A KYLER was fired proximal and distal to these areas and the segment removed by dividing the mesentery with clamps and tying with 2 0 silk. A [id number] anastomosis those then created with a KYLER followed by closure of the defect with a TA. The anastomosis was widely patent an easily transferred material across it and there was no evidence of leak on testing I closed the mesentery with interrupted 3 0 Vicryl. I then irrigated the pelvis and covered it in water part placed a bowel clamp above the anastomosis where the adhesions had been. A proctoscope was inserted into the rectum and air insufflated. The bladder was noted to appear in the feel with air but there was no leakage of air from the colonic anastomosis. Even so I decided to over-sew the area of concern with interrupted 3 0 silk sutures. Once this was accomplished the abdomen was irrigated suctioned free of fluid the omentum was pulled down over the abdominal contents and under the incision. The incision was closed with a running 1. Double-stranded PDS and occasional interrupted [id number] 1. Vicryl sutures. The subcu was irrigated and armin were used to close the skin. Patient tolerated the procedure well. This was an emergent procedure and no oral antibiotics were given but IV ones were
[2019-05-28] MEDS: LACTATED RINGERS 1,000 ML 125 ML IV (16:40)
[2019-05-28] MEDS: MORPHINE 4 MG/ML INJ IV (19:48)
[2019-05-28] MEDS: METOPROLOL TARTRATE 5 MG/5 ML INJ IV (20:45)
[2019-05-29] VITALS (10 sets, daily range): BP systolic 106–153; BP diastolic 66–93; PULSE 72–89; RESP 15–18; TEMP 36.4–37.4; O2SAT 94–98
[2019-05-29] MEDS: LACTATED RINGERS 1,000 ML 125 ML IV ×2 (00:29→08:39)
[2019-05-29] MEDS: METOPROLOL TARTRATE 5 MG/5 ML INJ IV ×4 (02:23→19:52)
[2019-05-29] MEDS: MORPHINE 4 MG/ML INJ IV ×3 (03:33→19:52)
--- NOTE | 2019-05-29 04:58 | PC.NURSE ---
Pt alert and oriented x4. NG tube on intermittent suction, draining light brown liquid. Pt reports pain throughout the night, denies offer for tordol. Pt reports that tordol does not work for his pain, pt requests ordered morphine. Pt resolved with giving morphine, WCTM. Asymptomatic HTN at start of shift resolved with giving scheduled metoprolol. Pt voiding to urinal without issues. Pt has no complaints
[2019-05-29 05:39] LABS: Add Manual Diff / Slide Review NO; Basophils Absolute Auto 0 /uL (0-100); Basophils Percent Auto 0.1 % (0-2); Eosinophils Absolute Auto 0 /uL (0-450); Hematocrit 38.7 % (41-53); Hemoglobin 12.7 g/dL (13.5-17.5); Lymphocytes Absolute Auto 2700 /uL (1100-4500); Lymphocytes Percent Auto 19.1 % (25-40); Mean Corpuscular HGB Conc 32.8 % (30-36); Mean Corpuscular Volume 85.2 fL (80-100); Monocytes Absolute Auto 2000 /uL (0-900); Neutrophils Absolute Auto 9500 /uL (1500-7000); Neutrophils Percent Auto 66.8 % (50-75); Platelet Count 259 X10^3/uL (150-400); Red Blood Cell Count 4.55 X10^6/uL (4.5-5.9); Red Cell Distribution Width 17.2 % (11.6-14.8); White Blood Cell Count 14.2 X10^3/uL (4.5-11.0)
[2019-05-29 05:48] LABS: Alanine Aminotransferase 17 IU/L (<50); Albumin 3.7 g/dL (3.5-5.0); Albumin Globulin Ratio 0.9 (1.0-2.8); Alkaline Phosphatase 42 U/L (38-126); Aspartate Aminotransferase 29 IU/L (17-59); Bilirubin Total 0.8 mg/dL (0.2-1.3); Blood Urea Nitrogen 23 mg/dL (9-20); Calcium 8.7 mg/dL (8.4-10.2); Carbon Dioxide 29 mmol/L (22-32); Chloride 101 mmol/L (98-107); Estimated Glomerular Filt Rate > 60.0 mL/min (>60); Glucose 119 mg/dL (80-110); HEMOLYSIS < 15 (0-50); Magnesium 1.9 mg/dL (1.6-2.3); Potassium 4.3 mmol/L (3.4-5.1); Sodium 142 mmol/L (137-145); Total Protein 7.7 g/dL (6.3-8.2)
[2019-05-29] MEDS: atenoloL 25 MG TABLET PO (08:39)
[2019-05-29] MEDS: TAMSULOSIN 0.4 MG CAPSULE PO (08:40)
[2019-05-29] MEDS: ENOXAPARIN 40 MG/0.4 ML SYRINGE SUBCUT (08:40)
[2019-05-29] MEDS: KETOROLAC 15 MG/ML VIAL IV ×3 (08:41→23:21)
--- NOTE | 2019-05-29 11:24 | PT.IIE ---
Current Diagnoses Unspecified intestinal obstruction, unspecified as to partial versus complete obstruction (05/28/19) Surgery Performed Operation Date: 05/28/19 11:45 Actual Procedures p Exploratory Laparotomy GEN, SMALL BOWEL RESECTION - Mario Pyle MD Surgical History (Last Reviewed 05/28/19 @ 20:57 by Tal Robins MD) History of tonsillectomy (Acute) S/P laparoscopic-assisted sigmoidectomy (Acute 10/11/18) Medical History (Last Reviewed 05/28/19 @ 20:57 by Tal Robins MD) Ankylosing spondylitis (Acute) Santacruz's palsy (Acute) Chronic pain (Acute) Colovesical fistula (Acute) Dental caries (Acute) Diabetes mellitus type 2 in nonobese (Acute) HTN (hypertension) (Acute) Immunocompromised state (Acute) Insomnia (Acute) Meningitis (Acute) Paroxysmal atrial fibrillation (Acute) Sepsis (Acute) Septic shock (Acute) Skin cancer (Acute) Stupor (Acute) Thrombocytopenia (Acute) Type 2 diabetes mellitus (Acute) Physical Therapy Inpatient Evaluation/Re-Eval M1 PT/OT-IP Prior Functional Status Start: 05/29/19 08:43 Freq: NEEDED Status: Active Protocol: Document 05/29/19 10:49 AW (Rec: 05/29/19 11:23 AW [id number]) Medical Review Prior Functional Status Medical History Reviewed Yes Diet/Fluid Consistency NPO Communication WNL Mobility and Gait Independent without assistive device and without limit to distance. Pt has ankylosing spondylitis with stiffness throughout the entire spine. He has difficulty moving his neck. He lays on a flat board for long periods a few times a day to manage his pain and stiffness. Activities of Daily Living and IADL's Independent with ADL/IADL's without modification or AD's Prior Functional Level (Other details) Pt drives with modifications such as wide mirrors to compensate for limited neck ROM Social History Household Members none Living Arrangements Mobile home Number of Floors (Floors) One Floor Number of Stairs To Enter/Railing? 3 CARLITA without railing but with handle at front door which pt can grab for support if needed. Home Environment Standard Height Toilet,Walk in Shower,Built-In Shower Seat Home Equipment Straight Cane,Grab Bars In Shower Employment Status Unemployed Additional Social History Comment Pt no longer lives with his family but remains on good terms with them. He now lives alone in a 24-foot trailer near [place]. Pt has not worked since his 30's due to disablity. M2 PT-IP Current Condition Start: 05/29/19 08:43 Freq: NEEDED Status: Active Protocol: Document 05/29/19 10:49 AW (Rec: 05/29/19 11:23 AW [id number]) Physical Therapy Current Condition Current Condition Evaluation Date 05/29/19 Treatment Diagnosis s/p laparatomy, lysis of adhesions; impaired mobility Onset Date 05/28/19 Precautions Abdominal Surgery Precautions Log Roll,Lifting Restrictions, Gait Belt above Incisional Area Other Precautions NG to suction with 1-hour breaks for oral meds intake Weight Bearing Status Weight Bearing Status Full Weight Bearing M3 PT-IP Subjective Start: 05/29/19 08:43 Freq: NEEDED Status: Active Protocol: Document 05/29/19 10:49 AW (Rec: 05/29/19 11:23 AW [id number]) Subjective Physical Therapy Visit Type Type Initial Evaluation Visit Start Time 09:23 Visit Stop Time 09:46 Total Visit Minutes 23 Physical Therapy Visit Comments Patient Comments Pt notes he had bowel surgery in September 2018 and feels he knows what to expect this time . Patient Goals Pt hopes to discharge home independently Therapy Pain Assessment Pain When Pain Assessed During Mobility Pain Present Pain Present Pain Reported Location abd Intensity 3 Scale Used 3/10 at rest; unchanged with mobility Pain Management Techniques Distraction,Re-positioning M4 PT-IP Mobility and Gait Start: 05/29/19 08:43 Freq: NEEDED Status: Active Protocol: Document 05/29/19 10:49 AW (Rec: 05/29/19 11:23 AW [id number]) PT-Bed Mobility Assessment Rolling Type of Rolling Log Rolling Level of Assist Contact Guard Assistance Supine to Sit Supine to Sit Minimal Assistance Scooting Scooting to Edge of Bed Independent Scooting Up and Down in Bed Independent PT-Transfer Assessment Sit to and From Stand Sit to and from Stand Standby Assistance Equipment Transfer Assistive Device None,Gait Belt Orthotic/Prosthetic Devices or Brace: No Transfers Transfer Destination Chair Transfer Technique pt ambulated without AD Transfer Ability Level of Assist Standby Assistance Comments Mobility Comments Pt sitting up in bed upon PT arrival. He demonstrated good log roll technique to his left side as he must do at home. Due to left shoulder weakness, rotator cuff pathology, and limited range of motion, it was difficult for him to push through the left arm and was heavily dependent on his right arm to reach across and push up to sitting with therapist min assist. Once upright, he sat EOB for MMT with and without UE support. He stood SBA and ambulated in the halls without AD. On return to his room, pt transferred to the chair with proper mechanics and safety SBA. He was positioned there with call light and all needs within reach. Gait Assessment Gait Gait Assistance Required: Standby Assistance Distance (Feet) 250 Able to Maintain Weight Bearing Status Yes During Gait Assistive Devices Assistive Device None,Gait Belt Gait Deviations General Gait Pattern Antalgic,Decreased Stride Length,Decreased Feet Clearance,Flexed Trunk Factors Limiting Gait Function Factors Limiting Gait Function Decreased Activity Tolerance, Pain Comments Gait Comments Pt ambulated in the hallway without AD SBA from his room to the practice stairs and back without LOB. Stair Climbing Assessment Evaluation Level of Assist On Stairs Standby Assistance Devices Stair Climbing Assistive Devices Right Railing Technique/Endurance Stair Climbing Direction Ascend and Descend Stair Climbing Technique Step Over Step,Step to Step Number of Steps Climbed 3 Query Text: Stair Climbing Set # Repetitions (reps) 2 PT-Balance Assessment Sitting Balance and Reactions Static Sitting Balance Ability Normal Dynamic Sitting Balance Ability Normal Standing Balance and Reactions Static Standing Balance Ability Good Dynamic Standing Balance Ability Good Device Used no AD M5 PT-IP Objective Assessments Start: 05/29/19 08:43 Freq: NEEDED Status: Active Protocol: Document 05/29/19 10:49 AW (Rec: 05/29/19 11:23 AW [id number]) Orientation Orientation/Cognition Level of Alertness Alert Orientation Name,Day of Week,Place, Situation Language Function Ability No Deficits Noted Safety Awareness Understands Safety Issues Memory Description No Deficits Noted Gross Range of Motion Upper Extremity ROM Assessment Left Impaired Impairments history of remote left RC pathology, active elevation limited to 45 degrees in all planes Lower Extremity ROM Assessment Within Functional Limits Strength Upper Extremity Strength Assessment Right Impaired Lower Extremity Strength Assessment Within Functional Limits Coordination Assessment Gross Coordination Gross Coordination WNL Sensation Assessment Sensation Gross Sensation WNL Muscle Tone Muscle Tone WNL Yes M6 PT-IP Treatment Start: 05/29/19 08:43 Freq: NEEDED Status: Active Protocol: Document 05/29/19 10:49 AW (Rec: 05/29/19 11:23 AW [id number]) Physical Therapy Treatment Exercises Exercises Ankle Pumps,Gluteal Sets Education Education Provided Precautions,Weight Bearing Status,Post-Op Packet,Safety Other Treatments Other Treatment Performed Provided education on role of PT, plan of care, and rationale for log roll bed mobility. Reviewed importance of regular mobility/ambulation in order to increase bowel function and to prevent DVT. M7 PT-IP Assessment and Plan Start: 05/29/19 08:43 Freq: NEEDED Status: Active Protocol: Document 05/29/19 10:49 AW (Rec: 05/29/19 11:23 AW [id number]) PT Summary Assessment and Plan Potential Rehabilitation Potential Excellent Status of Condition at Evaluation Stable Summary Impairments Pain,ROM,Strength,Bed Mobility ,Transfers,Gait Assessment Summary En is a 68 yo man seen for PT evaluation on POD1 following laparotomy with lysis of adhesions. At baseline, pt has ankylosing spondylitis with fused cervical segments, but manages independent mobility with falls at a rate of 2/year without injury. On evaluation , he required min assist for supine to sit when exiting the bed to his left which he must do at home. He needed SBA for all other mobility. PT anticipates he will meet the goals of this plan of care and be safe to discharge home when medically cleared. Goals Bed Mobility Goal Independent Transfer Goal Independent Gait Goal Independent Gait Distance 300 Other Goals - up/down 3 steps with right rail ascending independent Frequency of Treatment Frequency Of Treatment Once a Day Treatment Plan Physical Therapy Treatment Plan Bed Mobility Training,Transfer Training,Gait Training, Therapeutic Exercise,Balance Retraining,Post Op Education, Discharge Planning Other Recommendations and Next Treatment review log roll for bed Focus mobility, re-assess gait for level of assist Recommendations To Nursing Amount of Assist Needed Standby Assistance Discharge Recommendations PT Discharge Recommendations Home Transportation Needs at Discharge Private Vehicle
--- NOTE | 2019-05-29 12:04 | P.PN_ITS ---
Subjective Subjective Date Patient Seen: 05/29/19 Time Patient Seen: 12:04 Interval history: The patient is a gentleman who had exploration for small bowel obstruction probably brought on by eating a lb CABG as I found a great deal of vegetable material prior to the point of obstruction. In any event he is very sleepy and tired is he slept poorly last night. He is feeling better not having pain unless he moves. Remains distended he says. NG tube is in place. Exam Vital Signs (past 8 hours): - 05/29/19 06:23 05/29/19 08:00 05/29/19 08:10 Temperature 98.9 F 99.3 F Pulse Rate 74 84 76 Respiratory Rate 16 15 Blood Pressure 133/81 153/93 H Pulse Oximetry 94 98 97 Oxygen Delivery Method Room Air Oxygen Flow Rate 0 Narrative Exam Narrative: Abdomen is distended soft. His dressing is dry and intact. Lungs are clear to auscultation with good air movement. Heart slow but regular rate and rhythm (patient was placed on a beta-gayathri) Objective Labs Result Diagrams: 05/29/19 05:11 05/29/19 05:11 Labs: Laboratory Results - last 24 hr 05/28/19 05/29/19 05/29/19 10:21 05:11 05:11 WBC 14.2 H RBC 4.55 Hgb 12.7 L Hct 38.7 L MCV 85.2 MCH 28.0 MCHC 32.8 RDW 17.2 H Plt Count 259 Neut % (Auto) 66.8 D Lymph % (Auto) 19.1 L Simpson % (Auto) 14.0 Eos % (Auto) 0.0 L Baso % (Auto) 0.1 Neut # (Auto) 9500 H Lymph # (Auto) 2700 Simpson # (Auto) 2000 H Eos # (Auto) 0 Baso # (Auto) 0 Sodium 142 Potassium 4.3 Chloride 101 Carbon Dioxide 29 BUN 23 H Creatinine 1.00 Estimated GFR > 60.0 BUN/Creatinine Ratio 23.0 H Glucose 119 H Calcium 8.7 Magnesium 1.9 Total Bilirubin 0.8 AST 29 ALT 17 Alkaline Phosphatase 42 Total Protein 7.7 Albumin 3.7 Globulin 4.0 Albumin/Globulin Ratio 0.9 L Lipase Cancelled Assessment & Plan Post-op Postoperative Procedures: Procedures Operation Date: 05/28/19 11:45 Actual Procedures Side Surgeon p Exploratory Laparotomy GEN, SMALL BOWEL RESECTION Mario Pyle MD Postoperative status narrative: Doing pretty much as expected postop day 1. NG his continued to drain. Leave it in place for now. Due to his distention. His begun on DVT prophylaxis has been on sequential compression devices will add a proton pump inhibitor because of the stress of his procedure and there is some dark material in the NG tube. Postoperative plan narrative: See above.
[2019-05-29] MEDS: PANTOPRAZOLE 40 MG VIAL IV (12:28)
[2019-05-29] MEDS: DEXTROSE 5%-LACTATED RINGERS 1,000 ML 125 ML IV ×2 (12:28→19:53)
[2019-05-30] VITALS (8 sets, daily range): BP systolic 93–120; BP diastolic 51–88; PULSE 65–88; RESP 14–17; TEMP 36.5–37.4; O2SAT 92–99
[2019-05-30] MEDS: MORPHINE 4 MG/ML INJ IV (00:34)
--- NOTE | 2019-05-30 02:16 | PC.NURSE ---
Pt BP at 96/51. HR at 65. Pt asymptomatic and denies complaints. Holding metoprolol for now
[2019-05-30] MEDS: DEXTROSE 5%-LACTATED RINGERS 1,000 ML 125 ML IV ×3 (04:28→19:28)
--- NOTE | 2019-05-30 06:19 | PC.NURSE ---
Pt alert and oriented x4. Pain unresolved with Tordol, pt requested morphine. No complaints of pain post morphine. NGT right nare with intermittent suction at 100mm. Small amount of light brown/santiago drainage. Pt midline incision with bulky dressing, moderate amount of sanguineous drainage overnight. Dressing changed this AM, pt tolerated well.
[2019-05-30 06:55] LABS: Add Manual Diff / Slide Review NO; Basophils Absolute Auto 100 /uL (0-100); Basophils Percent Auto 0.8 % (0-2); Eosinophils Absolute Auto 200 /uL (0-450); Eosinophils Percent Auto 2.9 % (2-4); Hematocrit 33.8 % (41-53); Hemoglobin 11.1 g/dL (13.5-17.5); Lymphocytes Absolute Auto 2600 /uL (1100-4500); Lymphocytes Percent Auto 30.3 % (25-40); Mean Corpuscular HGB Conc 32.9 % (30-36); Mean Corpuscular Hemoglobin 28.3 PG (26-34); Mean Corpuscular Volume 85.9 fL (80-100); Monocytes Absolute Auto 1000 /uL (0-900); Monocytes Percent Auto 11.4 % (3-14); Neutrophils Absolute Auto 4600 /uL (1500-7000); Neutrophils Percent Auto 54.6 % (50-75); Platelet Count 208 X10^3/uL (150-400); Red Blood Cell Count 3.94 X10^6/uL (4.5-5.9); White Blood Cell Count 8.5 X10^3/uL (4.5-11.0)
[2019-05-30 07:02] LABS: Magnesium 2.1 mg/dL (1.6-2.3)
[2019-05-30 07:03] LABS: BUN Creatinine Ratio 23.3 (6-22); Blood Urea Nitrogen 21 mg/dL (9-20); Calcium 8.5 mg/dL (8.4-10.2); Carbon Dioxide 30 mmol/L (22-32); Chloride 102 mmol/L (98-107); Estimated Glomerular Filt Rate > 60.0 mL/min (>60); Glucose 98 mg/dL (80-110); HEMOLYSIS < 15 (0-50); Potassium 3.6 mmol/L (3.4-5.1); Sodium 136 mmol/L (137-145)
--- NOTE | 2019-05-30 08:46 | CM.DANOTE ---
Discharge Planning/Care Management DCP: assessment: case received yesterday, EMR reviewed and discussed in Team Rounds. Noted that pt was post op day one from abdominal surgery and would be here several days so caseload triage decision made to see pt today to continue the assessment process. Met this morning with pt; introduced self and role. He was found lying in bed, NG to Suction in place and with some brownish drainage in tubing, very agreeable to conversation. Pt is a 68 year old male who admitted to care of [facility]: Dr. Pyle on 05/28. He was taken to surgery that evening: Laparotomy with ERICA and Small Bowel Resection. PCP: Dr. Dami Olivia: on [facility] and last appt was about a week ago. Pt confirms that even though he now lives in [place] (see DCP template below) he has extended family on [place] and is very close to them. He anticipates he will need to stay with them for a bit after hospital stay. Payer: Medicare and Medicaid [facility]. 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 He has learned to cope and continue his life with this evolving and worsening process and is able to live independently and including driving. He tries to walk 2 miles a day. PT is seeing pt. Currently pt remains NPO. Says he is most looking forward to having a cup of coffee. DCP team will be following as POC unfolds to assist with any d/c needs that may arise. P: at this point: home setting: likely with family on [place] before a return to his mobile home in [place]. Pt notes don't worry about me, I have lots of great family support. Advanced directive, confirm from FAMILY Start: 05/28/19 16:51 Freq: Q24H Status: Active Protocol: Document 05/28/19 16:51 EM (Rec: 05/28/19 16:51 EM [id number]) Advance Directive, confirm on record Time 16:51 Person contacted Don Copy received No CM Discharge Assessment Start: 05/30/19 08:43 Freq: Status: Active Protocol: Document 05/30/19 08:44 ITV (Rec: 05/30/19 08:46 ITV [id number]) Discharge Planning Assessment Advance Directives? Yes History Provided By Patient,Medical Record Prior Living Arrangements Mobile home Comment lives outside of [facility] Household Members none Type of transporation used prior to Drives own vehicle admit Independent with ADL's Yes: limitations of disability Is patient alert and oriented? Yes Whiteboard Updated in Patient Room with Yes name and ext. # of Daycare Director Review Status In Process
[2019-05-30] MEDS: ENOXAPARIN 40 MG/0.4 ML SYRINGE SUBCUT (09:35)
[2019-05-30] MEDS: PANTOPRAZOLE 40 MG VIAL IV (09:35)
[2019-05-30] MEDS: MORPHINE 2 MG/ML INJ IV ×4 (09:35→19:27)
[2019-05-30] MEDS: atenoloL 25 MG TABLET PO (09:36)
[2019-05-30] MEDS: TAMSULOSIN 0.4 MG CAPSULE PO (09:36)
--- NOTE | 2019-05-30 10:49 | PT.IPTN ---
Current Diagnoses Unspecified intestinal obstruction, unspecified as to partial versus complete obstruction (05/28/19) Surgery Performed Operation Date: 05/28/19 11:45 Actual Procedures p Exploratory Laparotomy GEN, SMALL BOWEL RESECTION - Mario Pyle MD Physical Therapy Treatment Note M2 PT-IP Current Condition Start: 05/29/19 08:43 Freq: NEEDED Status: Active Protocol: Document 05/29/19 10:49 AW (Rec: 05/29/19 11:23 AW [id number]) Physical Therapy Current Condition Current Condition Evaluation Date 05/29/19 Treatment Diagnosis s/p laparatomy, lysis of adhesions; impaired mobility Onset Date 05/28/19 Precautions Abdominal Surgery Precautions Log Roll,Lifting Restrictions, Gait Belt above Incisional Area Other Precautions NG to suction with 1-hour breaks for oral meds intake Weight Bearing Status Weight Bearing Status Full Weight Bearing M3 PT-IP Subjective Start: 05/29/19 08:43 Freq: NEEDED Status: Active Protocol: Document 05/30/19 10:31 KS (Rec: 05/30/19 12:30 KS [id number]) Subjective Physical Therapy Visit Type Type Treatment Note Visit Start Time 10:31 Visit Stop Time 10:49 Total Visit Minutes 18 Physical Therapy Visit Comments Patient Comments Pt is eager to participate w/ therapy and go for a walk. Patient Goals Pt hopes to discharge home independently Therapy Pain Assessment Pain When Pain Assessed During Mobility Pain Present Pain Present Pain Reported Location abd Intensity 4 Scale Used 3/10 at rest; 4/10 during ambulation Pain Management Techniques Re-positioning,Timing of Activity with Medications M4 PT-IP Mobility and Gait Start: 05/29/19 08:43 Freq: NEEDED Status: Active Protocol: Document 05/30/19 10:31 KS (Rec: 05/30/19 12:30 KS [email or web address]) PT-Bed Mobility Assessment Rolling Type of Rolling Log Rolling,Roll to Left Level of Assist Standby Assistance Supine to Sit Supine to Sit Standby Assistance Scooting Scooting to Edge of Bed Independent Scooting Up and Down in Bed Independent PT-Transfer Assessment Sit to and From Stand Sit to and from Stand Standby Assistance Equipment Transfer Assistive Device None,Gait Belt Orthotic/Prosthetic Devices or Brace: No Transfers Transfer Destination Bed,Chair Transfer Technique Pt ambulated w/o AD Transfer Ability Level of Assist Standby Assistance Comments Mobility Comments Pt was in bed upon arrival from therapy and stated he was a little tired, but wanting to get up for a walk. Pt was SBA for all bed mobilty, and completed logroll successfully w/o need for cues. Reminded pt of no lifting precaution. SBA for scooting and sit<> stand from EOB. Pt then ambulated w/o AD, returned to room and sat in chair SBA w/ correct lowering slowly into chair. Pt left in chair w/ all needs in reach. Gait Assessment Gait Gait Assistance Required: Standby Assistance,Contact Guard Assist Distance (Feet) 500 Able to Maintain Weight Bearing Status Yes During Gait Assistive Devices Assistive Device None,Gait Belt Gait Deviations General Gait Pattern Antalgic,Decreased Stride Length,Decreased Feet Clearance,Flexed Trunk Factors Limiting Gait Function Factors Limiting Gait Function Decreased Activity Tolerance, Pain Comments Gait Comments Pt ambulated ~500 ft w/ SBA to CGA and no AD. Pt remained well balanced throughout gait training and had no complaints of fatigue, but does have decreased stride length due to decreased activity and pain. Pt stated that stomach pain gets slightly worse w/ ambulation. Stair Climbing Assessment Evaluation Level of Assist On Stairs Standby Assistance Devices Stair Climbing Assistive Devices Right Railing Technique/Endurance Stair Climbing Direction Ascend and Descend Stair Climbing Technique Step Over Step Number of Steps Climbed 3 Stair Climbing Set # Repetitions (reps) 1 Comments Stair Climbing Comments Pt was able to complete stairs step over step ascending and descending w/ use of R rail and no cues necessary. PT-Balance Assessment Sitting Balance and Reactions Static Sitting Balance Ability Normal Dynamic Sitting Balance Ability Normal Standing Balance and Reactions Static Standing Balance Ability Good Dynamic Standing Balance Ability Good Device Used no AD M5 PT-IP Objective Assessments Start: 05/29/19 08:43 Freq: NEEDED Status: Active Protocol: Document 05/29/19 10:49 AW (Rec: 05/29/19 11:23 AW [id number]) Orientation Orientation/Cognition Level of Alertness Alert Orientation Name,Day of Week,Place, Situation Language Function Ability No Deficits Noted Safety Awareness Understands Safety Issues Memory Description No Deficits Noted Gross Range of Motion Upper Extremity ROM Assessment Left Impaired Impairments history of remote left RC pathology, active elevation limited to 45 degrees in all planes Lower Extremity ROM Assessment Within Functional Limits Strength Upper Extremity Strength Assessment Right Impaired Lower Extremity Strength Assessment Within Functional Limits Coordination Assessment Gross Coordination Gross Coordination WNL Sensation Assessment Sensation Gross Sensation WNL Muscle Tone Muscle Tone WNL Yes M6 PT-IP Treatment Start: 05/29/19 08:43 Freq: NEEDED Status: Active Protocol: Document 05/30/19 10:31 KS (Rec: 05/30/19 12:30 KS [email or web address]) Physical Therapy Treatment Education Education Provided Precautions,Weight Bearing Status,Safety M7 PT-IP Assessment and Plan Start: 05/29/19 08:43 Freq: NEEDED Status: Active Protocol: Document 05/30/19 10:31 KS (Rec: 05/30/19 12:30 KS [email or web address]) PT Summary Assessment and Plan Potential Rehabilitation Potential Excellent Status of Condition at Evaluation Stable Summary Impairments Pain,ROM,Strength,Bed Mobility ,Transfers,Gait Assessment Summary Pt is progressing well towards goals and has increased ambulation distance today. SBA for all bed mobility and SBA to CGA for ambulation, SBA for stair training. Pt has slight increase in pain during ambulation from 3/10 to 4/10. Decreased stride length due to decreased activity and pain. Goals Bed Mobility Goal Independent Transfer Goal Independent Gait Goal Independent Gait Distance 300 Other Goals - up/down 3 steps with right rail ascending independent Frequency of Treatment Frequency Of Treatment Once a Day Treatment Plan Physical Therapy Treatment Plan Bed Mobility Training,Transfer Training,Gait Training, Therapeutic Exercise,Balance Retraining,Post Op Education, Discharge Planning Other Recommendations and Next Treatment review log roll for bed Focus mobility, re-assess gait for level of assist Recommendations To Nursing Amount of Assist Needed Standby Assistance Discharge Recommendations PT Discharge Recommendations Home Transportation Needs at Discharge Private Vehicle
[2019-05-30] MEDS: FLUTICASONE 120 SPRAY/16 GM SPRAY.SUSP NASAL (14:13)
[2019-05-30] MEDS: KETOROLAC 15 MG/ML VIAL IV ×2 (14:15→21:32)
--- NOTE | 2019-05-30 15:53 | P.PN_ITS ---
Subjective Subjective Date Patient Seen: 05/30/19 Time Patient Seen: 12:45 Interval history: No acute events overnight. The patient complains of discomfort from the NG tube. He has not passed any flatus or stool. He says he has been ambulating. Exam Vital Signs (past 8 hours): - 05/30/19 08:00 05/30/19 12:00 05/30/19 15:47 Temperature 98.0 F 98.4 F 98.7 F Pulse Rate 69 88 68 Respiratory Rate 16 14 17 Blood Pressure 100/59 L 116/88 109/68 Pulse Oximetry 97 94 99 Oxygen Delivery Method Room Air Oxygen Flow Rate 0 Narrative Exam Narrative: GENERAL: Alert, moderately uncomfortable, cooperative. Appears stated age. Answers questions promptly and appropriately. Vital signs noted. HENT: Normocephalic, atraumatic. Hearing intact. Oral mucosa is pink and moist. NG tube in place. EYES: Conjunctiva pink, sclera white, no periorbital swelling. CARDIOVASCULAR: Regular rate. No pedal edema. RESPIRATORY: Non-tachypneic, breathing comfortably on room air. GASTROINTESTINAL: Abdomen soft, moderately distended, appropriate tenderness to palpation for postop day 2, incision clean, dry, and intact. MUSCULOSKELETAL: Equal tone and mass bilaterally. SKIN: Warm, dry, soft, appropriate color for ethnicity. No other lesions, rashes, or wounds. NEURO: Alert and Oriented X 3. No gross sensory deficits, or cognitive issues. PSYCH: Appropriate affect and mood. Objective Labs Result Diagrams: 05/30/19 06:34 05/30/19 06:34 Labs: Laboratory Results - last 24 hr 05/30/19 05/30/19 05/30/19 06:34 06:34 06:34 WBC 8.5 RBC 3.94 L Hgb 11.1 L Hct 33.8 L MCV 85.9 MCH 28.3 MCHC 32.9 RDW 17.0 H Plt Count 208 Neut % (Auto) 54.6 Lymph % (Auto) 30.3 [place] % (Auto) 11.4 Eos % (Auto) 2.9 Baso % (Auto) 0.8 Neut # (Auto) 4600 Lymph # (Auto) 2600 [place] # (Auto) 1000 H Eos # (Auto) 200 Baso # (Auto) 100 Sodium 136 L Potassium 3.6 Chloride 102 Carbon Dioxide 30 BUN 21 H Creatinine 0.90 Estimated GFR > 60.0 BUN/Creatinine Ratio 23.3 H Glucose 98 Calcium 8.5 Magnesium 2.1 Assessment & Plan Assessment and plan (1) Hernia of abdominal wall: Current visit: Yes Status: Acute (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 Labs are improving, NG tube output is fairly minimal, patient has not passed any gas or stool since surgery. He is complaining of sinus congestion. He normally uses Afrin twice a day. Plan: Flonase daily for nasal congestion Continue NG tube until patient is passing flatus Ambulate frequently DC IV metoprolol Time Spent With Patient Time with patient: 15-24 minutes Quality VTE Deep Vein Thrombosis/Pulmonary Embolism Present on Admission: No
--- NOTE | 2019-05-30 16:44 | PC.NURSE ---
Addendum entered by Stacy Grullon R.N. 05/30/19 23:44: Ambulated in hallway this evening and then up in chair. Returned to bed and suction to LIS. Denies any passage of flatus. Morphine and toradol to manage pain. Encouraged head of bed @ 30 degrees as pt can tolerate. Original Note: Pt resting quietly in bed with head of bed elevated. Limited movement of joints d/t underlying chronic condition. Denies nausea. Rates abdominal and back pain 2/10. Denies passage of flatus. Abdomen is distended with absent bowel tones. Dressing to central abdomen is dry and intact. Declines scd's but is actively ankle waving while awake in bed. Requests ambulation this evening when staff is available.
[2019-05-31 00:15] VITALS: BP 119/55; BP 98/56; PULSE 72; RESP 14; TEMP 36.4; O2SAT 97
[2019-05-31] MEDS: MORPHINE 2 MG/ML INJ IV ×4 (01:25→11:31)
[2019-05-31] MEDS: DEXTROSE 5%-LACTATED RINGERS 1,000 ML 125 ML IV ×3 (04:19→20:14)
[2019-05-31 04:25] VITALS: BP 142/80; PULSE 67; RESP 14; TEMP 36.4; O2SAT 99
[2019-05-31 05:37] LABS: Add Manual Diff / Slide Review NO; Basophils Absolute Auto 100 /uL (0-100); Basophils Percent Auto 0.6 % (0-2); Eosinophils Absolute Auto 500 /uL (0-450); Eosinophils Percent Auto 5.4 % (2-4); Hematocrit 33.8 % (41-53); Hemoglobin 11.3 g/dL (13.5-17.5); Lymphocytes Absolute Auto 2500 /uL (1100-4500); Lymphocytes Percent Auto 28.8 % (25-40); Mean Corpuscular HGB Conc 33.3 % (30-36); Mean Corpuscular Hemoglobin 28.5 PG (26-34); Mean Corpuscular Volume 85.4 fL (80-100); Monocytes Absolute Auto 900 /uL (0-900); Neutrophils Absolute Auto 4800 /uL (1500-7000); Neutrophils Percent Auto 55.2 % (50-75); Platelet Count 218 X10^3/uL (150-400); Red Blood Cell Count 3.96 X10^6/uL (4.5-5.9); Red Cell Distribution Width 16.8 % (11.6-14.8); White Blood Cell Count 8.6 X10^3/uL (4.5-11.0)
[2019-05-31 05:43] LABS: BUN Creatinine Ratio 15.6 (6-22); Blood Urea Nitrogen 14 mg/dL (9-20); Calcium 8.9 mg/dL (8.4-10.2); Carbon Dioxide 30 mmol/L (22-32); Chloride 105 mmol/L (98-107); Estimated Glomerular Filt Rate > 60.0 mL/min (>60); Glucose 110 mg/dL (80-110); HEMOLYSIS < 15 (0-50); Magnesium 1.9 mg/dL (1.6-2.3); Potassium 3.5 mmol/L (3.4-5.1); Sodium 138 mmol/L (137-145)
[2019-05-31 08:00] VITALS: BP 114/70; PULSE 74; RESP 14; TEMP 37.2; O2SAT 95
[2019-05-31] MEDS: KETOROLAC 15 MG/ML VIAL IV ×2 (08:32→16:19)
[2019-05-31] MEDS: ENOXAPARIN 40 MG/0.4 ML SYRINGE SUBCUT (08:33)
[2019-05-31] MEDS: PANTOPRAZOLE 40 MG VIAL IV (08:33)
[2019-05-31] MEDS: FLUTICASONE 120 SPRAY/16 GM SPRAY.SUSP NASAL (09:21)
[2019-05-31] MEDS: TAMSULOSIN 0.4 MG CAPSULE PO (09:21)
[2019-05-31] MEDS: atenoloL 25 MG TABLET PO (09:21)
--- NOTE | 2019-05-31 10:14 | PC.NURSE ---
Addendum entered by Josie Hawkins R.N. 05/31/19 14:06: GI - pt reported passing addl flatus after mobilization. Addendum entered by Josie Hawkins R.N. 05/31/19 13:55: PAIN/MS/INTEG - given 5mg oxycodone with clear liq, then pt showered, some serosang leakage from distal end dsg, telfa w/abd pad over, pt states pain managed well with oxycodone and gabapentin, I feel much better, ambul hallway again with supervisor travel information center standby. Addendum entered by Josie Hawkins R.N. 05/31/19 11:47: GI/MS/INTEG - pt states pain 4 on scale 0/10, given 2mg iv morphine, in and he removed the ng, abd dsg, some serosang bleeding at distal end stapled incision, area cleaned and telfa placed until pt showers after lunch, started clear liq. Original Note: AM NOTE - pt is alert during bedside shift report, states earlier morphine 2mg iv only provided partial relief, I did better with the 4mg, discussed dosage, timing, added 15mg iv toradol and admin 2mg morphine this am, when pain decr to 2/10 this am, ng clamped and pt ambul hallway w/supervisor travel information center standby, gait steady, after 1 hr for po meds, ng reconnected to 100mmhg LIS, enc pt to chair, preferred ret bed.
--- NOTE | 2019-05-31 11:38 | P.PN_ITS ---
Subjective Subjective Date Patient Seen: 05/31/19 Time Patient Seen: 11:38 Interval history: No acute overnight events. Ambulatory. Minimal gastric content from in she passed flatus overnight. Exam Vital Signs (past 8 hours): - 05/31/19 04:25 05/31/19 08:00 Temperature 97.6 F 98.9 F Pulse Rate 67 74 Respiratory Rate 14 14 Blood Pressure 142/80 H 114/70 Pulse Oximetry 99 95 Oxygen Delivery Method Room Air Oxygen Flow Rate 0 Narrative Exam Narrative: General adult male alert oriented no acute distress Chest nonlabored respirations Abdomen mildly distended incision clean dry intact with armin appropriately tender to palpation Objective Labs Result Diagrams: 05/31/19 05:10 05/31/19 05:10 Labs: Laboratory Results - last 24 hr 05/31/19 05/31/19 05:10 05:10 WBC 8.6 RBC 3.96 L Hgb 11.3 L Hct 33.8 L MCV 85.4 MCH 28.5 MCHC 33.3 RDW 16.8 H Plt Count 218 Neut % (Auto) 55.2 Lymph % (Auto) 28.8 [place] % (Auto) 10.0 Eos % (Auto) 5.4 H Baso % (Auto) 0.6 Neut # (Auto) 4800 Lymph # (Auto) 2500 [place] # (Auto) 900 Eos # (Auto) 500 H Baso # (Auto) 100 Sodium 138 Potassium 3.5 Chloride 105 Carbon Dioxide 30 BUN 14 Creatinine 0.90 Estimated GFR > 60.0 BUN/Creatinine Ratio 15.6 Glucose 110 Calcium 8.9 Magnesium 1.9 Assessment & Plan Post-op Postoperative Procedures: Procedures Operation Date: 05/28/19 11:45 Actual Procedures Side Surgeon p Exploratory Laparotomy GEN, SMALL BOWEL RESECTION Mario Pyle MD Postoperative status narrative: 68-year-old man postoperative day 3 status post exploratory laparotomy small-bowel resection for a small-bowel obstruction. Doing well. Has return of bowel function. Nontoxic afebrile -Remove nasogastric tube start clear liquid diet -start p.o. pain meds. -discontinue IV fluids when tolerating diet -SCDs ambulation pLovenox Quality VTE Deep Vein Thrombosis/Pulmonary Embolism Present on Admission: No
[2019-05-31] MEDS: OXYCODONE IR 5 MG TABLET PO ×3 (12:11→20:13)
[2019-05-31] MEDS: GABAPENTIN 100 MG CAPSULE PO ×3 (12:12→20:13)
--- NOTE | 2019-05-31 14:07 | PT.IPTN ---
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) Other symptoms and signs involving the genitourinary system (05/28/19) Surgery Performed Operation Date: 05/28/19 11:45 Actual Procedures p Exploratory Laparotomy GEN, SMALL BOWEL RESECTION - Mario Pyle MD Physical Therapy Treatment Note M2 PT-IP Current Condition Start: 05/29/19 08:43 Freq: NEEDED Status: Active Protocol: Document 05/29/19 10:49 AW (Rec: 05/29/19 11:23 AW [id number]) Physical Therapy Current Condition Current Condition Evaluation Date 05/29/19 Treatment Diagnosis s/p laparatomy, lysis of adhesions; impaired mobility Onset Date 05/28/19 Precautions Abdominal Surgery Precautions Log Roll,Lifting Restrictions, Gait Belt above Incisional Area Other Precautions NG to suction with 1-hour breaks for oral meds intake Weight Bearing Status Weight Bearing Status Full Weight Bearing M3 PT-IP Subjective Start: 05/29/19 08:43 Freq: NEEDED Status: Active Protocol: Document 05/31/19 13:56 KS (Rec: 05/31/19 14:46 KS [id number]) Subjective Physical Therapy Visit Type Type Treatment Note Visit Start Time 13:56 Visit Stop Time 14:07 Total Visit Minutes 11 Number of CALL MANAGER Visits 2 Physical Therapy Visit Comments Patient Goals Pt hopes to discharge home independently M4 PT-IP Mobility and Gait Start: 05/29/19 08:43 Freq: NEEDED Status: Active Protocol: Document 05/31/19 13:56 KS (Rec: 05/31/19 14:46 KS [id number]) PT-Transfer Assessment Sit to and From Stand Sit to and from Stand Standby Assistance Equipment Transfer Assistive Device None,Gait Belt Orthotic/Prosthetic Devices or Brace: No Transfers Transfer Destination Chair Transfer Technique Pt ambulated w/o AD Transfer Ability Level of Assist Standby Assistance Comments Mobility Comments Pt was up beginning to walk w/ nursing staff and was taken over by therapy. Pt was SBA for all ambulation and remained balanced throughout treatment. After walking, pt returned to room and sat in chair SBA w/ good control while lowering to sit. Pt reports feeling much better today, especially after hearing from . Reviewed ankle pumps, glute sets, and instructed in quad sets. Pt left in chair w/ all needs in reach. Gait Assessment Gait Gait Assistance Required: Standby Assistance Distance (Feet) 380 Able to Maintain Weight Bearing Status Yes During Gait Assistive Devices Assistive Device None,Gait Belt Gait Deviations General Gait Pattern Antalgic,Decreased Stride Length,Decreased Feet Clearance Factors Limiting Gait Function Factors Limiting Gait Function Decreased Activity Tolerance, Pain Comments Gait Comments Pt ambulated ~380 ft SBA and no AD. Pt appears rigid while ambulating, in large part due to protection of spine/ ankylosing spondylitis. Pt also appears to be guarding to protect surgical site. Pt had no balance deficits while walking and ambulates and a safe pace w/ upright posture, but has decreased stride length and foot clearance likely d/t pain and decreased activity tolerance. M5 PT-IP Objective Assessments Start: 05/29/19 08:43 Freq: NEEDED Status: Active Protocol: Document 05/29/19 10:49 AW (Rec: 05/29/19 11:23 AW [id number]) Orientation Orientation/Cognition Level of Alertness Alert Orientation Name,Day of Week,Place, Situation Language Function Ability No Deficits Noted Safety Awareness Understands Safety Issues Memory Description No Deficits Noted Gross Range of Motion Upper Extremity ROM Assessment Left Impaired Impairments history of remote left RC pathology, active elevation limited to 45 degrees in all planes Lower Extremity ROM Assessment Within Functional Limits Strength Upper Extremity Strength Assessment Right Impaired Lower Extremity Strength Assessment Within Functional Limits Coordination Assessment Gross Coordination Gross Coordination WNL Sensation Assessment Sensation Gross Sensation WNL Muscle Tone Muscle Tone WNL Yes M6 PT-IP Treatment Start: 05/29/19 08:43 Freq: NEEDED Status: Active Protocol: Document 05/31/19 13:56 KS (Rec: 05/31/19 14:46 KS [id number]) Physical Therapy Treatment Exercises Exercises Ankle Pumps,Gluteal Sets,Quad Sets Education Education Provided Precautions,Post-Op Packet, Safety M7 PT-IP Assessment and Plan Start: 05/29/19 08:43 Freq: NEEDED Status: Active Protocol: Document 05/31/19 13:56 KS (Rec: 05/31/19 14:46 KS [id number]) PT Summary Assessment and Plan Potential Rehabilitation Potential Excellent Status of Condition at Evaluation Stable Summary Impairments Pain,ROM,Strength,Bed Mobility ,Transfers,Gait Assessment Summary Pt is in better spirits today and offers that he feels much better as well. Reviewed/ instructed LE strengthening exs. Ambulated ~380 ft w/ SBA and no AD. Pt appears to be rigid/guarding of spine and abdomen due to pain. Decreased stride and foot clearance. SBA for stand<>sit back in chair. Goals Bed Mobility Goal Independent Transfer Goal Independent Gait Goal Independent Gait Distance 300 Other Goals - up/down 3 steps with right rail ascending independent Frequency of Treatment Frequency Of Treatment Once a Day Treatment Plan Physical Therapy Treatment Plan Bed Mobility Training,Transfer Training,Gait Training, Therapeutic Exercise,Balance Retraining,Post Op Education, Discharge Planning Other Recommendations and Next Treatment review log roll for bed Focus mobility, re-assess gait for level of assist Recommendations To Nursing Amount of Assist Needed Standby Assistance Discharge Recommendations PT Discharge Recommendations Home Transportation Needs at Discharge Private Vehicle
[2019-05-31 14:49] VITALS: BP 130/71; PULSE 75; RESP 16; O2SAT 100
--- NOTE | 2019-05-31 16:33 | PC.NURSE ---
Addendum entered by Stacy Grullon R.N. 05/31/19 22:48: Pt positions self in bed onto right side in bed. Advanced to full liquid diet in a.m. Urinal use independently. Scd's off for sleep as per pt request. Addendum entered by Stacy Grullon R.N. 05/31/19 20:50: Dressing to central and distal abdomen saturated with fresh blood. Removed and oozing again observed central/distal staple line. Applied bulky 4 x 4's and covered with abd pad and silk tape. Applied ice pack over pt's gown to incisional site. Will continue to monitor. BL scd's in place. Clear liquids without difficulty. Oxycodone for chronic and acute pain as per emar. Original Note: Pt resting quietly in bed with eyes closed and head of bed slightly elevated. Denies nausea and states abdominal pain /. Requests oxycodone and this was given as well as toradol to manage pain/discomfort. BL calf scd's placed for several hours as per pt. Dressing to central abdomen-- distal aspect is saturated with fresh blood. This was removed. Active oozing of blood from distal staple line. Cleansed with 4 x 4 and placed bulky 4 x 4's over distal and proximal incision and covered with abd pad and secured with silk tape. Pt with mildlly distended abdomen. Admits to passing flatus. Clear liquid diet.
[2019-05-31 16:36] VITALS: BP 153/99; PULSE 70; RESP 20; TEMP 36.3; O2SAT 99
[2019-05-31 20:11] VITALS: BP 154/80; PULSE 73; RESP 21; TEMP 36.8; O2SAT 99
[2019-06-01 00:10] VITALS: BP 130/75; PULSE 69; RESP 18; TEMP 36.8; O2SAT 99
[2019-06-01 04:00] VITALS: BP 146/84; PULSE 81; RESP 18; TEMP 36.8; O2SAT 99
[2019-06-01] MEDS: DEXTROSE 5%-LACTATED RINGERS 1,000 ML 125 ML IV (04:04)
[2019-06-01 05:25] LABS: Add Manual Diff / Slide Review NO; Basophils Absolute Auto 0 /uL (0-100); Basophils Percent Auto 0.4 % (0-2); Eosinophils Absolute Auto 500 /uL (0-450); Hematocrit 30.5 % (41-53); Hemoglobin 10.2 g/dL (13.5-17.5); Lymphocytes Absolute Auto 2300 /uL (1100-4500); Lymphocytes Percent Auto 28.8 % (25-40); Mean Corpuscular HGB Conc 33.6 % (30-36); Mean Corpuscular Hemoglobin 28.4 PG (26-34); Mean Corpuscular Volume 84.8 fL (80-100); Monocytes Absolute Auto 700 /uL (0-900); Monocytes Percent Auto 8.6 % (3-14); Neutrophils Absolute Auto 4600 /uL (1500-7000); Neutrophils Percent Auto 56.2 % (50-75); Platelet Count 223 X10^3/uL (150-400); Red Cell Distribution Width 16.6 % (11.6-14.8); White Blood Cell Count 8.1 X10^3/uL (4.5-11.0)
[2019-06-01 05:32] LABS: BUN Creatinine Ratio 12.2 (6-22); Blood Urea Nitrogen 11 mg/dL (9-20); Calcium 8.4 mg/dL (8.4-10.2); Carbon Dioxide 30 mmol/L (22-32); Chloride 103 mmol/L (98-107); Estimated Glomerular Filt Rate > 60.0 mL/min (>60); Glucose 102 mg/dL (80-110); HEMOLYSIS < 15 (0-50); Magnesium 1.7 mg/dL (1.6-2.3); Potassium 3.3 mmol/L (3.4-5.1); Sodium 138 mmol/L (137-145)
[2019-06-01] MEDS: OXYCODONE IR 5 MG TABLET PO ×4 (05:43→18:57)
[2019-06-01 08:06] VITALS: BP 150/82; PULSE 76; RESP 16; TEMP 36.9; O2SAT 98
[2019-06-01] MEDS: PANTOPRAZOLE 40 MG VIAL IV (08:34)
[2019-06-01] MEDS: FLUTICASONE 120 SPRAY/16 GM SPRAY.SUSP NASAL (08:35)
[2019-06-01] MEDS: atenoloL 25 MG TABLET PO (08:35)
[2019-06-01] MEDS: TAMSULOSIN 0.4 MG CAPSULE PO (08:35)
[2019-06-01] MEDS: GABAPENTIN 100 MG CAPSULE PO ×3 (08:35→21:38)
[2019-06-01] MEDS: ENOXAPARIN 40 MG/0.4 ML SYRINGE SUBCUT (09:27)
--- NOTE | 2019-06-01 10:00 | P.PN_ITS ---
Subjective Subjective Date Patient Seen: 06/01/19 Time Patient Seen: 10:01 Interval history: Nasogastric tube removed yesterday started clear liquid diet and tolerated. No nausea. Continues to pass flatus. Abdomen feels less distended Exam Vital Signs (past 8 hours): - 06/01/19 04:00 06/01/19 08:06 Temperature 98.2 F 98.5 F Pulse Rate 81 76 Respiratory Rate 18 16 Blood Pressure 146/84 H 150/82 H Pulse Oximetry 99 98 Oxygen Delivery Method Room Air Oxygen Flow Rate 0 Narrative Exam Narrative: General adult male alert oriented no acute distress Chest nonlabored respiration Abdomen soft incision clean serosanguineous drainage overnight on dressings. Appropriately tender to palpation Objective Labs Result Diagrams: 06/01/19 05:00 06/01/19 05:00 Labs: Laboratory Results - last 24 hr 06/01/19 06/01/19 05:00 05:00 WBC 8.1 RBC 3.60 L Hgb 10.2 L Hct 30.5 L MCV 84.8 MCH 28.4 MCHC 33.6 RDW 16.6 H Plt Count 223 Neut % (Auto) 56.2 Lymph % (Auto) 28.8 [place] % (Auto) 8.6 Eos % (Auto) 6.0 H Baso % (Auto) 0.4 Neut # (Auto) 4600 Lymph # (Auto) 2300 [place] # (Auto) 700 Eos # (Auto) 500 H Baso # (Auto) 0 Sodium 138 Potassium 3.3 L Chloride 103 Carbon Dioxide 30 BUN 11 Creatinine 0.90 Estimated GFR > 60.0 BUN/Creatinine Ratio 12.2 Glucose 102 Calcium 8.4 Magnesium 1.7 Assessment & Plan Post-op Postoperative Procedures: Procedures Operation Date: 05/28/19 11:45 Actual Procedures Side Surgeon p Exploratory Laparotomy GEN, SMALL BOWEL RESECTION Mario Pyle MD Postoperative plan narrative: Postoperative day 4 status post exploratory laparotomy and small-bowel resection for a small-bowel obstruction. Doing well has return of bowel function nontoxic afebrile white count normal. -regular diet -DC IV fluids -replace electrolytes -p.o. pain meds -anticipate discharge home tomorrow Quality VTE Deep Vein Thrombosis/Pulmonary Embolism Present on Admission: No
[2019-06-01] MEDS: POTASSIUM CHLORIDE 20 MEQ/15 ML UDC 40 MEQ PO (10:23)
--- NOTE | 2019-06-01 10:44 | CM.DPC ---
DCP Cont: Checked for today's note from Dr. Mendoza, surgeon. It is anticipated that patient will be going home tomorrow. Checked P.T. notes, and patient has been ambulating with no barriers. Patient lives on [facility]. Dr. Olivia is his primary care provider. P: DCP to continue to be available for any resources needed. Plan is for home when medically stable, should be tomorrow. Renée Smith RN/Funeral Planner
--- NOTE | 2019-06-01 11:47 | PC.NURSE ---
Addendum entered by Josie Hawkins R.N. 06/01/19 14:22: MS/GI/PAIN/INTEG - pt shawn gen lunch I didn't eat much, denies nausea, up ambul hallway indep, gait steady, into br and had x3 small grape sized brown formed stools, dsg cdi, discussed pain mgt, 4 on scale 0/10 and given 5mg po oxycodone. Original Note: AM NOTE - pt is alert, states abd discomfort 3 on scale 0/10 after earlier oxycodone, abd is soft, moderately distended less than yesterday per pt, denies nausea, is passing flatus, Dr. Mendoza in this am and abd dsg removed, shown area clotting on dsg and has clotted drainage along distal end incision, no active bleeding now, per MD, admin lovenox, replaced dsg w/telfa, abd pad and 4x4 over, coarse crackles mid lobes, enc deep breathing, Dr. Mendoza dc'd ivf, now SL, and diet adv to gen for lunch, after oxycodone 5mg admin in am, pt up ambul hallway indep, gait steady.
[2019-06-01 13:11] VITALS: BP 145/60; PULSE 78; RESP 16; TEMP 37.1; O2SAT 99
--- NOTE | 2019-06-01 13:44 | PT-IP ANOTE ---
TIMBER INCISOR OPERATOR checked on pt today. He is confident in his ability to ambulate independently and has no concerns about mobility at home. PT and nursing notes confirm independence. Will complete this order.
[2019-06-01 15:10] VITALS: BP 118/83; PULSE 71; RESP 17; TEMP 37.5; O2SAT 100
[2019-06-01 19:45] VITALS: BP 126/73; PULSE 80; TEMP 37.3; O2SAT 98
[2019-06-02 01:05] VITALS: BP 103/68; PULSE 87; RESP 18; TEMP 36.7; O2SAT 96
--- NOTE | 2019-06-02 01:13 | PC.NURSE ---
Addendum entered by Mirlande Murphy R.N. 06/02/19 06:41: Medicated with Oxycodone for 5/10 bilateral shoulder pain. Original Note: Patient is alert and oriented. Breath sounds CTA with RA sat of 96%. HRR. Denies nausea. BT present and passing flatus as well as had 2 stools yesterday. Abdomen is soft and distended. Dressing to abdomen is CDI. Voiding per urinal/toilet and denies dysuria, frequency or urgency. Does state he has some initial unsteadiness when getting up to bathroom so requested he call for assistance when he gets up; states he will use urinal in bed tonight. Chronic neck/chest/shoulder pain is 2/10 but declines offer of pain medication. Independent with turning self. Fall risk score is moderate; bed alarm activated for night time safety. Refuses SCD's so reminded to ankle wave when awake; verbalizes understanding. Plan is to DC home later today, so IV not restarted at this time.
[2019-06-02 04:45] VITALS: BP 112/70; PULSE 72; RESP 12; TEMP 36.8; O2SAT 98
[2019-06-02 05:13] LABS: Blood Urea Nitrogen 15 mg/dL (9-20); Calcium 8.9 mg/dL (8.4-10.2); Carbon Dioxide 29 mmol/L (22-32); Chloride 104 mmol/L (98-107); Estimated Glomerular Filt Rate > 60.0 mL/min (>60); Glucose 99 mg/dL (80-110); HEMOLYSIS < 15 (0-50); Magnesium 1.8 mg/dL (1.6-2.3); Potassium 3.8 mmol/L (3.4-5.1); Sodium 137 mmol/L (137-145)
[2019-06-02 05:18] LABS: Add Manual Diff / Slide Review NO; Basophils Absolute Auto 0 /uL (0-100); Basophils Percent Auto 0.6 % (0-2); Eosinophils Absolute Auto 500 /uL (0-450); Eosinophils Percent Auto 7.3 % (2-4); Hemoglobin 10.7 g/dL (13.5-17.5); Lymphocytes Absolute Auto 2300 /uL (1100-4500); Lymphocytes Percent Auto 33.2 % (25-40); Mean Corpuscular HGB Conc 34.3 % (30-36); Mean Corpuscular Hemoglobin 28.8 PG (26-34); Mean Corpuscular Volume 83.9 fL (80-100); Monocytes Absolute Auto 700 /uL (0-900); Monocytes Percent Auto 10.1 % (3-14); Neutrophils Absolute Auto 3300 /uL (1500-7000); Neutrophils Percent Auto 48.8 % (50-75); Platelet Count 233 X10^3/uL (150-400); Red Cell Distribution Width 16.3 % (11.6-14.8); White Blood Cell Count 6.8 X10^3/uL (4.5-11.0)
[2019-06-02] MEDS: OXYCODONE IR 5 MG TABLET PO ×2 (06:39→10:46)
[2019-06-02 08:00] VITALS: BP 153/85; PULSE 90; RESP 18; TEMP 36.4; O2SAT 100
--- NOTE | 2019-06-02 09:06 | PM.DS.1 ---
History of Present Illness History of Present Illness Date Patient Seen: 06/02/19 Time Patient Seen: 09:07 Chief complaint: WEAK AND TUMMY PAINS AND NOT FEELING WELL Narrative: The patient is a gentleman who carries a diagnosis of of recurrence colovesical fistula. He had declined re-exploration and has not had any air when urinating any longer. The fistula was demonstrated with a Gastrografin enema study though no fistula was seen with cystoscopy. He developed severe epigastric abdominal pain distention and vomiting yesterday through the night. He was seen in our emergency room found to have a bowel obstruction felt secondary to a Dumont's hernia and I was asked to see him. Discharge Providers Provider Date of admission: 05/28/19 11:19 Discharge Date: 06/02/19 Primary care physician: Dami Olivia MD Consults: 05/28/19 16:22 Consult to Discharge Planning Routine Comment: Consult to Physical Therapy Evaluate & Treat Comment: Physician Instructions: Evaluate and Treat Discharge provider: Joe Mendoza MD Summary Hospital Course Discharge Diagnosis: Small-bowel obstruction Hospital Course: This is a 68-year-old male who underwent exploratory laparotomy and a small-bowel resection for a small-bowel obstruction 05/28. Please refer to the operative note for further detail. His postoperative course was unremarkable. The had return of bowel function is nasogastric tube was discontinued and his diet was advanced as tolerated. On the date of discharge patient is doing well. His pain is well controlled is tolerating a regular diet having bowel movements and ambulating without assistance. Stable for discharge home at this time. Status at Discharge Cognitive/behavioral status at discharge: oriented Functional status at discharge: independent ambulation Overall status at discharge: patient is back to baseline Time Spent with Patient Time spent: Greater than 30 minutes Exam Vital Signs (past 8 hours): - 06/02/19 04:45 Temperature 98.3 F Pulse Rate 72 Respiratory Rate 12 Blood Pressure 112/70 Pulse Oximetry 98 Oxygen Delivery Method Room Air Oxygen Flow Rate 0 Narrative Exam Narrative: General-no acute distress, well nourished HEENT-moist mucous membranes, no scleral icterus Neck-supple, no lymphadenopathy Chest- non labored respirations, clear to auscultation bilaterally Cardiac-regular rate no peripheral edema Abdomen-soft incision clean dry intact with armin. Extremities-warm, well perfused Neurological-alert and oriented, no focal deficits Objective Labs Result Diagrams: 06/02/19 04:40 06/02/19 04:40 Labs: Laboratory Results - last 24 hr 06/02/19 06/02/19 04:40 04:40 WBC 6.8 RBC 3.70 L Hgb 10.7 L Hct 31.0 L MCV 83.9 MCH 28.8 MCHC 34.3 RDW 16.3 H Plt Count 233 Neut % (Auto) 48.8 L Lymph % (Auto) 33.2 [place] % (Auto) 10.1 Eos % (Auto) 7.3 H Baso % (Auto) 0.6 Neut # (Auto) 3300 Lymph # (Auto) 2300 [place] # (Auto) 700 Eos # (Auto) 500 H Baso # (Auto) 0 Sodium 137 Potassium 3.8 Chloride 104 Carbon Dioxide 29 BUN 15 Creatinine 1.00 Estimated GFR > 60.0 BUN/Creatinine Ratio 15.0 Glucose 99 Calcium 8.9 Magnesium 1.8 Discharge Plan Discharge Plan Patient Disposition: Home Discharge orders & Medications Prescriptions: New oxycodone 5 mg tablet 5 mg PO Q6H PRN (Reason: pain) Qty: 30 RF: 0 Continued oxycodone 5 mg tablet 5 mg PO QID RF: 0 omega-3 fatty acids 500 mg Capsule 500 mg PO DAILY RF: 0 pyridoxine (vitamin B6) [Vitamin B-6] 25 mg Tablet 1 tab PO DAILY RF: 0 cyanocobalamin (vitamin B-12) 100 mcg Tablet 100 mcg PO DAILY RF: 0 tamsulosin [Flomax] 0.4 mg Capsule 0.4 mg PO DAILY Qty: 30 RF: 0 ginkgo biloba 40 mg Capsule 40 mg PO BID RF: 0 golimumab 50 mg/0.5 mL pen injector 50 mg subcut QMONTH RF: 0 atenolol 25 mg Tablet 25 mg PO DAILY Qty: 30 RF: 12 Follow up/Referrals: Mario Pyle MD [Physician] - 1 Week Dami Olivia MD [Primary Care Provider] - Diet/Activity/Treatments Diet: Regular Activity: No lifting >20 lbs x 4 weeks. Walking only for exercise for 4 [address] while taking narcotics. Skin/Wound/Dressing Care Report to your healthcare provider any signs of infection, such as:: chills, fever, increased pain, unusual drainage and unusual redness Visit Report/Discharge Packet Instructions: DI Following Your Exploratory Laparotomy, Oxycodone Discharge Data Primary Care Provider: Dami Olivia VTE Deep Vein Thrombosis/Pulmonary Embolism Present on Admission: No
[2019-06-02] MEDS: TAMSULOSIN 0.4 MG CAPSULE PO (10:06)
[2019-06-02] MEDS: GABAPENTIN 100 MG CAPSULE PO (10:06)
[2019-06-02] MEDS: atenoloL 25 MG TABLET PO (10:06)
--- NOTE | 2019-06-02 12:01 | PC.NURSE ---
ABD drsg removed by this morning; wound open to air, well-approximated with armin, no discharge, richard-skin pink and intact; pt denies nausea; LS clear, pt reminded to cough/deep breath with pillow brace, pt voiced understanding; pt understands d/c instructions, including f/u appts, medications, wound care, s/sx infection, activity, and diet; pt declined wheelchair and walked to personal vehicle with escort by [employer] and tow car driver at 1100.
== END 2019-06-02 11:00 | disposition home or self-care (01) | DRG 331 ==
LOC: ED 10:08 → AC 11:20 → ICU 12:05 → AC 15:55
PROVIDERS: Surgery; Admitting Provider Specialist; Emergency Provider Emergency Medicine; Family Provider Family Medicine; PCP Family Medicine; Visit Provider Specialist
PROC: 0DB80ZZ Excision of Small Intestine, Open Approach (ICD-10-PCS; CPT 49000; principal; 2019-05-28 11:45)
DX: K56.50 Intestinal adhesions [bands], unspecified as to partial versus complete obstruction (principal); K43.2 Incisional hernia without obstruction or gangrene; M45.9 Ankylosing spondylitis of unspecified sites in spine; R39.89 Other symptoms and signs involving the genitourinary system
CPT/HCPCS: 36415; 74177; 80048; 80053; 81003; 82962; 83690; 83735; 85025; 85610; 85730; 93005; 93010; 94760; 96361; 96374; 97116; 97161; 99284; C9113; J0330; J1100; J1170; J1650; J1885; J2270; J2405; J2704; J3010; J7121; Q9967

== ENCOUNTER → 2020-09-22 11:41 | Outpatient (CLI) | payer MEDICARE, MEDICAID, SELFPAY ==
[2020-09-08 15:21] VITALS: BMI 22.5
[2020-09-22 19:40] LABS: Add Manual Diff / Slide Review NO; Basophils Absolute Auto 100 /uL (0-100); Basophils Percent Auto 0.6 % (0-2); Eosinophils Absolute Auto 200 /uL (0-450); Eosinophils Percent Auto 1.7 % (2-4); Hematocrit 44.1 % (41-53); Hemoglobin 14.4 g/dL (13.5-17.5); Lymphocytes Absolute Auto 2800 /uL (1100-4500); Lymphocytes Percent Auto 28.9 % (25-40); Mean Corpuscular HGB Conc 32.7 % (30-36); Mean Corpuscular Hemoglobin 30.3 PG (26-34); Mean Corpuscular Volume 92.7 fL (80-100); Monocytes Absolute Auto 800 /uL (0-900); Monocytes Percent Auto 8.4 % (3-14); Neutrophils Absolute Auto 5800 /uL (1500-7000); Neutrophils Percent Auto 60.4 % (50-75); Platelet Count 238 X10^3/uL (150-400); Red Blood Cell Count 4.75 X10^6/uL (4.5-5.9); Red Cell Distribution Width 13.7 % (11.6-14.8); White Blood Cell Count 9.6 X10^3/uL (4.5-11.0)
[2020-09-22 20:19] LABS: Erythrocyte Sedimentation Rate 36 MM/HR (0-15)
[2020-09-22 20:49] LABS: Hemoglobin A1C% w Est Avg Glu 5.3 % (4.0-6.0)
[2020-09-22 20:51] LABS: Alanine Aminotransferase 25 IU/L (<50); Albumin 4.5 g/dL (3.5-5.0); Alkaline Phosphatase 56 U/L (38-126); Aspartate Aminotransferase 38 IU/L (17-59); BUN Creatinine Ratio 15.4 (6-22); Bilirubin Total 1.1 mg/dL (0.2-1.3); Blood Urea Nitrogen 14 mg/dL (9-20); Calcium 10.3 mg/dL (8.4-10.2); Carbon Dioxide 25 mmol/L (22-32); Chloride 102 mmol/L (98-107); Estimated Glomerular Filt Rate > 60.0 mL/min (>60); Globulin 4.3 g/dL (1.7-4.1); Glucose 108 mg/dL (80-110); HEMOLYSIS 21 (0-50); Potassium 4.3 mmol/L (3.4-5.1); Sodium 137 mmol/L (137-145); Total Protein 8.8 g/dL (6.3-8.2)
[2020-09-22 21:21] LABS: Prostate Specific Antigen Scrn 1.98 ng/mL (0.1-4.0)
== END ==
PROVIDERS: Family Provider Family Medicine; PCP Family Medicine; Visit Provider Family Medicine
DX: E11.9 Type 2 diabetes mellitus without complications (principal); Z12.5 Encounter for screening for malignant neoplasm of prostate; M45.0 Ankylosing spondylitis of multiple sites in spine; F11.90 Opioid use, unspecified, uncomplicated; I10 Essential (primary) hypertension
CPT/HCPCS: 80053; 83036; 85025; 85651; G0103

== ENCOUNTER → 2021-07-27 09:27 | Outpatient (CLI) | payer MEDICARE, SELFPAY ==
[2020-09-08 15:21] VITALS: BMI 22.5
[2021-07-27 19:01] LABS: Add Manual Diff / Slide Review NO; Alanine Aminotransferase 32 IU/L (<50); Albumin 4.6 g/dL (3.5-5.0); Albumin Globulin Ratio 1.2 (1.0-2.8); Alkaline Phosphatase 47 U/L (38-126); Aspartate Aminotransferase 38 IU/L (17-59); BUN Creatinine Ratio 15.7 (6-22); Basophils Absolute Auto 100 /uL (0-100); Basophils Percent Auto 1.3 % (0-2); Bilirubin Total 0.9 mg/dL (0.2-1.3); Blood Urea Nitrogen 16 mg/dL (9-20); Calcium 9.8 mg/dL (8.4-10.2); Carbon Dioxide 28 mmol/L (22-32); Chloride 103 mmol/L (98-107); Eosinophils Absolute Auto 300 /uL (0-450); Eosinophils Percent Auto 3.2 % (2-4); Estimated Glomerular Filt Rate > 60.0 mL/min (>60); Globulin 3.9 g/dL (1.7-4.1); Glucose 119 mg/dL (80-110); HEMOLYSIS < 15 (0-50); Hematocrit 41.4 % (41-53); Hemoglobin 14.2 g/dL (13.5-17.5); Lymphocytes Absolute Auto 3500 /uL (1100-4500); Lymphocytes Percent Auto 43.9 % (25-40); Mean Corpuscular HGB Conc 34.3 % (30-36); Mean Corpuscular Hemoglobin 30.9 PG (26-34); Mean Corpuscular Volume 90.1 fL (80-100); Monocytes Absolute Auto 700 /uL (0-900); Monocytes Percent Auto 8.2 % (3-14); Neutrophils Absolute Auto 3400 /uL (1500-7000); Neutrophils Percent Auto 43.4 % (50-75); Platelet Count 187 X10^3/uL (150-400); Potassium 3.8 mmol/L (3.4-5.1); Red Cell Distribution Width 14.4 % (11.6-14.8); Sodium 139 mmol/L (137-145); Total Protein 8.5 g/dL (6.3-8.2); White Blood Cell Count 7.9 X10^3/uL (4.5-11.0)
[2021-07-27 19:02] LABS: Hemoglobin A1C% w Est Avg Glu 5.4 % (4.0-6.0)
[2021-07-27 19:30] LABS: Prostate Specific Antigen 1.33 ng/mL (0.10-4.00)
== END ==
PROVIDERS: Family Provider Family Medicine; PCP Family Medicine; Visit Provider Family Medicine
DX: N40.0 Benign prostatic hyperplasia without lower urinary tract symptoms (principal); I10 Essential (primary) hypertension; M46.90 Unspecified inflammatory spondylopathy, site unspecified; E78.5 Hyperlipidemia, unspecified; R73.03 Prediabetes
CPT/HCPCS: 80053; 83036; 84153; 85025

== ENCOUNTER → 2022-05-02 13:21 | Outpatient (CLI) | payer MEDICARE, SELFPAY ==
[2021-10-25 11:14] VITALS: BMI 22.5
[2022-05-02 19:32] LABS: Alanine Aminotransferase 66 IU/L (<50); Albumin 4.5 g/dL (3.5-5.0); Alkaline Phosphatase 53 U/L (38-126); Aspartate Aminotransferase 50 IU/L (17-59); BUN Creatinine Ratio 15.9 (6-22); Bilirubin Total 0.9 mg/dL (0.2-1.3); Blood Urea Nitrogen 14 mg/dL (9-20); Calcium 9.4 mg/dL (8.4-10.2); Carbon Dioxide 28 mmol/L (22-32); Chloride 102 mmol/L (98-107); Estimated Glomerular Filt Rate > 60 mL/min (>60); Globulin 4.3 g/dL (1.7-4.1); Glucose 90 mg/dL (80-110); HEMOLYSIS < 15 (0-50); Sodium 141 mmol/L (137-145); Total Protein 8.8 g/dL (6.3-8.2)
[2022-05-02 19:37] LABS: Hemoglobin A1C% w Est Avg Glu 5.5 % (4.0-6.0)
[2022-05-02 20:03] LABS: TSH w/ Reflex to FT4 1.27 uIU/mL (0.47-4.68)
== END ==
PROVIDERS: Family Provider Family Medicine; PCP Family Medicine; Visit Provider Family Medicine
DX: E11.9 Type 2 diabetes mellitus without complications (principal); I10 Essential (primary) hypertension; M45.0 Ankylosing spondylitis of multiple sites in spine; N40.0 Benign prostatic hyperplasia without lower urinary tract symptoms
CPT/HCPCS: 80053; 83036; 84443

== ENCOUNTER → 2022-08-24 13:24 | Outpatient (CLI) | payer MEDICARE, SELFPAY ==
[2022-08-24 13:15] VITALS: BMI 22.5
[2022-08-24 20:05] LABS: Add Manual Diff / Slide Review NO; Basophils Absolute Auto 0 /uL (0-100); Basophils Percent Auto 0.7 % (0-2); Eosinophils Absolute Auto 400 /uL (0-450); Eosinophils Percent Auto 6.5 % (2-4); Hematocrit 39.8 % (41-53); Hemoglobin 13.5 g/dL (13.5-17.5); Lymphocytes Absolute Auto 3100 /uL (1100-4500); Lymphocytes Percent Auto 44.6 % (25-40); Mean Corpuscular HGB Conc 33.9 % (30-36); Mean Corpuscular Hemoglobin 30.8 PG (26-34); Mean Corpuscular Volume 90.9 fL (80-100); Monocytes Absolute Auto 600 /uL (0-900); Monocytes Percent Auto 9.2 % (3-14); Neutrophils Absolute Auto 2700 /uL (1500-7000); Platelet Count 212 X10^3/uL (150-400); Red Blood Cell Count 4.38 X10^6/uL (4.5-5.9); Red Cell Distribution Width 13.4 % (11.6-14.8); White Blood Cell Count 6.9 X10^3/uL (4.5-11.0)
[2022-08-24 20:22] LABS: Alanine Aminotransferase 58 IU/L (<50); Albumin 4.4 g/dL (3.5-5.0); Albumin Globulin Ratio 1.2 (1.0-2.8); Alkaline Phosphatase 50 U/L (38-126); Aspartate Aminotransferase 48 IU/L (17-59); BUN Creatinine Ratio 14.6 (6-22); Bilirubin Total 0.9 mg/dL (0.2-1.3); Blood Urea Nitrogen 15 mg/dL (9-20); Calcium 9.1 mg/dL (8.4-10.2); Carbon Dioxide 29 mmol/L (22-32); Chloride 104 mmol/L (98-107); Estimated Glomerular Filt Rate > 60 mL/min (>60); Globulin 3.7 g/dL (1.7-4.1); Glucose 105 mg/dL (80-110); HEMOLYSIS < 15 (0-50); Potassium 4.3 mmol/L (3.4-5.1); Sodium 140 mmol/L (137-145); Total Protein 8.1 g/dL (6.3-8.2)
[2022-08-25 22:18] LABS: x Labcorp Estim. Avg Glu (eAG) 108 mg/dL (.); x Labcorp Hemoglobin A1c 5.4 % (4.8-5.6)
== END ==
PROVIDERS: Family Provider Family Medicine; PCP Family Medicine; Visit Provider Family Medicine
DX: M45.9 Ankylosing spondylitis of unspecified sites in spine (principal); Z79.620 Long term (current) use of immunosuppressive biologic; Z79.899 Other long term (current) drug therapy
CPT/HCPCS: 80053; 83036; 85025

== ENCOUNTER → 2022-12-28 13:59 | Outpatient (CLI) | payer MEDICARE, SELFPAY ==
[2022-08-24 13:15] VITALS: BMI 22.5
[2022-12-28 19:49] LABS: Alanine Aminotransferase 56 IU/L (<50); Albumin 4.4 g/dL (3.5-5.0); Albumin Globulin Ratio 1.1 (1.0-2.8); Alkaline Phosphatase 43 U/L (38-126); Aspartate Aminotransferase 49 IU/L (17-59); BUN Creatinine Ratio 15.6 (6-22); Bilirubin Total 0.7 mg/dL (0.2-1.3); Blood Urea Nitrogen 17 mg/dL (9-20); C-Reactive Protein Quant < 0.5 mg/dL (<1.0); Calcium 9.6 mg/dL (8.4-10.2); Carbon Dioxide 27 mmol/L (22-32); Chloride 103 mmol/L (98-107); Estimated Glomerular Filt Rate > 60 mL/min (>60); Globulin 3.9 g/dL (1.7-4.1); Glucose 105 mg/dL (80-110); HEMOLYSIS < 15 (0-50); Potassium 4.4 mmol/L (3.4-5.1); Sodium 138 mmol/L (137-145); Total Protein 8.3 g/dL (6.3-8.2)
[2022-12-28 19:55] LABS: Add Manual Diff / Slide Review NO; Basophils Absolute Auto 100 /uL (0-100); Basophils Percent Auto 0.9 % (0-2); Eosinophils Absolute Auto 300 /uL (0-450); Eosinophils Percent Auto 3.9 % (2-4); Hematocrit 39.9 % (41-53); Hemoglobin 13.6 g/dL (13.5-17.5); Lymphocytes Absolute Auto 3300 /uL (1100-4500); Lymphocytes Percent Auto 41.7 % (25-40); Mean Corpuscular HGB Conc 34.2 % (30-36); Mean Corpuscular Volume 90.6 fL (80-100); Monocytes Absolute Auto 800 /uL (0-900); Monocytes Percent Auto 10.2 % (3-14); Neutrophils Absolute Auto 3400 /uL (1500-7000); Neutrophils Percent Auto 43.3 % (50-75); Platelet Count 218 X10^3/uL (150-400); Red Cell Distribution Width 13.6 % (11.6-14.8); White Blood Cell Count 7.9 X10^3/uL (4.5-11.0)
[2022-12-28 20:06] LABS: Erythrocyte Sedimentation Rate 17 MM/HR (0-15); Hemoglobin A1C% w Est Avg Glu 5.1 % (4.0-6.0)
[2022-12-30 03:36] LABS: HBsAg Screen Negative (Negative); Hepatitis A Antibody IgM Negative (Negative); Hepatitis B Core Antibody IgM Negative (Negative); Hepatitis C Antibody Non Reactive (Non Reactive)
[2023-01-01 05:57] LABS: QuantiFERON Mitogen Value >10.00 IU/mL (.); QuantiFERON Nil Value 0.69 IU/mL (.); QuantiFERON TB Gold Plus Positive (Negative); QuantiFERON TB1 Ag Value 2.95 IU/mL (.); QuantiFERON TB2 Ag Value 0.68 IU/mL (.)
== END ==
PROVIDERS: Family Provider Family Medicine; PCP Family Medicine; Visit Provider Family Medicine
DX: E11.9 Type 2 diabetes mellitus without complications (principal); Z79.620 Long term (current) use of immunosuppressive biologic; F51.01 Primary insomnia; D70.9 Neutropenia, unspecified; I10 Essential (primary) hypertension; M45.9 Ankylosing spondylitis of unspecified sites in spine; R74.01 Elevation of levels of liver transaminase levels; R79.89 Other specified abnormal findings of blood chemistry
CPT/HCPCS: 80053; 80074; 83036; 85025; 85651; 86140; 86480

== ENCOUNTER → 2023-01-18 13:03 | Outpatient (CLI) | payer MEDICARE, SELFPAY ==
[2022-08-24 13:15] VITALS: BMI 22.5
[2023-01-18 19:25] LABS: Reticulocyte Count, Percent 0.7 % (0.9-2.6)
[2023-01-18 19:26] LABS: HEMOLYSIS < 15 (0-50); Iron 121 ug/dL (49-181)
[2023-01-18 19:36] LABS: Alanine Aminotransferase 46 IU/L (<50); Albumin 4.6 g/dL (3.5-5.0); Albumin Globulin Ratio 1.1 (1.0-2.8); Alkaline Phosphatase 48 U/L (38-126); Aspartate Aminotransferase 45 IU/L (17-59); Bilirubin Total 1.1 mg/dL (0.2-1.3); Bilirubin Unconjugated 0.8 mg/dL (0.0-1.1); Globulin 4.2 g/dL (1.7-4.1); HEMOLYSIS < 15 (0-50); Total Protein 8.8 g/dL (6.3-8.2)
[2023-01-18 19:38] LABS: Percent Iron Saturation 34 % (20-50); Total Iron Binding Capacity 357 ug/dL (261-462); Transferrin 260 mg/dL (206-381)
[2023-01-18 20:02] LABS: Ferritin 59 ng/mL (18-464)
[2023-01-18 20:33] LABS: Folate 8.4 ng/mL (2.76-20.0); Vitamin B12 969 pg/mL (239-931)
[2023-01-20 19:03] LABS: Free Kappa Lt Chains, Serum 51.8 mg/L (3.3-19.4); Free Lambda Lt Chains,Serum 33.9 mg/L (5.7-26.3)
[2023-01-22 13:24] LABS: Hepatitis B Surf Ab Qualitativ Non Reactive (.)
[2023-01-23 12:55] LABS: Albumin 3.9 g/dL (2.9-4.4); Alpha-1-Globulin 0.2 g/dL (0.0-0.4); Alpha-2-Globulin 0.6 g/dL (0.4-1.0); Gamma Globulin 2.2 g/dL (0.4-1.8); Protein, Total 7.9 g/dL (6.0-8.5)
== END ==
PROVIDERS: Family Provider Family Medicine; PCP Family Medicine; Visit Provider Family Medicine
DX: E11.9 Type 2 diabetes mellitus without complications (principal); R77.9 Abnormality of plasma protein, unspecified; R74.01 Elevation of levels of liver transaminase levels; Z79.620 Long term (current) use of immunosuppressive biologic; M45.9 Ankylosing spondylitis of unspecified sites in spine; D64.9 Anemia, unspecified; G62.9 Polyneuropathy, unspecified
CPT/HCPCS: 80076; 82607; 82728; 82746; 83540; 83550; 83883; 84155; 84165; 85045; 86706

== ENCOUNTER → 2023-01-25 14:49 | Outpatient (CLI) | payer MEDICARE, SELFPAY ==
[2022-08-24 13:15] VITALS: BMI 22.5
--- NOTE | 2023-01-25 14:50 | DI.US.S_ITS ---
PROCEDURE: US ABDOMEN LIMITED INDICATIONS: ELEVATED LIVER TRANSAMINASE LEVELS TECHNIQUE: Real-time scanning was performed of the abdominal and retroperitoneal organs, with image documentation. COMPARISON: None. FINDINGS: Liver: The liver measures 19.4 cm in length and demonstrates increased echogenicity. Septated, anechoic cysts are visualized within the liver. A left cyst measures 2.5 cm in diameter and a right cyst measures 2.4 cm in diameter. Gallbladder: The gallbladder wall measures 3 mm in diameter. No stones, sludge, pericholecystic fluid, or sonographic Mercedes sign. Biliary ducts: Intrahepatic bile ducts are non-dilated. Extrahepatic bile duct caliber measures 3.8 mm. Normal is 6-7 mm or less in diameter, or 10 mm or less post-cholecystectomy. Pancreas: Visualized portions of the pancreas are sonographically normal. The body and tail of the pancreas are not visualized. IMPRESSION: 1. Increased hepatic echogenicity noted likely related to fatty infiltration of the liver but other sources of hepatocellular disease cannot be excluded. 2. No cholelithiasis or findings to suggest choledocholithiasis or acute cholecystitis. Dictated by: Rachna Meier M.D. on 01/25/2023 at 17:28 Approved by: Rachna Meier M.D. on 01/25/2023 at 17:30
== END ==
PROVIDERS: Family Provider Family Medicine; PCP Family Medicine; Referring Provider Family Medicine; Visit Provider Family Medicine
DX: R77.9 Abnormality of plasma protein, unspecified (principal); R74.01 Elevation of levels of liver transaminase levels; Z79.620 Long term (current) use of immunosuppressive biologic; K76.89 Other specified diseases of liver
CPT/HCPCS: 76705

== ENCOUNTER → 2023-07-09 13:04 | Outpatient (CLI) | payer MEDICARE, SELFPAY ==
[2022-08-24 13:15] VITALS: BMI 22.5
[2023-07-09 19:11] LABS: Add Manual Diff / Slide Review NO; Basophils Absolute Auto 100 /uL (0-100); Basophils Percent Auto 0.8 % (0-2); Eosinophils Absolute Auto 300 /uL (0-450); Eosinophils Percent Auto 3.8 % (2-4); Hematocrit 39.5 % (41-53); Lymphocytes Absolute Auto 2800 /uL (1100-4500); Lymphocytes Percent Auto 40.1 % (25-40); Mean Corpuscular Hemoglobin 30.3 PG (26-34); Mean Corpuscular Volume 91.7 fL (80-100); Monocytes Absolute Auto 700 /uL (0-900); Monocytes Percent Auto 10.2 % (3-14); Neutrophils Absolute Auto 3100 /uL (1500-7000); Neutrophils Percent Auto 45.1 % (50-75); Platelet Count 195 X10^3/uL (150-400)
[2023-07-09 19:30] LABS: Erythrocyte Sedimentation Rate 18 MM/HR (0-15)
[2023-07-09 19:32] LABS: Alanine Aminotransferase 39 IU/L (<50); Albumin 4.2 g/dL (3.5-5.0); Albumin Globulin Ratio 1.1 (1.0-2.8); Alkaline Phosphatase 47 U/L (38-126); Aspartate Aminotransferase 40 IU/L (17-59); Blood Urea Nitrogen 20 mg/dL (9-20); C-Reactive Protein Quant 0.5 mg/dL (<1.0); Calcium 9.3 mg/dL (8.4-10.2); Carbon Dioxide 28 mmol/L (22-32); Chloride 104 mmol/L (98-107); Cholesterol 204 mg/dL (140-199); Estimated Glomerular Filt Rate > 60 mL/min (>60); Globulin 3.9 g/dL (1.7-4.1); Glucose 117 mg/dL (80-110); HDL Cholesterol 48 mg/dL (40-60); HEMOLYSIS < 15 (0-50); LDL Cholesterol Calculated 123 mg/dL (<100); Potassium 4.6 mmol/L (3.4-5.1); Sodium 137 mmol/L (137-145); Total Protein 8.1 g/dL (6.3-8.2); Triglycerides 164 mg/dL (35-150)
[2023-07-09 19:59] LABS: Thyroid Stimulating Hormone 1.11 uIU/mL (0.47-4.68)
[2023-07-13 10:48] LABS: Calcium 9.3 mg/dL (8.6-10.2); Parathyroid Hormone, Intact 51 pg/mL (15-65)
[2023-07-13 12:49] LABS: QuantiFERON Mitogen Value >10.00 IU/mL (.); QuantiFERON Nil Value 0.75 IU/mL (.); QuantiFERON TB Gold Plus Negative (Negative); QuantiFERON TB1 Ag Value 0.86 IU/mL (.); QuantiFERON TB2 Ag Value 0.64 IU/mL (.)
== END ==
PROVIDERS: Family Provider Family Medicine; PCP Family Medicine; Visit Provider Family Medicine
DX: R76.12 Nonspecific reaction to cell mediated immunity measurement of gamma interferon antigen response without active tuberculosis (principal); E83.52 Hypercalcemia; Z13.6 Encounter for screening for cardiovascular disorders; R74.01 Elevation of levels of liver transaminase levels; Z79.620 Long term (current) use of immunosuppressive biologic; I10 Essential (primary) hypertension; R77.9 Abnormality of plasma protein, unspecified; M45.9 Ankylosing spondylitis of unspecified sites in spine; K52.9 Noninfective gastroenteritis and colitis, unspecified; Z11.1 Encounter for screening for respiratory tuberculosis
CPT/HCPCS: 80053; 80061; 82310; 83970; 84443; 85025; 85651; 86140; 86480

== ENCOUNTER → 2023-10-09 13:29 | Outpatient (CLI) | payer MEDICARE, SELFPAY ==
[2022-08-24 13:15] VITALS: BMI 22.5
[2023-10-09 19:10] LABS: Add Manual Diff / Slide Review NO; Basophils Absolute Auto 0 /uL (0-100); Basophils Percent Auto 0.7 % (0-2); Eosinophils Absolute Auto 300 /uL (0-450); Eosinophils Percent Auto 4.7 % (2-4); Hematocrit 38.6 % (41-53); Hemoglobin 12.9 g/dL (13.5-17.5); Lymphocytes Absolute Auto 2300 /uL (1100-4500); Lymphocytes Percent Auto 34.6 % (25-40); Mean Corpuscular HGB Conc 33.3 % (30-36); Mean Corpuscular Hemoglobin 30.5 PG (26-34); Mean Corpuscular Volume 91.5 fL (80-100); Monocytes Absolute Auto 900 /uL (0-900); Monocytes Percent Auto 12.9 % (3-14); Neutrophils Absolute Auto 3200 /uL (1500-7000); Neutrophils Percent Auto 47.1 % (50-75); Platelet Count 213 X10^3/uL (150-400); Red Blood Cell Count 4.22 X10^6/uL (4.5-5.9); Red Cell Distribution Width 13.6 % (11.6-14.8); White Blood Cell Count 6.7 X10^3/uL (4.5-11.0)
[2023-10-09 19:25] LABS: Alanine Aminotransferase 34 IU/L (<50); Albumin 4.3 g/dL (3.5-5.0); Albumin Globulin Ratio 1.2 (1.0-2.8); Alkaline Phosphatase 46 U/L (38-126); Aspartate Aminotransferase 39 IU/L (17-59); BUN Creatinine Ratio 17.5 (6-22); Bilirubin Total 0.8 mg/dL (0.2-1.3); Blood Urea Nitrogen 18 mg/dL (9-20); C-Reactive Protein Quant < 0.5 mg/dL (<1.0); Calcium 9.4 mg/dL (8.4-10.2); Carbon Dioxide 29 mmol/L (22-32); Chloride 103 mmol/L (98-107); Estimated Glomerular Filt Rate > 60 mL/min (>60); Globulin 3.7 g/dL (1.7-4.1); Glucose 113 mg/dL (80-110); HEMOLYSIS < 15 (0-50); Potassium 4.3 mmol/L (3.4-5.1); Sodium 137 mmol/L (137-145)
[2023-10-09 19:32] LABS: Erythrocyte Sedimentation Rate 25 MM/HR (0-15)
[2023-10-09 19:37] LABS: Hemoglobin A1C% w Est Avg Glu 4.9 % (4.0-6.0)
[2023-10-09 19:50] LABS: TSH w/ Reflex to FT4 1.16 uIU/mL (0.47-4.68)
[2023-10-09 19:52] LABS: Ferritin 49 ng/mL (18-464)
== END ==
PROVIDERS: Family Provider Family Medicine; PCP Family Medicine; Visit Provider Family Medicine
DX: R63.4 Abnormal weight loss (principal); D64.9 Anemia, unspecified; R73.9 Hyperglycemia, unspecified; R77.9 Abnormality of plasma protein, unspecified; R74.01 Elevation of levels of liver transaminase levels; E83.52 Hypercalcemia; I10 Essential (primary) hypertension; M45.9 Ankylosing spondylitis of unspecified sites in spine; Z79.620 Long term (current) use of immunosuppressive biologic
CPT/HCPCS: 80053; 82728; 83036; 84443; 85025; 85651; 86140

== ENCOUNTER → 2024-01-28 13:23 | Outpatient (CLI) | payer MEDICARE, SELFPAY ==
[2022-08-24 13:15] VITALS: BMI 22.5
[2024-01-28 19:22] LABS: Add Manual Diff / Slide Review NO; Basophils Absolute Auto 0 /uL (0-100); Basophils Percent Auto 0.7 % (0-2); Eosinophils Absolute Auto 300 /uL (0-450); Eosinophils Percent Auto 3.8 % (2-4); Hematocrit 39.9 % (41-53); Hemoglobin 13.6 g/dL (13.5-17.5); Lymphocytes Absolute Auto 2600 /uL (1100-4500); Lymphocytes Percent Auto 37.6 % (25-40); Mean Corpuscular HGB Conc 34.1 % (30-36); Monocytes Absolute Auto 600 /uL (0-900); Neutrophils Absolute Auto 3400 /uL (1500-7000); Neutrophils Percent Auto 48.9 % (50-75); Platelet Count 206 X10^3/uL (150-400); Red Blood Cell Count 4.38 X10^6/uL (4.5-5.9); Red Cell Distribution Width 13.7 % (11.6-14.8)
[2024-01-28 19:27] LABS: Alanine Aminotransferase 33 IU/L (<50); Albumin 4.3 g/dL (3.5-5.0); Albumin Globulin Ratio 1.1 (1.0-2.8); Alkaline Phosphatase 51 U/L (38-126); Aspartate Aminotransferase 73 IU/L (17-59); BUN Creatinine Ratio 15.2 (6-22); Bilirubin Total 0.9 mg/dL (0.2-1.3); Blood Urea Nitrogen 15 mg/dL (9-20); C-Reactive Protein Quant < 0.5 mg/dL (<1.0); Calcium 9.2 mg/dL (8.4-10.2); Carbon Dioxide 26 mmol/L (22-32); Chloride 104 mmol/L (98-107); Estimated Glomerular Filt Rate > 60 mL/min (>60); Glucose 108 mg/dL (80-110); HEMOLYSIS 23 (0-50); Potassium 4.2 mmol/L (3.4-5.1); Sodium 137 mmol/L (137-145); Total Protein 8.3 g/dL (6.3-8.2)
[2024-01-28 19:52] LABS: Erythrocyte Sedimentation Rate 24 MM/HR (0-15)
== END ==
PROVIDERS: Family Provider Family Medicine; PCP Family Medicine; Visit Provider Family Medicine
DX: R74.01 Elevation of levels of liver transaminase levels (principal); Z79.620 Long term (current) use of immunosuppressive biologic; E83.52 Hypercalcemia; M45.9 Ankylosing spondylitis of unspecified sites in spine
CPT/HCPCS: 80053; 85025; 85651; 86140

== ENCOUNTER → 2024-05-15 14:27 | Outpatient (CLI) | payer MEDICARE, MEDICAID, SELFPAY ==
[2022-08-24 13:15] VITALS: BMI 22.5
[2024-05-15 20:43] LABS: Add Manual Diff / Slide Review NO; Basophils Absolute Auto 100 /uL (0-100); Basophils Percent Auto 0.9 % (0-2); Eosinophils Absolute Auto 200 /uL (0-450); Eosinophils Percent Auto 3.2 % (2-4); Hematocrit 41.5 % (41-53); Hemoglobin 13.9 g/dL (13.5-17.5); Lymphocytes Absolute Auto 2500 /uL (1100-4500); Lymphocytes Percent Auto 36.9 % (25-40); Mean Corpuscular HGB Conc 33.6 % (30-36); Mean Corpuscular Hemoglobin 30.4 PG (26-34); Mean Corpuscular Volume 90.6 fL (80-100); Monocytes Absolute Auto 700 /uL (0-900); Monocytes Percent Auto 9.7 % (3-14); Neutrophils Absolute Auto 3300 /uL (1500-7000); Neutrophils Percent Auto 49.3 % (50-75); Platelet Count 230 X10^3/uL (150-400); Red Blood Cell Count 4.58 X10^6/uL (4.5-5.9); Red Cell Distribution Width 13.8 % (11.6-14.8); White Blood Cell Count 6.7 X10^3/uL (4.5-11.0)
[2024-05-15 20:44] LABS: Alanine Aminotransferase 34 IU/L (<50); Albumin 4.6 g/dL (3.5-5.0); Albumin Globulin Ratio 1.2 (1.0-2.8); Alkaline Phosphatase 52 U/L (38-126); Aspartate Aminotransferase 42 IU/L (17-59); BUN Creatinine Ratio 13.9 (6-22); Bilirubin Total 0.8 mg/dL (0.2-1.3); Blood Urea Nitrogen 14 mg/dL (9-20); Calcium 9.5 mg/dL (8.4-10.2); Carbon Dioxide 27 mmol/L (22-32); Chloride 102 mmol/L (98-107); Estimated Glomerular Filt Rate > 60 mL/min (>60); Globulin 3.7 g/dL (1.7-4.1); Glucose 101 mg/dL (80-110); HEMOLYSIS < 15 (0-50); Potassium 4.3 mmol/L (3.4-5.1); Sodium 137 mmol/L (137-145); Total Protein 8.3 g/dL (6.3-8.2)
[2024-05-15 20:50] LABS: Hemoglobin A1C% w Est Avg Glu 5.3 % (4.0-6.0)
[2024-05-15 21:20] LABS: Ferritin 36 ng/mL (18-464)
== END ==
PROVIDERS: Family Provider Family Medicine; PCP Family Medicine; Referring Provider Family Medicine; Visit Provider Family Medicine
DX: R79.89 Other specified abnormal findings of blood chemistry (principal); R63.4 Abnormal weight loss; M45.9 Ankylosing spondylitis of unspecified sites in spine; R77.9 Abnormality of plasma protein, unspecified; D64.9 Anemia, unspecified; I10 Essential (primary) hypertension; R93.2 Abnormal findings on diagnostic imaging of liver and biliary tract
CPT/HCPCS: 80053; 80074; 82728; 83036; 83883; 84155; 84165; 85025

== ENCOUNTER → 2024-08-06 13:54 | Outpatient (CLI) | payer MEDICARE, MEDICAID, SELFPAY ==
[2022-08-24 13:15] VITALS: BMI 22.5
[2024-08-06 19:00] LABS: Add Manual Diff / Slide Review NO; Basophils Absolute Auto 0 /uL (0-100); Basophils Percent Auto 0.4 % (0-2); Eosinophils Absolute Auto 300 /uL (0-450); Hematocrit 38.2 % (41-53); Hemoglobin 13.1 g/dL (13.5-17.5); Lymphocytes Absolute Auto 2800 /uL (1100-4500); Lymphocytes Percent Auto 39.9 % (25-40); Mean Corpuscular HGB Conc 34.3 % (30-36); Mean Corpuscular Hemoglobin 31.2 PG (26-34); Mean Corpuscular Volume 90.9 fL (80-100); Monocytes Absolute Auto 700 /uL (0-900); Monocytes Percent Auto 9.3 % (3-14); Neutrophils Absolute Auto 3200 /uL (1500-7000); Neutrophils Percent Auto 46.4 % (50-75); Platelet Count 213 X10^3/uL (150-400); Red Cell Distribution Width 13.8 % (11.6-14.8)
[2024-08-06 19:11] LABS: Alanine Aminotransferase 28 IU/L (<50); Albumin 4.4 g/dL (3.5-5.0); Albumin Globulin Ratio 1.2 (1.0-2.8); Alkaline Phosphatase 50 U/L (38-126); Aspartate Aminotransferase 35 IU/L (17-59); Bilirubin Total 0.7 mg/dL (0.2-1.3); Blood Urea Nitrogen 17 mg/dL (9-20); Calcium 9.4 mg/dL (8.4-10.2); Carbon Dioxide 25 mmol/L (22-32); Chloride 103 mmol/L (98-107); Estimated Glomerular Filt Rate > 60 mL/min (>60); Globulin 3.6 g/dL (1.7-4.1); Glucose 117 mg/dL (80-110); HEMOLYSIS < 15 (0-50); Potassium 4.4 mmol/L (3.4-5.1); Sodium 136 mmol/L (137-145)
[2024-08-06 19:45] LABS: Prostate Specific Antigen Scrn 1.26 ng/mL (0.1-4.0)
[2024-08-06 19:48] LABS: Ferritin 29 ng/mL (18-464)
== END ==
PROVIDERS: Family Provider Family Medicine; PCP Family Medicine; Visit Provider Family Medicine
DX: Z12.5 Encounter for screening for malignant neoplasm of prostate (principal); R79.89 Other specified abnormal findings of blood chemistry; I10 Essential (primary) hypertension; M45.9 Ankylosing spondylitis of unspecified sites in spine; Z79.620 Long term (current) use of immunosuppressive biologic
CPT/HCPCS: 80053; 82728; 85025; G0103

== ENCOUNTER 2024-08-13 09:12 | Day surgery (SDC) | payer MEDICARE, MEDICAID, SELFPAY ==
[2022-08-24 13:15] VITALS: BMI 22.5
--- NOTE | 2024-08-13 | PATH_ITS ---
[facility] Accession Number: [id number] No. of containers..01 Tissue . 01 Material submitted: . colon - CECUM BIOPSY . 01 Diagnosis: CECUM BIOPSY: Colonic mucosa with no diagnostic alterations. No active inflammation, granulomas, dysplasia, or malignancy identified. No evidence of colitis. . . Specimen Comments: Additional step sections were examined. [facility] 08/18/2024 1218 Local . 01 Electronically signed: . Awais Cardona MD, Pathologist NPI- [id number] . 01 Gross description: . CECUM BIOPSY: Received in formalin are 2 fragment(s) of arrigaa, soft tissue measuring 0.2 x 0.2 x 0.1 cm to 0.3 x 0.3 x 0.1 cm submitted entirely in 1 cassette(s) /WILLIAM 08/18/2024 1218 Local . 01 Pathologist provided ICD-10: Z12.11 . 01 CPT . 219364 Specimen Comment: A courtesy copy of this report has been sent to [phone] Performed at: [address] [facility] [address], [place], [place] [id number] MD Awais Cardona MD Phone: [phone]
--- NOTE | 2024-08-13 10:58 | P.HP_ITS ---
History of Present Illness History of Present Illness Date Patient Seen: 08/13/24 Chief complaint: SDC Narrative: For screening colonoscopy. Of note patient does have a history of colon resection for perforation probably from diverticulitis [facility] Medical History (Updated 08/12/24 @ 16:05 by Leydi Suazo MD) Skin cancer of face Prostate cancer screening declined History of sepsis Pneumaturia Sepsis secondary to UTI BPH (benign prostatic hyperplasia) Chronic, continuous use of opioids Unspecified inflammatory spondylopathy, site unspecified Other seborrheic keratosis Other fatigue Colovesical fistula Diabetes mellitus type 2 in nonobese Thrombocytopenia Insomnia Immunocompromised state Dental caries Stupor Paroxysmal atrial fibrillation Septic shock Sepsis Ankylosing spondylitis HTN (hypertension) Santacruz's palsy Chronic pain Meningitis Skin cancer Surgical History S/P laparoscopic-assisted sigmoidectomy (10/11/18) History of tonsillectomy Family History Mother No problems noted. Father No problems noted. Social History household members: none Smoking Status: Never smoker alcohol intake: former Meds Home Medications and Allergies Home Medications Medication Instructions Recorded Confirmed Type cyanocobalamin (vitamin B-12) 100 100 mcg PO DAILY 08/23/18 08/12/24 History mcg tablet pyridoxine (vitamin B6) 25 mg 1 tab PO DAILY 08/23/18 08/12/24 History tablet (Vitamin B-6) ginkgo biloba 40 mg capsule 40 mg PO BID 09/26/18 08/12/24 History cyclobenzaprine 5 mg tablet See Rx Instructions PO BEDTIME for 07/02/23 08/12/24 Rx trouble sleeping/muscle spasm #60 tabs lisinopril 40 mg tablet 40 mg PO DAILY For blood pressure. 05/20/24 08/12/24 Rx Take every day even if normal #90 tabs Humira(CF) 40 mg/0.4 mL 40 mg (0.4 mL) SUBCUT Q2W 07/08/24 08/12/24 Rx subcutaneous syringe kit ankylosing spondylitis #2 ea (adalimumab) oxycodone 5 mg tablet 5 mg PO Q4-6H pain #150 tabs 07/18/24 08/12/24 Rx tamsulosin 0.4 mg capsule 0.4 mg PO DAILY prostate #90 caps 08/11/24 08/12/24 Rx Allergies Allergy/AdvReac Type Severity Reaction Status Date / Time aspirin AdvReac Intermediate bleeding Verified 08/12/24 15:11 ibuprofen AdvReac Intermediate stomach Verified 08/12/24 15:11 pain Exam Narrative Exam Narrative: Oropharynx free of lesions Chest clear to auscultation percussion Cardiac exam reveals no S3 or murmur Assessment & Plan Assessment & Plan narrative: For screening colonoscopy. Risks, benefits, alternatives have been explained Time-Based Coding :: [TOTAL MINUTES] spent with patient and on the chart (including review of chart, obtaining history, exam, reviewing outside data, placing orders, documenting exam and treatment plan, and counseling patient) on [DATE]. [employer] Director Document charge(s): No
[2024-08-13 10:59] VITALS: BP 162/85; PULSE 83; RESP 18; TEMP 36.1; O2SAT 99
--- NOTE | 2024-08-13 10:59 | PM.OP.COLON ---
Operative Date/Time/Diagnoses Date of procedure: 08/13/24 Pre-op diagnosis: See indication and findings Procedure & Clinicians Study performed: Colonoscopy Same procedure as scheduled: Yes Indications: Screening Surgeon: Viki Capps Procedure Notes Procedure in detail: After informed consent was obtained the patient was placed in left lateral decubitus position. The video colonoscope was introduced the rectum slowly advanced cecum. Preparation was good. On slow withdrawal mucosa was carefully examined. The scope was removed. Patient tolerated the procedure well. Blood loss none Complications none Sedation mac Findings 1. Edematous and somewhat lumpy mucosa in the cecum biopsies taken to rule out adenoma though doubtful 2. 8 mm polyp at 30 cm cold snared and removed. Polyp was lost however. 3. Less than perfect preparation with some semi solid stool present even though primarily liquid. He should have follow-up colonoscopy in 1-3 years.
[2024-08-13] MEDS: LACTATED RINGERS 1,000 ML 42 ML IV (11:11)
[2024-08-13 11:50] VITALS: BP 81/52; PULSE 72; RESP 16; TEMP 36.7; O2SAT 95
[2024-08-13 11:55] VITALS: BP 86/52; PULSE 66; RESP 16; O2SAT 95
[2024-08-13 12:00] VITALS: BP 87/62; PULSE 83; RESP 16; O2SAT 94
[2024-08-13 12:03] VITALS: BP 98/62; PULSE 64; RESP 18; O2SAT 97
[2024-08-13 12:05] VITALS: BP 106/67; PULSE 66; RESP 18; O2SAT 98
== END 2024-08-13 12:36 | disposition home or self-care (01) ==
PROVIDERS: Family Provider Family Medicine; PCP Family Medicine; Referring Provider Internal Medicine Gastroenterology; Visit Provider Internal Medicine Gastroenterology
PROC: 0DJD8ZZ Inspection of Lower Intestinal Tract, Via Natural or Artificial Opening Endoscopic (ICD-10-PCS; CPT 45378; principal; 2024-08-13 11:00)
DX: Z12.11 Encounter for screening for malignant neoplasm of colon (principal)
CPT/HCPCS: 45385; J2704

== ENCOUNTER → 2024-12-04 13:01 | Outpatient (CLI) | payer MEDICARE, MEDICAID, SELFPAY ==
[2022-08-24 13:15] VITALS: BMI 22.5
[2024-12-04 19:22] LABS: Add Manual Diff / Slide Review NO; Hematocrit 37.2 % (41-53); Hemoglobin 12.7 g/dL (13.5-17.5); Lymphocytes Absolute Auto 2100 /uL (1100-4500); Mean Corpuscular HGB Conc 34.2 % (30-36); Mean Corpuscular Hemoglobin 31.3 PG (26-34); Mean Corpuscular Volume 91.5 fL (80-100); Platelet Count 203 X10^3/uL (150-400)
[2024-12-04 19:29] LABS: HEMOLYSIS 16 (0-50); Iron 93 ug/dL (49-181)
[2024-12-04 19:34] LABS: Alanine Aminotransferase 34 IU/L (<50); Albumin 4.4 g/dL (3.5-5.0); Albumin Globulin Ratio 1.2 (1.0-2.8); Alkaline Phosphatase 45 U/L (38-126); Blood Urea Nitrogen 18 mg/dL (9-20); Calcium 9.4 mg/dL (8.4-10.2); Carbon Dioxide 22 mmol/L (22-32); Chloride 105 mmol/L (98-107); Estimated Glomerular Filt Rate > 60 mL/min (>60); Globulin 3.7 g/dL (1.7-4.1); Glucose 96 mg/dL (70-99); HEMOLYSIS < 15 (0-50); Potassium 4.6 mmol/L (3.4-5.1); Sodium 137 mmol/L (137-145); Total Protein 8.1 g/dL (6.3-8.2)
[2024-12-04 19:42] LABS: Percent Iron Saturation 29 % (20-50); Total Iron Binding Capacity 326 ug/dL (261-462); Transferrin 272 mg/dL (206-381)
[2024-12-04 20:02] LABS: Thyroid Stimulating Hormone 1.11 uIU/mL (0.47-4.68)
[2024-12-04 20:07] LABS: Ferritin 28 ng/mL (18-464)
== END ==
PROVIDERS: PCP Family Medicine; Visit Provider Family Medicine
DX: D64.9 Anemia, unspecified (principal); R74.01 Elevation of levels of liver transaminase levels; E83.52 Hypercalcemia; M45.9 Ankylosing spondylitis of unspecified sites in spine; R63.4 Abnormal weight loss; I10 Essential (primary) hypertension
CPT/HCPCS: 80053; 82728; 83540; 83550; 84443; 85025; 85651; 86140

== ENCOUNTER → 2025-03-02 13:30 | Outpatient (CLI) | payer MEDICARE, MEDICAID, SELFPAY ==
[2024-12-12 16:07] VITALS: BMI 22.5
[2025-03-02 18:51] LABS: Add Manual Diff / Slide Review NO; Hematocrit 37.0 % (41-53); Hemoglobin 12.5 g/dL (13.5-17.5); Lymphocytes Absolute Auto 2100 /uL (1100-4500); Mean Corpuscular HGB Conc 33.9 % (30-36); Mean Corpuscular Hemoglobin 30.5 PG (26-34); Mean Corpuscular Volume 90.1 fL (80-100); Platelet Count 233 X10^3/uL (150-400)
[2025-03-02 18:52] LABS: Reticulocyte Count, Percent 0.6 % (0.9-2.6)
[2025-03-02 19:03] LABS: Alanine Aminotransferase 27 IU/L (<50); Albumin 4.2 g/dL (3.5-5.0); Albumin Globulin Ratio 1.1 (1.0-2.8); Alkaline Phosphatase 46 U/L (38-126); Blood Urea Nitrogen 19 mg/dL (9-20); Calcium 9.2 mg/dL (8.4-10.2); Carbon Dioxide 26 mmol/L (22-32); Chloride 103 mmol/L (98-107); Estimated Glomerular Filt Rate > 60 mL/min (>60); Globulin 3.7 g/dL (1.7-4.1); Glucose 123 mg/dL (70-99); HEMOLYSIS < 15 (0-50); Potassium 4.3 mmol/L (3.4-5.1); Sodium 137 mmol/L (137-145); Total Protein 7.9 g/dL (6.3-8.2)
[2025-03-02 19:37] LABS: Ferritin 21 ng/mL (18-464)
[2025-03-02 20:10] LABS: Folate > 20.0 ng/mL (2.76-20.0); Vitamin B12 913 pg/mL (239-931)
== END ==
PROVIDERS: PCP Family Medicine; Visit Provider Family Medicine
DX: D64.9 Anemia, unspecified (principal); I10 Essential (primary) hypertension; M45.0 Ankylosing spondylitis of multiple sites in spine; Z79.620 Long term (current) use of immunosuppressive biologic
CPT/HCPCS: 80053; 82607; 82728; 82746; 85025; 85045; 85651